=== PATIENT | female | born 1935 | race Caucasian/White ===

== ENCOUNTER 2019-08-22 05:31 | Outpatient (RCR) | payer MEDICARE, OTHER, SELFPAY | END 2019-08-23 00:01 | LOC: ONCMED 05:31 | PROVIDERS: Family Provider Family Medicine; Visit Provider Internal Medicine Hematology & Oncology | DX: D69.6 Thrombocytopenia, unspecified (principal); D64.9 Anemia, unspecified; K92.0 Hematemesis; Z79.52 Long term (current) use of systemic steroids; Z79.899 Other long term (current) drug therapy ==

== ENCOUNTER 2019-09-02 07:57 | Outpatient (RCR) | payer MEDICARE, OTHER, SELFPAY ==
[2019-08-25] MEDS: acetaminophen 325 mg Tablet 650 MG PO ×2 (09:15→12:54)
[2019-08-25 09:39] LABS: Eosinophils % 0.3 %; Hematocrit 23.3 % (37.0-47.0); Hemoglobin 7.4 g/dL (11.5-15.3); Lymphocytes # 1.6 10^3/uL (0.8-4.8); Lymphocytes % 48.4 %; Mean Corpuscular HGB Conc 31.8 g/dL (30.0-36.0); Mean Corpuscular Hemoglobin 32.7 pg (28.0-34.0); Mean Corpuscular Volume 103.1 fL (81-99); Mean Platelet Volume 12.3 fL (7.4-10.4); Monocytes # 0.3 10^3/uL (0.2-0.9); Monocytes % 8.1 %; Neutrophils # 1.4 10^3/uL (1.8-7.7); Neutrophils % 42.9 %; Nucleated Red Blood Cells % 0 %; Red Blood Count 2.26 10^6/uL (4.1-5.3); Red Cell Distribution Width 20.2 % (12.1-15.1); White Blood Count 3.2 10^3/uL (4.0-10.0)
[2019-08-25 09:52] LABS: Platelet Count 13 10^3/cmm (130-400)
[2019-08-25 10:01] LABS: Add RBC Morph No
[2019-08-25 12:20] VITALS: RESP 18
[2019-08-25] MEDS: meperidine 50 mg/mL INJ 25 MG IV (12:20)
[2019-08-25 14:15] VITALS: BP 105/64; PULSE 72; RESP 18; TEMP 36.6; O2SAT 96
[2019-08-25] MEDS: diphenhydrAMINE 25 mg Capsule PO (15:43)
[2019-08-25 15:55] VITALS: BP 104/50; PULSE 73; RESP 18; TEMP 36.8; O2SAT 93
[2019-08-25 16:10] VITALS: BP 113/53; PULSE 81; RESP 18; TEMP 36.8; O2SAT 95
--- NOTE | 2019-08-25 16:26 | PC.NURSE ---
PT GIVEN PLATELET TRANSFUSION THROUGH IV TO LEFT WRIST 22G, FREE FLOW OVER 15MIN, PT ASYMPTOMATIC AND TOLERATED WELL.
[2019-08-26] VITALS (11 sets, daily range): BP systolic 94–156; BP diastolic 59–77; PULSE 65–88; RESP 18–188; TEMP 36.2–36.9; O2SAT 95–99
[2019-08-26 13:39] LABS: Albumin Level 3.8 g/dL (3.5-5.2); Alkaline Phosphatase 151 IU/L (35-105); Anion Gap 18.2 (5-19); Blood Urea Nitrogen 28 mg/dL (8-23); Calcium 9.2 mg/Dl (8.8-10.2); Carbon Dioxide 21 mmol/L (22-29); Chloride 106 mmol/L (98-107); Globulin 2.7 g/dL (1.3-4.6); Glucose 147 mg/dL (74-106); Potassium 4.2 mmol/L (3.5-5.1); Sodium 141 mmol/L (136-145); Total Bilirubin 0.8 mg/dL (0.15-1.2); Total Protein 6.5 g/dL (6.6-8.7)
[2019-08-26 13:40] LABS: Alanine Aminotransferase 21 U/L (0-33); Aspartate Amino Transferase 25 U/L (0-32)
[2019-09-01 12:25] LABS: Hematocrit 31.4 % (37.0-47.0); Lymphocytes # 1.1 10^3/uL (0.8-4.8); Lymphocytes % 53.5 %; Mean Corpuscular HGB Conc 31.8 g/dL (30.0-36.0); Mean Corpuscular Hemoglobin 29.5 pg (28.0-34.0); Mean Corpuscular Volume 92.6 fL (81-99); Mean Platelet Volume 9.7 fL (7.4-10.4); Monocytes # 0.1 10^3/uL (0.2-0.9); Monocytes % 6.9 %; Neutrophils % 38.1 %; Nucleated Red Blood Cells % 0 %; Red Blood Count 3.39 10^6/uL (4.1-5.3); Red Cell Distribution Width 17.6 % (12.1-15.1)
[2019-09-01 12:31] LABS: Neutrophils # 0.8 10^3/uL (1.8-7.7); Platelet Count 7 10^3/cmm (130-400)
[2019-09-02] MEDS: acetaminophen 325 mg Tablet 650 MG PO ×2 (08:12→12:10)
[2019-09-02] MEDS: sodium chloride 0.9% 500 ML 75 ML IV (08:59)
[2019-09-02] MEDS: diphenhydrAMINE 25 mg Capsule PO (12:10)
[2019-09-02 12:17] VITALS: BP 127/70; PULSE 77; RESP 17; TEMP 36.8; O2SAT 98
[2019-09-02 12:27] VITALS: BP 124/67; PULSE 75; RESP 17; TEMP 36.7; O2SAT 97
[2019-09-02 12:30] VITALS: BP 124/67; PULSE 75; RESP 17; TEMP 36.7; O2SAT 97
--- NOTE | 2019-09-05 12:05 | ONC FU_ITS ---
Jayy Roe Patient Note Patient: Azul Mg Unit #: [id number]: [id number] Dictated By: Walt CasasDate of Visit: Sep 01, 2019 Onc MED Follow-Up/Prog Note Chief Complaint: Thrombocytopenia/anemia History of Present Illness: Mrs. Mg is a 84-year-old female who was admitted to hospital in the last week of March 2019 with hematemesis at that time she was diagnosed with gastric ulcer and was started on Dexilant ,, not sure whether EGD was done but had CT scan of abdomen done. As per patient she did not receive any transfusion and no history of blood transfusion in the past but when she was she was prescribed Geritol for anemia. She has history of EGD and colonoscopy done in 2013 in [facility], as per patient was unremarkable and she was told, considering her age she would not require any more follow-up colonoscopy or EGD. Patient also had injection in her right hip for sciatica. Patient has no history of thrombocytopenia except recently on 05/10/2019 her CBC showed white blood count 4.3 hemoglobin 10.6 crit 30.9 platelets [id number], at that time her primary care physician discontinued her losartan considering the cause of thrombocytopenia. Patient denies any gross bleeding but long scratch lester on inner side of arms bilaterally due to scratching and ecchymosis on the left arm, otherwise no melena or hematochezia, no dysuria, no hematuria, no hemoptysis or hematemesis, no nosebleed of them., No jaundice. Patient was admitted hospital on 07/06/2019 with nosebleed and her initial lab shows severe thrombocytopenia she was given platelets transfusion and was started on prednisone 1 mg/kg with that on 07/07/2019 her platelet count gone up to 140,000 hemoglobin 9 hematocrit 27.4 MCV 100.7 white blood count 4.9 and she was discharged home on a tapering dose of prednisone 50 mg by mouth daily for 5 days then 40 mg daily for 5 days and so onAnd once prednisone tapered of her platelet count continued to improve and on 08/02/2019 her platelet count was 137,000 patient was scheduled for bone marrow evaluation on 08/11/2019. Bone marrow aspiration was attempted once, it was a dry tap. But procedure was abandoned as CBC done that day showed platelet count dropped down to 4000 and there was increased risk for hematoma so no further attempts were made to obtain marrow . Patient was given a unit of platelets transfusion and started on prednisone 1 mg/kg and she was monitored per post procedure protocol.Patient came back to clinic on 08/18/2019 and her CBC showed platelet count 15,000 and that time she was given units of platelet transfusion and also discuss about role of Rituxan and hepatitis profile was checked showed no evidence of hepatitis. Patient was started on tapering dose of prednisone. 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 She did experience infusion reaction with tremors, chills, mildly elevated temp. These symptoms were controlled with Solumedrol and Demerol. She recovered well. She is here today for followup. She has no new concerns. She denies any bleeding, fever or chills. She has been staying in the intermediate with her . She states she is eating good and denies any new pain. She denies diarrhea or constipation at this time. she has had no bladder concerns. She denies any shortness of breath or lower extremity edema. Her ECOG is 1. ^ Past Medical History: Benign positional vertigo Hypertension Osteopenia Spinal enethesopathy of lumbar region Past Surgical History: Cataract excision Allergies: Codeine Sulfate, Gabapentin, Pantoprazole Sodium, and Penicillins. Medications: buPROPion HCl ER (SR) 1 (150 mg) Tablet SR 12 HR Oral daily Calcitonin (Frederic) (200 Units/act) Solution Nasal Take as Directed Calcium + D 1 Tablet Oral daily Meclizine HCl 1 Tablet (of 25 mg) Oral daily metFORMIN HCl 1 Tablet (of 500 mg) Oral daily Multivitamin Adults 1 Tablet Oral daily Ondansetron HCl (4 mg) Tablet Oral Take as Directed Pantoprazole Sodium 1 (40 mg) Tablet, enteric coated Oral b.i.d. Family History: Ms. Mg's mother at age 56: breast cancer. Ms. Mg's father at age 77: respiratory failure. Ms. Mg has 1 sister who is alive: ovarian cancer. Social History: Ms. Mg is and she is retired. Ms. Mg has never smoked. She has no history of drinking. Ms. Mg reports the following support systems: lives with spouse, significant other, family, or friends, lives in own house, supportive family/friends willing to assist with needs, and adequate transportation available for expected visits. Her diet consists of regular meals. She indicates her activity level as: light exercise. Review Of Symptoms: Constitutional Denies fevers, chills, night sweats, excessive fatigue or weight loss. Allergic/Immunologic No reactions. Eyes Denies significant visual changes. No diplopia. No amaurosis. ENMT Denies changes in hearing, sore throat, mouth sores, difficulty or changes in swallowing ability, and/or sinus drainage. Hematologic/Lymphatic Denies easy bruising or bleeding. The patient denies any tender or palpable lymph nodes. Breasts Respiratory Denies dyspnea on exertion, chest pain, cough or hemoptysis. Denies orthopnea. Cardiovascular Denies anginal chest pain, palpitations or orthopnea. Gastrointestinal Denies nausea, vomiting, diarrhea, GI bleeding, or constipation. Denies change in bowel habits and/or stool color, no heartburn or early satiety. Genitourinary (F) No hematuria, hesitancy, incontinence, vaginal bleeding, discharge or other problems with urination. Musculoskeletal Denies joint pain, swelling or redness. No decreased range of motion. Integumentary Denies chronic rashes, inflammation, ulcerations or skin changes. Neurologic Denies headache, blurred vision, and no areas of focal weakness or numbness. Normal gait. No sensory problems. Psychiatric Denies insomnia, depression, oh or mood swings. Vital Signs: Performed on Sep 01, 2019 13:37 Height - 61.00 in Weight - 160.0 lbs (LOW) BSA - 1.72 sq.m BMI - 30.23 (HIGH) Temperature - 97.7 F (LOW) Pulse - 82 /min Respiration - 24 /min BP - 189/72 mm(hg) (HIGH) O2 Sat - 94 % (LOW) Pain - 0,2 - Ambulatory/capable of all self-care, unable to perform any work activities. Up and about more than 50% of waking hours. (ECOG) Physical Examination: Constitutional Alert, oriented, no acute distress. Skin pink, warm and dry. Head Normocephalic; atraumatic. Eyes Conjunctivae and sclerae are clear and without icterus. Pupils are reactive and equal. ENMT No oral exudates, ulcers, masses, thrush or mucositis. Oropharynx clear. Tongue normal. Neck Supple without masses or thyromegaly. No jugular venous distension. Hematologic/Lymphatic No petechiae or purpura. No tender or palpable lymph nodes in the cervical or supraclavicular areas. Respiratory Lungs are clear to auscultation without rhonchi or wheezing. Cardiovascular Regular rate and rhythm of heart without murmurs,clicks, gallops or rubs. Abdomen Non-tender, non-distended, no masses or ascites. Good bowel sounds noted in all quads. No guarding or rebound tenderness. No pulsatile masses. Back/Spine Non-tender to palpation. Extremities No visible deformities, no cyanosis, clubbing or edema. Musculoskeletal No tenderness or swelling, normal range of motion without obvious weakness. Integumentary No rashes or lesions. Neurologic No sensory or motor deficits, normal cerebellar function, normal gait. Psychiatric Alert and oriented times three. Coherent speech. Verbalizes understanding of our discussions today. Laboratory:Test performed on Sep 01, 2019 11:55 WBC 2.0 10^9/L RBC 3.39 10^12/L HGB 10.0 g/dL HCT 31.4 % MCV 92.6 fl MCH 29.5 pg MCHC 31.8 g/dL RDW 17.6 % Platelet Count 7 10^9/L MPV 9.7 fL Neutrophils (Gran) 0.8 10^9/L Lymphocytes 1.1 10^9/L Monocytes 0.1 10^9/L Eosinophils 0.0 10^9/L Basophils 0.0 10^9/L Manual Lymphocytes 53.5 % Manual Monocytes 6.9 % Manual Eosinophils 1.0 % Manual Basophils 0.0 % NRBCs 0.0 /100 WBC Test performed on Aug 18, 2019 10:45 Platelet Pheresis, Leukored TRANSFUSED PRODUCT: LEUKRD/PLAT PHERESIS 1ST CONT COUNT: 1 ABO & Rh Type BLD TYPE O POSITIVE BLD TYPE O POSITIVE Hepatitis A Ab, IgM Non- Reactive Hepatitis B Core Ab, Total Non-Reactive Hepatitis B Surf Antigen Non-Reactive Hepatitis B Surface Ab < 3.5 STATUS of IMMUINITY Inconsistent with Immunity 0.0 - 8.5 mIU/mL Consistent with Immunity >8.5 mIU/mL Hepatitis C Ab Non-Reactive Test performed on Aug 18, 2019 07:49 Sodium 143 mmol/L Potassium 4.5 mmol/L Chloride 105 mmol/L CO2 23 mmol/L Anion Gap 19.5 BUN 35 mg/dL Creatinine 1.4 mg/dL Cr Clearance (Est) 35.14 mL/min Glucose 159 mg/dl Protein, Total 7.4 g/dL Albumin 4.6 g/dL Globulin 2.8 gm/dL Bilirubin, Total 0.4 mg/dL ALT (SGPT) 22 U/L AST (SGOT) 18 U/L Alkaline Phosphatase 171 U/L Test performed on Aug 03, 2019 11:40 Packed Red Cells (PRBC) [id number] TRANSFUSED PRODUCT: LEUKOREDUCED RED CELL 1ST CONT COUNT: 2 Type & Screen BLD TYPE O POSITIVE AB SCREEN GEL NEGATIVE BLD TYPE O POSITIVE AB SCREEN GEL NEGATIVE Impression: Progressive Thrombocytopenia, etiology unclear could be multifactorial including underlying ITP, considering her age underlying myelodysplasia cannot be ruled out or medication related, patient is off NINA inhibitor e.g. losartan. Anemia, macrocytic could be nutritional e.g. B12 deficiency or folate deficiency or increased reticulocyte count due to recent hematemesis. Per Dr De La Cruz, this patient is doing well with no evidence of gross bleeding. Follow-up lab shows persistent severe thrombocytopenia despite repeated platelet transfusion and tapering dose of prednisone. Dr De La Cruz recommended weekly Rituxan ???4 while continue taper off prednisone. She will have transfusion services if her platelet count is less than 20,000 then will consider platelet transfusion and for hemoglobin if below 8 g then will consider blood transfusion. Mrs Mg began her first dose of Rituxan on 08/25/2019. She did have transfusion services on the 2nd for a HGB of 7.4. She did have infusion reaction to the Rituxan which resolved with additional premeds and Solumedrol. Plan: 1. 1. Proceed with week 2/4 of planned Rituxan at same dosing. She will actually receive the Rituxan tomorrow as it was not scheduled for today and is too late in the day to start the right toxin especially after she required 6+ hours for infusion last week. She will also have platelets tomorrow. 2. We will add Solu-Medrol to premeds. 3. She will need 1 unit of platelet pheresis YESENIA for platelet count of 7000. Labs from today were reviewed in detail discussed with Mrs. Mg and her sister and a copy was given to her. WBC is 2.0, hemoglobin 10.0, platelets 7000, ANC is 800. 4. She does not need transfusion services for packed red blood cells as her hemoglobin today is 10.0. 5. Neutropenic precautions were discussed as her ANC is 800. 6. We will plan to recheck her labs with CBC CMP and type and ask on Thursday of next week and have her return next for week 3/4 Rituxan. 7. Mrs. Mg was instructed to contact us in interim should questions or problems arise. Signed By: Walt Casas-, [facility] Catherine De La Cruz MD <<Signature on File>>
[2019-09-07 14:47] LABS: Hematocrit 27.2 % (37.0-47.0); Hemoglobin 8.8 g/dL (11.5-15.3); Lymphocytes # 0.6 10^3/uL (0.8-4.8); Mean Corpuscular HGB Conc 32.4 g/dL (30.0-36.0); Mean Corpuscular Hemoglobin 29.2 pg (28.0-34.0); Mean Corpuscular Volume 90.4 fL (81-99); Mean Platelet Volume 12.2 fL (7.4-10.4); Monocytes # 0.2 10^3/uL (0.2-0.9); Monocytes % 8.1 %; Neutrophils # 1.2 10^3/uL (1.8-7.7); Neutrophils % 58.9 %; Nucleated Red Blood Cells % 0 %; Red Blood Count 3.01 10^6/uL (4.1-5.3); Red Cell Distribution Width 17.7 % (12.1-15.1)
[2019-09-07 15:15] LABS: Platelet Count 24 10^3/cmm (130-400); Slide Review Slide Review Perform
[2019-09-07 15:16] LABS: Alanine Aminotransferase 15 U/L (0-33); Albumin Level 3.7 g/dL (3.5-5.2); Alkaline Phosphatase 113 IU/L (35-105); Anion Gap 18.3 (5-19); Aspartate Amino Transferase 16 U/L (0-32); Blood Urea Nitrogen 20 mg/dL (8-23); Carbon Dioxide 22 mmol/L (22-29); Chloride 100 mmol/L (98-107); Globulin 2.9 g/dL (1.3-4.6); Glucose 141 mg/dL (74-106); Potassium 4.3 mmol/L (3.5-5.1); Sodium 136 mmol/L (136-145); Total Bilirubin 0.7 mg/dL (0.15-1.2); Total Protein 6.6 g/dL (6.6-8.7)
== END 2019-09-02 23:59 | disposition home or self-care (01) ==
LOC: ONCMED 07:57
PROVIDERS: Internal Medicine Medical Oncology; Family Provider Family Medicine; PCP Family Medicine; Visit Provider Nurse Practitioner
DX: D69.3 Immune thrombocytopenic purpura (principal); I10 Essential (primary) hypertension; M85.80 Other specified disorders of bone density and structure, unspecified site
CPT/HCPCS: 36430; 80053; 85025; 86850; 86900; 96367; 96375; 96413; 96415; 99214; J1200; J2175; J2405; J2930; J7040; J9312; P9016

== ENCOUNTER 2019-09-07 12:38 | Inpatient (IN) | payer MEDICARE, OTHER, SELFPAY ==
[2019-09-07 12:39] VITALS: BP 127/62; RESP 16; TEMP 38.1; O2SAT 97; BMI 30.4
--- NOTE | 2019-09-07 12:43 | ED_ITS ---
Entered by Lenore Stokes, acting as scribe for HPI - Abdominal Pain General: Chief Complaint: Abdominal Pain Stated Complaint: abdominal pain Time Seen by Provider: 09/07/19 12:42 Source: patient Mode of arrival: EMS Limitations: no limitations History of Present Illness: HPI narrative: 84 yo Female presents to ED with complaint of lower abdominal pain since yesterday. Pt states that EMS gave her a tablet and her stomach feels better. Pt states that she threw up once and it was clear. Pt has had no diarrhea. Pt states that she might need fluids or platelets . MD elicited complaint: abdominal pain Pertinent past history: none Onset (ago): day(s) Pain Consistency: constant Location: RLQ and LLQ Pain scale (0-10): 0 Radiation: none Migration to: no migration Exacerbating factors: nothing Relieving factors: medication Associated Symptoms: Reports nausea and vomiting; Denies chills, diarrhea, dysuria, fever(s), hematuria and syncope Treatments prior to arrival: other Review of Systems General: Reports: other (negative unless marked) Const: Denies: fever, chills, body aches, fatigue, malaise or diaphoresis Eyes: Denies: change in vision or blurry vision ENMT: Denies: throat pain, painful swallowing, hoarseness, ear pain, ear discharge, Change in hearing or nasal discharge Card: Denies: chest pain, palpitations, irregular heart rhythm, syncope, pre- syncope, shortness of breath on exertion or shortness of breath when lying down Resp: Denies: shortness of breath, productive cough, non-productive cough, wheezing, coughing up blood or chest congestion GI: Reports: nausea and vomiting; Denies: diarrhea : Denies: flank pain, painful urination, urinary frequency, urinary urgency, decreased urine ouput, urinary incontinence or blood in urine Musc: Denies: neck pain, back pain, extremity pain, extremity swelling, joint pain, joint swelling, joint warmth or joint stiffness Skin/Breast: Denies: rash, skin tenderness or yellow skin Neuro: Denies: headache, numbness in extremities, weakness in extremities, changes in sensation, lack of coordination, difficulty walking, dizziness, vertigo or confusion Endo: Denies: excessive thirst, tired all the time, cold intolerance, excessive sweating, flushing or hot flashes Emiliano/Lymph: Denies: easy bruising, easy bleeding, petechiae or enlarged lymph nodes All/Imm: Denies: hives, throat swelling, tongue swelling, facial swelling or acute wheezing PFSH ED PFSH: Statuses (acute, chronic, etc) shown below reflect problem list status as previously entered and may not be historically accurate Medical History Epistaxis (Acute) Osteoporosis (Acute) Peptic ulcer disease (Acute) Thrombocytopenia (Acute) UTI (urinary tract infection) (Acute) Surgical History History of cataract surgery (Acute) Social History Smoking and tobacco status: never smoked Physical Exam Const: COMMON NORMALS: no apparent distress, oriented x3, no limitations, healthy appearing and well nourished EXAM LIMITATIONS: no altered mental status GENERAL APPEARANCE: cooperative, well kempt and well developed ORIENTATION/CONSCIOUSNESS: Yes awake HENMT: COMMON NORMALS: normocephalic, head/scalp atraumatic, hearing grossly normal bilaterally, external ears normal, EAC's normal, external nose normal and moist oral mucous membranes HEAD & SCALP: normal to inspection, normocephalic and atraumatic FACE & SINUS: normal facial exam and face symmetric NOSE: external nose normal and nares normal EXTERNAL EAR: Yes external ears normal EXTERNAL AUDITORY CANAL: EAC's normal MOUTH: oral and palatal mucosa normal and tongue normal Eye: COMMON NORMALS: PERRL, EOMs intact bilaterally, conjunctivae normal and no scleral icterus GENERAL EYE: normal appearance of both eyes and normal light reflex CONJUNCTIVA: Yes conjunctivae normal SCLERA: sclerae normal CORNEA: Yes corneas normal PUPIL: Yes PERRL DIRECT OPHTHALMOSCOPY: Yes normal light reflex Neck/C-Spine: COMMON NORMALS: full ROM, no lymphadenopathy, supple, no meningeal signs and no JVD GENERAL: Yes normal visual inspection and Yes trachea midline CERVICAL SPINE: Yes cervical ROM normal Chest: COMMONS NORMALS: inspection of chest normal and palpation of chest normal Resp: COMMON NORMALS: normal respiratory effort, no retractions, no use of accessory muscles and clear to auscultation bilaterally EFFORT & INSPECTION: Yes able to speak in complete sentences AUSCULTATION: clear to auscultation bilaterally Cardio: COMMON NORMALS: no JVD, regular rate, regular rhythm, S1 normal heart sound, S2 normal heart sound, no gallops, no clicks, no murmurs and no rub JUGULAR VENOUS DISTENTION: no JVD RATE: regular rate RHYTHM: regular rhythm HEART SOUNDS: S1 normal and S2 normal GI: COMMON NORMALS: soft to palpation, non-tender, no hepatosplenomegaly and no masses INSPECTION: Yes normal to inspection PALPATION: Yes soft and Yes no hepatosplenomegaly : COMMON NORMALS: Yes no CVA tenderness BLADDER/KIDNEY EXAM: Yes no CVA tenderness Back/Pelvis: COMMON NORMALS: no CVA tenderness, thoracic and lumbar spine normal to inspection, no thoracic nor lumbar tenderness and thoraco-lumbar ROM normal Extremity: COMMON NORMALS: normal to inspection, full ROM, normal capillary refill, no joint enlargement, no clubbing, cyanosis or edema and no calf tenderness Neuro: COMMON NORMALS: oriented x3, CN's II-XII intact bilaterally, moves all extremities, no focal motor deficits and no sensory deficits noted MENINGEAL SIGNS: Yes no meningeal signs Psych: COMMON NORMALS: mental status grossly normal, thought process normal, cooperative, affect normal, speech normal and activity/motor behavior normal APPEARANCE: Yes well kempt SPEECH: Yes normal speech THOUGHT PROCESS: normal thought process Skin: COMMON NORMALS: no rashes or lesions noted, skin turgor normal, no jaundice, no petechiae and no mottling GENERAL SKIN EXAM: no rashes or lesions noted and turgor normal Procedures Intubation Mg Given: 20 Mg Given: 200 Course Vital Signs: Vital signs: Vital Signs Temperature 100.6 F H 09/07/19 12:39 Pulse Rate 79 09/07/19 14:32 Respiratory Rate 16 09/07/19 14:32 Blood Pressure 122/58 09/07/19 14:32 Pulse Oximetry 96 09/07/19 14:32 MDM - Abdominal Pain MDM Narrative: Medical decision making narrative: Patient comes in with lower abdominal pain, fever but no cause can be determined. I have reviewed the case in full with Dr. Saeed and he will come to see the patient. Lab Data: Labs: Lab Results 09/07/19 09/07/19 09/07/19 Range/Units 12:04 12:04 14:42 WBC 2.2 L (4.0-10.0) 10^3/ uL RBC 3.31 L (4.1-5.3) 10^6/u L Hgb 9.7 L (11.5-15.3) g/dL Hct 29.8 L (37.0-47.0) % MCV 90.0 (81-99) fL MCH 29.3 (28.0-34.0) pg MCHC 32.6 (30.0-36.0) g/dL RDW 17.6 H (12.1-15.1) % Plt Count 23 L* (130-400) 10^3/c mm MPV 12.1 H (7.4-10.4) fL Neut % (Auto) 60.9 % Lymph % (Auto) 30.0 % Luce % (Auto) 7.7 % Eos % (Auto) 0.5 % Baso % (Auto) 0.0 % Neut # (Auto) 1.3 L (1.8-7.7) 10^3/u L Lymph # (Auto) 0.7 L (0.8-4.8) 10^3/u L Luce # (Auto) 0.2 (0.2-0.9) 10^3/u L Eos # (Auto) 0.0 (0.0-0.8) 10^3/u L Baso # (Auto) 0.0 (0.0-0.1) 10^3/u L Nucleated RBC % (a uto) 0 % Nucleated RBCs # 0.0 /100WBC Sodium 136 (136-145) mmol/L Potassium 4.2 (3.5-5.1) mmol/L Chloride 98 (98-107) mmol/L Carbon Dioxide 23 (22-29) mmol/L Anion Gap 19.2 H (5-19) BUN 20 (8-23) mg/dL Creatinine 1.6 H (0.5-0.9) mg/dL Glucose 149 H (74-106) mg/dL Lactic Acid (0.5-2.2) mmol/L Calcium 10.5 H (8.8-10.2) mg/Dl Total Bilirubin 0.8 (0.15-1.2) mg/dL AST 17 (0-32) U/L ALT 17 (0-33) U/L Alkaline Phosphata se 127 H (35-105) IU/L Total Protein 7.4 (6.6-8.7) g/dL Albumin 4.1 (3.5-5.2) g/dL Globulin 3.3 (1.3-4.6) g/dL Lipase 24 (13-60) U/L Urine Color Yellow (Yellow) Urine Appearance Clear (CLEAR) Urine pH 9 H (5-7) Ur Specific Gravit y 1.010 (1.005-1.030) Urine Protein Neg (Negative) Urine Glucose (UA) Norm (Normal) Urine Ketones Negative (Negative) Urine Occult Blood Neg (Negative) Urine Nitrate Negative (Negative) Urine Bilirubin Neg (NEGATIVE) Prot Sulfosalicyli c Acd Trace Urine Urobilinogen 1 H (Negative) mg/dL Ur Leukocyte Anastasia ase Negative (Negative) Urine RBC None (0-2) /hpf Urine WBC None (0-5) /hpf Ur Squamous Epith Cells 0-4 H (0-5) Urine Bacteria Trace (NONE) Influenza Type A A g (Negative) POC Influenza B Ag (Negative) 09/07/19 09/07/19 Range/Units 14:42 14:54 WBC (4.0-10.0) 10^3/ uL RBC (4.1-5.3) 10^6/u L Hgb (11.5-15.3) g/dL Hct (37.0-47.0) % MCV (81-99) fL MCH (28.0-34.0) pg MCHC (30.0-36.0) g/dL RDW (12.1-15.1) % Plt Count (130-400) 10^3/c mm MPV (7.4-10.4) fL Neut % (Auto) % Lymph % (Auto) % Luce % (Auto) % Eos % (Auto) % Baso % (Auto) % Neut # (Auto) (1.8-7.7) 10^3/u L Lymph # (Auto) (0.8-4.8) 10^3/u L Luce # (Auto) (0.2-0.9) 10^3/u L Eos # (Auto) (0.0-0.8) 10^3/u L Baso # (Auto) (0.0-0.1) 10^3/u L Nucleated RBC % (a uto) % Nucleated RBCs # /100WBC Sodium (136-145) mmol/L Potassium (3.5-5.1) mmol/L Chloride (98-107) mmol/L Carbon Dioxide (22-29) mmol/L Anion Gap (5-19) BUN (8-23) mg/dL Creatinine (0.5-0.9) mg/dL Glucose (74-106) mg/dL Lactic Acid 2.9 H (0.5-2.2) mmol/L Calcium (8.8-10.2) mg/Dl Total Bilirubin (0.15-1.2) mg/dL AST (0-32) U/L ALT (0-33) U/L Alkaline Phosphata se (35-105) IU/L Total Protein (6.6-8.7) g/dL Albumin (3.5-5.2) g/dL Globulin (1.3-4.6) g/dL Lipase (13-60) U/L Urine Color (Yellow) Urine Appearance (CLEAR) Urine pH (5-7) Ur Specific Gravit y (1.005-1.030) Urine Protein (Negative) Urine Glucose (UA) (Normal) Urine Ketones (Negative) Urine Occult Blood (Negative) Urine Nitrate (Negative) Urine Bilirubin (NEGATIVE) Prot Sulfosalicyli c Acd Urine Urobilinogen (Negative) mg/dL Ur Leukocyte Anastasia ase (Negative) Urine RBC (0-2) /hpf Urine WBC (0-5) /hpf Ur Squamous Epith Cells (0-5) Urine Bacteria (NONE) Influenza Type A A g Negative (Negative) POC Influenza B Ag Negative (Negative) Imaging Data ^: CT Abd/Pel: Radiologist's impression: [address] [address] [address] Scan Report Signed Patient: Azul Mg #: [id number] : 7Acct#:[id number] Age/Sex: 84 / FADM Date: 09/07/19 Loc: ERRoom/Bed: Attending Dr: Ordering Provider/Ordering MD: Jessa Caraballo DO Date of Service: 09/07/19 Procedure(s): CT abdomen pelvis w con* [id number] Accession Number(s): [id number] Report Number: [id number] PROCEDURE INFORMATION: Exam: CT Abdomen And Pelvis With Contrast Exam date and time: 09/07/2019 1:19 PM Age: 84 years old Clinical indication: Abdominal pain; Patient HX: Generalized abdominal pain with nausea/vomiting. Low platelet count. TECHNIQUE: Imaging protocol: Computed tomography of the abdomen and pelvis with intravenous contrast. Total DLP: 943.32 mGy-cm Radiation optimization: All CT scans at this facility use at least one of these dose optimization techniques: automated exposure control; mA and/or kV adjustment per patient size (includes targeted exams where dose is matched to clinical indication); or iterative reconstruction. Contrast material: Visipaque 320; Contrast volume: 95 ml; Contrast route: IV; COMPARISON: CT abdomen pelvis w con* [id number] 04/22/2019 2:30 PM FINDINGS: Lungs: Lingular calcified pulmonary parenchymal granuloma. Liver: Normal. No mass. Gallbladder and bile ducts: Normal. No calcified stones. No ductal dilation. Pancreas: Normal. No ductal dilation. Spleen: A small anterior splenule is present. Adrenals: Normal. No mass. Kidneys and ureters: 2.2 cm LEFT renal cyst. No hydronephrosis or evidence of obstructive uropathy. Stomach and bowel: Sigmoid colonic diverticula are present without evidence of diverticulitis. Appendix: The vermiform appendix is normal. Intraperitoneal space: Unremarkable. No free air. No significant fluid collection. Vasculature: Calcified phleboliths are present in the lower pelvis bilaterally. The iliac arteries show mild bilateral atherosclerotic calcifications without evidence of aneurysm. Lymph nodes: Stable 4.5 mm probable lymph node LEFT posterolateral flank soft tissues. Bladder: The urinary bladder is partially decompressed and somewhat difficult to assess. Reproductive: Unremarkable as visualized. Bones/joints: Mild T12-L1 and L1-2 retrolisthesis with moderate L1-2 spondylosis. Mild L4-5 spondylosis.Moderate abdominal aortic atherosclerotic calcification without aneurysm. Moderate chronic T12 vertebral body compression deformity, stable. Diffuse osteopenia. L5-S1 spondylosis with bilateral neural foraminal stenosis. Bilateral lower lumbar facet primary osteoarthritis. Severe L4-5 spinal stenosis. Soft tissues: A tiny paraumbilical hernia containing only abdominal fat is noted. CT/CT abdomen pelvis w con* [id number] IMPRESSION: 1. Diverticulosis. 2. LEFT renal cyst. 3. No acute abdominal or pelvic abnormality identified. Radiation Dose CTDIVOL = (mGy): DLP = 943.32 (mGy-cm) Dictated By:Zach Hathaway MD Signed By:Zach Hathaway MDSigned Date/Time:09/07/19 1353 DD/ 1352 CXR: Radiologist's impression: [address] [address] XRay Report Signed Patient: Azul Mg #: [id number] : 1935Acct#:[id number] Age/Sex: 84 / FADM Date: 09/07/19 Loc: ERRoom/Bed: Attending Dr: Ordering Provider/Ordering MD: Jessa Caraballo DO Date of Service: 09/07/19 Procedure(s): XR chest 1V portable [id number] Accession Number(s): [id number] Report Number: [id number] PROCEDURE INFORMATION: Exam: XR Chest, 1 View Exam date and time: 09/07/2019 3:00 PM Age: 84 years old Clinical indication: Cough TECHNIQUE: Imaging protocol: XR of the chest Views: Frontal portable upright view of the chest. COMPARISON: No relevant prior studies available. FINDINGS: Lungs: The lungs are clear bilaterally. The pulmonary vasculature is normal. Pleural space: No pleural effusion. No pneumothorax. Heart/Mediastinum: LEFT hilar granulomatous rosa elena calcifications are present. The heart is normal in size and contour. Diaphragm: The RIGHT hemidiaphragm is moderately elevated. Bones/joints: Mild rightward upper lumbar spinal curvature. XR/XR chest 1V portable [id number] IMPRESSION: No acute cardiopulmonary abnormality identified. Dictated By:Zach Hathaway MD Signed By:Zach Hathaway MDSigned Date/Time:09/07/19 160 DD/ 160 Discharge Plan Discharge Patient Disposition: Placed in Observation Clinical Impression: Fever and neutropenia Condition: Stable Prescriptions: No Action Multiple Vitamins Tablet 1 tab PO DAILY RF: 0 metformin 500 mg Tablet 500 mg PO QPM RF: 0 bupropion HCl 150 mg tablet sustained-release 12 hr 150 mg PO DAILY RF: 0 Zofran 4 mg Tablet 4 mg PO Q8H PRN (Reason: Nausea) RF: 0 meclizine 12.5 mg Tablet 12.5 mg PO Q6H PRN (Reason: Nausea) RF: 0 calcitonin (salmon) 200 unit/actuation [place],Non-Aerosol 1 spray INTRANASAL (ALT) DAILY RF: 0 pantoprazole 40 mg tablet,delayed release (DR/EC) 40 mg PO BID RF: 0 Geritol Tonic with Ferrex 18 2.5 mg-50 mg-18 iron/15 mL Liquid See Rx Instructions .ROUTE .COMPLEX RF: 0 Citracal + D3 (calcium phos) 250 mg calcium- 500 unit Tablet,Chewable 1 tab PO DAILY RF: 0 Rituximan 641mg See Rx Instructions .ROUTE .COMPLEX RF: 0 Referrals: Sophia Núñez DO [Primary Care Provider] - Coding Level of Care Code ED [employer]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
--- NOTE | 2019-09-07 12:46 | CTR_ITS ---
PROCEDURE INFORMATION: Exam: CT Abdomen And Pelvis With Contrast Exam date and time: 09/07/2019 1:19 PM Age: 84 years old Clinical indication: Abdominal pain; Patient HX: Generalized abdominal pain with nausea/vomiting. Low platelet count. TECHNIQUE: Imaging protocol: Computed tomography of the abdomen and pelvis with intravenous contrast. Total DLP: 943.32 mGy-cm Radiation optimization: All CT scans at this facility use at least one of these dose optimization techniques: automated exposure control; mA and/or kV adjustment per patient size (includes targeted exams where dose is matched to clinical indication); or iterative reconstruction. Contrast material: Visipaque 320; Contrast volume: 95 ml; Contrast route: IV; COMPARISON: CT abdomen pelvis w con* [id number] 04/22/2019 2:30 PM FINDINGS: Lungs: Lingular calcified pulmonary parenchymal granuloma. Liver: Normal. No mass. Gallbladder and bile ducts: Normal. No calcified stones. No ductal dilation. Pancreas: Normal. No ductal dilation. Spleen: A small anterior splenule is present. Adrenals: Normal. No mass. Kidneys and ureters: 2.2 cm LEFT renal cyst. No hydronephrosis or evidence of obstructive uropathy. Stomach and bowel: Sigmoid colonic diverticula are present without evidence of diverticulitis. Appendix: The vermiform appendix is normal. Intraperitoneal space: Unremarkable. No free air. No significant fluid collection. Vasculature: Calcified phleboliths are present in the lower pelvis bilaterally. The iliac arteries show mild bilateral atherosclerotic calcifications without evidence of aneurysm. Lymph nodes: Stable 4.5 mm probable lymph node LEFT posterolateral flank soft tissues. Bladder: The urinary bladder is partially decompressed and somewhat difficult to assess. Reproductive: Unremarkable as visualized. Bones/joints: Mild T12-L1 and L1-2 retrolisthesis with moderate L1-2 spondylosis. Mild L4-5 spondylosis.Moderate abdominal aortic atherosclerotic calcification without aneurysm. Moderate chronic T12 vertebral body compression deformity, stable. Diffuse osteopenia. L5-S1 spondylosis with bilateral neural foraminal stenosis. Bilateral lower lumbar facet primary osteoarthritis. Severe L4-5 spinal stenosis. Soft tissues: A tiny paraumbilical hernia containing only abdominal fat is noted. CT/CT abdomen pelvis w con* [id number] IMPRESSION: 1. Diverticulosis. 2. LEFT renal cyst. 3. No acute abdominal or pelvic abnormality identified. Radiation Dose CTDIVOL = (mGy): DLP = 943.32 (mGy-cm)
[2019-09-07 13:12] LABS: Alanine Aminotransferase 17 U/L (0-33); Albumin Level 4.1 g/dL (3.5-5.2); Alkaline Phosphatase 127 IU/L (35-105); Anion Gap 19.2 (5-19); Aspartate Amino Transferase 17 U/L (0-32); Blood Urea Nitrogen 20 mg/dL (8-23); Calcium 10.5 mg/Dl (8.8-10.2); Carbon Dioxide 23 mmol/L (22-29); Chloride 98 mmol/L (98-107); Globulin 3.3 g/dL (1.3-4.6); Glucose 149 mg/dL (74-106); Lipase 24 U/L (13-60); Potassium 4.2 mmol/L (3.5-5.1); Sodium 136 mmol/L (136-145); Total Bilirubin 0.8 mg/dL (0.15-1.2); Total Protein 7.4 g/dL (6.6-8.7)
[2019-09-07 13:15] LABS: Eosinophils % 0.5 %; Hematocrit 29.8 % (37.0-47.0); Hemoglobin 9.7 g/dL (11.5-15.3); Lymphocytes # 0.7 10^3/uL (0.8-4.8); Mean Corpuscular HGB Conc 32.6 g/dL (30.0-36.0); Mean Corpuscular Hemoglobin 29.3 pg (28.0-34.0); Mean Platelet Volume 12.1 fL (7.4-10.4); Monocytes # 0.2 10^3/uL (0.2-0.9); Monocytes % 7.7 %; Neutrophils # 1.3 10^3/uL (1.8-7.7); Neutrophils % 60.9 %; Nucleated Red Blood Cells % 0 %; Positive C 1; Red Blood Count 3.31 10^6/uL (4.1-5.3); Red Cell Distribution Width 17.6 % (12.1-15.1); White Blood Count 2.2 10^3/uL (4.0-10.0)
[2019-09-07] MEDS: ondansetron 2 mg/ML SDV 2 mL 4 MG IVP (13:37)
[2019-09-07] MEDS: sodium chloride 0.9% 1,000 ML 100 ML IV (13:38)
--- NOTE | 2019-09-07 13:38 | PC.NURSE ---
PT IN CT AT THIS TIME.
[2019-09-07 13:44] LABS: Platelet Count 23 10^3/cmm (130-400)
[2019-09-07] MEDS: iodixanol 320 mg/mL 100mL Btl IV (13:44)
[2019-09-07 14:32] VITALS: BP 122/58; PULSE 79; RESP 16; O2SAT 96
--- NOTE | 2019-09-07 14:39 | XRR_ITS ---
PROCEDURE INFORMATION: Exam: XR Chest, 1 View Exam date and time: 09/07/2019 3:00 PM Age: 84 years old Clinical indication: Cough TECHNIQUE: Imaging protocol: XR of the chest Views: Frontal portable upright view of the chest. COMPARISON: No relevant prior studies available. FINDINGS: Lungs: The lungs are clear bilaterally. The pulmonary vasculature is normal. Pleural space: No pleural effusion. No pneumothorax. Heart/Mediastinum: LEFT hilar granulomatous rosa elena calcifications are present. The heart is normal in size and contour. Diaphragm: The RIGHT hemidiaphragm is moderately elevated. Bones/joints: Mild rightward upper lumbar spinal curvature. XR/XR chest 1V portable [id number] IMPRESSION: No acute cardiopulmonary abnormality identified.
[2019-09-07 15:17] LABS: Lactic Sepsis W/Reflex 2.9 mmol/L (0.5-2.2)
[2019-09-07 15:20] LABS: Bilirubin Urine Neg (NEGATIVE); Blood Urine Neg (Negative); Glucose Urine UA Norm (Normal); Ketones Urine Negative (Negative); Leukocyte Esterase Urine Negative (Negative); Nitrate Urine Negative (Negative); Protein Urine Neg (Negative); Sulfosalicylic Acid Urine Trace; Urine Appearance Clear (CLEAR); Urine Color Yellow (Yellow); Urobilinogen Urine 1 mg/dL (Negative); pH Urine 9 (5-7)
[2019-09-07 15:21] LABS: Bacteria Urine TRACE; Squamous Epithelial Cell Urine 0-4 (0-5)
[2019-09-07 15:30] LABS: Influenza A by IFA Negative (Negative); Influenza B by IFA Negative (Negative)
[2019-09-07 16:43] LABS: Reflex Lactate Order Y
--- NOTE | 2019-09-07 16:44 | P.HP_ITS ---
Providers/Chief Complaint Primary Care Provider: Sophia Núñez DO Chief Complaint: abdominal pain History of Present Illness Azul Mg is a 84 year old female that presented to the emergency department originally for abdominal pain. She reported that started yesterday. He was rather chronic, associated with nausea and one episode of vomiting. She now feels better after some IV medication given in the emergency department. I believe she is received some Tylenol as well as Zofran. She was also noted to have a temperature of 100.8. The emergency department contacted me for potential admission to the hospital secondary to fever, relative hyponatremia, and that she is on Rituxan for thrombocytopenia. Patient denies any cough or congestion. She denies any diarrhea. She reports 2 weeks ago her daughter had flu symptoms but she took special precautions to try to prevent infection with mask, etc. no blood in her stool or black or tarry stools. Abdominal pain was central. Review of Systems General: Reports: 10 or more systems reviewed and unremarkable except in HPI and below Const: Reports: fatigue; Denies: fever Eyes: Denies: blurry vision ENMT: Denies: throat pain Card: Denies: chest pain Resp: Denies: shortness of breath GI: Reports: abdominal pain, nausea and vomiting; Denies: diarrhea : Denies: difficulty urinating Musc: Denies: extremity pain Skin/Breast: Denies: rash Neuro: Denies: headache Psych: Denies: anxiety Endo: Denies: excessive urination Emiliano/Lymph: Reports: easy bruising All/Imm: Denies: hives Medications/Allergies Home Medications Medication Instructions Recorded Confirmed Last Taken Type [id number] See Rx Instructions .ROUTE .COMPLEX 09/07/19 09/07/19 Unknown History [Geritol Tonic with Ferrex 18] Rituximan 641mg See Rx Instructions .ROUTE .COMPLEX 09/07/19 09/07/19 Unknown History bupropion HCl 150 mg PO DAILY 09/07/19 09/07/19 09/05/19 History calcitonin (salmon) 1 spray INTRANASAL (ALT) DAILY 09/07/19 09/07/19 Unknown History calcium phosphate-vitamin D3 1 tab PO DAILY 09/07/19 09/07/19 Unknown History [Citracal + D3 (calcium phos)] meclizine 12.5 mg PO Q6H PRN 09/07/19 09/07/19 Unknown History metformin 500 mg PO QPM 09/07/19 09/07/19 09/05/19 History multivitamin [Multiple Vitamins] 1 tab PO DAILY 09/07/19 09/07/19 09/05/19 H istory ondansetron HCl [Zofran] 4 mg PO Q8H PRN 09/07/19 09/07/19 Unknown History pantoprazole 40 mg PO BID 09/07/19 09/07/19 09/05/19 History Allergies Allergy/AdvReac Type Severity Reaction Status Date / Time amoxicillin Allergy ADR-Itching Verified 09/07/19 12:51 ibuprofen [From Motrin] Allergy ADR-Agitate Verified 09/07/19 12:51 d Penicillins Allergy ALGY-Rash Verified 09/07/19 12:51 propoxyphene [From Darvon] Allergy ADR-Agitate Verified 09/07/19 12:51 d PFSH Acute PFSH: Statuses (acute, chronic, etc) shown below reflect problem list status as previously entered and may not be historically accurate Medical History (Updated 09/07/19 @ 18:25 by Geoff Saeed MD) Chronic kidney disease, stage II (mild) (Acute) Diverticulosis (Acute) Epistaxis (Acute) Glucose intolerance (Acute) Osteoporosis (Acute) Peptic ulcer disease (Acute) Thrombocytopenia (Acute) UTI (urinary tract infection) (Acute) Surgical History History of cataract surgery (Acute) Family History (Updated 09/07/19 @ 18:30 by Geoff Saeed MD) Mother Cancer Breast cancer Social History (Updated 09/07/19 @ 18:30 by Geoff Saede MD) Smoking and tobacco status: never smoked Alcohol intake: never Substance/Drug Use: never Vitals/I&O/Wt Last Vital Signs Temp 100.6 F H 09/07/19 12:39 Pulse 79 09/07/19 14:32 Resp 16 09/07/19 14:32 BP 122/58 09/07/19 14:32 Pulse Ox 96 09/07/19 14:32 Weight last 48 hrs Weight 73.028 kg Physical Exam Narrative: EXAM NARRATIVE: General exam is no apparent distress HEENT: Pupils equally round. Oropharynx clear. Neck is supple no lymphadenopathy or thyromegaly Cardiovascular regular rate and rhythm without murmur. No S3 or S4 Lungs clear no wheezing or crackles Abdomen is soft with positive bowel sounds. I do not elicit any tenderness currently. No obvious organomegaly. was deferred Extremities show no cyanosis clubbing or edema Skin no rash Neuro no focal deficits Data : 09/07/19 12:04 09/07/19 12:04 Micro: Microbiology 09/07/19 16:12 Blood Culture - Preliminary Blood SPECIMEN COLLECTED 09/07/19 16:15 Blood Culture - Preliminary Blood SPECIMEN COLLECTED Other data: Influenza swab is negative. Chest x-ray per my read demonstrates no infiltrate. A&P Assessment and plan (1) Fever and neutropenia: White blood cell count low. She is on Rituxan. Absolute neutrophil count still 1300 but she is at risk for infection. She will be placed on cefepime. Blood cultures have been drawn. Will monitor for any fever overnight. Repeat laboratory tomorrow and will decide whether she can be discharged on oral antibiotics, or will require another 24 hours of evaluation. 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 Platelets have recently increased. Repeat platelet count tomorrow. Hold Rituxan currently. Status: Acute Code(s): D69.6 - Thrombocytopenia, unspecified (3) Abdominal pain: Improved. With history of fever, abdominal pain it is still possible she could have a viral illness that has triggered her emergency department visit. 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 Fwd Diagnoses Fever and neutropenia D70.9; R50.81 Thrombocytopenia D69.6 Abdominal pain R10.9
[2019-09-07 18:17] VITALS: BP 138/66; PULSE 72; RESP 18; O2SAT 97
[2019-09-07 18:30] VITALS: BP 142/57; PULSE 76; RESP 18; TEMP 36.4; O2SAT 95
[2019-09-07 18:48] VITALS: BP 142/57; RESP 18; TEMP 36.4; O2SAT 95
--- NOTE | 2019-09-07 18:51 | PC.NURSE ---
Pt arrived to unit at 1835 via w/c. Standby assist from w/c to bed. V/S obtained. Pt orientated to room and surroundings. Call light in reach.
[2019-09-07 20:00] VITALS: BP 152/76; PULSE 80; RESP 24; TEMP 36.9; O2SAT 96
[2019-09-07] MEDS: pantoprazole DR 40 mg Tablet PO (20:41)
[2019-09-07] MEDS: sodium chloride 0.9% 1,000 ML 75 ML IV (20:42)
[2019-09-07 20:56] LABS: Lactic Acid level (Lactate) 3.8 mmol/L (0.5-2.2)
[2019-09-08] VITALS (16 sets, daily range): BP systolic 108–153; BP diastolic 60–82; PULSE 67–114; RESP 16–24; TEMP 36.4–38.6; O2SAT 88–99
--- NOTE | 2019-09-08 01:39 | PC.PHAR ---
Renal dosing for Cefepime: decreased frequency from Q8H to Q24H due to CRCL of 20.45
[2019-09-08] MEDS: cefepime 2,000 MG in sodium chloride 0.9% (plus) 50 ML 100 MG IV (02:14)
[2019-09-08] MEDS: acetaminophen 325 mg Tablet 650 MG PO (02:14)
[2019-09-08 04:33] LABS: Blood Urea Nitrogen 19 mg/dL (8-23); Calcium 9.1 mg/Dl (8.8-10.2); Carbon Dioxide 22 mmol/L (22-29); Chloride 102 mmol/L (98-107); Glucose 147 mg/dL (74-106); Sodium 135 mmol/L (136-145)
[2019-09-08 04:37] LABS: Eosinophils % 0.6 %; Hematocrit 23.6 % (37.0-47.0); Hemoglobin 7.7 g/dL (11.5-15.3); Lymphocytes # 0.5 10^3/uL (0.8-4.8); Lymphocytes % 30.5 %; Mean Corpuscular HGB Conc 32.6 g/dL (30.0-36.0); Mean Corpuscular Hemoglobin 29.6 pg (28.0-34.0); Mean Corpuscular Volume 90.8 fL (81-99); Mean Platelet Volume 13.6 fL (7.4-10.4); Monocytes # 0.2 10^3/uL (0.2-0.9); Monocytes % 8.6 %; Neutrophils % 59.2 %; Nucleated Red Blood Cells % 0 %; Red Cell Distribution Width 17.7 % (12.1-15.1); White Blood Count 1.7 10^3/uL (4.0-10.0)
[2019-09-08 06:24] LABS: Platelet Count 12 10^3/cmm (130-400)
[2019-09-08] MEDS: pantoprazole DR 40 mg Tablet PO ×2 (09:28→17:15)
[2019-09-08] MEDS: buPROPion SR (12 HR) 150 mg Tablet PO (09:28)
[2019-09-08] MEDS: sodium chloride 0.9% 1,000 ML 100 ML IV (09:28)
[2019-09-08] MEDS: multivitamin therapeutic Tablet 1 TAB PO (09:28)
[2019-09-08] MEDS: calcitonin nasal 200 unit/spray 3.7 mL Btl 1 SPRAY NASAL (11:21)
[2019-09-08] MEDS: FUROsemide 10 mg/mL SDV 2mL 20 MG IVP (11:21)
--- NOTE | 2019-09-08 12:18 | PC.CHAP ---
Pastoral Care Encounter/Spiritual Assessment Type of Contact [] Declined coremaker bench visit [] Patient/Family/Request visit [] Outpatient visit [] Follow-up visit [] Physician referral [] Code/Alert [] Routine visit [] Staff referral [] Actively dying [x] Patient sleeping [] Family support [] [] Out of room [] Palliative care [] [] Receiving care in room [] Pre-surgical visit [] Trauma [] Long length of stay [] ICU visit [] Other: Relational/Emotional Strength [] Patient feels connected with others/family/visitors/staff [] Distress [] Loneliness/isolation [] Abandonment Spirituality of Patient [] Person of Lorenza [] Attends Latter Day of their Lorenza [] Believes in Prayer [] Reads Bible or Druze materials [] There are Spiritual issues to be addressed 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 Security Analyst Interventions [] Prayer [] Active listening [] Non-anxious presence [] Spiritual/emotional support [] Crisis/trauma care [] Spiritual counseling [] Bereavement support [] Provided bereavement packet [] Provided Bible/devotional materials [] Provided toy/stuffed animal, coloring book to patient or family member [] Completed spiritual assessment [] Provided Communion [] Anointing/[place] [] Salvation [] Other: Impact on Illness or Injury [] Angry [] Fearful [] Anxious [] Often cries [] Exhaustion [] Unable to work [] Unable to attend holiness [] Unable to walk/stand [] Unable to read [] Unable to drive [] Unable to eat/drink [] Unable to sleep [] Unable to be with family [] Other: Summary Time spent with patient
--- NOTE | 2019-09-08 13:52 | P.PN_ITS ---
Subjective Subjective: Interval history: Azul reports she is doing okay. No abdominal pain. No vomiting or diarrhea. Had some fevers through the night. Medications: Reviewed: Yes Vitals/I&O/Wt Last Vital Signs Temp 97.7 F 09/08/19 13:39 Pulse 91 09/08/19 13:24 Resp 22 H 09/08/19 13:39 BP 150/78 09/08/19 13:39 Pulse Ox 96 09/08/19 13:39 09/07/19 09/08/19 09/08/19 22:59 06:59 14:59 Intake Total 1000 / 1000 600 / 600 Balance 1000 / 1000 600 / 600 Weight last 48 hrs Weight 77.156 kg Weight 73.028 kg Physical Exam Narrative: EXAM NARRATIVE: General exam no apparent distress Cardiovascular regular in rhythm without murmur Lungs clear Abdomen is soft with positive bowel sounds. Nontender Extremities no cyanosis clubbing or edema Data Micro: Micro: Microbiology 09/07/19 16:12 Blood Culture - Pr eliminary Blood SPECIMEN [facility] 09/07/19 16:15 Blood Culture - Pr eliminary Blood SPECIMEN [facility] A&P Assessment and plan (1) Fever and neutropenia: White blood cell count has decreased further. ANC still above 500. She was on Rituxan. Absolute neutrophil count still 1000 but she is at risk for infection. Currently on cefepime. Blood cultures have been drawn. 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 Platelets have decreased. Platelet transfusion today as platelets 12,000 and with significant anemia Status: Acute Code(s): D69.6 - Thrombocytopenia, unspecified (3) Abdominal pain: Improved. With history of fever, abdominal pain it is still possible she could have a viral illness that has triggered her emergency department visit. Abdominal pain has resolved Status: Acute Code(s): R10.9 - Unspecified abdominal pain Additional A&P Information Anemia. Hemoglobin 7.7. 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
[2019-09-08] MEDS: LORazepam 2 mg/mL INJ 1 mL 0.25 MG IVP (13:57)
[2019-09-08] MEDS: sodium chloride 0.9% 1,000 ML 75 ML IV (17:16)
[2019-09-08 17:45] LABS: Hemoglobin 9.5 g/dL (11.5-15.3)
--- NOTE | 2019-09-08 17:54 | PC.NURSE ---
Pt noted to be c/o being cold this shift. Heat in room increased and extra blankets added. Pt daughter brought pt an electric blanket. This nurse explained that the blanket is a fire risk and the extra heat is increasing pt temperature. Pt daughter verbalized understand. Upon later rounding pt daughter noted to put electric blanket on pt. Re educated on fire risk and increasing pt temperature.
[2019-09-09] VITALS (7 sets, daily range): BP systolic 117–147; BP diastolic 69–82; PULSE 80–99; RESP 15–24; TEMP 36.6–38.3; O2SAT 92–98
[2019-09-09] MEDS: cefepime 2,000 MG in sodium chloride 0.9% (plus) 50 ML 100 MG IV (01:33)
[2019-09-09] MEDS: acetaminophen 325 mg Tablet 650 MG PO (01:33)
[2019-09-09 06:43] LABS: Eosinophils % 0.5 %; Hematocrit 28.6 % (37.0-47.0); Hemoglobin 9.5 g/dL (11.5-15.3); Lymphocytes # 0.7 10^3/uL (0.8-4.8); Lymphocytes % 33.2 %; Mean Corpuscular HGB Conc 33.2 g/dL (30.0-36.0); Mean Corpuscular Hemoglobin 29.3 pg (28.0-34.0); Mean Corpuscular Volume 88.3 fL (81-99); Monocytes # 0.1 10^3/uL (0.2-0.9); Monocytes % 3.4 %; Neutrophils # 1.3 10^3/uL (1.8-7.7); Neutrophils % 61.4 %; Nucleated Red Blood Cells % 0 %; Platelet Count 63 10^3/cmm (130-400); Red Blood Count 3.24 10^6/uL (4.1-5.3); Red Cell Distribution Width 16.6 % (12.1-15.1); White Blood Count 2.1 10^3/uL (4.0-10.0)
[2019-09-09 06:53] LABS: Alanine Aminotransferase 12 U/L (0-33); Albumin Level 3.5 g/dL (3.5-5.2); Alkaline Phosphatase 90 IU/L (35-105); Anion Gap 17.5 (5-19); Aspartate Amino Transferase 16 U/L (0-32); Blood Urea Nitrogen 18 mg/dL (8-23); Calcium 9.5 mg/Dl (8.8-10.2); Carbon Dioxide 22 mmol/L (22-29); Chloride 103 mmol/L (98-107); Glucose 151 mg/dL (74-106); Potassium 3.5 mmol/L (3.5-5.1); Sodium 139 mmol/L (136-145); Total Bilirubin 0.7 mg/dL (0.15-1.2); Total Protein 6.5 g/dL (6.6-8.7)
[2019-09-09 06:54] LABS: Slide Review Slide Review Perform
[2019-09-09] MEDS: buPROPion SR (12 HR) 150 mg Tablet PO (09:49)
[2019-09-09] MEDS: pantoprazole DR 40 mg Tablet PO ×2 (09:49→17:01)
[2019-09-09] MEDS: multivitamin therapeutic Tablet 1 TAB PO (09:49)
[2019-09-09] MEDS: calcitonin nasal 200 unit/spray 3.7 mL Btl 1 SPRAY NASAL (09:50)
--- NOTE | 2019-09-09 11:53 | PM.PN ---
Subjective Subjective: Interval history: Azul reports she is feeling okay. She got chilled last night. Fever was noted last night. She reports no recurrence of her abdominal pain. No vomiting, nausea or diarrhea. No cough or congestion currently. Medications: Reviewed: Yes Vitals/I&O/Wt Last Vital Signs Temp 98.2 F 09/09/19 08:00 Pulse 80 09/09/19 08:00 Resp 18 09/09/19 08:00 BP 147/82 09/09/19 08:00 Pulse Ox 92 09/09/19 08:00 09/08/19 09/09/19 09/09/19 22:59 06:59 14:59 Intake Total 1030 / 2630 150 / 2780 120 / 120 Balance 1030 / 2630 150 / 2780 120 / 120 Weight last 48 hrs Weight 77.156 kg Weight 73.028 kg Physical Exam Narrative: EXAM NARRATIVE: General exam no apparent distress Cardiovascular regular in rhythm without murmur Lungs clear Abdomen is soft with positive bowel sounds. Nontender Extremities no cyanosis clubbing or edema Data : 09/09/19 06:02 09/09/19 06:02 Micro: Microbiology 09/07/19 16:12 Blood Culture - Preliminary Blood NEGATIVE TO DATE 09/07/19 16:15 Blood Culture - Preliminary Blood NEGATIVE TO DATE A&P Assessment and plan (1) Fever and neutropenia: White blood cell count has increased to 2.1, with an absolute neutrophil count of 1300. She was on Rituxan. Currently on cefepime. Blood cultures negative to date. Continue cefepime at this time. Continue hospitalization until afebrile for 24 hours. 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 Received 1 unit of pheresis platelets yesterday. Platelet count is increased to 63,000. Status: Acute Code(s): D69.6 - Thrombocytopenia, unspecified (3) Abdominal pain: Resolved. With history of fever, abdominal pain it is still possible she could have a viral illness that has triggered her emergency department visit. Status: Acute Code(s): R10.9 - Unspecified abdominal pain Additional A&P Information Anemia. 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
[2019-09-10] VITALS: BP 114/65; PULSE 94; RESP 22; TEMP 39.1; O2SAT 92
[2019-09-10] MEDS: acetaminophen 325 mg Tablet 650 MG PO ×2 (00:23→15:40)
[2019-09-10] MEDS: cefepime 2,000 MG in sodium chloride 0.9% (plus) 50 ML 100 MG IV (02:15)
[2019-09-10 02:45] VITALS: PULSE 69; O2SAT 93
[2019-09-10 06:15] LABS: Eosinophils % 0.4 %; Hematocrit 28.5 % (37.0-47.0); Hemoglobin 9.3 g/dL (11.5-15.3); Lymphocytes # 0.7 10^3/uL (0.8-4.8); Mean Corpuscular HGB Conc 32.6 g/dL (30.0-36.0); Mean Corpuscular Hemoglobin 29.2 pg (28.0-34.0); Mean Corpuscular Volume 89.6 fL (81-99); Mean Platelet Volume 11.1 fL (7.4-10.4); Monocytes # 0.1 10^3/uL (0.2-0.9); Monocytes % 3.1 %; Neutrophils # 1.5 10^3/uL (1.8-7.7); Neutrophils % 66.2 %; Nucleated Red Blood Cells % 0 %; Platelet Count 41 10^3/cmm (130-400); Red Blood Count 3.18 10^6/uL (4.1-5.3); White Blood Count 2.2 10^3/uL (4.0-10.0)
[2019-09-10 06:34] LABS: Anion Gap 15.6 (5-19); Blood Urea Nitrogen 17 mg/dL (8-23); Calcium 9.7 mg/Dl (8.8-10.2); Carbon Dioxide 24 mmol/L (22-29); Chloride 103 mmol/L (98-107); Glucose 139 mg/dL (74-106); Potassium 3.6 mmol/L (3.5-5.1); Sodium 139 mmol/L (136-145)
[2019-09-10 06:55] LABS: Slide Review Slide Review Perform
--- NOTE | 2019-09-10 08:39 | XRR_ITS ---
PROCEDURE INFORMATION: Exam: XR Chest, 1 View Exam date and time: 09/10/2019 8:41 AM Age: 84 years old Clinical indication: Shortness of breath; Additional info: Fever TECHNIQUE: Imaging protocol: XR of the chest Views: 1 view. COMPARISON: CR XR chest 1V portable [id number] 09/07/2019 2:52 PM FINDINGS: Lungs: Unremarkable. No consolidation. Pleural space: Elevation of the right hemidiaphragm No pleural effusion. No pneumothorax. Heart/Mediastinum: Unremarkable. No cardiomegaly. Bones/joints: Unremarkable. XR/XR chest 1V portable [id number] IMPRESSION: No acute findings.
[2019-09-10] MEDS: pantoprazole DR 40 mg Tablet PO ×2 (09:09→17:46)
[2019-09-10] MEDS: multivitamin therapeutic Tablet 1 TAB PO (09:09)
[2019-09-10] MEDS: buPROPion SR (12 HR) 150 mg Tablet PO (09:09)
[2019-09-10] MEDS: calcitonin nasal 200 unit/spray 3.7 mL Btl 1 SPRAY NASAL (09:38)
[2019-09-10] MEDS: vancomycin 1,000 MG in sodium chloride 0.9% 250 ML 250 MG IV (10:29)
--- NOTE | 2019-09-10 11:42 | PM.PN ---
Subjective Subjective: Interval history: Azul reports she is having some chills this morning. Again she denies any abdominal pain, cough or congestion. Medications: Reviewed: Yes Vitals/I&O/Wt Last Vital Signs Temp 102.4 F H 09/10/19 00:00 Pulse 69 09/10/19 02:45 Resp 22 H 09/10/19 00:00 BP 114/65 09/10/19 00:00 Pulse Ox 93 09/10/19 02:45 09/09/19 09/10/19 09/10/19 22:59 06:59 14:59 Intake Total 1100 / 1340 120 / 120 Output Total 0 / 0 Balance 1100 / 1340 120 / 120 Physical Exam Narrative: EXAM NARRATIVE: General exam no apparent distress Cardiovascular regular in rhythm without murmur Lungs clear Abdomen is soft with positive bowel sounds Extremities no cyanosis clubbing or edema Skin no evidence of cellulitis Data : 09/10/19 06:06 09/10/19 06:06 Micro: Microbiology 09/10/19 09:32 Blood Culture - Preliminary Blood SPECIMEN COLLECTED 09/10/19 09:13 Blood Culture - Preliminary Blood SPECIMEN COLLECTED A&P Assessment and plan (1) Fever and neutropenia: ANC 1500. She is continues to run fevers. Will expand antibiotics currently and add vancomycin to cefepime. Redraw blood cultures. Check chest x-ray, urinalysis, urine culture. She has no hardware/port. We will repeat influenza swab. Conceivably, fever could be secondary to her bone marrow issues. I do not believe she has had a formal bone marrow, secondary to concern for bleeding. 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 Will arrange for a peripheral smear as well. Check haptoglobin and LDH. Doubt TTP. No neurologic issues at this time. 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 Received 1 unit of pheresis platelets September 08. Platelet count is stable currently at 41K. Status: Acute Code(s): D69.6 - Thrombocytopenia, unspecified (3) Abdominal pain: Resolved. With history of fever, abdominal pain it is still possible she could have a viral illness that has triggered her emergency department visit. Status: Acute Code(s): R10.9 - Unspecified abdominal pain Additional A&P Information Anemia. Increased appropriately after 1 unit of packed red blood cells chronic kidney disease at least stage II History of diverticulosis History of peptic ulcer disease Glucose intolerance Attestations Medical Necessity Statement*: Needs continued hospitalization secondary to persistent fever. 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
[2019-09-10 12:00] VITALS: BP 110/66; PULSE 90; RESP 18; TEMP 36.9; O2SAT 93
[2019-09-10 13:34] LABS: LAB Peripheral Smear Sent for Review
[2019-09-10 13:39] LABS: Lactate Dehydrogenase 217 U/L (135-214)
[2019-09-10 13:48] LABS: Influenza A by IFA Negative (Negative); Influenza B by IFA Negative (Negative)
[2019-09-10 13:49] LABS: Bilirubin Urine Neg (NEGATIVE); Blood Urine Neg (Negative); Glucose Urine UA Norm (Normal); Ketones Urine Negative (Negative); Leukocyte Esterase Urine Negative (Negative); Nitrate Urine Negative (Negative); Protein Urine Trace (Negative); Specific Gravity, Urine 1.015 (1.005-1.030); Urine Appearance Clear (CLEAR); Urine Color Yellow (Yellow); Urobilinogen Urine Norm (Negative); pH Urine 5 (5-7)
[2019-09-10] MEDS: LORazepam 2 mg/mL INJ 1 mL 0.25 MG IVP (14:35)
--- NOTE | 2019-09-10 14:36 | PC.NURSE ---
anxiety pt given lorazepam for anxiety.
[2019-09-10 14:41] LABS: Mucus Urine TRACE
[2019-09-10 14:42] LABS: Fine Granular Casts Urine 0-4 /lpf; Hyaline Casts Urine 0-4; RBC Urine 0-4 /hpf (0-2)
[2019-09-10 14:43] LABS: Add Urine Culture? No; Bacteria Urine 1+
[2019-09-10 15:38] VITALS: BP 112/54; PULSE 92; RESP 18; TEMP 38.2; O2SAT 93
[2019-09-10 17:49] VITALS: TEMP 37.1
[2019-09-10 20:00] VITALS: BP 109/62; PULSE 94; RESP 18; TEMP 37.1; O2SAT 94
[2019-09-11] VITALS (7 sets, daily range): BP systolic 105–119; BP diastolic 45–73; PULSE 67–113; RESP 16–20; TEMP 37.1–38.6; O2SAT 90–92
[2019-09-11] MEDS: LORazepam 2 mg/mL INJ 1 mL 0.25 MG IVP ×2 (00:46→09:07)
[2019-09-11] MEDS: cefepime 2,000 MG in sodium chloride 0.9% (plus) 50 ML 100 MG IV (02:24)
[2019-09-11] MEDS: multivitamin therapeutic Tablet 1 TAB PO (09:08)
[2019-09-11] MEDS: buPROPion SR (12 HR) 150 mg Tablet PO (09:08)
[2019-09-11] MEDS: pantoprazole DR 40 mg Tablet PO ×2 (09:08→17:30)
[2019-09-11] MEDS: acetaminophen 325 mg Tablet 650 MG PO (09:08)
[2019-09-11] MEDS: calcitonin nasal 200 unit/spray 3.7 mL Btl 1 SPRAY NASAL (09:09)
[2019-09-11] MEDS: vancomycin 1,000 MG in sodium chloride 0.9% 250 ML 250 MG IV (09:11)
--- NOTE | 2019-09-11 10:21 | PC.SOCIAL ---
Pg 2 IMM Explained to pt Pg 2 IMM. Pt verbally understands & signed. Provided a copy to pt & left on pt's bedside table. Signed, dated, & timed, then placed in chart.
[2019-09-11 11:22] LABS: Eosinophils % 0.6 %; Hematocrit 25.9 % (37.0-47.0); Lymphocytes # 0.4 10^3/uL (0.8-4.8); Lymphocytes % 27.3 %; Mean Corpuscular HGB Conc 30.9 g/dL (30.0-36.0); Mean Corpuscular Hemoglobin 29.5 pg (28.0-34.0); Mean Corpuscular Volume 95.6 fL (81-99); Mean Platelet Volume 12.2 fL (7.4-10.4); Monocytes # 0.1 10^3/uL (0.2-0.9); Monocytes % 5.6 %; Neutrophils # 1.1 10^3/uL (1.8-7.7); Neutrophils % 65.3 %; Nucleated Red Blood Cells % 0 %; Red Blood Count 2.71 10^6/uL (4.1-5.3); Red Cell Distribution Width 17.3 % (12.1-15.1); White Blood Count 1.6 10^3/uL (4.0-10.0)
[2019-09-11 12:03] LABS: Slide Review Slide Review Perform
[2019-09-11 12:04] LABS: Platelet Count 23 10^3/cmm (130-400)
--- NOTE | 2019-09-11 15:51 | PM.PN ---
Subjective Subjective: Interval history: Azul reports she is doing okay. Feels better than she did. No chills currently. Medications: Reviewed: Yes Vitals/I&O/Wt Last Vital Signs Temp 98.8 F 09/11/19 15:21 Pulse 75 09/11/19 15:21 Resp 16 09/11/19 15:21 BP 108/45 09/11/19 15:21 Pulse Ox 91 09/11/19 15:21 09/11/19 09/11/19 09/11/19 06:59 14:59 22:59 Intake Total 360 / 1030 480 / 480 Output Total 500 / 600 400 / 400 Balance -140 / 430 80 / 80 Weight last 48 hrs Weight 74.049 kg Physical Exam Narrative: EXAM NARRATIVE: General exam no apparent distress Cardiovascular regular rate and rhythm Lungs clear Abdomen is soft positive bowel sounds Extremities no cyanosis clubbing or edema Data : 09/11/19 10:55 09/10/19 06:06 Micro: Microbiology 09/10/19 09:32 Blood Culture - Preliminary Blood NEGATIVE TO DATE 09/10/19 09:13 Blood Culture - Preliminary Blood NEGATIVE TO DATE 09/10/19 12:38 Urine Culture - Preliminary Urine,Clean Catch A&P Assessment and plan (1) Fever and neutropenia: ANC 1100. Fevers appear improved. Vancomycin was added yesterday. No source for fevers was noted. Cultures remain negative. She has no hardware/port. Conceivably, fever could be secondary to her bone marrow issues, or even Rituxan. I do not believe she has had a formal bone marrow, secondary to concern for bleeding. 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 Will arrange for a peripheral smear as well but this is pending. Haptoglobin and LDH do not indicate any hemolysis, doubt TTP. 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 Repeat laboratory tomorrow. 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 Received 1 unit of pheresis platelets September 08. Platelet count is stable currently at 41K. Status: Acute Code(s): D69.6 - Thrombocytopenia, unspecified (3) Abdominal pain: Resolved. With history of fever, abdominal pain it is still possible she could have a viral illness that has triggered her emergency department visit. She has had no abdominal pain since admission. Status: Acute Code(s): R10.9 - Unspecified abdominal pain Additional A&P Information Anemia. Increased appropriately after 1 unit of packed red blood cells chronic kidney disease at least stage II History of diverticulosis History of peptic ulcer disease Glucose intolerance Attestations Medical Necessity Statement*: Needs continued hospitalization for IV antibiotics secondary to fever and neutropenia. Coding Level of Care Code Acute Director Weights And Measures for [facility] Fwd Diagnoses Fever and neutropenia D70.9; R50.81 Thrombocytopenia D69.6 Abdominal pain R10.9
[2019-09-11] MEDS: sodium chloride 0.9% 1,000 ML 30 ML IV ×2 (16:49→19:37)
[2019-09-12] VITALS (7 sets, daily range): BP systolic 102–122; BP diastolic 46–70; PULSE 60–104; RESP 15–20; TEMP 36.5–38.8; O2SAT 89–94
[2019-09-12] MEDS: cefepime 2,000 MG in sodium chloride 0.9% (plus) 50 ML 100 MG IV (01:37)
[2019-09-12 05:35] LABS: Eosinophils % 0.7 %; Hematocrit 23.8 % (37.0-47.0); Hemoglobin 7.8 g/dL (11.5-15.3); Lymphocytes # 0.5 10^3/uL (0.8-4.8); Lymphocytes % 35.1 %; Mean Corpuscular HGB Conc 32.8 g/dL (30.0-36.0); Mean Corpuscular Volume 88.5 fL (81-99); Mean Platelet Volume 12.2 fL (7.4-10.4); Monocytes # 0.1 10^3/uL (0.2-0.9); Monocytes % 6.6 %; Neutrophils % 56.3 %; Nucleated Red Blood Cells % 0 %; Red Blood Count 2.69 10^6/uL (4.1-5.3); Red Cell Distribution Width 17.2 % (12.1-15.1); White Blood Count 1.5 10^3/uL (4.0-10.0)
[2019-09-12 05:52] LABS: Anion Gap 17.5 (5-19); Blood Urea Nitrogen 18 mg/dL (8-23); Carbon Dioxide 18 mmol/L (22-29); Chloride 102 mmol/L (98-107); Glucose 148 mg/dL (74-106); Potassium 3.5 mmol/L (3.5-5.1); Sodium 134 mmol/L (136-145)
[2019-09-12 06:25] LABS: Platelet Count 13 10^3/cmm (130-400)
[2019-09-12 06:26] LABS: Neutrophils # 0.9 10^3/uL (1.8-7.7); Slide Review Slide Review Perform
[2019-09-12] MEDS: multivitamin therapeutic Tablet 1 TAB PO (08:20)
[2019-09-12] MEDS: buPROPion SR (12 HR) 150 mg Tablet PO (08:20)
[2019-09-12] MEDS: calcitonin nasal 200 unit/spray 3.7 mL Btl 1 SPRAY NASAL (08:20)
[2019-09-12] MEDS: pantoprazole DR 40 mg Tablet PO ×2 (08:20→17:50)
[2019-09-12 09:39] LABS: Vancomycin Trough 10.1 ug/mL (10-15)
[2019-09-12] MEDS: vancomycin 1,000 MG in sodium chloride 0.9% 250 ML 250 MG IV (10:14)
[2019-09-12] MEDS: acetaminophen 325 mg Tablet 650 MG PO (11:37)
[2019-09-12] MEDS: LORazepam 2 mg/mL INJ 1 mL 0.25 MG IVP (12:04)
--- NOTE | 2019-09-12 12:07 | CT_ITS ---
WS: [id number] CT CHEST TECHNIQUE: Noncontrast CT of the chest with coronal and sagittal reformatted images. CLINICAL INFORMATION: cough, febrile neutropenia, r/o pna COMPARISON: None. DLP: 704.[address] scans at [facility] use at least one of these dose optimization techniques: automat ed exposure control; mA and/or kV adjustment per patient size (includes targeted exams where dose is matched to clinical indication); or iterative reconstruction. FINDINGS: Moderate chronic emphysematous changes. Trace pleural fluid. Slight atelectasis in the right greater than left lung base. No focal consolidation. Upper lungs are well aerated. No air bronchograms. No mediastinal or hilar lymphadenopathy. Normal caliber thoracic aorta. Aortic calcification. Coronar y calcification. Noncontrast liver is normal. Small splenule. Adrenal glands are normal. Chronic comp ression of the T12 vertebral body unchanged since . CT/CT chest wo con [id number] IMPRESSION: 1. Moderate chronic emphysematous changes with trace bilateral pleural fluid. 2. Slight atelectasis in the lung bases right greater than left. No focal pneu monia. 3. No mediastinal or hilar lymphadenopathy. 4. Vascular calcification including coronary. 5. Chronic compression of the T12 vertebral body unchanged
[2019-09-12] MEDS: dexamethasone 4 mg Tablet 40 MG PO (14:17)
--- NOTE | 2019-09-12 19:59 | P.PN_ITS ---
Subjective Subjective: Interval history: This morning patient is very teary, as she continues to have fevers, she is worried about her low platelet count, and she is very worried about her at home, has a mild cough, but no other significant complaints, no shortness of breath, has chills, no abdominal pain, no diarrhea, no dysuria, no hematuria, no lightheadedness, no dizziness, no nasal congestion, no sore throat no headache, no headache, no blurry vision Medications: Reviewed: Yes Vitals/I&O/Wt Last Vital Signs Temp 98.6 F 09/12/19 15:44 Pulse 71 09/12/19 15:44 Resp 19 H 09/12/19 15:44 BP 102/50 09/12/19 15:44 Pulse Ox 93 09/12/19 15:44 09/12/19 09/12/19 09/12/19 06:59 14:59 22:59 Intake Total 674.5 / 1990.5 550 / 550 476 / 1026 Output Total 600 / 1000 Balance 74.5 / 990.5 550 / 550 476 / 1026 Weight last 48 hrs Weight 73.709 kg Weight 74.049 kg Physical Exam Const: COMMON NORMALS: no apparent distress and oriented x3 HENMT: COMMON NORMALS: normocephalic HEAD & SCALP: normocephalic Neck/C-Spine: COMMON NORMALS: no JVD Resp: COMMON NORMALS: normal respiratory effort, no retractions, no use of accessory muscles and clear to auscultation bilaterally AUSCULTATION: clear to auscultation bilaterally Cardio: COMMON NORMALS: no JVD, regular rate, regular rhythm, S1 normal heart sound and S2 normal heart sound RATE: regular rate RHYTHM: regular rhythm HEART SOUNDS: S1 normal and S2 normal GI: COMMON NORMALS: normal to inspection, nondistended, normoactive bowel sounds, soft to palpation, non-tender, no hepatosplenomegaly, no masses and no bruits PALPATION: Yes soft and Yes no hepatosplenomegaly Extremity: COMMON NORMALS: normal capillary refill, no clubbing, cyanosis or edema, no calf tenderness and no pedal edema Neuro: COMMON NORMALS: oriented x3 Psych: COMMON NORMALS: mental status grossly normal Data : 09/12/19 05:20 09/12/19 05:20 Micro: Microbiology 09/07/19 16:12 Blood Culture - Final Blood NO GROWTH AFTER 5 DAYS 09/07/19 16:15 Blood Culture - Final Blood NO GROWTH AFTER 5 DAYS 09/10/19 12:38 Urine Culture - Final Urine,Clean Catch A&P Assessment and plan (1) Fever and neutropenia: ANC 900 Fevers unfortunately persist despite being on vancomycin and cefepime. Blood cultures, urine cultures, imaging have all been unremarkable No significant source of infection has been found CT chest was unremarkable this morning Likely patient's fevers, neutropenia, is secondary to Rituximan Plan: -I discussed the risks and benefits of trying steroids, the risks are significant infection, although I think this is unlikely as no significant source has been found, and her imaging has been unremarkable -We will place patient on Decadron Status: Acute Code(s): D70.9 - Neutropenia, unspecified; R50.81 - Fever presenting with conditions classified elsewhere (2) Thrombocytopenia: -Platelet count has dropped to 13,000, no active signs of bleeding -We will transfuse platelet if less than 10,000 -Hopefully Decadron will help -Repeat CBC in the afternoon Status: Acute Code(s): D69.6 - Thrombocytopenia, unspecified (3) Abdominal pain: Resolved. With history of fever, abdominal pain it is still possible she could have a viral illness that has triggered her emergency department visit. She has had no abdominal pain since admission. Status: Acute Code(s): R10.9 - Unspecified abdominal pain Additional A&P Information Anemia. 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
[2019-09-12 20:14] LABS: Hematocrit 26.4 % (37.0-47.0); Hemoglobin 8.4 g/dL (11.5-15.3); Mean Corpuscular HGB Conc 31.8 g/dL (30.0-36.0); Mean Corpuscular Hemoglobin 29.1 pg (28.0-34.0); Mean Corpuscular Volume 91.3 fL (81-99); Red Blood Count 2.89 10^6/uL (4.1-5.3); Red Cell Distribution Width 17.4 % (12.1-15.1); White Blood Count 1.5 10^3/uL (4.0-10.0)
[2019-09-12] MEDS: sodium chloride 0.9% 1,000 ML 30 ML IV (20:29)
[2019-09-12 20:35] LABS: Platelet Count 11 10^3/cmm (130-400)
[2019-09-12 20:38] LABS: Procalcitonin 0.33 ng/mL (0-0.8)
[2019-09-12 20:40] LABS: Anisocytosis 1+; Lymphocytes 29 %; Platelet Estimate Decreased (Normal); Poikilocytosis 1+; Segmented Neutrophils 68 %; Total Cells Counted 100 (0-100)
[2019-09-12 20:49] LABS: Alanine Aminotransferase 18 U/L (0-33); Albumin Level 2.8 g/dL (3.5-5.2); Alkaline Phosphatase 85 IU/L (35-105); Anion Gap 21.8 (5-19); Aspartate Amino Transferase 23 U/L (0-32); Blood Urea Nitrogen 19 mg/dL (8-23); Calcium 9.8 mg/Dl (8.8-10.2); Carbon Dioxide 18 mmol/L (22-29); Chloride 104 mmol/L (98-107); Globulin 3.9 g/dL (1.3-4.6); Glucose 242 mg/dL (74-106); Potassium 3.8 mmol/L (3.5-5.1); Sodium 140 mmol/L (136-145); Total Bilirubin 0.5 mg/dL (0.15-1.2); Total Protein 6.7 g/dL (6.6-8.7)
[2019-09-12 21:43] LABS: Erythrocyte Sedimentation Rate 120 mm/hr (0-15)
[2019-09-13] VITALS (24 sets, daily range): BP systolic 95–179; BP diastolic 61–98; PULSE 66–84; RESP 15–26; TEMP 36.3–37.1; O2SAT 89–95
[2019-09-13 00:45] LABS: C Reactive Protein 346.1 mg/L (0.0-4.9)
[2019-09-13 04:55] LABS: Hematocrit 22.1 % (37.0-47.0); Hemoglobin 7.2 g/dL (11.5-15.3); Mean Corpuscular HGB Conc 32.6 g/dL (30.0-36.0); Mean Corpuscular Volume 92.1 fL (81-99); Mean Platelet Volume 9.5 fL (7.4-10.4); Platelet Count 93 10^3/cmm (130-400); Red Cell Distribution Width 17.3 % (12.1-15.1)
[2019-09-13 05:23] LABS: Procalcitonin 0.25 ng/mL (0-0.8)
[2019-09-13 05:28] LABS: Absolute Segmented Neutrophil 0.5 10/cmm (1.6-7.1); Band Neutrophils Absolute 0.2 10^3/cmm (0.0-1.2); Lymphocytes 22 %; Lymphocytes Absolute 0.2 10^3/cmm (1.2-3.4); Segmented Neutrophils 51 %; Total Cells Counted 100 (0-100)
[2019-09-13 05:29] LABS: Anisocytosis 1+; Platelet Estimate Decreased (Normal); Poikilocytosis Trace
[2019-09-13 05:37] LABS: Alanine Aminotransferase 18 U/L (0-33); Albumin Level 2.9 g/dL (3.5-5.2); Alkaline Phosphatase 92 IU/L (35-105); Anion Gap 16.9 (5-19); Aspartate Amino Transferase 23 U/L (0-32); Blood Urea Nitrogen 18 mg/dL (8-23); Calcium 10.2 mg/Dl (8.8-10.2); Carbon Dioxide 21 mmol/L (22-29); Chloride 107 mmol/L (98-107); Globulin 3.7 g/dL (1.3-4.6); Glucose 245 mg/dL (74-106); Phosphorus 1.9 mg/dL (2.5-4.5); Potassium 3.9 mmol/L (3.5-5.1); Sodium 141 mmol/L (136-145); Total Bilirubin 0.4 mg/dL (0.15-1.2); Total Protein 6.6 g/dL (6.6-8.7)
[2019-09-13 06:01] LABS: C Reactive Protein 295.5 mg/L (0.0-4.9)
[2019-09-13] MEDS: cefepime 2,000 MG in sodium chloride 0.9% (plus) 50 ML 100 MG IV (06:37)
[2019-09-13] MEDS: buPROPion SR (12 HR) 150 mg Tablet PO (08:13)
[2019-09-13] MEDS: multivitamin therapeutic Tablet 1 TAB PO (08:13)
[2019-09-13] MEDS: pantoprazole DR 40 mg Tablet PO ×2 (08:13→18:00)
[2019-09-13] MEDS: dexamethasone 4 mg Tablet 40 MG PO (08:14)
[2019-09-13] MEDS: calcitonin nasal 200 unit/spray 3.7 mL Btl 1 SPRAY NASAL (08:15)
[2019-09-13] MEDS: fluconazole premix 400 MG/200 ML PIGGYBACK 200 MG IV (09:46)
[2019-09-13] MEDS: levofloxacin-dextrose 5 % 750 MG/150 ML PREMIX 150 MG IV (10:34)
--- NOTE | 2019-09-13 10:36 | PC.NURSE ---
Physician in patient room discussing plan of care with patient.
[2019-09-13] MEDS: sodium chloride 0.9% 100 ML (12:54)
[2019-09-13] MEDS: ondansetron 2 mg/ML SDV 2 mL 4 MG IVP ×2 (12:54→20:14)
[2019-09-13] MEDS: acetaminophen 325 mg Tablet 650 MG PO (13:14)
[2019-09-13] MEDS: LORazepam 2 mg/mL INJ 1 mL 0.25 MG IVP ×2 (13:15→20:15)
--- NOTE | 2019-09-13 13:24 | PC.NURSE ---
Pt c/o pain 01/31 R/T headache. PRN tylenol given as well as PRN ativan R/T patient tearful, and appears anxious. Moderate amount of emesis noted prior to start of blood administration. Pt tolerating infusion well thus far. VSS, resp even and unlabored,
--- NOTE | 2019-09-13 14:25 | PC.SOCIAL ---
IMM Updated Page 2 of IMM updated and given to patient. Initialed, dated, and timed and placed back in chart.
--- NOTE | 2019-09-13 14:41 | PC.NURSE ---
Pt resting in bed with eyes closed. 0 s/s of distress noted.
--- NOTE | 2019-09-13 16:06 | PM.PN ---
Subjective Subjective: Interval history: Overnight no events, no chest pain, no shortness of breath, no abdominal pain, no lightheaded, no dizziness, mild cough, no fevers Overnight patient patient had a repeat CBC which showed a platelet count of 11,000, received 2 units of platelets. Patient's response to Decadron was lackluster. But remains afebrile. Platelet count is 93,000. White blood cell count of thousand. Hemoglobin 7.2. Likely secondary to Rituximan. I did speak to Dr. De La Cruz about the case, he advised to discontinue vancomycin and cefepime. Transition to Levaquin and Diflucan for antifungal coverage. Will receive 2 units PRBC. See how patient responds in the next 24 hours, tomorrow we will consider giving her Neupogen. Vitals/I&O/Wt Last Vital Signs Temp 98.8 F 09/13/19 15:34 Pulse 75 09/13/19 15:34 Resp 15 09/13/19 15:34 BP 162/73 09/13/19 15:34 Pulse Ox 91 09/13/19 15:34 09/13/19 09/13/19 09/13/19 06:59 14:59 22:59 Intake Total 1218.5 / 2469.0 360 / 360 Balance 1218.5 / 2469.0 360 / 360 Weight last 48 hrs Weight 72.756 kg Weight 73.709 kg Physical Exam Const: COMMON NORMALS: no apparent distress and oriented x3 HENMT: COMMON NORMALS: normocephalic HEAD & SCALP: normocephalic Neck/C-Spine: COMMON NORMALS: no JVD Resp: COMMON NORMALS: normal respiratory effort, no retractions, no use of accessory muscles and clear to auscultation bilaterally AUSCULTATION: clear to auscultation bilaterally Cardio: COMMON NORMALS: no JVD, regular rate, regular rhythm, S1 normal heart sound and S2 normal heart sound RATE: regular rate RHYTHM: regular rhythm HEART SOUNDS: S1 normal and S2 normal GI: COMMON NORMALS: normal to inspection, nondistended, normoactive bowel sounds, soft to palpation, non-tender, no hepatosplenomegaly, no masses and no bruits PALPATION: Yes soft and Yes no hepatosplenomegaly Extremity: COMMON NORMALS: normal capillary refill, no clubbing, cyanosis or edema, no calf tenderness and no pedal edema Neuro: COMMON NORMALS: oriented x3 Psych: COMMON NORMALS: mental status grossly normal Data : 09/13/19 04:23 09/13/19 04:23 Micro: Microbiology 09/07/19 16:12 Blood Culture - Final Blood NO GROWTH AFTER 5 DAYS 09/07/19 16:15 Blood Culture - Final Blood NO GROWTH AFTER 5 DAYS A&P Assessment and plan (1) Fever and neutropenia: ANC 740 Fevers have resolved, will transition to Levaquin and Diflucan Blood cultures, urine cultures, imaging have all been unremarkable No significant source of infection has been found Likely patient's fevers, neutropenia, is secondary to Rituximan Plan: -Continue Decadron 40 once daily -Continue Levaquin and Diflucan -Transfused 2 units PRBC -Monitor platelet count, absolute neutrophil count, hemoglobin Status: Acute Code(s): D70.9 - Neutropenia, unspecified; R50.81 - Fever presenting with conditions classified elsewhere (2) Thrombocytopenia: -Platelet count has dropped to 13,000, no active signs of bleeding -We will transfuse platelet if less than 10,000 -Hopefully Decadron will help -Repeat CBC in the afternoon Status: Acute Code(s): D69.6 - Thrombocytopenia, unspecified (3) Abdominal pain: Resolved. Status: Acute Code(s): R10.9 - Unspecified abdominal pain Additional A&P Information Anemia. 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
--- NOTE | 2019-09-13 16:43 | PC.NURSE ---
2nd unit of PRBC'S started @ 1640. VSS, resp even and unlabored. Pt tolerated 1st unit w/o any adverse reaction noted
[2019-09-13] MEDS: metoclopramide 5 mg/mL SDV 2 mL IVP (18:00)
--- NOTE | 2019-09-13 18:04 | PC.NURSE ---
Pt with emesis x3. New order received for Reglan 5 mg IVP.
[2019-09-14] VITALS: BP 161/84; PULSE 74; RESP 24; TEMP 36.4; O2SAT 94
[2019-09-14 03:54] VITALS: BP 156/77; PULSE 79; RESP 28; TEMP 36.4; O2SAT 92
[2019-09-14 05:41] LABS: Hematocrit 29.7 % (37.0-47.0); Hemoglobin 10.1 g/dL (11.5-15.3); Mean Corpuscular Hemoglobin 29.3 pg (28.0-34.0); Mean Corpuscular Volume 86.1 fL (81-99); Mean Platelet Volume 9.8 fL (7.4-10.4); Platelet Count 77 10^3/cmm (130-400); Red Blood Count 3.45 10^6/uL (4.1-5.3)
[2019-09-14 05:53] LABS: Alanine Aminotransferase 21 U/L (0-33); Albumin Level 2.8 g/dL (3.5-5.2); Alkaline Phosphatase 81 IU/L (35-105); Anion Gap 19.2 (5-19); Aspartate Amino Transferase 20 U/L (0-32); Blood Urea Nitrogen 26 mg/dL (8-23); Calcium 10.6 mg/Dl (8.8-10.2); Carbon Dioxide 20 mmol/L (22-29); Chloride 108 mmol/L (98-107); Globulin 3.2 g/dL (1.3-4.6); Glucose 218 mg/dL (74-106); Magnesium 2.1 mg/dL (1.7-2.3); Phosphorus 3.6 mg/dL (2.5-4.5); Potassium 4.2 mmol/L (3.5-5.1); Sodium 143 mmol/L (136-145); Total Bilirubin 0.5 mg/dL (0.15-1.2)
[2019-09-14 05:54] LABS: Absolute Segmented Neutrophil 1.2 10/cmm (1.6-7.1); Anisocytosis 1+; Band Neutrophils Absolute 0.3 10^3/cmm (0.0-1.2); Lymphocytes 20 %; Monocytes Absolute 0.1 10^3/cmm (0.1-0.6); Platelet Estimate Decreased (Normal); Segmented Neutrophils 62 %; Total Cells Counted 100 (0-100)
[2019-09-14 06:33] LABS: C Reactive Protein 175.6 mg/L (0.0-4.9)
--- NOTE | 2019-09-14 07:21 | PC.NURSE ---
Pt resting in bed with eyes closed. 0 s/s of distress noted.
[2019-09-14 07:34] VITALS: BP 122/68; PULSE 64; RESP 20; TEMP 36.6; O2SAT 95
[2019-09-14] MEDS: levofloxacin-dextrose 5 % 750 MG/150 ML PREMIX 150 MG IV (09:21)
[2019-09-14] MEDS: multivitamin therapeutic Tablet 1 TAB PO (09:21)
[2019-09-14] MEDS: pantoprazole DR 40 mg Tablet PO (09:21)
[2019-09-14] MEDS: buPROPion SR (12 HR) 150 mg Tablet PO (09:21)
[2019-09-14] MEDS: calcitonin nasal 200 unit/spray 3.7 mL Btl 1 SPRAY NASAL (09:22)
[2019-09-14] MEDS: dexamethasone 4 mg Tablet 40 MG PO (09:23)
[2019-09-14] MEDS: fluconazole premix 400 MG/200 ML PIGGYBACK 200 MG IV (10:09)
[2019-09-14 11:31] VITALS: BP 108/54; PULSE 64; RESP 18; TEMP 36.8; O2SAT 97
--- NOTE | 2019-09-14 13:04 | P.DS_ITS ---
Discharge Providers Date of Admission: 09/08/19 13:55 Date of Discharge: 09/14/19 Attending Provider at Admission: Geoff Saeed MD Attending Provider at Discharge: Jitendra Ambriz MD Primary Care Provider: Sophia Núñez DO Diagnoses at Discharge Discharge Diagnosis (1) Fever and neutropenia: Status: Acute (2) Thrombocytopenia: Status: Acute (3) Abdominal pain: Status: Acute Reason for Visit Reason for Visit: Reason For Visit: abdominal pain Hospital Course Discharge Summary: This is a 84-year-old female with a past medical history of ITP, CKD stage II, peptic ulcer disease who presents to the emergency room due to complaints of abdominal pain. Work-up for patient's abdominal pain relatively came back unremarkable, however she was found to have febrile neutropenia, anemia, thrombocytopenia on admission. Patient was admitted to the general medical floors, placed on neutropenic precautions, placed on broad- spectrum antibiotics, and clinically monitored. Unfortunately patient continued to have persistent fevers despite negative urine cultures, blood cultures, and no infectious source seen on CT of abdomen and CT of the chest. After discussion with hematology oncology, it was thought likely patient's clinical syndrome was secondary to rituximan. Patient did report that initially when she had her first treatment of rituximan, she had a similar reaction fevers. Patients antibiotics were de-escalated, she was given Decadron to help with her thrombocytopenia secondary to ITP, did receive 2 units of platelets, received 2 units of PRBC. Patient clinically did well, she remained afebrile for 48 hours before discharge, remained relatively asymptomatic. On discharge absolute neutrophil count was 1500, Hgb 10.1, platelet count was 77,000. Patient was discharged with 7 more days of Levaquin, 2 more days of Decadron, Protonix, and a close follow-up with hematology oncology on Thursday. Patient will also have repeat blood work on Thursday. Patient was advised that if she were to have recurrent fevers, were to become symptomatic, or if there was a drop in her hemoglobin/neutrophil count/platelet count she should come back to the emergency room. Physical Exam Const: COMMON NORMALS: no apparent distress and oriented x3 HENMT: COMMON NORMALS: normocephalic HEAD & SCALP: normocephalic Neck/C-Spine: COMMON NORMALS: no JVD Resp: COMMON NORMALS: normal respiratory effort, no retractions, no use of accessory muscles and clear to auscultation bilaterally AUSCULTATION: clear to auscultation bilaterally Cardio: COMMON NORMALS: no JVD, regular rate, regular rhythm, S1 normal heart sound and S2 normal heart sound RATE: regular rate RHYTHM: regular rhythm HEART SOUNDS: S1 normal and S2 normal GI: COMMON NORMALS: normal to inspection, nondistended, normoactive bowel sounds, soft to palpation, non-tender, no hepatosplenomegaly, no masses and no bruits PALPATION: Yes soft and Yes no hepatosplenomegaly Extremity: COMMON NORMALS: normal capillary refill, no clubbing, cyanosis or edema, no calf tenderness and no pedal edema Neuro: COMMON NORMALS: oriented x3 Psych: COMMON NORMALS: mental status grossly normal Discharge Data Data Completed and Pending: Completed Studies During Hospitalization Category Date Time Status CT abdomen pelvis w con* [id number] Urge nt Cat Scan 09/07/19 12:[address] chest wo con 7 [id number] Stat Cat Scan 09/12/19 12:07 Completed XR chest 1V brett ble [id number] Routine Exams 09/10/19 08:39 Completed XR chest 1V brett ble [id number] Stat Exams 09/07/19 14:39 Completed Pending at discharge Category Date Time Status Blood Culture Sta t Lab 09/10/19 09:32 Results C Reactive Protei n AM LABS Lab 09/15/19 04:00 Ordered Complete Blood Co unt w/Man Dif AM L ABS Lab 09/15/19 04:00 Ordered Comprehensive Met abolic Panel AM LA BS Lab 09/15/19 04:00 Ordered Magnesium AM LABS Lab 09/15/19 04:00 Ordered Phosphorus AM LAB S Lab 09/15/19 04:00 Ordered Procalcitonin AM LABS Lab 09/15/19 04:00 Ordered Labs from last 24 hours 09/14/19 09/14/19 09/14/19 05:20 05:20 05:20 WBC 2.0 L RBC 3.45 L Hgb 10.1 L Hct 29.7 L MCV 86.1 MCH 29.3 MCHC 34.0 RDW 16.0 H Plt Count 77 L MPV 9.8 Total Counted 100 Segmented Neutroph ils 62 Band Neutrophils 14.0 Lymphocytes (Manua l) 20 Monocytes (Manual) 4.0 Absolute Monocytes 0.1 Platelet Estimate Decreased L Anisocytosis 1+ H Sodium 143 Potassium 4.2 Chloride 108 H Carbon Dioxide 20 L Anion Gap 19.2 H BUN 26 H Creatinine 1.3 H Glucose 218 H Calcium 10.6 H Phosphorus 3.6 Magnesium 2.1 Total Bilirubin 0.5 AST 20 ALT 21 Alkaline Phosphata se 81 C-Reactive Protein 175.6 H Total Protein 6.0 L Albumin 2.8 L Globulin 3.2 Procalcitonin 0.20 Blood Type Antibody Screen Crossmatch 09/12/19 21:05 WBC RBC Hgb Hct MCV MCH MCHC RDW Plt Count MPV Total Counted Segmented Neutroph ils Band Neutrophils Lymphocytes (Manua l) Monocytes (Manual) Absolute Monocytes Platelet Estimate Anisocytosis Sodium Potassium Chloride Carbon Dioxide Anion Gap BUN Creatinine Glucose Calcium Phosphorus Magnesium Total Bilirubin AST ALT Alkaline Phosphata se C-Reactive Protein Total Protein Albumin Globulin Procalcitonin Blood Type O Positive Antibody Screen Negative Crossmatch See Detail Vitals: Last Vital Signs Temp 98.3 F 09/14/19 11:31 Pulse 64 09/14/19 11:31 Resp 18 09/14/19 11:31 BP 108/54 09/14/19 11:31 Pulse Ox 97 09/14/19 11:31 Discharge Plan Discharge Patient Disposition: Home, Self-Care Condition: Stable Prescriptions: New dexamethasone 4 mg Tablet 40 mg PO DAILY 2 Days Qty: 20 RF: 0 Levaquin 750 mg tablet 750 mg PO DAILY 6 Days Qty: 6 RF: 0 Continued Multiple Vitamins Tablet 1 tab PO DAILY RF: 0 metformin 500 mg Tablet 500 mg PO QPM RF: 0 bupropion HCl 150 mg tablet sustained-release 12 hr 150 mg PO DAILY RF: 0 meclizine 12.5 mg Tablet 12.5 mg PO Q6H PRN (Reason: Nausea) RF: 0 calcitonin (salmon) 200 unit/actuation Altair,Non-Aerosol 1 spray INTRANASAL (ALT) DAILY RF: 0 pantoprazole 40 mg tablet,delayed release (DR/EC) 40 mg PO BID RF: 0 Geritol Tonic with Ferrex 18 2.5 mg-50 mg-18 iron/15 mL Liquid See Rx Instructions .ROUTE .COMPLEX RF: 0 Citracal + D3 (calcium phos) 250 mg calcium- 500 unit Tablet,Chewable 1 tab PO DAILY RF: 0 Zofran 4 mg Tablet 4 mg PO Q8H PRN (Reason: Nausea) 15 Days Qty: 30 RF: 0 Discontinued Rituximan 641mg See Rx Instructions .ROUTE .COMPLEX RF: 0 Discharge Orders: Discharge Order (Routine); Ordered 09/14/19 Ordered By: Jitendra Ambriz Other Ambulatory Orders: Complete Blood Count w/Auto (Routine) Timeframe: 2 Days Location: Determined by Patient Ordered By: Jitendra Ambriz Referrals: [facility] [Outside] Sophia Núñez DO [Primary Care Provider] - Catherine De La Cruz MD [Staff Physician] - 4-7 days (Appointment with Dr. De La Cruz on 09/15/19 at 08:00 am. If weather is bad please call to reschedule appointment. 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
[2019-09-14 16:16] VITALS: BP 108/54; PULSE 64; RESP 18; TEMP 36.8; O2SAT 97
== END 2019-09-14 16:17 | disposition home or self-care (01) | DRG 809 ==
LOC: ER 16:41 → MEDSURG 18:03
PROVIDERS: Admitting Provider Internal Medicine; Emergency Provider Emergency Medicine; Family Provider Family Medicine; PCP Family Medicine; Visit Provider Family Medicine
DX: D70.2 Other drug-induced agranulocytosis (principal); E87.1 Hypo-osmolality and hyponatremia; D69.3 Immune thrombocytopenic purpura; T45.1X5A Adverse effect of antineoplastic and immunosuppressive drugs, initial encounter; N18.2 Chronic kidney disease, stage 2 (mild); M81.0 Age-related osteoporosis without current pathological fracture; R50.81 Fever presenting with conditions classified elsewhere; D64.9 Anemia, unspecified
CPT/HCPCS: 12345; 36415; 36430; 71045; 71250; 74177; 80048; 80053; 80202; 81001; 83010; 83605; 83615; 83690; 83735; 84100; 84145; 85007; 85014; 85018; 85025; 85027; 85651; 86140; 86850; 86900; 87040; 87086; 87804; 96374; 96375; 99282; A9270; G0378; J0131; J0692; J0743; J1450; J1940; J1956; J2060; J2405; J2765; J3370; J7030; J7050; J8540; P9016; P9035; Q9967

== ENCOUNTER 2019-09-20 08:21 | Outpatient (RCR) | payer MEDICARE, OTHER, SELFPAY ==
[2019-09-19 15:42] LABS: Basophils % 0.4 %; Eosinophils % 0.7 %; Hematocrit 35.3 % (37.0-47.0); Hemoglobin 11.6 g/dL (11.5-15.3); Lymphocytes # 1.6 10^3/uL (0.8-4.8); Lymphocytes % 57.1 %; Mean Corpuscular HGB Conc 32.9 g/dL (30.0-36.0); Mean Corpuscular Hemoglobin 29.1 pg (28.0-34.0); Mean Corpuscular Volume 88.7 fL (81-99); Monocytes # 0.1 10^3/uL (0.2-0.9); Monocytes % 4.8 %; Neutrophils % 36.6 %; Nucleated Red Blood Cells % 0 %; Red Blood Count 3.98 10^6/uL (4.1-5.3); Red Cell Distribution Width 15.3 % (12.1-15.1); White Blood Count 2.7 10^3/uL (4.0-10.0)
[2019-09-19 15:43] LABS: Alanine Aminotransferase 51 U/L (0-33); Albumin Level 3.3 g/dL (3.5-5.2); Alkaline Phosphatase 123 IU/L (35-105); Aspartate Amino Transferase 45 U/L (0-32); Blood Urea Nitrogen 38 mg/dL (8-23); Calcium 10.1 mg/dL (8.5-10.5); Carbon Dioxide 26 mmol/L (22-29); Chloride 98 mmol/L (98-107); Globulin 2.9 g/dL (1.3-4.6); Glucose 127 mg/dL (74-106); Sodium 138 mmol/L (136-145); Total Bilirubin 0.5 mg/dL (0.15-1.2); Total Protein 6.2 g/dL (6.6-8.7)
[2019-09-19 16:38] LABS: Platelet Count 9 10^3/cmm (130-400); Slide Review Slide Review Perform
== END 2019-09-20 10:00 | disposition home or self-care (01) ==
LOC: ONCMED 08:21
PROVIDERS: Family Medicine; Nurse Practitioner; Family Provider Family Medicine; PCP Family Medicine; Visit Provider Internal Medicine Hematology & Oncology
DX: D69.6 Thrombocytopenia, unspecified (principal); Z92.25 Personal history of immunosuppression therapy; R11.2 Nausea with vomiting, unspecified
CPT/HCPCS: 80053; 85025; 86900; 99214

== ENCOUNTER 2019-09-20 10:17 | Inpatient (IN) | payer MEDICARE, OTHER, SELFPAY ==
[2019-09-20] VITALS (10 sets, daily range): BP systolic 100–149; BP diastolic 60–79; PULSE 75–96; RESP 16–18; TEMP 36.4–37.2; O2SAT 89–98; BMI 30.4
--- NOTE | 2019-09-20 10:34 | XR_ITS ---
WS: [id number] PORTABLE CHEST HISTORY: fever COMPARISON: 09/10/2019 Moderate elevation RIGHT hemidiaphragm is stable. Lungs are clear. Benign granuloma LEFT lower lobe. No pleural effusion or pneumothorax. Cardiac size: Normal. Mediastinum/Aorta: Normal mediastinum. No osseous abnormality seen. XR/XR chest 1V portable [id number] IMPRESSION: Unremarkable portable chest.
--- NOTE | 2019-09-20 10:56 | ED_ITS ---
Entered by Lenore Stokes, acting as scribe for Ana Cristina Hernandez MD Sep 20, 2019 10:17 HPI - Fever General: Chief Complaint: Fever Stated Complaint: Fever/v Time Seen by Provider: 09/20/19 10:55 Source: patient Mode of arrival: wheelchair Limitations: no limitations History of Present Illness: HPI Narrative: 84 yo Female presents to ED with complaint of fever. Pt's family states that the patient is low on platelets. Pt states that she threw up over at the [employer] building. Pt's family states that the patient was given a new treatment and the patient had a allergic reaction to the new treatment. Pt's family states that Dr. De La Cruz sent them here to get a platelet transfusion or to be admitted to get the transfusion. Pt's family said that Dr. De La Cruz isn't sure what is causing the platelet deficiency but he mentioned to a nurse that he thought it was ITP. MD elicited complaint: other (low platelets/vomiting) Onset (ago): day(s) Exacerbating factors: nothing Relieving factors: nothing Associated symptoms: Reports myalgias, vomiting and other (low platelets); Deny abdominal pain, chills, chest pain, diarrhea, dysuria, headache(s) or nausea Treatments prior to arrival fever: none Review of Systems Const: Reports: fever; Denies: chills, body aches or change in appetite Eyes: Denies: blurry vision or eye discomfort ENMT: Denies: throat pain or dental pain Card: Denies: chest pain Resp: Denies: shortness of breath GI: Reports: vomiting; Denies: abdominal pain, nausea or diarrhea : Denies: painful urination Musc: Denies: neck pain or back pain Skin/Breast: Denies: rash Neuro: Denies: headache Psych: Denies: depression Emiliano/Lymph: Denies: easy bruising All/Imm: Denies: hives PFSH ED PFSH: Statuses (acute, chronic, etc) shown below reflect problem list status as previously entered and may not be historically accurate Medical History Chronic kidney disease, stage II (mild) (Acute) Diverticulosis (Acute) Epistaxis (Acute) Glucose intolerance (Acute) Osteoporosis (Acute) Peptic ulcer disease (Acute) Thrombocytopenia (Acute) Surgical History History of cataract surgery (Acute) Family History Mother Cancer Breast cancer Social History Smoking and tobacco status: never smoked Alcohol intake: never Physical Exam Const: COMMON NORMALS: no apparent distress, oriented x3 and healthy appearing HENMT: COMMON NORMALS: normocephalic and head/scalp atraumatic HEAD & SCALP: normocephalic and atraumatic Eye: COMMON NORMALS: PERRL and EOMs intact bilaterally PUPIL: Yes PERRL Neck/C-Spine: COMMON NORMALS: full ROM and supple Chest: COMMONS NORMALS: inspection of chest normal and palpation of chest normal Resp: COMMON NORMALS: normal respiratory effort, no retractions, no use of accessory muscles and clear to auscultation bilaterally AUSCULTATION: clear to auscultation bilaterally Cardio: COMMON NORMALS: regular rate, regular rhythm and no murmurs RATE: regular rate RHYTHM: regular rhythm GI: COMMON NORMALS: normal to inspection, nondistended, normoactive bowel sounds, soft to palpation, non-tender and no masses PALPATION: Yes soft Extremity: COMMON NORMALS: normal to inspection and full ROM Neuro: COMMON NORMALS: oriented x3, moves all extremities and no focal motor deficits Psych: COMMON NORMALS: mental status grossly normal, thought process normal and cooperative THOUGHT PROCESS: normal thought process Skin: COMMON NORMALS: no rashes or lesions noted and no wounds GENERAL SKIN EXAM: no rashes or lesions noted Course Vital Signs: Vital signs: Vital Signs Temperature 98.7 F 09/20/19 13:58 Pulse Rate 79 09/20/19 13:58 Respiratory Rate 16 09/20/19 13:58 Blood Pressure 146/79 09/20/19 13:58 Pulse Oximetry 92 09/20/19 11:56 MDM - Fever MDM Narrative: Medical decision making narrative: Patient presents here with thrombocytopenia. Patient's platelet count here is 4000. I spoke to Dr. De La Cruz who would like her to be admitted and the likely will do a bone marrow biopsy tonight or tomorrow. I spoke to Dr. perdomo who is admitting. Will transfuse platelets. Lab Data: Labs: Lab Results 09/20/19 09/20/19 09/20/19 Range/Units 10:44 10:45 10:54 WBC 2.7 L (4.0-10.0) 10^3/ uL RBC 4.23 (4.1-5.3) 10^6/u L Hgb 12.3 (11.5-15.3) g/dL Hct 37.6 (37.0-47.0) % MCV 88.9 (81-99) fL MCH 29.1 (28.0-34.0) pg MCHC 32.7 (30.0-36.0) g/dL RDW 15.4 H (12.1-15.1) % Plt Count 4 L* (130-400) 10^3/c mm MPV 9.6 (7.4-10.4) fL Neut % (Auto) 57.2 % Lymph % (Auto) 34.4 % [place] % (Auto) 4.4 % Eos % (Auto) 1.1 % Baso % (Auto) 0.0 % Neut # (Auto) 1.6 L (1.8-7.7) 10^3/u L Lymph # (Auto) 0.9 (0.8-4.8) 10^3/u L [place] # (Auto) 0.1 L (0.2-0.9) 10^3/u L Eos # (Auto) 0.0 (0.0-0.8) 10^3/u L Baso # (Auto) 0.0 (0.0-0.1) 10^3/u L Nucleated RBC % (a uto) 0 % Nucleated RBCs # 0.0 /100WBC Sodium (136-145) mmol/L Potassium (3.5-5.1) mmol/L Chloride (98-107) mmol/L Carbon Dioxide (22-29) mmol/L Anion Gap (5-19) BUN (8-23) mg/dL Creatinine (0.5-0.9) mg/dL Glucose (74-106) mg/dL Calcium (8.5-10.5) mg/dL Total Bilirubin (0.15-1.2) mg/dL AST (0-32) U/L ALT (0-33) U/L Alkaline Phosphata se (35-105) IU/L Total Protein (6.6-8.7) g/dL Albumin (3.5-5.2) g/dL Globulin (1.3-4.6) g/dL Urine Color Yellow (Yellow) Urine Appearance Clear (CLEAR) Urine pH 6.0 (5-7) Ur Specific Gravit y 1.010 (1.005-1.030) Urine Protein Neg (Negative) Urine Glucose (UA) Norm (Normal) Urine Ketones Negative (Negative) Urine Occult Blood Neg (Negative) Urine Nitrate Negative (Negative) Urine Bilirubin Neg (NEGATIVE) Urine Urobilinogen 1 H (Negative) mg/dL Ur Leukocyte Anastasia ase Trace H (Negative) Urine RBC None (0-2) /hpf Urine WBC 15-25 H (0-5) /hpf Ur Squamous Epith Cells 5-10 H (0-5) Urine Bacteria Trace (NONE) Influenza Type A A g Negative (Negative) POC Influenza B Ag Negative (Negative) 09/20/19 Range/Units 10:54 WBC (4.0-10.0) 10^3/ uL RBC (4.1-5.3) 10^6/u L Hgb (11.5-15.3) g/dL Hct (37.0-47.0) % MCV (81-99) fL MCH (28.0-34.0) pg MCHC (30.0-36.0) g/dL RDW (12.1-15.1) % Plt Count (130-400) 10^3/c mm MPV (7.4-10.4) fL Neut % (Auto) % Lymph % (Auto) % [place] % (Auto) % Eos % (Auto) % Baso % (Auto) % Neut # (Auto) (1.8-7.7) 10^3/u L Lymph # (Auto) (0.8-4.8) 10^3/u L [place] # (Auto) (0.2-0.9) 10^3/u L Eos # (Auto) (0.0-0.8) 10^3/u L Baso # (Auto) (0.0-0.1) 10^3/u L Nucleated RBC % (a uto) % Nucleated RBCs # /100WBC Sodium 139 (136-145) mmol/L Potassium 4.8 (3.5-5.1) mmol/L Chloride 98 (98-107) mmol/L Carbon Dioxide 27 (22-29) mmol/L Anion Gap 18.8 (5-19) BUN 43 H (8-23) mg/dL Creatinine 1.7 H (0.5-0.9) mg/dL Glucose 185 H (74-106) mg/dL Calcium 10.6 H (8.5-10.5) mg/dL Total Bilirubin 0.6 (0.15-1.2) mg/dL AST 31 (0-32) U/L ALT 44 H (0-33) U/L Alkaline Phosphata se 132 H (35-105) IU/L Total Protein 6.7 (6.6-8.7) g/dL Albumin 3.4 L (3.5-5.2) g/dL Globulin 3.3 (1.3-4.6) g/dL Urine Color (Yellow) Urine Appearance (CLEAR) Urine pH (5-7) Ur Specific Gravit y (1.005-1.030) Urine Protein (Negative) Urine Glucose (UA) (Normal) Urine Ketones (Negative) Urine Occult Blood (Negative) Urine Nitrate (Negative) Urine Bilirubin (NEGATIVE) Urine Urobilinogen (Negative) mg/dL Ur Leukocyte Anastasia ase (Negative) Urine RBC (0-2) /hpf Urine WBC (0-5) /hpf Ur Squamous Epith Cells (0-5) Urine Bacteria (NONE) Influenza Type A A g (Negative) POC Influenza B Ag (Negative) Imaging Data^: CXR: Radiologist's impression: [address] [address] XRay Report Signed Patient: Azul Mg #: [id number] : 1935cct#:[id number] Age/Sex: 84 / FADM Date: 09/20/19 Loc: ERRoom/Bed: Attending Dr: Ordering Provider/Ordering MD: Nghia Paulson DO Date of Service: 09/20/19 Procedure(s): XR chest 1V portable [id number] Accession Number(s): [id number] Report Number: [id number] WS: [id number] PORTABLE CHEST HISTORY: fever COMPARISON: 09/10/2019 Moderate elevation RIGHT hemidiaphragm is stable. Lungs are clear. Benign granuloma LEFT lower lobe. No pleural effusion or pneumothorax. Cardiac size: Normal. Mediastinum/Aorta: Normal mediastinum. No osseous abnormality seen. XR/XR chest 1V portable [id number] IMPRESSION: Unremarkable portable chest. Dictated By:Sharona Ng DO Signed By:Sharona Ng DOSigned Date/Time:09/20/19 1040 DD/ 1040 Discharge Plan Discharge Patient Disposition: Admitted As Inpatient Clinical Impression: Thrombocytopenia Condition: Stable Referrals: Sophia Núñez DO [Primary Care Provider] - Coding Level of Care Code ED Transcripter for Chg Fwd Exam Problem Focused The documentation recorded by the Divya leyva Carmen, accurately reflects the service I personally performed and the decisions made by Mary rodriguez Korby, MD Sep 20, 2019 10:17
[2019-09-20 11:04] LABS: Eosinophils % 1.1 %; Hematocrit 37.6 % (37.0-47.0); Hemoglobin 12.3 g/dL (11.5-15.3); Lymphocytes # 0.9 10^3/uL (0.8-4.8); Lymphocytes % 34.4 %; Mean Corpuscular HGB Conc 32.7 g/dL (30.0-36.0); Mean Corpuscular Hemoglobin 29.1 pg (28.0-34.0); Mean Corpuscular Volume 88.9 fL (81-99); Mean Platelet Volume 9.6 fL (7.4-10.4); Monocytes # 0.1 10^3/uL (0.2-0.9); Monocytes % 4.4 %; Neutrophils # 1.6 10^3/uL (1.8-7.7); Neutrophils % 57.2 %; Nucleated Red Blood Cells % 0 %; Red Blood Count 4.23 10^6/uL (4.1-5.3); Red Cell Distribution Width 15.4 % (12.1-15.1); White Blood Count 2.7 10^3/uL (4.0-10.0)
[2019-09-20 11:08] LABS: Platelet Count 4 10^3/cmm (130-400)
[2019-09-20 11:11] LABS: Add Urine Microscopic? YES; Bilirubin Urine Neg (NEGATIVE); Blood Urine Neg (Negative); Glucose Urine UA Norm (Normal); Ketones Urine Negative (Negative); Leukocyte Esterase Urine Trace (Negative); Nitrate Urine Negative (Negative); Protein Urine Neg (Negative); Urine Appearance Clear (CLEAR); Urine Color Yellow (Yellow); Urobilinogen Urine 1 mg/dL (Negative)
[2019-09-20 11:18] LABS: Influenza A by IFA Negative (Negative); Influenza B by IFA Negative (Negative)
[2019-09-20 11:19] LABS: Add Urine Culture? No; Bacteria Urine TRACE; WBC Urine 15-25 /hpf (0-5)
[2019-09-20 11:23] LABS: Alanine Aminotransferase 44 U/L (0-33); Albumin Level 3.4 g/dL (3.5-5.2); Alkaline Phosphatase 132 IU/L (35-105); Anion Gap 18.8 (5-19); Aspartate Amino Transferase 31 U/L (0-32); Blood Urea Nitrogen 43 mg/dL (8-23); Calcium 10.6 mg/dL (8.5-10.5); Carbon Dioxide 27 mmol/L (22-29); Chloride 98 mmol/L (98-107); Globulin 3.3 g/dL (1.3-4.6); Glucose 185 mg/dL (74-106); Potassium 4.8 mmol/L (3.5-5.1); Sodium 139 mmol/L (136-145); Total Bilirubin 0.6 mg/dL (0.15-1.2); Total Protein 6.7 g/dL (6.6-8.7)
--- NOTE | 2019-09-20 11:56 | CT_ITS ---
WS: [id number] CT CHEST, ABDOMEN AND PELVIS WITHOUT CONTRAST. HISTORY: cp TECHNIQUE: Contiguous 5 mm axial imaging performed through the chest, abdomen and pelvis without IV c ontrast, oral contrast has not been provided. Coronal and sagittal reformats chest. Coronal and sagit josemanuel reformats through the abdomen and pelvis. All CT scans at [facility] use at least one of these dose optimization techniques: automated exposure control; mA and/or kV adjustment per patie nt size (includes targeted exams where dose is matched to clinical indication); or iterative reconstr uction. CONTRAST: None DLP: 1205.54 mGy.cm COMPARISON: 09/12/[address]: Interstitial thickening throughout the RIGHT lung has slightly improved since the prior alvarado dy. Benign granuloma in the central RIGHT lung. 3 mm nodule in the RIGHT middle lobe. Small pleural e ffusion on the RIGHT has resolved. Heart is moderately enlarged. No pericardial effusion. No adenopat hy. Mild atherosclerosis aorta. Abdomen CT: Liver is normal. Unremarkable gallbladder. Mild fatty replacement of the pancreas. Normal -appearing spleen and adrenal glands. Low-attenuation mass in the central LEFT kidney measures 1.6 cm and probably a cyst. No renal obstruction. Calcification throughout the aorta. Fat-containing umbili leesa hernia. Pelvic CT: No GI tract obstruction. No free air. Numerous diverticula in the sigmoid with no acute di verticulitis. Normal appendix. Known chronic compression fracture of T12 with slight retropulsion. Bones are diffusely osteopenic. CT/CT chest abd pel wo con IMPRESSION: 1. Mild interstitial thickening throughout the RIGHT lung. May be related to p neumonitis or asymmetric interstitial fibrosis. 2. Resolved small RIGHT pleural effusion. 3. Diverticulosis without acute diverticulitis. 4. No renal obstruction. 5. Stable T12 compression fracture.
--- NOTE | 2019-09-20 11:59 | P.HP_ITS ---
Providers/Chief Complaint Admitting Physician: Edna Sparrow DO Primary Care Provider: Sophia Núñez DO Chief Complaint: Fever/v History of Present Illness Azul Mg is a 84 year old female that presented to the emergency department today after being called by her oncology/hematology office due to concern for decreased platelets. 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 Patient has been on a steroid taper which she has now completed this course and also been on Rituxan infusions. She stated that she was recently admitted and discharged on 09/08/2019 due to concern for neutropenic fever. She was discharged on Levaquin, had to stop taking this medication due to swelling of the tongue and face. She stated that she has not had any further fever since she was discharged. She denies any recent antibiotic exposure or coverage. Patient denies any fevers or chills. States generalized fatigue. Denies any weight loss since her previous admission. Patient denies any night sweats. She denies any epistaxis, denies any hematuria, denies any easy bruising or bleeding that she is aware of. Patient was seen and evaluated in the emergency department and Dr. De La Cruz was consulted due to her thrombocytopenia, recommended to have plateletpheresis and schedule for bone marrow biopsy tomorrow. Review of Systems Const: Denies: fever or chills Eyes: Denies: change in vision ENMT: Denies: nasal congestion Card: Denies: chest pain, palpitations or edema Resp: Denies: shortness of breath, productive cough or coughing up blood GI: Denies: abdominal pain, nausea, vomiting, diarrhea, constipation, blood in stool or black tarry stool : Denies: painful urination or blood in urine Musc: Denies: extremity pain or muscle cramps Skin/Breast: Denies: rash or new lesion Neuro: Denies: headache or dizziness Psych: Denies: anxiety or depression Endo: Denies: excessive urination or hot flashes Emiliano/Lymph: Denies: easy bruising or easy bleeding Medications/Allergies Allergies Allergy/AdvReac Type Severity Reaction Status Date / Time amoxicillin Allergy ADR-Itching Verified 09/07/19 12:51 fluticasone [From Flonase] Allergy ALGY-Hives Verified 09/20/19 10:32 ibuprofen [From Motrin] Allergy ADR-Agitate Verified 09/07/19 12:51 d levofloxacin [From Levaquin] Allergy ALGY-Anaphy Verified 09/20/19 10:30 laxis Penicillins Allergy ALGY-Rash Verified 09/07/19 12:51 propoxyphene [From Darvon] Allergy ADR-Agitate Verified 09/07/19 12:51 d PFSH Acute PFSH: Statuses (acute, chronic, etc) shown below reflect problem list status as previously entered and may not be historically accurate Medical History Chronic kidney disease, stage II (mild) (Acute) Diverticulosis (Acute) Epistaxis (Acute) Glucose intolerance (Acute) Osteoporosis (Acute) Peptic ulcer disease (Acute) Thrombocytopenia (Acute) Surgical History History of cataract surgery (Acute) Family History (Updated 09/20/19 @ 16:38 by Edna Sparrow DO) Mother Cancer Breast cancer Father Lung disease Social History (Updated 09/20/19 @ 16:38 by Edna Sparrow DO) Smoking and tobacco status: never smoked Alcohol intake: never Substance/Drug Use: never Vitals/I&O/Wt Last Vital Signs Temp 97.6 F 09/20/19 10:22 Pulse 78 09/20/19 11:56 Resp 16 09/20/19 11:56 BP 134/67 09/20/19 11:56 Pulse Ox 92 09/20/19 11:56 Weight last 48 hrs Weight 73.028 kg Physical Exam Const: COMMON NORMALS: oriented x3 and alert GENERAL APPEARANCE: cooperative ORIENTATION/CONSCIOUSNESS: Yes awake, Yes oriented to person, Yes oriented to place and Yes oriented to time HENMT: COMMON NORMALS: normocephalic and head/scalp atraumatic HEAD & SCALP: normocephalic and atraumatic Eye: COMMON NORMALS: PERRL PUPIL: Yes PERRL Neck/C-Spine: COMMON NORMALS: supple GENERAL: Yes normal visual inspection Resp: COMMON NORMALS: normal respiratory effort and clear to auscultation bilaterally EFFORT & INSPECTION: Yes able to speak in complete sentences AUSCULTATION: clear to auscultation bilaterally, no rhonchi and no wheezes Cardio: COMMON NORMALS: regular rate, regular rhythm and no murmurs RATE: regular rate RHYTHM: regular rhythm GI: COMMON NORMALS: soft to palpation and non-tender INSPECTION: No abdominal distension AUSCULTATION: Yes normoactive bowel sounds PALPATION: Yes soft Extremity: COMMON NORMALS: no clubbing, cyanosis or edema and no calf tenderness Neuro: COMMON NORMALS: oriented x3, CN's II-XII intact bilaterally, moves all extremities and no focal motor deficits SENSORIUM/ORIENTATION: Yes alert, Yes oriented to person, Yes oriented to place and Yes oriented to time SPEECH: speech normal Psych: COMMON NORMALS: mental status grossly normal and cooperative Skin: COMMON NORMALS: no rashes or lesions noted GENERAL SKIN EXAM: no rashes or lesions noted Data : 09/20/19 10:54 09/20/19 10:54 CXR: I personally reviewed and interpreted this imaging study as follows: My impression: No acute cardiopulmonary process Radiologist's impression: Moderate elevation RIGHT hemidiaphragm is stable. Lungs are clear. Benign granuloma LEFT lower lobe. No pleural effusion or pneumothorax. Cardiac size: Normal. Mediastinum/Aorta: Normal mediastinum. No osseous abnormality seen. 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 De La Cruz is following patient in the outpatient setting, discussed with him for consultation and plan for bone marrow biopsy tomorrow. Appreciate recommendations and assistance in patient's care. CT scan ordered of the abdomen and pelvis Status: Acute Code(s): D69.6 - Thrombocytopenia, unspecified Additional A&P Information Neutropenia with recent Rituxan infusion 2 weeks ago Chronic kidney disease: Creatinine appears to be slightly above baseline, will give very gentle IV fluids, normal saline at 50 mL/h Diverticulosis without diverticulitis Osteoporosis Peptic ulcer disease: Continue on PPI Chronic back pain with stable T12 compression fracture DVT prophylaxis: SCDs, no pharmacologic prophylaxis due to severe thrombocytopenia Diet: Carbohydrate consistent CODE STATUS: Full code, patient reported that she would only want one episode of resuscitation and then would not want anything further. 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
--- NOTE | 2019-09-20 14:28 | PC.NURSE ---
Vitals upon completion of platelet infusion.
[2019-09-20] MEDS: sodium chloride 0.9% 1,000 ML 50 ML IV (17:24)
[2019-09-20 18:22] LABS: Hemoglobin 11.3 g/dL (11.5-15.3); Mean Corpuscular HGB Conc 32.3 g/dL (30.0-36.0); Mean Corpuscular Hemoglobin 29.9 pg (28.0-34.0); Mean Corpuscular Volume 92.6 fL (81-99); Mean Platelet Volume 10.6 fL (7.4-10.4); Platelet Count 83 10^3/cmm (130-400); Red Blood Count 3.78 10^6/uL (4.1-5.3); Red Cell Distribution Width 15.5 % (12.1-15.1); White Blood Count 2.2 10^3/uL (4.0-10.0)
[2019-09-20] MEDS: trazodone 50 mg Tablet 25 MG PO (21:53)
[2019-09-20 22:33] LABS: Absolute Segmented Neutrophil 1.1 10/cmm (1.6-7.1); Anisocytosis 1+; Lymphocytes 43 %; Monocytes Absolute 0.1 10^3/cmm (0.1-0.6); Platelet Estimate Decreased (Normal); Segmented Neutrophils 54 %; Total Cells Counted 100 (0-100)
[2019-09-21] VITALS (11 sets, daily range): BP systolic 107–152; BP diastolic 62–77; PULSE 75–86; RESP 17–18; TEMP 36.5–37.1; O2SAT 91–95
[2019-09-21 05:33] LABS: Eosinophils % 1.4 %; Hematocrit 32.5 % (37.0-47.0); Hemoglobin 10.3 g/dL (11.5-15.3); Lymphocytes # 0.8 10^3/uL (0.8-4.8); Lymphocytes % 38.5 %; Mean Corpuscular HGB Conc 31.7 g/dL (30.0-36.0); Mean Corpuscular Hemoglobin 29.9 pg (28.0-34.0); Mean Corpuscular Volume 94.2 fL (81-99); Mean Platelet Volume 10.8 fL (7.4-10.4); Monocytes # 0.1 10^3/uL (0.2-0.9); Monocytes % 3.8 %; Neutrophils # 1.1 10^3/uL (1.8-7.7); Neutrophils % 53.5 %; Nucleated Red Blood Cells % 0 %; Platelet Count 67 10^3/cmm (130-400); Red Blood Count 3.45 10^6/uL (4.1-5.3); Red Cell Distribution Width 15.5 % (12.1-15.1); White Blood Count 2.1 10^3/uL (4.0-10.0)
[2019-09-21 05:40] LABS: Anion Gap 15.6 (5-19); Blood Urea Nitrogen 33 mg/dL (8-23); Calcium 9.3 mg/dL (8.5-10.5); Carbon Dioxide 27 mmol/L (22-29); Chloride 101 mmol/L (98-107); Glucose 151 mg/dL (74-106); Osmolality Calculated 288 mOsm/kg (285-295); Potassium 4.6 mmol/L (3.5-5.1); Sodium 139 mmol/L (136-145)
[2019-09-21] MEDS: buPROPion SR (12 HR) 150 mg Tablet PO (09:50)
[2019-09-21] MEDS: calcitonin nasal 200 unit/spray 3.7 mL Btl 1 SPRAY NASAL (09:54)
--- NOTE | 2019-09-21 09:59 | P.PN_ITS ---
Subjective Subjective: Interval history: Patient resting in bed at time of exam this morning. She denied any chest pain or shortness of breath. Discussed with patient plan for bone marrow aspiration and possible biopsy tomorrow morning. She verbalizes understanding and agrees with plan. Discussed with her current platelet count and need for recheck this evening. Vitals/I&O/Wt Last Vital Signs Temp 98.6 F 09/21/19 07:07 Pulse 76 09/21/19 07:07 Resp 18 09/21/19 07:07 BP 119/73 09/21/19 07:07 Pulse Ox 94 09/21/19 07:07 09/20/19 09/21/19 09/21/19 22:59 06:59 14:59 Output Total 550 / 550 300 / 850 Balance -550 / -313 -300 / -613 Weight last 48 hrs Weight 72.802 kg Weight 73.028 kg Physical Exam Const: COMMON NORMALS: oriented x3 and alert GENERAL APPEARANCE: cooperative ORIENTATION/CONSCIOUSNESS: Yes awake, Yes oriented to person, Yes oriented to place and Yes oriented to time HENMT: COMMON NORMALS: normocephalic and head/scalp atraumatic HEAD & SCALP: normocephalic and atraumatic Eye: COMMON NORMALS: PERRL PUPIL: Yes PERRL Neck/C-Spine: COMMON NORMALS: supple GENERAL: Yes normal visual inspection Resp: COMMON NORMALS: normal respiratory effort and clear to auscultation bilaterally EFFORT & INSPECTION: Yes able to speak in complete sentences AUSCULTATION: clear to auscultation bilaterally, no rhonchi and no wheezes Cardio: COMMON NORMALS: regular rate, regular rhythm and no murmurs RATE: regular rate RHYTHM: regular rhythm GI: COMMON NORMALS: soft to palpation and non-tender INSPECTION: No abdominal distension AUSCULTATION: Yes normoactive bowel sounds PALPATION: Yes soft Extremity: COMMON NORMALS: no clubbing, cyanosis or edema and no calf tende rness Neuro: COMMON NORMALS: oriented x3, CN's II-XII intact bilaterally, moves all extremities and no focal motor deficits SENSORIUM/ORIENTATION: Yes alert, Yes oriented to person, Yes oriented to place and Yes oriented to time SPEECH: speech normal Psych: COMMON NORMALS: mental status grossly normal and cooperative Skin: COMMON NORMALS: no rashes or lesions noted GENERAL SKIN EXAM: no rashes or lesions noted Data : 09/21/19 04:30 09/21/19 04:30 A&P Assessment and plan (1) Thrombocytopenia: Platelet count improved from 4000-67,[address] De La Cruz this morning. Plan for bone marrow aspiration and possible biopsy on 09/22/2019 at 0730 Previously received treatment for ITP, completed steroid taper and Rituxan infusions, last infusion 2 weeks ago Recheck patient's platelet count this evening and continue with platelet pheresis if indicated in preparation for bone marrow aspiration and possible biopsy in the morning Status: Acute Code(s): D69.6 - Thrombocytopenia, unspecified Additional A&P Information Neutropenia with recent Rituxan infusion 2 weeks ago Chronic kidney disease: BUN and creatinine slightly improved today, continue with very gentle IV fluids Diverticulosis without diverticulitis Osteoporosis Peptic ulcer disease: Protonix Chronic back pain with stable T12 compression fracture DVT prophylaxis: SCDs, no pharmacologic prophylaxis due to severe thrombocytopenia Diet: Carbohydrate consistent, n.p.o. after midnight CODE STATUS: Full code, patient reported that she would only want one episode of resuscitation and then would not want anything further. Recheck platelets this evening and plan for bone marrow aspiration with possible bone marrow biopsy on 09/22/2019 at 0730 Attestations Medical Necessity Statement*: Patient requires further hospitalization due to severe thrombocytopenia with the need for bone marrow aspiration possible bone marrow biopsy. 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
[2019-09-21] MEDS: sodium chloride 0.9% 1,000 ML 50 ML IV (12:45)
[2019-09-21 19:11] LABS: Eosinophils % 1.1 %; Hematocrit 31.8 % (37.0-47.0); Hemoglobin 10.1 g/dL (11.5-15.3); Lymphocytes # 0.6 10^3/uL (0.8-4.8); Lymphocytes % 31.1 %; Mean Corpuscular HGB Conc 31.8 g/dL (30.0-36.0); Mean Corpuscular Hemoglobin 29.1 pg (28.0-34.0); Mean Corpuscular Volume 91.6 fL (81-99); Mean Platelet Volume 11.3 fL (7.4-10.4); Monocytes # 0.1 10^3/uL (0.2-0.9); Monocytes % 3.2 %; Neutrophils # 1.2 10^3/uL (1.8-7.7); Nucleated Red Blood Cells % 0 %; Platelet Count 60 10^3/cmm (130-400); Red Blood Count 3.47 10^6/uL (4.1-5.3); Red Cell Distribution Width 15.5 % (12.1-15.1); White Blood Count 1.9 10^3/uL (4.0-10.0)
[2019-09-22] VITALS (9 sets, daily range): BP systolic 122–160; BP diastolic 67–83; PULSE 64–88; RESP 17–23; TEMP 36.1–36.9; O2SAT 90–98
[2019-09-22 05:55] LABS: Eosinophils % 0.5 %; Hematocrit 32.3 % (37.0-47.0); Hemoglobin 10.2 g/dL (11.5-15.3); Lymphocytes # 0.7 10^3/uL (0.8-4.8); Lymphocytes % 38.7 %; Mean Corpuscular HGB Conc 31.6 g/dL (30.0-36.0); Mean Corpuscular Hemoglobin 30.2 pg (28.0-34.0); Mean Corpuscular Volume 95.6 fL (81-99); Mean Platelet Volume 11.5 fL (7.4-10.4); Monocytes # 0.1 10^3/uL (0.2-0.9); Monocytes % 4.3 %; Neutrophils % 54.9 %; Nucleated Red Blood Cells % 0 %; Platelet Count 49 10^3/cmm (130-400); Red Blood Count 3.38 10^6/uL (4.1-5.3); Red Cell Distribution Width 15.5 % (12.1-15.1); White Blood Count 1.9 10^3/uL (4.0-10.0)
--- NOTE | 2019-09-22 07:00 | ANES.PREANES ---
Pre-Anesthetic Assessment Pre-Anesthetic Assessment: Height/Weight: Height 1.55 m Weight 71.35 kg Temp Pulse Resp BP Pulse Ox 97.9 F 88 20 H 146/83 93 09/22/19 06:47 09/22/19 06:47 09/22/19 06:47 09/22/19 06:47 09/22/19 06:47 Proposed Procedure: Operation Date: 09/22/19 07:30 Proposed Procedures p Bone Marrow Biospy With Aspiration(Not Applicable) - Catherine De La Cruz MD Familial anesthetic complications: no Was Beta Breanna taken within 24 hours: N/A Last intake: Intake Last Liquid Date 09/21/19 Last Liquid Time 23:30 Last Solid Date 09/21/19 Last Solid Time 23:30 Social: Social History: No tobacco Exam: Pre-Anes Outpt Exam: alert, oriented x 3 and clear to auscultation bilaterally Airway: Submandibular: WNL Cervical ROM: WNL MP: 2 Dentition: Other (top denture out) Pulmonary: Pulmonary: None reported CV/HEM: CV/HEM: None reported : : None reported Hepatic: Hepatic: None reported GI: GI: GERD (controlled with meds) Metabolic: Metabolic: DM Musc/skel: Musc/skel: Lower Back Pain Neuropsych: Neuropsych: Anxiety Anesthetic Plan: ASA status: III Anesthesia: Anesthesia Evaluation and MAC Risk of > 500 ml blood loss (7ml/kg in children): No Meds/Allergies Current Medications: Current Medications Generic Name Dose Route Start Last Admin Trade Name Freq PRN Reason Stop Dose Admin Bupropion HCl 150 mg 09/21/19 09:00 09/21/19 09:50 Wellbutrin Sr (1 2 Hr) PO 150 mg DAILY KEVEN Administration Calcitonin [place] 1 spray 09/21/19 09:00 09/21/19 09:54 Miacalcin NASAL 1 puff DAILY KEVEN Administration Sodium Chloride 1,000 mls @ 30 ml s/hr 09/20/19 16:45 09/21/19 16:21 Sodium Chloride 0.9% IV 30 mls/hr .Q24H KEVEN Infusion Non-Formulary Medi cation 1 tab 09/21/19 09:00 09/21/19 10:06 Calcium Phosphat e-Vitamin D3 [Citr acal + D3 (Calcium Phos)] PO Not Given DAILY KEVEN PFSH Anesthesia PFSH: Medical History Chronic kidney disease, stage II (mild) (Acute) Diverticulosis (Acute) Epistaxis (Acute) Glucose intolerance (Acute) Osteoporosis (Acute) Peptic ulcer disease (Acute) Thrombocytopenia (Acute) Surgical History History of cataract surgery (Acute) Family History (Updated 09/20/19 @ 16:38 by Edna Sparrow DO) Mother Cancer Breast cancer Father Lung disease Social History (Updated 09/20/19 @ 16:38 by Edna Sparrow DO) Smoking and tobacco status: never smoked Alcohol intake: never Data Anesthesia CBC & Chem 7: 09/22/19 04:35 09/21/19 04:30 Other Labs: Laboratory Results - last 48 hr 09/20/19 09/20/19 09/20/19 10:44 10:45 10:54 WBC 2.7 L RBC 4.23 Hgb 12.3 Hct 37.6 MCV 88.9 MCH 29.1 MCHC 32.7 RDW 15.4 H Plt Count 4 L* MPV 9.6 Neut % (Auto) 57.2 Lymph % (Auto) 34.4 Pershing % (Auto) 4.4 Eos % (Auto) 1.1 Baso % (Auto) 0.0 Neut # (Auto) 1.6 L Lymph # (Auto) 0.9 Pershing # (Auto) 0.1 L Eos # (Auto) 0.0 Baso # (Auto) 0.0 Nucleated RBC % (auto) 0 Total Counted Segmented Neutrophils Lymphocytes (Manual) Monocytes (Manual) Absolute Monocytes Nucleated RBCs # 0.0 Platelet Estimate Anisocytosis Sodium Potassium Chloride Carbon Dioxide Anion Gap BUN Creatinine Glucose Calculated Osmolality Calcium Total Bilirubin AST ALT Alkaline Phosphatase Total Protein Albumin Globulin Urine Color Yellow Urine Appearance Clear Urine pH 6.0 Ur Specific [place] 1.010 Urine Protein Neg Urine Glucose (UA) Norm Urine Ketones Negative Urine Occult Blood Neg Urine Nitrate Negative Urine Bilirubin Neg Urine Urobilinogen 1 H Ur Leukocyte Esterase Trace H Urine RBC None Urine WBC 15-25 H Ur Squamous Epith Cells 5-10 H Urine Bacteria Trace Influenza Type A Ag Negative POC Influenza B Ag Negative 09/20/19 09/20/19 09/21/19 10:54 18:16 04:30 WBC 2.2 L 2.1 L RBC 3.78 L 3.45 L Hgb 11.3 L 10.3 L Hct 35.0 L 32.5 L MCV 92.6 94.2 MCH 29.9 29.9 MCHC 32.3 31.7 RDW 15.5 H 15.5 H Plt Count 83 L 67 L MPV 10.6 H 10.8 H Neut % (Auto) 53.5 Lymph % (Auto) 38.5 Pershing % (Auto) 3.8 Eos % (Auto) 1.4 Baso % (Auto) 0.0 Neut # (Auto) 1.1 L Lymph # (Auto) 0.8 Pershing # (Auto) 0.1 L Eos # (Auto) 0.0 Baso # (Auto) 0.0 Nucleated RBC % (auto) 0 Total Counted 100 Segmented Neutrophils 54 Lymphocytes (Manual) 43 Monocytes (Manual) 3.0 Absolute Monocytes 0.1 Nucleated RBCs # 0.0 Platelet Estimate Decreased L Anisocytosis 1+ H Sodium 139 Potassium 4.8 Chloride 98 Carbon Dioxide 27 Anion Gap 18.8 BUN 43 H Creatinine 1.7 H Glucose 185 H Calculated Osmolality Calcium 10.6 H Total Bilirubin 0.6 AST 31 ALT 44 H Alkaline Phosphatase 132 H Total Protein 6.7 Albumin 3.4 L Globulin 3.3 Urine Color Urine Appearance Urine pH Ur Specific [place] Urine Protein Urine Glucose (UA) Urine Ketones Urine Occult Blood Urine Nitrate Urine Bilirubin Urine Urobilinogen Ur Leukocyte Esterase Urine RBC Urine WBC Ur Squamous Epith Cells Urine Bacteria Influenza Type A Ag POC Influenza B Ag 09/21/19 09/21/19 09/22/19 04:30 18:34 04:35 WBC 1.9 L 1.9 L RBC 3.47 L 3.38 L Hgb 10.1 L 10.2 L Hct 31.8 L 32.3 L MCV 91.6 95.6 MCH 29.1 30.2 MCHC 31.8 31.6 RDW 15.5 H 15.5 H Plt Count 60 L 49 L MPV 11.3 H 11.5 H Neut % (Auto) 63.0 54.9 Lymph % (Auto) 31.1 38.7 [place] % (Auto) 3.2 4.3 Eos % (Auto) 1.1 0.5 Baso % (Auto) 0.0 0.0 Neut # (Auto) 1.2 L 1.0 L Lymph # (Auto) 0.6 L 0.7 L [place] # (Auto) 0.1 L 0.1 L Eos # (Auto) 0.0 0.0 Baso # (Auto) 0.0 0.0 Nucleated RBC % (auto) 0 0 Total Counted Segmented Neutrophils Lymphocytes (Manual) Monocytes (Manual) Absolute Monocytes Nucleated RBCs # 0.0 0.0 Platelet Estimate Anisocytosis Sodium 139 Potassium 4.6 Chloride 101 Carbon Dioxide 27 Anion Gap 15.6 BUN 33 H Creatinine 1.6 H Glucose 151 H Calculated Osmolality 288 Calcium 9.3 Total Bilirubin AST ALT Alkaline Phosphatase Total Protein Albumin Globulin Urine Color Urine Appearance Urine pH Ur Specific [place] Urine Protein Urine Glucose (UA) Urine Ketones Urine Occult Blood Urine Nitrate Urine Bilirubin Urine Urobilinogen Ur Leukocyte Esterase Urine RBC Urine WBC Ur Squamous Epith Cells Urine Bacteria Influenza Type A Ag POC Influenza B Ag Cardiac Studies: No Data to Display
[2019-09-22 07:15] LABS: Platelet Count 67 10^3/cmm (130-400)
[2019-09-22] MEDS: sodium chloride 0.9% 1,000 ML 30 ML IV (07:21)
--- NOTE | 2019-09-22 09:13 | PC.NURSE ---
Pt back to floor from GI lab after bone marrow biopsy. Aspiration site bandage observed to be C/D/I. Pt instructed to lie flat in bed.
[2019-09-22] MEDS: multivitamin therapeutic Tablet 1 TAB PO (09:44)
--- NOTE | 2019-09-22 11:28 | PM.PN ---
Subjective Subjective: Interval history: Patient awake in bed at time of exam this morning. She denies any chest pain or shortness of breath. Discussed with patient following her bone marrow biopsy today we will continue close monitoring and recheck platelet count in the morning. Vitals/I&O/Wt Last Vital Signs Temp 97.8 F 09/22/19 11:17 Pulse 66 09/22/19 11:17 Resp 18 09/22/19 11:17 BP 130/68 09/22/19 11:17 Pulse Ox 97 09/22/19 11:17 09/21/19 09/22/19 09/22/19 22:59 06:59 14:59 Intake Total 420 / 1987.5 120 / 2107.5 300 / 300 Output Total 300 / 300 300 / 600 350 / 350 Balance 120 / 1687.5 -180 / 1507.5 -50 / -50 Weight last 48 hrs Weight 71.35 kg Weight 72.802 kg Physical Exam Const: COMMON NORMALS: oriented x3 and alert GENERAL APPEARANCE: cooperative ORIENTATION/CONSCIOUSNESS: Yes awake, Yes oriented to person, Yes oriented to place and Yes oriented to time HENMT: COMMON NORMALS: normocephalic and head/scalp atraumatic HEAD & SCALP: normocephalic and atraumatic Eye: COMMON NORMALS: PERRL PUPIL: Yes PERRL Neck/C-Spine: COMMON NORMALS: supple GENERAL: Yes normal visual inspection Resp: COMMON NORMALS: normal respiratory effort and clear to auscultation bilaterally EFFORT & INSPECTION: Yes able to speak in complete sentences AUSCULTATION: clear to auscultation bilaterally, no rhonchi and no wheezes Cardio: COMMON NORMALS: regular rate, regular rhythm and no murmurs RATE: regular rate RHYTHM: regular rhythm GI: COMMON NORMALS: soft to palpation and non-tender INSPECTION: No abdominal distension AUSCULTATION: Yes normoactive bowel sounds PALPATION: Yes soft Extremity: COMMON NORMALS: no clubbing, cyanosis or edema and no calf tenderness Neuro: COMMON NORMALS: oriented x3, CN's II-XII intact bilaterally, moves all extremities and no focal motor deficits SENSORIUM/ORIENTATION: Yes alert, Yes oriented to person, Yes oriented to place and Yes oriented to time SPEECH: speech normal Psych: COMMON NORMALS: mental status grossly normal and cooperative Skin: COMMON NORMALS: no rashes or lesions noted GENERAL SKIN EXAM: no rashes or lesions noted Data : 09/22/19 07:09 09/21/19 04:30 A&P Assessment and plan (1) Thrombocytopenia: Platelet count remains stable at this time Discussed with Dr. De La Cruz this morning. Patient status post bone marrow aspiration and bone marrow biopsy today. Sample sent for pathology. Recommendation was to monitor patient overnight and recheck platelets in the morning, if platelets remain greater than 50,000 plan for discharge tomorrow with close outpatient hematology follow-up on Thursday or Thursday of next week with Dr. De La Cruz Previously received treatment for ITP, completed steroid taper and Rituxan infusions, last infusion 2 weeks ago Status: Acute Code(s): D69.6 - Thrombocytopenia, unspecified Additional A&P Information Neutropenia with recent Rituxan infusion 2 weeks ago Chronic kidney disease: BUN and creatinine slightly improved today, continue with very gentle IV fluids Diverticulosis without diverticulitis Osteoporosis Peptic ulcer disease: Protonix Chronic back pain with stable T12 compression fracture DVT prophylaxis: SCDs, no pharmacologic prophylaxis due to severe thrombocytopenia Diet: Carbohydrate consistent CODE STATUS: Full code, patient reported that she would only want one episode of resuscitation and then would not want anything further. 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
--- NOTE | 2019-09-22 17:03 | PM.BMB ---
Bone Marrow Biopsy Bone Marrow Biopsy: I was consulted by [] office regarding bone marrow biopsy on [Mrs. Azul devlin]. Briefly, the patient is a 84 year old [Female] with [Pancytopenia]. In the Outpatient Services Department, with nursing staff and laboratory technologists in attendance, the procedure was discussed with the patient. Appropriate consent form had been signed. Appropriate alternatives, benefits and risks of procedure were discussed with the patient and she was pre-operatively assessed with a history and physical by myself and cleared for the biopsy procedure. The patient did request IV sedation and that was provided by the Anesthesia Department. And under aseptic condition right posterior iliac area was cleaned and prepared, local anesthesia was given and about 15 mL of bone marrow aspirate and core biopsy was obtained, patient tolerated procedure well, specimen was sent for routine histopathology, flow cytometry and cytogenetics and FISH for MDS Thank you for allowing me to participate in this patient's care and diagnosis. 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
[2019-09-23] VITALS (7 sets, daily range): BP systolic 107–129; BP diastolic 65–74; PULSE 72–83; RESP 16–20; TEMP 36.7–36.8; O2SAT 92–96
[2019-09-23 06:17] LABS: Hematocrit 30.4 % (37.0-47.0); Lymphocytes # 0.8 10^3/uL (0.8-4.8); Lymphocytes % 41.8 %; Mean Corpuscular HGB Conc 32.9 g/dL (30.0-36.0); Mean Corpuscular Hemoglobin 29.4 pg (28.0-34.0); Mean Corpuscular Volume 89.4 fL (81-99); Monocytes # 0.1 10^3/uL (0.2-0.9); Monocytes % 3.8 %; Neutrophils % 52.8 %; Nucleated Red Blood Cells % 0 %; Platelet Count 37 10^3/cmm (130-400); Red Cell Distribution Width 15.3 % (12.1-15.1); White Blood Count 1.8 10^3/uL (4.0-10.0)
[2019-09-23] MEDS: multivitamin therapeutic Tablet 1 TAB PO (10:10)
--- NOTE | 2019-09-23 10:45 | PM.DCS ---
Discharge Providers Date of Admission: 09/20/19 11:57 Date of Discharge: 09/23/19 Attending Provider at Admission: Edna Sparrow MD Attending Provider at Discharge: Edna Sparrow MD Primary Care Provider: Sophia Núñez DO Diagnoses at Discharge Discharge Diagnosis (1) Thrombocytopenia: Status: Acute Problem details: With a prior diagnosis of ITP, 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 Followed closely by Dr. De La Cruz. Patient had bone marrow aspiration and biopsy performed on 09/22/2019. Had plateletpheresis performed during admission and prior to discharge. Follow-up with Dr. De La Cruz recommended on Thursday or Thursday of next week Reason for Visit Reason for Visit: Reason For Visit: Fever/v Hospital Course Hospital Course: Patient was seen and evaluated in the emergency department and admitted for further evaluation due to critical thrombocytopenia with a platelet count of 4000. She received platelet pheresis and admitted for further monitoring. Patient's platelet count improved and oncology/hematology was consulted. Recommendation was to plan for bone marrow aspiration and biopsy. Patient had bone marrow aspiration and biopsy on 09/22/2019. This was performed by Dr. De La Cruz. She did have drop in platelets to 37,000, due to her continuing to drop the recommendation was to plan for platelet pheresis and discharge to home following this with close follow-up with oncology/hematology on Thursday of next week. On date of discharge patient denied any concerns, no chest pain or shortness of breath, no abdominal pain or nausea. She verbalized understanding and agreed with plan Discharge Summary: Discharge to home Follow-up with Dr. De La Cruz on Thursday or Thursday of next week to follow-up with bone marrow biopsy results Continue with isolation precautions due to concern for leukopenia Physical Exam Const: COMMON NORMALS: oriented x3 and alert GENERAL APPEARANCE: cooperative ORIENTATION/CONSCIOUSNESS: Yes awake, Yes oriented to person, Yes oriented to place and Yes oriented to time HENMT: COMMON NORMALS: normocephalic and head/scalp atraumatic HEAD & SCALP: normocephalic and atraumatic Eye: COMMON NORMALS: PERRL PUPIL: Yes PERRL Neck/C-Spine: COMMON NORMALS: supple GENERAL: Yes normal visual inspection Resp: COMMON NORMALS: normal respiratory effort and clear to auscultation bilaterally EFFORT & INSPECTION: Yes able to speak in complete sentences AUSCULTATION: clear to auscultation bilaterally, no rhonchi and no wheezes Cardio: COMMON NORMALS: regular rate, regular rhythm and no murmurs RATE: regular rate RHYTHM: regular rhythm GI: COMMON NORMALS: soft to palpation and non-tender INSPECTION: No abdominal distension AUSCULTATION: Yes normoactive bowel sounds PALPATION: Yes soft Extremity: COMMON NORMALS: no clubbing, cyanosis or edema and no calf tenderness Neuro: COMMON NORMALS: oriented x3, CN's II-XII intact bilaterally, moves all extremities and no focal motor deficits SENSORIUM/ORIENTATION: Yes alert, Yes oriented to person, Yes oriented to place and Yes oriented to time SPEECH: speech normal Psych: COMMON NORMALS: mental status grossly normal and cooperative Discharge Data Data Completed and Pending: Completed Studies During Hospitalization Category Date Time Status CT chest abd pel wo con Urgent Cat Scan 09/20/19 11:56 Completed XR chest 1V brett ble [id number] Stat Exams 09/20/19 10:34 Completed Pending at discharge Category Date Time Status ABO Type Routine Lab 09/19/19 07:55 Results ABO/Rh Type Routi ne Lab 09/23/19 08:23 Results Complete Crossmat ch Routine Lab 09/23/19 08:23 Results Irrad Leukoreduce d PLT Pher Routine Lab 09/19/19 07:55 Results Platelets Leukore duced Irradia Rout ine Lab 09/19/19 07:55 Results Platelets Leukore duced Irradia Rout ine Lab 09/23/19 07:48 Ordered Bone Marrow [PTH] Routine Pth 09/20/19 17:12 Received Labs from last 24 hours 09/23/19 09/23/19 08:23 05:57 WBC 1.8 L RBC 3.40 L Hgb 10.0 L Hct 30.4 L MCV 89.4 MCH 29.4 MCHC 32.9 RDW 15.3 H Plt Count 37 L MPV 11.0 H Neut % (Auto) 52.8 Lymph % (Auto) 41.8 Angelina % (Auto) 3.8 Eos % (Auto) 0.0 Baso % (Auto) 0.0 Neut # (Auto) 1.0 L Lymph # (Auto) 0.8 Angelina # (Auto) 0.1 L Eos # (Auto) 0.0 Baso # (Auto) 0.0 Nucleated RBC % (a uto) 0 Nucleated RBCs # 0.0 Blood Type O Positive Vitals: Last Vital Signs Temp 98.2 F 09/23/19 07:09 Pulse 72 09/23/19 07:09 Resp 20 H 09/23/19 07:09 BP 116/65 09/23/19 07:09 Pulse Ox 96 09/23/19 07:09 Discharge Plan Discharge Patient Disposition: Home, Self-Care Condition: Stable Prescriptions: Continued multivitamin [Multiple Vitamins] Tablet 1 tab PO DAILY RF: 0 metformin 500 mg Tablet 500 mg PO QPM RF: 0 bupropion HCl 150 mg tablet sustained-release 12 hr 150 mg PO DAILY RF: 0 meclizine 12.5 mg Tablet 12.5 mg PO Q6H PRN (Reason: Nausea) RF: 0 calcitonin (salmon) 200 unit/actuation [place],Non-Aerosol 1 spray INTRANASAL (ALT) DAILY RF: 0 pantoprazole 40 mg tablet,delayed release (DR/EC) 40 mg PO BID RF: 0 Geritol Tonic with Ferrex 18 2.5 mg-50 mg-18 iron/15 mL Liquid See Rx Instructions .ROUTE .COMPLEX RF: 0 calcium phosphate-vitamin D3 [Citracal + D3 (calcium phos)] 250 mg calcium- 500 unit Tablet,Chewable 1 tab PO DAILY RF: 0 ondansetron HCl [Zofran] 4 mg Tablet 4 mg PO Q8H PRN (Reason: Nausea) 15 Days Qty: 30 RF: 0 Discharge Orders: Discharge Order (Routine); Ordered 09/23/19 Ordered By: Edna Sparrow Referrals: [facility] [Outside] Sophia Núñez DO [Primary Care Provider] - 4-7 days Catherine De La Cruz MD [Staff Physician] - 1-3 days (Set up appointment prior to discharge, must follow up with Dr. De La Cruz on Thursday or Thursday) Discharge Diet: Advance as tolerated Discharge Activity: Increase activity as tolerated Activity Restrictions/Additional Instructions: Follow-up with primary care provider in 5 to 7 days Follow-up with Dr. 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
--- NOTE | 2019-09-23 12:05 | PC.SOCIAL ---
Pg 2 of IMM Pg 2 of IMM was explained to and signed by the patient, copy was provided, and form placed in chart. She verbalized understanding and had no questions.
--- NOTE | 2019-09-23 14:53 | ANE.PACU ---
 Inpatient post-anesthesia follow up: Airway intact: Yes Vital signs: Temperature 98.1 F Pulse Rate [Right Radial] 78 Pulse Rate 82 Respiratory Rate 16 Blood Pressure [Ri ght Arm] 134/67 Blood Pressure 107/69 Pulse Oximetry 92 Oxygen Delivery Me thod [Rate & Nasal Cannula Delivery Changed T o] Oxygen Delivery Me thod [ Room Air Current Rate & Del marjorie] Oxygen Delivery Me thod Room Air Oxygen Flow Rate [ Rate & 1 Delivery Changed T o] Oxygen Flow Rate 1 Fraction of Inspir ed Oxygen Hydration adequate: Yes Nausea and vomiting: No Pain level: 1 Mental status: Baseline
[2019-10-03 10:36] LABS: Miscellaneous Test See Scanned Lab Rpt
[2019-10-03 10:37] LABS: Miscellaneous Test See Scanned Lab Rpt
== END 2019-09-23 14:45 | disposition home or self-care (01) | DRG 813 ==
LOC: ER 12:15 → MEDSURG 16:25
PROVIDERS: Family Medicine; Internal Medicine Hematology & Oncology; Admitting Provider Family Medicine; Emergency Provider Emergency Medicine; Family Provider Family Medicine; PCP Family Medicine; Visit Provider Family Medicine
PROC: 07DT3ZX Extraction of Bone Marrow, Percutaneous Approach, Diagnostic (ICD-10-PCS; CPT 38222; principal; 2019-09-22 07:30)
DX: D69.6 Thrombocytopenia, unspecified (principal); N18.2 Chronic kidney disease, stage 2 (mild); M81.0 Age-related osteoporosis without current pathological fracture; K57.90 Diverticulosis of intestine, part unspecified, without perforation or abscess without bleeding; K27.9 Peptic ulcer, site unspecified, unspecified as acute or chronic, without hemorrhage or perforation
CPT/HCPCS: 12345; 36415; 36430; 38221; 71045; 71250; 74176; 80048; 80053; 81001; 85007; 85025; 85027; 85049; 85097; 86900; 87804; 88185; 88305; 88311; 88313; 88367; 88374; 96360; 96361; 99214; 99283; A9270; J2001; J7030; P9037

== ENCOUNTER 2019-10-18 05:34 | Outpatient (RCR) | payer MEDICARE, OTHER, SELFPAY ==
[2019-09-28 14:06] LABS: Eosinophils % 1.7 %; Hematocrit 25.7 % (37.0-47.0); Hemoglobin 8.4 g/dL (11.5-15.3); Lymphocytes # 0.7 10^3/uL (0.8-4.8); Lymphocytes % 60.5 %; Mean Corpuscular HGB Conc 32.7 g/dL (30.0-36.0); Mean Corpuscular Hemoglobin 29.2 pg (28.0-34.0); Mean Corpuscular Volume 89.2 fL (81-99); Mean Platelet Volume 10.3 fL (7.4-10.4); Monocytes # 0.1 10^3/uL (0.2-0.9); Monocytes % 4.2 %; Neutrophils % 33.6 %; Nucleated Red Blood Cells % 0 %; Red Blood Count 2.88 10^6/uL (4.1-5.3); Red Cell Distribution Width 14.6 % (12.1-15.1); White Blood Count 1.2 10^3/uL (4.0-10.0)
[2019-09-28 14:17] LABS: Neutrophils # 0.4 10^3/uL (1.8-7.7); Platelet Count 17 10^3/cmm (130-400)
[2019-09-28 15:17] LABS: Alanine Aminotransferase 13 U/L (0-33); Albumin Level 2.8 g/dL (3.5-5.2); Alkaline Phosphatase 98 IU/L (35-105); Anion Gap 18.8 (5-19); Aspartate Amino Transferase 15 U/L (0-32); Blood Urea Nitrogen 17 mg/dL (8-23); Calcium 9.8 mg/dL (8.5-10.5); Carbon Dioxide 24 mmol/L (22-29); Chloride 100 mmol/L (98-107); Globulin 3.2 g/dL (1.3-4.6); Glucose 146 mg/dL (65-115); Potassium 4.8 mmol/L (3.5-5.1); Sodium 138 mmol/L (136-145); Total Bilirubin 0.8 mg/dL (0.15-1.2)
[2019-09-29] VITALS (7 sets, daily range): BP systolic 111–126; BP diastolic 64–75; PULSE 71–74; RESP 18; TEMP 36.7–37.2; O2SAT 92–96
[2019-09-29] MEDS: sodium chloride 0.9% 250 ML 999 ML IV (09:00)
[2019-09-29 09:32] LABS: Eosinophils % 1.7 %; Hematocrit 26.9 % (37.0-47.0); Hemoglobin 8.6 g/dL (11.5-15.3); Lymphocytes # 0.6 10^3/uL (0.8-4.8); Lymphocytes % 52.1 %; Mean Corpuscular Hemoglobin 28.9 pg (28.0-34.0); Mean Corpuscular Volume 90.3 fL (81-99); Monocytes % 2.6 %; Neutrophils % 42.7 %; Nucleated Red Blood Cells % 0 %; Red Blood Count 2.98 10^6/uL (4.1-5.3); Red Cell Distribution Width 14.4 % (12.1-15.1); White Blood Count 1.2 10^3/uL (4.0-10.0)
--- NOTE | 2019-09-29 09:56 | ONC FU_ITS ---
Dr. De La Cruz follow up note Patient: Azul Mg Unit #: [id number]: [id number] Dicatated By: Catherine De La Cruz M.D.Date of Visit:Sep 29, 2019 Onc Med Follow-up/Prog Note History of Present Illness: Mrs. Mg is a 84-year-old female who was admitted to hospital in the last week of March 2019 with hematemesis at that time she was diagnosed with gastric ulcer and was started on Dexilant ,, not sure whether EGD was done but had CT scan of abdomen done. As per patient she did not receive any transfusion and no history of blood transfusion in the past but when she was she was prescribed Geritol for anemia. She has history of EGD and colonoscopy done in 2013 in [facility], as per patient was unremarkable and she was told, considering her age she would not require any more follow-up colonoscopy or EGD. Patient also had injection in her right hip for sciatica. Patient has no history of thrombocytopenia except recently on 05/10/2019 her CBC showed white blood count 4.3 hemoglobin 10.6 crit 30.9 platelets [id number], at that time her primary care physician discontinued her losartan considering the cause of thrombocytopenia. Patient denies any gross bleeding but long scratch lester on inner side of arms bilaterally due to scratching and ecchymosis on the left arm, otherwise no melena or hematochezia, no dysuria, no hematuria, no hemoptysis or hematemesis, no nosebleed of them., No jaundice. Patient was admitted hospital on 07/06/2019 with nosebleed and her initial lab shows severe thrombocytopenia she was given platelets transfusion and was started on prednisone 1 mg/kg with that on 07/07/2019 her platelet count gone up to 140,000 hemoglobin 9 hematocrit 27.4 MCV 100.7 white blood count 4.9 and she was discharged home on a tapering dose of prednisone 50 mg by mouth daily for 5 days then 40 mg daily for 5 days and so onAnd once prednisone tapered of her platelet count continued to improve and on 08/02/2019 her platelet count was 137,000 patient was scheduled for bone marrow evaluation on 08/11/2019. Bone marrow aspiration was attempted once, it was a dry tap. But procedure was abandoned as CBC done that day showed platelet count dropped down to 4000 and there was increased risk for hematoma so no further attempts were made to obtain marrow . Patient was given a unit of platelets transfusion and started on prednisone 1 mg/kg and she was monitored per post procedure protocol.Patient came back to clinic on 08/18/2019 and her CBC showed platelet count 15,000 and that time she was given units of platelet transfusion and also discuss about role of Rituxan and hepatitis profile was checked showed no evidence of hepatitis. Patient was started on tapering dose of prednisone. 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 She did experience infusion reaction with tremors, chills, mildly elevated temp. These symptoms were controlled with Solumedrol and Demerol. She recovered well.Patient received second dose of Rituxan on 09/02/2019 subsequently developed severe leukopenia and thrombocytopenia and was admitted to hospital and treated with platelet transfusion and steroids, Rituxan was discontinued permanently Bone marrow done on 09/22/2019 showed extremely rare erythroid and myeloid precursors are identified and core biopsy shows features of subcortical sampling, extremely hypocellular bone marrow space with reactive lymphocytes and histiocytes present.FISH and MDS panel pending. Came for follow-up, denies any specific complaints but anxiety as her is not doing well. No evidence of gross bleeding or petechiae or ecchymosis, no melena or hematochezia, no nosebleed. No fever or chills, patient is not on steroids. Medications: buPROPion HCl ER (SR) 1 (150 mg) Tablet SR 12 HR Oral daily, Calcitonin ([place]) (200 Units/act) Solution Nasal Take as Directed, Calcium + D 1 Tablet Oral daily, Dexamethasone 4 Tablet (of 10 Tablet) Oral daily, Geritol Tonic 1 tablespoonful(s) Liquid Oral daily, Meclizine HCl 0.5 Tablet (of 25 mg) Oral q 6 hours PRN, metFORMIN HCl 1 Tablet (of 500 mg) Oral daily, Multivitamin Adults 1 Tablet Oral daily, Ondansetron HCl (4 mg) Tablet Oral Take as Directed Allergies: Codeine Sulfate, Gabapentin, levoFLOXacin, Pantoprazole Sodium, and Penicillins. Review of Systems: Constitutional - Appetite is good and weight is stable. No fever, chills, hot flashes, or night sweats. Energy level is poor, ENMT - No sinus congestion/drainage. No mouth sores. No sore throat or difficulty swallowing, Hematologic/Lymphatic - Positive for easy bruising, Respiratory - No shortness of breath. No cough. No pleuritic pain or hemoptysis, Cardiovascular - No angina pain. No palpitations, Gastrointestinal - No nausea or vomiting. No heartburn or acid reflux. No diarrhea or constipation. Positive for blood in the stool, Genitourinary (F) - No dysuria or hematuria. No urinary frequency. No urgency or incontinence, Musculoskeletal - No joint or bone pain, Neurologic - Positive for occasional headache, no dizziness. No numbness/paresthesias or other focal neurologic symptoms, Psychiatric - Poitive for anxiety, depression and insomnia. Vital Signs: Performed on Sep 29, 2019 08:11 Height - 61.00 in Weight - 152.8 lbs (HIGH) BSA - 1.68 sq.m BMI - 28.87 Temperature - 98.6 F Pulse - 82 /min Respiration - 26 /min BP - 138/67 mm(hg) O2 Sat - 97 % Pain - 7 Performance Status: 2 - Ambulatory/capable of all self-care, unable to perform any work activities. Up and about more than 50% of waking hours. (ECOG) Physical Examination: ENMT - No oral exudates, ulcers, masses, thrush or mucositis. Oropharynx clear. Tongue normal, Respiratory - Lungs are clear to auscultation, Cardiovascular - Regular rate and rhythm of heart, Abdomen - Non-tender, non-distended, Good bowel sounds. No guarding or rebound tenderness. No pulsatile masses, Extremities - old healing ecchymosis, no new petechiae. Lab/Imaging: Test performed on Sep 19, 2019 14:42 WBC 2.7 10^9/L RBC 3.98 10^12/L HGB 11.6 g/dL HCT 35.3 % MCV 88.7 fl MCH 29.1 pg MCHC 32.9 g/dL RDW 15.3 % Platelet Count 9 10^9/L MPV 10.0 fL Neutrophils (Gran) 1.0 10^9/L Lymphocytes 1.6 10^9/L Monocytes 0.1 10^9/L Eosinophils 0.0 10^9/L Basophils 0.0 10^9/L Manual Lymphocytes 57.1 % Manual Monocytes 4.8 % Manual Eosinophils 0.7 % Manual Basophils 0.4 % NRBCs 0.0 /100 WBC Test performed on Aug 22, 2019 13:33 Calcium 10.2 mg/dL Neutrophil % 34.9 % Monocyte % 3.7 % Eosinophil % 0.3 % Basophils % 0.0 % Test performed on Aug 18, 2019 10:45 Platelet Pheresis, Leukored TRANSFUSED PRODUCT: LEUKRD/PLAT PHERESIS 1ST CONT COUNT: 1 ABO & Rh Type BLD TYPE O POSITIVE BLD TYPE O POSITIVE Hepatitis A Ab, IgM Non- Reactive Hepatitis B Core Ab, Total Non-Reactive Hepatitis B Surf Antigen Non-Reactive Hepatitis B Surface Ab < 3.5 STATUS of IMMUINITY Inconsistent with Immunity 0.0 - 8.5 mIU/mL Consistent with Immunity >8.5 mIU/mL Hepatitis C Ab Non-Reactive Test performed on Aug 18, 2019 07:49 Sodium 143 mmol/L Potassium 4.5 mmol/L Chloride 105 mmol/L CO2 23 mmol/L Anion Gap 19.5 BUN 35 mg/dL Creatinine 1.4 mg/dL Cr Clearance (Est) 35.14 mL/min Glucose 159 mg/dl Protein, Total 7.4 g/dL Albumin 4.6 g/dL Globulin 2.8 gm/dL Bilirubin, Total 0.4 mg/dL ALT (SGPT) 22 U/L AST (SGOT) 18 U/L Alkaline Phosphatase 171 U/L Test performed on Aug 11, 2019 10:47 Glucose (POC) 143 mg/dL Test performed on Aug 11, 2019 10:40 Manual Neutrophils Abs 1.3 10 3/cmm Manual Lymphocytes Abs 0.9 10 3/cmm Manual Monocytes Abs 0.1 10 3/cmm Manual Segs % 37 % Manual Bands % 19.0 % Platelet Estimate DECREASED Test performed on Aug 03, 2019 11:40 Packed Red Cells (PRBC) [id number] TRANSFUSED PRODUCT: LEUKOREDUCED RED CELL 1ST CONT COUNT: 2 Type & Screen BLD TYPE O POSITIVE AB SCREEN GEL NEGATIVE BLD TYPE O POSITIVE AB SCREEN GEL NEGATIVE Test performed on Jul 20, 2019 10:12 Manual Eosinophils Abs 0.0 10 3/cmm Anisocytosis 1+ Test performed on Jul 12, 2019 12:15 CBC Slide Review SLIDE REVIEW PERFORM Test performed on Jun 07, 2019 11:37 Ferritin 603.0 ng/ml Folate, Serum > 20.0 ng/mL Iron 172 ug/dL Vitamin B12 616 pg/mL % Iron Saturation 62.0 % Retic Count % 2.6 % Impression: Progressive Thrombocytopenia, etiology unclear could be multifactorial including underlying ITP, considering her age underlying myelodysplasia cannot be ruled out or medication related, patient is off NINA inhibitor e.g. losartan. Anemia, macrocytic could be nutritional e.g. B12 deficiency or folate deficiency or increased reticulocyte count due to recent hematemesis. Follow-up lab shows persistent severe thrombocytopenia despite repeated platelet transfusion and tapering dose of prednisone. recommended weekly Rituxan ???4 while continue taper off prednisone. She will have transfusion services if her platelet count is less than 20,000 then will consider platelet transfusion and for hemoglobin if below 8 g then will consider blood transfusion. Mrs Mg began her first dose of Rituxan on 08/25/2019. She did have transfusion services on the 2nd for a HGB of 7.4. She did have infusion reaction to the Rituxan which resolved with additional premeds and Solumedrol.Rituxan was discontinued after second dose given on 09/02/2019 as patient was admitted to hospital with progressive leukopenia/neutropenia and, thrombocytopenia. Was given platelet transfusion and start on dexamethasone, but while on steroids,, her platelet count continued to go downand patient was recently admitted to hospital with severe thrombocytopenia and was given platelet transfusion and eventually underwent bone marrow evaluation on 09/22/2019 which showed , and core biopsy,extremely hypocellular marrow space with a day of lymphocytes and histiocytes and and also noted is extremely to erythroid and myeloid precursors on the role preparation slides.?Aplastic anemia or Rituxan toxicity. Plan: discussed with patient and her son about her labs done on 09/28/2019 showedwhite blood count 1.2 hemoglobin 8.4 hematocrit 25.7 platelets 17,000 and bone marrow findings, which showed hypocellular bone marrow, findings suggestive of aplastic anemia. Clinically, patient is doing reasonably well with no evidence of gross bleeding and well compensated anemia. 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 And recently done bone marrow showed dry tap and extremely hypocellular bone marrow space with a day lymphocytes and histiocytes , findings suggestive of aplastic anemia, autoimmune related or age related versus Rituxan toxicity as Rituxan induced neutropenia used last 42 days and sometime beyond. Last dose of Rituxan was given on 09/02/2019, hopefully, if it is due to Rituxan, we may expect recovery of white blood cell/neutrophils. As far as severe thrombocytopenia is concern, treatment options including if confirmed aplastic anemia with Atgam/cyclosporine/Promacta but we don't have blood bank locally so patient may be due to better at tertiary care center but family is reluctant at this point but may consider in future as her case was discussed with her son Ricardo and granddaughter Rin. At this point we will consider trial of thrombopoietic agent,Promacta 50 mg by mouth daily for 2 weeks, hopefully her count may recover. and if tolerated, Then adjust dose to maximum 75 mg by mouth daily.in the meantime monitor her CBC and LFTs. All the side effect possible benefits associated with Promacta were discussed. We'll repeat her CBC today and if there is a drop in her platelet count may consider transfusion of platelets. As her CBC reveals neutrophil count 400 and patient's is in [place] [facility], patient has high risk for infection so we'll consider prophylactic Levaquin 500 mg by mouth daily. Also give her prescription for Ativan 0.5 mg by mouth 4-6 hour as needed for anxiety Patient return to clinic in 1 week with CBC CMP. Patient was advised in case there is evidence of gross bleeding then she need to go to hospital immediately. And she was also advised to avoid aspirin or NSAIDs or any trauma. Signed By: Catherine De La Cruz M.D. <<Signature on File>>
[2019-09-29 10:02] LABS: Neutrophils # 0.5 10^3/uL (1.8-7.7); Platelet Count 9 10^3/cmm (130-400)
[2019-09-29] MEDS: acetaminophen 325 mg Tablet 650 MG PO (10:07)
[2019-09-29] MEDS: diphenhydrAMINE 25 mg Capsule PO (10:08)
--- NOTE | 2019-10-03 09:02 | ONC FU_ITS ---
[facility] Patient Note Patient: Azul Mg Unit #: [id number]: [id number] Dictated By: Wai Vail M.D.Date of Visit: Oct 03, 2019 Onc MED Note Mrs. Mg is under our care for anemia, thrombocytopenia and persistent neutropenia (pancytopenia). She is currently being treated with supportive care as we are attempting to get Promacta for her. She requires frequent transfusion services with blood and platelets. She is also neutropenic chronically and is on Levaquin prophylactically. She has difficulty meeting her ADLs due to generalized weakness because of the anemia. She is in need of a light weight wheelchair. She has had several near falls with attempting to use amatory assistance with a walker or cane. She does have mobility related activities of daily living that are not being met such as being able to get to the kitchen without significant assistance or toileting. She also has difficulty dressing as it is difficult for her to get from room to room without significant assistance. Again she has had several near falls. She has high risk for bleeding if she does have falling due to her low platelet count. She does have sufficient access between rooms and maneuvering space and surfaces for use of a manual wheelchair according to her family's report. The use of a light weight wheelchair would significantly improve her ability to participate in her mobility related activities of daily living. She does have upper body strength to maneuver the light weight wheelchair as needed and also has a mental capacity to safely maneuver and self propel a light weight wheelchair as maneuvering a standard wheelchair has proved to be difficult for her in the office.. She has a caregiver who is available and willing to provide assistance with a wheelchair as far as transporting it to assist in obtaining her transfusion services. She verbalizes that she is willing to use the light weight wheelchair. She can self propel in a light weight wheelchair as evident in the office. It is expected that she will spend more than 2 hours a day in this wheelchair. Mrs. Mg also has a history of osteopenia and spinal enthesopathy of the lumbar region and benign positional vertigo. She would highly benefit from the use of a light weight wheelchair and meeting her mobility related activities of daily living. Signed By: KAYDEN Lora, CATY <<Signature on File>>
[2019-10-03 14:50] LABS: Eosinophils % 2.8 %; Hematocrit 24.3 % (37.0-47.0); Hemoglobin 7.8 g/dL (11.5-15.3); Lymphocytes # 0.7 10^3/uL (0.8-4.8); Lymphocytes % 66.7 %; Mean Corpuscular HGB Conc 32.1 g/dL (30.0-36.0); Mean Corpuscular Hemoglobin 29.2 pg (28.0-34.0); Mean Platelet Volume 10.9 fL (7.4-10.4); Monocytes # 0.1 10^3/uL (0.2-0.9); Monocytes % 5.6 %; Nucleated Red Blood Cells % 0 %; Red Blood Count 2.67 10^6/uL (4.1-5.3); Red Cell Distribution Width 14.5 % (12.1-15.1); White Blood Count 1.1 10^3/uL (4.0-10.0)
[2019-10-03 15:09] LABS: Neutrophils # 0.3 10^3/uL (1.8-7.7); Platelet Count 11 10^3/cmm (130-400)
[2019-10-03 15:19] LABS: Alanine Aminotransferase 11 U/L (0-33); Albumin Level 2.7 g/dL (3.5-5.2); Alkaline Phosphatase 117 IU/L (35-105); Anion Gap 14.5 (5-19); Aspartate Amino Transferase 14 U/L (0-32); Blood Urea Nitrogen 23 mg/dL (8-23); Calcium 9.5 mg/dL (8.5-10.5); Carbon Dioxide 24 mmol/L (22-29); Chloride 107 mmol/L (98-107); Glucose 101 mg/dL (65-115); Potassium 4.5 mmol/L (3.5-5.1); Sodium 141 mmol/L (136-145); Total Bilirubin 0.4 mg/dL (0.15-1.2); Total Protein 5.7 g/dL (6.6-8.7)
[2019-10-05] VITALS (10 sets, daily range): BP systolic 116–144; BP diastolic 70–88; PULSE 64–78; RESP 17–18; TEMP 36.4–37.2; O2SAT 86–92
[2019-10-05 08:50] LABS: Eosinophils # 0.1 10^3/uL (0.0-0.8); Eosinophils % 5.4 %; Hematocrit 26.1 % (37.0-47.0); Hemoglobin 8.4 g/dL (11.5-15.3); Lymphocytes # 0.5 10^3/uL (0.8-4.8); Lymphocytes % 43.8 %; Mean Corpuscular HGB Conc 32.2 g/dL (30.0-36.0); Mean Corpuscular Hemoglobin 29.2 pg (28.0-34.0); Mean Corpuscular Volume 90.6 fL (81-99); Mean Platelet Volume 13.4 fL (7.4-10.4); Monocytes # 0.1 10^3/uL (0.2-0.9); Monocytes % 7.1 %; Neutrophils % 37.4 %; Nucleated Red Blood Cells % 0 %; Red Blood Count 2.88 10^6/uL (4.1-5.3); Red Cell Distribution Width 14.3 % (12.1-15.1); White Blood Count 1.1 10^3/uL (4.0-10.0)
[2019-10-05 08:54] LABS: Neutrophils # 0.4 10^3/uL (1.8-7.7); Platelet Count 3 10^3/cmm (130-400)
[2019-10-05] MEDS: acetaminophen 325 mg Tablet 650 MG PO ×2 (16:32→17:48)
[2019-10-05] MEDS: FUROsemide 10 mg/mL SDV 2mL 20 MG IV (16:33)
[2019-10-05] MEDS: diphenhydrAMINE 25 mg Capsule PO ×2 (16:33→17:48)
[2019-10-05] MEDS: sodium chloride 0.9% 250 ML 999 ML IV (16:34)
[2019-10-07 11:27] LABS: Eosinophils % 2.2 %; Hematocrit 31.7 % (37.0-47.0); Hemoglobin 10.3 g/dL (11.5-15.3); Lymphocytes # 0.8 10^3/uL (0.8-4.8); Mean Corpuscular HGB Conc 32.5 g/dL (30.0-36.0); Mean Corpuscular Hemoglobin 29.3 pg (28.0-34.0); Mean Corpuscular Volume 90.1 fL (81-99); Mean Platelet Volume 11.2 fL (7.4-10.4); Monocytes # 0.1 10^3/uL (0.2-0.9); Monocytes % 5.9 %; Neutrophils % 33.4 %; Nucleated Red Blood Cells % 0 %; Platelet Count 35 10^3/cmm (130-400); Red Blood Count 3.52 10^6/uL (4.1-5.3); Red Cell Distribution Width 14.4 % (12.1-15.1); White Blood Count 1.4 10^3/uL (4.0-10.0)
[2019-10-07 11:28] LABS: Alanine Aminotransferase 12 U/L (0-33); Albumin Level 3.1 g/dL (3.5-5.2); Alkaline Phosphatase 99 IU/L (35-105); Anion Gap 17.6 (5-19); Aspartate Amino Transferase 13 U/L (0-32); Blood Urea Nitrogen 23 mg/dL (8-23); Calcium 9.6 mg/dL (8.5-10.5); Carbon Dioxide 24 mmol/L (22-29); Chloride 100 mmol/L (98-107); Globulin 3.2 g/dL (1.3-4.6); Glucose 98 mg/dL (65-115); Neutrophils # 0.5 10^3/uL (1.8-7.7); Potassium 4.6 mmol/L (3.5-5.1); Sodium 137 mmol/L (136-145); Total Bilirubin 0.4 mg/dL (0.15-1.2); Total Protein 6.3 g/dL (6.6-8.7)
[2019-10-12 10:03] LABS: Eosinophils % 1.1 %; Hematocrit 32.1 % (37.0-47.0); Hemoglobin 10.7 g/dL (11.5-15.3); Lymphocytes # 0.4 10^3/uL (0.8-4.8); Lymphocytes % 41.3 %; Mean Corpuscular HGB Conc 33.3 g/dL (30.0-36.0); Mean Corpuscular Hemoglobin 29.2 pg (28.0-34.0); Mean Corpuscular Volume 87.7 fL (81-99); Monocytes % 4.3 %; Neutrophils % 52.2 %; Nucleated Red Blood Cells % 0 %; Red Blood Count 3.66 10^6/uL (4.1-5.3); Red Cell Distribution Width 13.4 % (12.1-15.1)
[2019-10-12 10:19] LABS: Alanine Aminotransferase 13 U/L (0-33); Albumin Level 3.2 g/dL (3.5-5.2); Alkaline Phosphatase 106 IU/L (35-105); Anion Gap 15.5 (5-19); Aspartate Amino Transferase 20 U/L (0-32); Blood Urea Nitrogen 23 mg/dL (8-23); Calcium 9.8 mg/dL (8.5-10.5); Carbon Dioxide 23 mmol/L (22-29); Chloride 99 mmol/L (98-107); Globulin 3.3 g/dL (1.3-4.6); Glucose 130 mg/dL (65-115); Potassium 4.5 mmol/L (3.5-5.1); Sodium 133 mmol/L (136-145); Total Bilirubin 0.3 mg/dL (0.15-1.2); Total Protein 6.5 g/dL (6.6-8.7)
[2019-10-12 10:22] LABS: White Blood Count 0.9 10^3/uL (4.0-10.0)
[2019-10-12 10:23] LABS: Neutrophils # 0.5 10^3/uL (1.8-7.7); Platelet Count 3 10^3/cmm (130-400)
[2019-10-12] MEDS: acetaminophen 325 mg Tablet 650 MG PO (14:05)
[2019-10-12 14:07] VITALS: BP 122/74; PULSE 74; RESP 18; TEMP 36.9
[2019-10-12] MEDS: diphenhydrAMINE 25 mg Capsule PO (14:38)
[2019-10-12 16:03] VITALS: BP 126/78; PULSE 72; RESP 18; TEMP 36.9; O2SAT 96
[2019-10-17 08:45] LABS: Eosinophils % 2.3 %; Hematocrit 25.5 % (37.0-47.0); Hemoglobin 8.3 g/dL (11.5-15.3); Lymphocytes # 0.7 10^3/uL (0.8-4.8); Lymphocytes % 83.7 %; Mean Corpuscular HGB Conc 32.5 g/dL (30.0-36.0); Mean Corpuscular Hemoglobin 28.9 pg (28.0-34.0); Mean Corpuscular Volume 88.9 fL (81-99); Mean Platelet Volume 11.1 fL (7.4-10.4); Monocytes % 4.7 %; Nucleated Red Blood Cells % 0 %; Red Blood Count 2.87 10^6/uL (4.1-5.3)
[2019-10-17 09:40] LABS: Neutrophils # 0.1 10^3/uL (1.8-7.7); Platelet Count 5 10^3/cmm (130-400); White Blood Count 0.9 10^3/uL (4.0-10.0)
[2019-10-17] MEDS: acetaminophen 325 mg Tablet 650 MG PO (14:40)
[2019-10-17 14:55] VITALS: BP 127/72; PULSE 61; RESP 18; TEMP 36.6; O2SAT 96
[2019-10-17 15:10] VITALS: BP 112/56; PULSE 64; RESP 18; TEMP 36.9; O2SAT 96
[2019-10-17 15:46] VITALS: BP 127/68; PULSE 66; RESP 18; TEMP 36.9; O2SAT 96
[2019-10-17] MEDS: diphenhydrAMINE 25 mg Capsule PO (16:04)
--- NOTE | 2019-10-18 17:09 | ONC FU_ITS ---
Dr. De La Cruz follow up note Patient: Azul Mg Unit #: [id number]: [id number] Dicatated By: Catherine De La Cruz M.D.Date of Visit:Oct 18, 2019 Onc Med Follow-up/Prog Note History of Present Illness: Mrs. Mg is a 84-year-old female who was admitted to hospital in the last week of March 2019 with hematemesis at that time she was diagnosed with gastric ulcer and was started on Dexilant ,, not sure whether EGD was done but had CT scan of abdomen done. As per patient she did not receive any transfusion and no history of blood transfusion in the past but when she was she was prescribed Geritol for anemia. She has history of EGD and colonoscopy done in 2013 in [facility], as per patient was unremarkable and she was told, considering her age she would not require any more follow-up colonoscopy or EGD. Patient also had injection in her right hip for sciatica. Patient has no history of thrombocytopenia except recently on 05/10/2019 her CBC showed white blood count 4.3 hemoglobin 10.6 crit 30.9 platelets [id number], at that time her primary care physician discontinued her losartan considering the cause of thrombocytopenia. Patient denies any gross bleeding but long scratch lester on inner side of arms bilaterally due to scratching and ecchymosis on the left arm, otherwise no melena or hematochezia, no dysuria, no hematuria, no hemoptysis or hematemesis, no nosebleed of them., No jaundice. Patient was admitted hospital on 07/06/2019 with nosebleed and her initial lab shows severe thrombocytopenia she was given platelets transfusion and was started on prednisone 1 mg/kg with that on 07/07/2019 her platelet count gone up to 140,000 hemoglobin 9 hematocrit 27.4 MCV 100.7 white blood count 4.9 and she was discharged home on a tapering dose of prednisone 50 mg by mouth daily for 5 days then 40 mg daily for 5 days and so onAnd once prednisone tapered of her platelet count continued to improve and on 08/02/2019 her platelet count was 137,000 patient was scheduled for bone marrow evaluation on 08/11/2019. Bone marrow aspiration was attempted once, it was a dry tap. But procedure was abandoned as CBC done that day showed platelet count dropped down to 4000 and there was increased risk for hematoma so no further attempts were made to obtain marrow . Patient was given a unit of platelets transfusion and started on prednisone 1 mg/kg and she was monitored per post procedure protocol.Patient came back to clinic on 08/18/2019 and her CBC showed platelet count 15,000 and that time she was given units of platelet transfusion and also discuss about role of Rituxan and hepatitis profile was checked showed no evidence of hepatitis. Patient was started on tapering dose of prednisone. 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 She did experience infusion reaction with tremors, chills, mildly elevated temp. These symptoms were controlled with Solumedrol and Demerol. She recovered well.Patient received second dose of Rituxan on 09/02/2019 subsequently developed severe leukopenia and thrombocytopenia and was admitted to hospital and treated with platelet transfusion and steroids, Rituxan was discontinued permanently Bone marrow done on 09/22/2019 showed extremely rare erythroid and myeloid precursors are identified and core biopsy shows features of subcortical sampling, extremely hypocellular bone marrow space with reactive lymphocytes and histiocytes present.FISH and MDS panel pending., Now being treated with Promacta. Patient was also started on Bactrim DS as prophylactic for neutropenia as patient was reported allergic to Levaquin in the past Patient recently developed skin rash involving face and upper chest so Bactrim was discontinued with that and Benadryl, rash resolved. Her follow-up lab check done 10/17/2019 shows white blood count 900 hemoglobin 8.3 hematocrit 25.5 platelets 5000, patient was given a unit of platelets on 10/18/2019 and patient is also somewhat noncompliant with Promacta. X Came for follow-up, denies any specific complaints no evidence of gross bleeding no nosebleed or gum bleed. No nausea or vomiting. Skin rash involving face and upper chest has resolved since Bactrim has been discontinued. Tolerating Promacta reasonably well but compliant is a issue. Medications: buPROPion HCl ER (SR) 1 (150 mg) Tablet SR 12 HR Oral daily, Calcitonin ([place]) (200 Units/act) Solution Nasal Take as Directed, Calcium + D 1 Tablet Oral daily, Dexamethasone 4 Tablet (of 10 Tablet) Oral daily, Geritol Tonic 1 tsp Liquid Oral daily, Meclizine HCl 0.5 Tablet (of 25 mg) Oral q 6 hours PRN, Multivitamin Adults 1 Tablet Oral daily, Ondansetron HCl (4 mg) Tablet Oral Take as Directed, Pantoprazole Sodium 1 (40 mg) Tablet, enteric coated Oral b.i.d., Sulfamethoxazole-Trimethoprim 1 Tablet (of 800-160 mg) Oral b.i.d. Allergies: Codeine Sulfate, Gabapentin, levoFLOXacin, Pantoprazole Sodium, Penicillins, and Sulfa Drugs. Review of Systems: Constitutional - Appetite is fair and weight is stable. No fever, chills, hot flashes, or night sweats. Energy level is poor, ENMT - No sinus congestion/drainage. No mouth sores. No sore throat or difficulty swallowing, Hematologic/Lymphatic - Positive for easy bruising, Respiratory - No shortness of breath. No cough. No pleuritic pain or hemoptysis, Cardiovascular - No angina pain. No palpitations, Gastrointestinal - No nausea or vomiting. No heartburn or acid reflux. No diarrhea or constipation, Genitourinary (F) - No dysuria or hematuria. No urinary frequency. No urgency or incontinence, Musculoskeletal - No joint or bone pain, Neurologic - Positive for occasional headache, no dizziness. No numbness/paresthesias or other focal neurologic symptoms, Psychiatric - Poitive for anxiety, depression and insomnia. Vital Signs: Performed on Oct 18, 2019 16:05 Height - 61.00 in Weight - 151.0 lbs (LOW) BSA - 1.68 sq.m BMI - 28.53 Temperature - 98.2 F (LOW) Pulse - 77 /min Respiration - 18 /min BP - 114/74 mm(hg) O2 Sat - 96 % Pain - 0 Performance Status: 1 - No physically strenuous activity, but ambulatory and able to carry out light or sedentary work (e.g. office work, light house work). (ECOG) Physical Examination: ENMT - No oral exudates, ulcers, masses, thrush or mucositis. Oropharynx clear. Tongue normal, Neck - Supple without masses or thyromegaly. No jugular venous distension, Respiratory - Lungs are clear to auscultation, Cardiovascular - Regular rate and rhythm of heart, Extremities - old healing ecchymosis. Lab/Imaging: Test performed on Oct 05, 2019 08:35 WBC 1.1 10 3/uL RBC 2.88 10 6/uL HGB 8.4 g/dL HCT 26.1 % MCV 90.6 fL MCH 29.2 pg MCHC 32.2 g/dL RDW 14.3 % Platelet Count 3 10 3/cmm MPV 13.4 fL Neutrophils 0.4 10 3/uL Lymphocytes 0.5 10 3/uL Monocytes 0.1 10 3/uL Eosinophils 0.1 10 3/uL Basophils 0.0 10 3/uL Neutrophil % 37.4 % Lymphocyte % 43.8 % Monocyte % 7.1 % Eosinophil % 5.4 % Basophils % 0.0 % Test performed on Oct 03, 2019 07:00 Sodium 141 mmol/L Potassium 4.5 mmol/L Chloride 107 mmol/L CO2 24 mmol/L Anion Gap 14.5 BUN 23 mg/dL Creatinine 1.4 mg/dL Cr Clearance (Est) 35.1400 mL/min Glucose 101 mg/dL Calcium 9.5 mg/dL Protein, Total 5.7 g/dL Albumin 2.7 g/dL Globulin 3.0 g/dL Bilirubin, Total 0.4 mg/dL ALT (SGPT) 11 U/L AST (SGOT) 14 U/L Alkaline Phosphatase 117 IU/L Test performed on Sep 19, 2019 14:42 Manual Lymphocytes 57.1 % Manual Monocytes 4.8 % Manual Eosinophils 0.7 % Manual Basophils 0.4 % NRBCs 0.0 /100 WBC Test performed on Aug 18, 2019 10:45 Platelet Pheresis, Leukored TRANSFUSED PRODUCT: LEUKRD/PLAT PHERESIS 1ST CONT COUNT: 1 ABO & Rh Type BLD TYPE O POSITIVE BLD TYPE O POSITIVE Hepatitis A Ab, IgM Non- Reactive Hepatitis B Core Ab, Total Non-Reactive Hepatitis B Surf Antigen Non-Reactive Hepatitis B Surface Ab < 3.5 STATUS of IMMUINITY Inconsistent with Immunity 0.0 - 8.5 mIU/mL Consistent with Immunity >8.5 mIU/mL Hepatitis C Ab Non-Reactive Test performed on Aug 11, 2019 10:47 Glucose (POC) 143 mg/dL Test performed on Aug 11, 2019 10:40 Manual Neutrophils Abs 1.3 10 3/cmm Manual Lymphocytes Abs 0.9 10 3/cmm Manual Monocytes Abs 0.1 10 3/cmm Manual Segs % 37 % Manual Bands % 19.0 % Platelet Estimate DECREASED Test performed on Aug 03, 2019 11:40 Packed Red Cells (PRBC) [id number] TRANSFUSED PRODUCT: LEUKOREDUCED RED CELL 1ST CONT COUNT: 2 Type & Screen BLD TYPE O POSITIVE AB SCREEN GEL NEGATIVE BLD TYPE O POSITIVE AB SCREEN GEL NEGATIVE Test performed on Jul 20, 2019 10:12 Manual Eosinophils Abs 0.0 10 3/cmm Anisocytosis 1+ Test performed on Jul 12, 2019 12:15 CBC Slide Review SLIDE REVIEW PERFORM Test performed on Jun 07, 2019 11:37 Ferritin 603.0 ng/ml Folate, Serum > 20.0 ng/mL Iron 172 ug/dL Vitamin B12 616 pg/mL % Iron Saturation 62.0 % Retic Count % 2.6 % Impression: Progressive Thrombocytopenia, etiology unclear could be multifactorial including underlying ITP, considering her age underlying myelodysplasia cannot be ruled out or medication related, patient is off NINA inhibitor e.g. losartan. Anemia, macrocytic could be nutritional e.g. B12 deficiency or folate deficiency or increased reticulocyte count due to recent hematemesis. Follow-up lab shows persistent severe thrombocytopenia despite repeated platelet transfusion and tapering dose of prednisone. recommended weekly Rituxan ???4 while continue taper off prednisone. She will have transfusion services if her platelet count is less than 20,000 then will consider platelet transfusion and for hemoglobin if below 8 g then will consider blood transfusion. Mrs Mg began her first dose of Rituxan on 08/25/2019. She did have transfusion services on the 2nd for a HGB of 7.4. She did have infusion reaction to the Rituxan which resolved with additional premeds and Solumedrol.Rituxan was discontinued after second dose given on 09/02/2019 as patient was admitted to hospital with progressive leukopenia/neutropenia and, thrombocytopenia. Was given platelet transfusion and start on dexamethasone, but while on steroids,, her platelet count continued to go downand patient was recently admitted to hospital with severe thrombocytopenia and was given platelet transfusion and eventually underwent bone marrow evaluation on 09/22/2019 which showed , and core biopsy,extremely hypocellular marrow space with a day of lymphocytes and histiocytes and and also noted is extremely to erythroid and myeloid precursors on the role preparation slides.?Aplastic anemia or Rituxan toxicity. 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 Now on Promacta without significant improvement in her platelet counts and patient is requiring platelet transfusion, patient is somewhat noncompliant at this point we will consider switching her to Nplate which is given subcutaneously on weekly basis. And we will give her 60 ???g subcutaneous every week while monitoring her platelets count. All the side effect possible benefits associated with Nplate were discussed, patient expressed understanding further teaching done by chemotherapy nurse Referrel to tertiary care center was also discussed but family and patient declined, knowing the benefits. Skin rash involving face and upper chest probably due to Bactrim, now improved since Bactrim has been discontinued, will continue to monitor. Patient return to clinic 1 week after Nplate injection. With CBC Signed By: Catherine De La Cruz M.D. <<Signature on File>>
== END 2019-10-22 23:59 | disposition home or self-care (01) ==
LOC: ONCMED 05:34
PROVIDERS: Nurse Practitioner; Family Provider Family Medicine; PCP Family Medicine; Visit Provider Internal Medicine Hematology & Oncology
DX: D69.3 Immune thrombocytopenic purpura (principal); D70.9 Neutropenia, unspecified; R53.1 Weakness; T50.996A Underdosing of other drugs, medicaments and biological substances, initial encounter; Z91.128 Patient's intentional underdosing of medication regimen for other reason; Z79.899 Other long term (current) drug therapy; Z79.52 Long term (current) use of systemic steroids; Z92.25 Personal history of immunosuppression therapy
CPT/HCPCS: 36415; 36430; 80053; 85025; 86850; 86900; 99214; G0463; J1940; J7050; P9037; P9040

== ENCOUNTER 2019-11-22 08:22 | Outpatient (RCR) | payer MEDICARE, OTHER, SELFPAY ==
[2019-10-24 09:44] LABS: Eosinophils % 0.9 %; Hematocrit 22.4 % (37.0-47.0); Hemoglobin 7.2 g/dL (11.5-15.3); Lymphocytes # 0.8 10^3/uL (0.8-4.8); Lymphocytes % 73.2 %; Mean Corpuscular HGB Conc 32.1 g/dL (30.0-36.0); Mean Corpuscular Hemoglobin 28.8 pg (28.0-34.0); Mean Corpuscular Volume 89.6 fL (81-99); Mean Platelet Volume 11.4 fL (7.4-10.4); Monocytes % 2.7 %; Neutrophils % 23.2 %; Nucleated Red Blood Cells % 0 %; Red Cell Distribution Width 12.7 % (12.1-15.1); White Blood Count 1.1 10^3/uL (4.0-10.0)
[2019-10-24 09:55] LABS: Alanine Aminotransferase 16 U/L (0-33); Albumin Level 3.1 g/dL (3.5-5.2); Alkaline Phosphatase 123 IU/L (35-105); Anion Gap 15.3 (5-19); Aspartate Amino Transferase 14 U/L (0-32); Blood Urea Nitrogen 13 mg/dL (8-23); Calcium 9.6 mg/dL (8.5-10.5); Carbon Dioxide 25 mmol/L (22-29); Chloride 105 mmol/L (98-107); Globulin 3.1 g/dL (1.3-4.6); Glucose 133 mg/dL (65-115); Potassium 4.3 mmol/L (3.5-5.1); Sodium 141 mmol/L (136-145); Total Bilirubin 0.4 mg/dL (0.15-1.2); Total Protein 6.2 g/dL (6.6-8.7)
[2019-10-24 10:16] LABS: Neutrophils # 0.3 10^3/uL (1.8-7.7); Platelet Count 3 10^3/cmm (130-400)
[2019-10-24 10:17] LABS: Slide Review Slide Review Perform
[2019-10-24 16:56] LABS: Eosinophils % 0.9 %; Hematocrit 22.1 % (37.0-47.0); Hemoglobin 7.1 g/dL (11.5-15.3); Lymphocytes # 0.8 10^3/uL (0.8-4.8); Lymphocytes % 73.7 %; Mean Corpuscular HGB Conc 32.1 g/dL (30.0-36.0); Mean Corpuscular Hemoglobin 30.2 pg (28.0-34.0); Monocytes % 3.5 %; Neutrophils % 21.9 %; Nucleated Red Blood Cells % 0 %; Red Blood Count 2.35 10^6/uL (4.1-5.3); Red Cell Distribution Width 12.9 % (12.1-15.1); White Blood Count 1.1 10^3/uL (4.0-10.0)
[2019-10-24 17:54] LABS: Neutrophils # 0.3 10^3/uL (1.8-7.7); Platelet Count 2 10^3/cmm (130-400)
[2019-10-24 17:55] LABS: Slide Review Slide Review Perform
[2019-10-25 09:00] VITALS: BP 122/75; PULSE 78; RESP 17; TEMP 36.3; O2SAT 94
[2019-10-25] MEDS: acetaminophen 325 mg Tablet 650 MG PO (09:16)
[2019-10-25] MEDS: sodium chloride 0.9% 250 ML 999 ML IV (09:17)
[2019-10-25] MEDS: diphenhydrAMINE 25 mg Capsule PO (09:17)
[2019-10-25 13:35] VITALS: BP 126/81; PULSE 76; RESP 18; TEMP 36.6; O2SAT 94
[2019-10-25] MEDS: FUROsemide 10 mg/mL SDV 2mL 20 MG IV (16:28)
[2019-10-26 14:47] LABS: Eosinophils % 0.9 %; Hematocrit 32.3 % (37.0-47.0); Hemoglobin 10.8 g/dL (11.5-15.3); Lymphocytes # 0.9 10^3/uL (0.8-4.8); Lymphocytes % 76.1 %; Mean Corpuscular HGB Conc 33.4 g/dL (30.0-36.0); Mean Corpuscular Hemoglobin 29.2 pg (28.0-34.0); Mean Corpuscular Volume 87.3 fL (81-99); Monocytes % 2.7 %; Neutrophils % 20.3 %; Nucleated Red Blood Cells % 0 %; Platelet Count 50 10^3/cmm (130-400); Red Cell Distribution Width 14.5 % (12.1-15.1); White Blood Count 1.1 10^3/uL (4.0-10.0)
[2019-10-26 15:03] LABS: Neutrophils # 0.2 10^3/uL (1.8-7.7)
[2019-11-02 17:08] LABS: Eosinophils % 2.5 %; Hematocrit 25.1 % (37.0-47.0); Hemoglobin 8.4 g/dL (11.5-15.3); Lymphocytes # 0.5 10^3/uL (0.8-4.8); Mean Corpuscular HGB Conc 33.5 g/dL (30.0-36.0); Mean Corpuscular Hemoglobin 30.2 pg (28.0-34.0); Mean Corpuscular Volume 90.3 fL (81-99); Monocytes % 2.5 %; Neutrophils % 28.7 %; Nucleated Red Blood Cells % 0 %; Red Blood Count 2.78 10^6/uL (4.1-5.3); Red Cell Distribution Width 13.2 % (12.1-15.1)
[2019-11-02 17:20] LABS: Alanine Aminotransferase 7 U/L (0-33); Albumin Level 2.6 g/dL (3.5-5.2); Alkaline Phosphatase 90 IU/L (35-105); Anion Gap 16.5 (5-19); Aspartate Amino Transferase 8 U/L (0-32); Blood Urea Nitrogen 15 mg/dL (8-23); Calcium 9.5 mg/dL (8.5-10.5); Carbon Dioxide 26 mmol/L (22-29); Chloride 101 mmol/L (98-107); Globulin 3.6 g/dL (1.3-4.6); Glucose 169 mg/dL (65-115); Osmolality Calculated 288 mOsm/kg (285-295); Potassium 4.5 mmol/L (3.5-5.1); Sodium 139 mmol/L (136-145); Total Bilirubin 0.7 mg/dL (0.15-1.2); Total Protein 6.2 g/dL (6.6-8.7)
[2019-11-02 17:54] LABS: Neutrophils # 0.2 10^3/uL (1.8-7.7); Platelet Count 2 10^3/cmm (130-400); Slide Review Slide Review Perform; White Blood Count 0.8 10^3/uL (4.0-10.0)
[2019-11-03] MEDS: acetaminophen 325 mg Tablet 650 MG PO (14:10)
[2019-11-03] MEDS: diphenhydrAMINE 25 mg Capsule PO (14:10)
[2019-11-03 14:13] VITALS: BP 115/53; PULSE 81; RESP 18; TEMP 36.6; O2SAT 99
[2019-11-03 14:23] VITALS: BP 115/60; PULSE 80; RESP 17; TEMP 36.7; O2SAT 98
[2019-11-03 14:25] VITALS: BP 115/60; PULSE 80; RESP 17; TEMP 36.7; O2SAT 98
--- NOTE | 2019-11-03 16:01 | PC.NURSE ---
1425 IV site discontinued, pressure dressing of gauze/ coban wrap applied. Patient tolerated well. - Michael Patton
--- NOTE | 2019-11-03 16:20 | ONC FU_ITS ---
Dr. De La Cruz follow up note Patient: Azul Mg Unit #: [id number]: [id number] Dicatated By: Catherine De La Cruz M.D.Date of Visit:Nov 03, 2019 Onc Med Follow-up/Prog Note History of Present Illness: Mrs. Mg is a 84-year-old female who was admitted to hospital in the last week of March 2019 with hematemesis at that time she was diagnosed with gastric ulcer and was started on Dexilant ,, not sure whether EGD was done but had CT scan of abdomen done. As per patient she did not receive any transfusion and no history of blood transfusion in the past but when she was she was prescribed Geritol for anemia. She has history of EGD and colonoscopy done in 2013 in [facility], as per patient was unremarkable and she was told, considering her age she would not require any more follow-up colonoscopy or EGD. Patient also had injection in her right hip for sciatica. Patient has no history of thrombocytopenia except recently on 05/10/2019 her CBC showed white blood count 4.3 hemoglobin 10.6 crit 30.9 platelets [id number], at that time her primary care physician discontinued her losartan considering the cause of thrombocytopenia. Patient denies any gross bleeding but long scratch lester on inner side of arms bilaterally due to scratching and ecchymosis on the left arm, otherwise no melena or hematochezia, no dysuria, no hematuria, no hemoptysis or hematemesis, no nosebleed of them., No jaundice. Patient was admitted hospital on 07/06/2019 with nosebleed and her initial lab shows severe thrombocytopenia she was given platelets transfusion and was started on prednisone 1 mg/kg with that on 07/07/2019 her platelet count gone up to 140,000 hemoglobin 9 hematocrit 27.4 MCV 100.7 white blood count 4.9 and she was discharged home on a tapering dose of prednisone 50 mg by mouth daily for 5 days then 40 mg daily for 5 days and so onAnd once prednisone tapered of her platelet count continued to improve and on 08/02/2019 her platelet count was 137,000 patient was scheduled for bone marrow evaluation on 08/11/2019. Bone marrow aspiration was attempted once, it was a dry tap. But procedure was abandoned as CBC done that day showed platelet count dropped down to 4000 and there was increased risk for hematoma so no further attempts were made to obtain marrow . Patient was given a unit of platelets transfusion and started on prednisone 1 mg/kg and she was monitored per post procedure protocol.Patient came back to clinic on 08/18/2019 and her CBC showed platelet count 15,000 and that time she was given units of platelet transfusion and also discuss about role of Rituxan and hepatitis profile was checked showed no evidence of hepatitis. Patient was started on tapering dose of prednisone. 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 She did experience infusion reaction with tremors, chills, mildly elevated temp. These symptoms were controlled with Solumedrol and Demerol. She recovered well.Patient received second dose of Rituxan on 09/02/2019 subsequently developed severe leukopenia and thrombocytopenia and was admitted to hospital and treated with platelet transfusion and steroids, Rituxan was discontinued permanently Bone marrow done on 09/22/2019 showed extremely rare erythroid and myeloid precursors are identified and core biopsy shows features of subcortical sampling, extremely hypocellular bone marrow space with reactive lymphocytes and histiocytes present.FISH and MDS panel pending., Now being treated with Promacta. Patient was also started on Bactrim DS as prophylactic for neutropenia as patient was reported allergic to Levaquin in the past Patient recently developed skin rash involving face and upper chest so Bactrim was discontinued with that and Benadryl, rash resolved. Her follow-up lab check done 10/17/2019 shows white blood count 900 hemoglobin 8.3 hematocrit 25.5 platelets 5000, patient was given a unit of platelets on 10/18/2019 and patient is also somewhat noncompliant with Promacta. X Came for follow-up, complaining of cough and sore throat, now being treated with Zithromax by PMD patient denies any hemoptysis hematemesis but saw some blood in her sputum one time. No fever or chills, no melena or hematochezia, no jaundice, no petechia but old healing ecchymosis. Patient is off steroids Medications: buPROPion HCl ER (SR) 1 (150 mg) Tablet SR 12 HR Oral daily, Calcitonin ([place]) (200 Units/act) Solution Nasal Take as Directed, Calcium + D 1 Tablet Oral daily, Dexamethasone 4 Tablet (of 10 Tablet) Oral daily, Geritol Tonic 1 tsp Liquid Oral daily, Meclizine HCl 0.5 Tablet (of 25 mg) Oral q 6 hours PRN, Multivitamin Adults 1 Tablet Oral daily, Ondansetron HCl (4 mg) Tablet Oral Take as Directed, Pantoprazole Sodium 1 (40 mg) Tablet, enteric coated Oral b.i.d., Sulfamethoxazole-Trimethoprim 1 Tablet (of 800-160 mg) Oral b.i.d. Allergies: Codeine Sulfate, Gabapentin, levoFLOXacin, Pantoprazole Sodium, Penicillins, and Sulfa Drugs. Review of Systems: Review of Systems is not available for this patient. Vital Signs: Performed on Nov 03, 2019 13:43 Height - 61.00 in BSA - 0.00 sq.m BMI - 0.00 Temperature - 98.9 F (HIGH) Pulse - 85 /min Respiration - 24 /min BP - 106/58 mm(hg) O2 Sat - 97 % Pain - 0 Performance Status: 2 - Ambulatory/capable of all self-care, unable to perform any work activities. Up and about more than 50% of waking hours. (ECOG) Physical Examination: ENMT - . No oral exudates, ulcers, masses, thrush or mucositis. Oropharynx mild erythema. Tongue normal, Respiratory - Lungs are clear to auscultation without rhonchi or wheezing, Cardiovascular - Regular rate and rhythm of heart, Abdomen - Non-tender, non-distended, Good bowel sounds. No guarding or rebound tenderness. No pulsatile masses, Extremities - no edema , old healing ecchymosis involving lower extremity. Lab/Imaging: Test performed on Oct 26, 2019 06:55 WBC 1.1 10 3/uL RBC 3.70 10 6/uL HGB 10.8 g/dL HCT 32.3 % MCV 87.3 fL MCH 29.2 pg MCHC 33.4 g/dL RDW 14.5 % Platelet Count 50 10 3/cmm MPV 11.0 fL Neutrophils 0.2 10 3/uL Lymphocytes 0.9 10 3/uL Monocytes 0.0 10 3/uL Eosinophils 0.0 10 3/uL Basophils 0.0 10 3/uL Neutrophil % 20.3 % Lymphocyte % 76.1 % Monocyte % 2.7 % Eosinophil % 0.9 % Basophils % 0.0 % Test performed on Oct 24, 2019 15:30 CBC Slide Review Slide Review Perform Test performed on Oct 24, 2019 06:15 Sodium 141 mmol/L Potassium 4.3 mmol/L Chloride 105 mmol/L CO2 25 mmol/L Anion Gap 15.3 BUN 13 mg/dL Creatinine 1.1 mg/dL Cr Clearance (Est) 44.7200 mL/min Glucose 133 mg/dL Calcium 9.6 mg/dL Protein, Total 6.2 g/dL Albumin 3.1 g/dL Globulin 3.1 g/dL Bilirubin, Total 0.4 mg/dL ALT (SGPT) 16 U/L AST (SGOT) 14 U/L Alkaline Phosphatase 123 IU/L Test performed on Sep 19, 2019 14:42 Manual Lymphocytes 57.1 % Manual Monocytes 4.8 % Manual Eosinophils 0.7 % Manual Basophils 0.4 % NRBCs 0.0 /100 WBC Test performed on Aug 18, 2019 10:45 Platelet Pheresis, Leukored TRANSFUSED PRODUCT: LEUKRD/PLAT PHERESIS 1ST CONT COUNT: 1 ABO & Rh Type BLD TYPE O POSITIVE BLD TYPE O POSITIVE Hepatitis A Ab, IgM Non- Reactive Hepatitis B Core Ab, Total Non-Reactive Hepatitis B Surf Antigen Non-Reactive Hepatitis B Surface Ab < 3.5 STATUS of IMMUINITY Inconsistent with Immunity 0.0 - 8.5 mIU/mL Consistent with Immunity >8.5 mIU/mL Hepatitis C Ab Non-Reactive Test performed on Aug 11, 2019 10:47 Glucose (POC) 143 mg/dL Test performed on Aug 11, 2019 10:40 Manual Neutrophils Abs 1.3 10 3/cmm Manual Lymphocytes Abs 0.9 10 3/cmm Manual Monocytes Abs 0.1 10 3/cmm Manual Segs % 37 % Manual Bands % 19.0 % Platelet Estimate DECREASED Test performed on Aug 03, 2019 11:40 Packed Red Cells (PRBC) [id number] TRANSFUSED PRODUCT: LEUKOREDUCED RED CELL 1ST CONT COUNT: 2 Type & Screen BLD TYPE O POSITIVE AB SCREEN GEL NEGATIVE BLD TYPE O POSITIVE AB SCREEN GEL NEGATIVE Test performed on Jul 20, 2019 10:12 Manual Eosinophils Abs 0.0 10 3/cmm Anisocytosis 1+ Test performed on Jun 07, 2019 11:37 Ferritin 603.0 ng/ml Folate, Serum > 20.0 ng/mL Iron 172 ug/dL Vitamin B12 616 pg/mL % Iron Saturation 62.0 % Retic Count % 2.6 % Impression: Progressive Thrombocytopenia, etiology unclear could be multifactorial including underlying ITP, considering her age underlying myelodysplasia cannot be ruled out or medication related, patient is off NINA inhibitor e.g. losartan. Anemia, macrocytic could be nutritional e.g. B12 deficiency or folate deficiency or increased reticulocyte count due to recent hematemesis. Follow-up lab shows persistent severe thrombocytopenia despite repeated platelet transfusion and tapering dose of prednisone. recommended weekly Rituxan ???4 while continue taper off prednisone. She will have transfusion services if her platelet count is less than 20,000 then will consider platelet transfusion and for hemoglobin if below 8 g then will consider blood transfusion. Mrs Mg began her first dose of Rituxan on 08/25/2019. She did have transfusion services on the 2nd for a HGB of 7.4. She did have infusion reaction to the Rituxan which resolved with additional premeds and Solumedrol.Rituxan was discontinued after second dose given on 09/02/2019 as patient was admitted to hospital with progressive leukopenia/neutropenia and, thrombocytopenia. Was given platelet transfusion and start on dexamethasone, but while on steroids,, her platelet count continued to go downand patient was recently admitted to hospital with severe thrombocytopenia and was given platelet transfusion and eventually underwent bone marrow evaluation on 09/22/2019 which showed , and core biopsy,extremely hypocellular marrow space with a day of lymphocytes and histiocytes and and also noted is extremely to erythroid and myeloid precursors on the role preparation slides.?Aplastic anemia or Rituxan toxicity. Plan: Discussed with patient regarding her labs white blood count 0.8 hemoglobin 8.4, platelets 2000 neutrophil count 200 Clinically, patient is in mild distress due to cough and sore throat and now being treated with Zithromax. Denies any fever chills at this point because of persistent severe neutropenia and patient has risk of worsening of infection due to comorbid condition and her advance age, we will consider Neupogen 480 ???g subcutaneous daily for 3 days then repeat CBC on Thursday. We will also give her unit of platelets transfusion and also start her on Nplate , as patient was noncompliant with Promacta Return to clinic in 1 week with CBC and for Nplate She was advised in case she has worsening of symptoms she needed to go to hospital immediately Signed By: Catherine De La Cruz M.D. <<Signature on File>>
[2019-11-07] VITALS (10 sets, daily range): BP systolic 106–161; BP diastolic 63–81; PULSE 69–92; RESP 16; TEMP 36.2–36.8; O2SAT 93–98
[2019-11-07 10:18] LABS: Eosinophils % 1.7 %; Hematocrit 23.5 % (37.0-47.0); Hemoglobin 7.4 g/dL (11.5-15.3); Lymphocytes # 0.8 10^3/uL (0.8-4.8); Mean Corpuscular HGB Conc 31.5 g/dL (30.0-36.0); Mean Corpuscular Hemoglobin 28.6 pg (28.0-34.0); Mean Corpuscular Volume 90.7 fL (81-99); Mean Platelet Volume 9.6 fL (7.4-10.4); Monocytes # 0.1 10^3/uL (0.2-0.9); Nucleated Red Blood Cells % 0 %; Red Blood Count 2.59 10^6/uL (4.1-5.3); White Blood Count 1.2 10^3/uL (4.0-10.0)
[2019-11-07 10:57] LABS: Platelet Count 27 10^3/cmm (130-400)
[2019-11-07 10:58] LABS: Neutrophils # 0.3 10^3/uL (1.8-7.7); Slide Review Slide Review Perform
[2019-11-07] MEDS: acetaminophen 325 mg Tablet 650 MG PO (11:52)
[2019-11-07] MEDS: diphenhydrAMINE 25 mg Capsule PO (11:52)
[2019-11-07] MEDS: sodium chloride 0.9% 250 ML 999 ML IV (12:30)
[2019-11-07] MEDS: FUROsemide 10 mg/mL SDV 2mL 20 MG IV (14:12)
[2019-11-10 09:03] LABS: Basophils % 0.5 %; Hematocrit 32.1 % (37.0-47.0); Hemoglobin 10.7 g/dL (11.5-15.3); Lymphocytes # 1.1 10^3/uL (0.8-4.8); Mean Corpuscular HGB Conc 33.3 g/dL (30.0-36.0); Mean Corpuscular Hemoglobin 28.8 pg (28.0-34.0); Mean Corpuscular Volume 86.5 fL (81-99); Mean Platelet Volume 11.3 fL (7.4-10.4); Monocytes # 0.1 10^3/uL (0.2-0.9); Nucleated Red Blood Cells % 0 %; Red Blood Count 3.71 10^6/uL (4.1-5.3); Red Cell Distribution Width 13.5 % (12.1-15.1)
[2019-11-10 09:27] LABS: Neutrophils # 0.8 10^3/uL (1.8-7.7); Platelet Count 6 10^3/cmm (130-400)
[2019-11-10 09:28] LABS: Slide Review Slide Review Perform
[2019-11-10] MEDS: acetaminophen 325 mg Tablet 650 MG PO (10:20)
[2019-11-10] MEDS: diphenhydrAMINE 25 mg Capsule PO (10:20)
[2019-11-10 12:50] VITALS: BP 130/44; PULSE 71; RESP 18; TEMP 36.8; O2SAT 93
[2019-11-10 13:00] VITALS: BP 136/68; PULSE 71; RESP 18; TEMP 36.8; O2SAT 94
--- NOTE | 2019-11-10 14:22 | ONC FU_ITS ---
Dr. De La Cruz follow up note Patient: Azul Mg Unit #: [id number]: 1935 Dicatated By: Catherine De La Cruz M.D.Date of Visit:Nov 10, 2019 Onc Med Follow-up/Prog Note History of Present Illness: Mrs. Mg is a 84-year-old female who was admitted to hospital in the last week of March 2019 with hematemesis at that time she was diagnosed with gastric ulcer and was started on Dexilant ,, not sure whether EGD was done but had CT scan of abdomen done. As per patient she did not receive any transfusion and no history of blood transfusion in the past but when she was she was prescribed Geritol for anemia. She has history of EGD and colonoscopy done in 2013 in [facility], as per patient was unremarkable and she was told, considering her age she would not require any more follow-up colonoscopy or EGD. Patient also had injection in her right hip for sciatica. Patient has no history of thrombocytopenia except recently on 05/10/2019 her CBC showed white blood count 4.3 hemoglobin 10.6 crit 30.9 platelets [id number], at that time her primary care physician discontinued her losartan considering the cause of thrombocytopenia. Patient denies any gross bleeding but long scratch lester on inner side of arms bilaterally due to scratching and ecchymosis on the left arm, otherwise no melena or hematochezia, no dysuria, no hematuria, no hemoptysis or hematemesis, no nosebleed of them., No jaundice. Patient was admitted hospital on 07/06/2019 with nosebleed and her initial lab shows severe thrombocytopenia she was given platelets transfusion and was started on prednisone 1 mg/kg with that on 07/07/2019 her platelet count gone up to 140,000 hemoglobin 9 hematocrit 27.4 MCV 100.7 white blood count 4.9 and she was discharged home on a tapering dose of prednisone 50 mg by mouth daily for 5 days then 40 mg daily for 5 days and so onAnd once prednisone tapered of her platelet count continued to improve and on 08/02/2019 her platelet count was 137,000 patient was scheduled for bone marrow evaluation on 08/11/2019. Bone marrow aspiration was attempted once, it was a dry tap. But procedure was abandoned as CBC done that day showed platelet count dropped down to 4000 and there was increased risk for hematoma so no further attempts were made to obtain marrow . Patient was given a unit of platelets transfusion and started on prednisone 1 mg/kg and she was monitored per post procedure protocol.Patient came back to clinic on 08/18/2019 and her CBC showed platelet count 15,000 and that time she was given units of platelet transfusion and also discuss about role of Rituxan and hepatitis profile was checked showed no evidence of hepatitis. Patient was started on tapering dose of prednisone. 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 She did experience infusion reaction with tremors, chills, mildly elevated temp. These symptoms were controlled with Solumedrol and Demerol. She recovered well.Patient received second dose of Rituxan on 09/02/2019 subsequently developed severe leukopenia and thrombocytopenia and was admitted to hospital and treated with platelet transfusion and steroids, Rituxan was discontinued permanently Bone marrow done on 09/22/2019 showed extremely rare erythroid and myeloid precursors are identified and core biopsy shows features of subcortical sampling, extremely hypocellular bone marrow space with reactive lymphocytes and histiocytes present.FISH and MDS panel pending., Now being treated with Promacta. Patient was also started on Bactrim DS as prophylactic for neutropenia as patient was reported allergic to Levaquin in the past Patient recently developed skin rash involving face and upper chest so Bactrim was discontinued with that and Benadryl, rash resolved. Her follow-up lab check done 10/17/2019 shows white blood count 900 hemoglobin 8.3 hematocrit 25.5 platelets 5000, patient was given a unit of platelets on 10/18/2019 and patient is also somewhat noncompliant with Promacta. X Came for follow-up, denies any specific complaint except sore throat and postnasal drainage. But no fever or chills, no nausea or vomiting, no melena or hematochezia, no nosebleed or gum bleed, no hematuria. But old healing ecchymosis involving lower extremities. Medications: buPROPion HCl ER (SR) 1 (150 mg) Tablet SR 12 HR Oral daily, Calcitonin ([place]) (200 Units/act) Solution Nasal Take as Directed, Calcium + D 1 Tablet Oral daily, Dexamethasone 4 Tablet (of 10 Tablet) Oral daily, Geritol Tonic 1 tsp Liquid Oral daily, Meclizine HCl 0.5 Tablet (of 25 mg) Oral q 6 hours PRN, Multivitamin Adults 1 Tablet Oral daily, Ondansetron HCl (4 mg) Tablet Oral Take as Directed, Pantoprazole Sodium 1 (40 mg) Tablet, enteric coated Oral b.i.d., Sulfamethoxazole-Trimethoprim 1 Tablet (of 800-160 mg) Oral b.i.d. Allergies: Codeine Sulfate, Gabapentin, levoFLOXacin, Pantoprazole Sodium, Penicillins, and Sulfa Drugs. Review of Systems: Constitutional - Appetite is fair and weight is stable. No fever, chills, hot flashes, or night sweats. Energy level is poor, ENMT - No sinus congestion/drainage. No mouth sores. No sore throat or difficulty swallowing, Hematologic/Lymphatic - Positive for easy bruising, Respiratory - No shortness of breath. No cough. No pleuritic pain or hemoptysis, Cardiovascular - No angina pain. No palpitations, Gastrointestinal - No nausea or vomiting. No heartburn or acid reflux. No diarrhea or constipation, Genitourinary (F) - No dysuria or hematuria. No urinary frequency. No urgency or incontinence, Musculoskeletal - No joint or bone pain, Neurologic - Positive for occasional headache, no dizziness. No numbness/paresthesias or other focal neurologic symptoms, Psychiatric - Poitive for anxiety, depression and insomnia. Vital Signs: Performed on Nov 10, 2019 08:35 Height - 61.00 in Temperature - 98.2 F (LOW) Pulse - 77 /min Respiration - 24 /min BP - 124/60 mm(hg) O2 Sat - 97 % Pain - 0 Performance Status: 1 - No physically strenuous activity, but ambulatory and able to carry out light or sedentary work (e.g. office work, light house work). (ECOG) Physical Examination: ENMT - No oral exudates, ulcers, masses, thrush or mucositis. Oropharynx clear. Tongue normal, Respiratory - Lungs are clear to auscultation without rhonchi or wheezing, Cardiovascular - Regular rate and rhythm of heart, Abdomen - Non-tender, non-distended, Good bowel sounds. No guarding or rebound tenderness. No pulsatile masses, Extremities - old healing ecchymosis, no petechiae or edema. Lab/Imaging: Test performed on Nov 02, 2019 06:55 Sodium 139 mmol/L Potassium 4.5 mmol/L Chloride 101 mmol/L CO2 26 mmol/L Anion Gap 16.5 BUN 15 mg/dL Creatinine 1.2 mg/dL Cr Clearance (Est) 41.0000 mL/min Glucose 169 mg/dL Calcium 9.5 mg/dL Protein, Total 6.2 g/dL Albumin 2.6 g/dL Globulin 3.6 g/dL Bilirubin, Total 0.7 mg/dL ALT (SGPT) 7 U/L AST (SGOT) 8 U/L Alkaline Phosphatase 90 IU/L WBC 0.8 10 3/uL RBC 2.78 10 6/uL HGB 8.4 g/dL HCT 25.1 % MCV 90.3 fL MCH 30.2 pg MCHC 33.5 g/dL RDW 13.2 % Platelet Count 2 10 3/cmm Neutrophils 0.2 10 3/uL Lymphocytes 0.5 10 3/uL Monocytes 0.0 10 3/uL Eosinophils 0.0 10 3/uL Basophils 0.0 10 3/uL Neutrophil % 28.7 % Lymphocyte % 65.0 % Monocyte % 2.5 % Eosinophil % 2.5 % Basophils % 0.0 % CBC Slide Review Slide Review Perform Test performed on Sep 19, 2019 14:42 Manual Lymphocytes 57.1 % Manual Monocytes 4.8 % Manual Eosinophils 0.7 % Manual Basophils 0.4 % NRBCs 0.0 /100 WBC Test performed on Aug 18, 2019 10:45 Platelet Pheresis, Leukored TRANSFUSED PRODUCT: LEUKRD/PLAT PHERESIS 1ST CONT COUNT: 1 ABO & Rh Type BLD TYPE O POSITIVE BLD TYPE O POSITIVE Hepatitis A Ab, IgM Non- Reactive Hepatitis B Core Ab, Total Non-Reactive Hepatitis B Surf Antigen Non-Reactive Hepatitis B Surface Ab < 3.5 STATUS of IMMUINITY Inconsistent with Immunity 0.0 - 8.5 mIU/mL Consistent with Immunity >8.5 mIU/mL Hepatitis C Ab Non-Reactive Test performed on Aug 11, 2019 10:47 Glucose (POC) 143 mg/dL Test performed on Aug 11, 2019 10:40 Manual Neutrophils Abs 1.3 10 3/cmm Manual Lymphocytes Abs 0.9 10 3/cmm Manual Monocytes Abs 0.1 10 3/cmm Manual Segs % 37 % Manual Bands % 19.0 % Platelet Estimate DECREASED Test performed on Aug 03, 2019 11:40 Packed Red Cells (PRBC) [id number] TRANSFUSED PRODUCT: LEUKOREDUCED RED CELL 1ST CONT COUNT: 2 Type & Screen BLD TYPE O POSITIVE AB SCREEN GEL NEGATIVE BLD TYPE O POSITIVE AB SCREEN GEL NEGATIVE Test performed on Jul 20, 2019 10:12 Manual Eosinophils Abs 0.0 10 3/cmm Anisocytosis 1+ Test performed on Jun 07, 2019 11:37 Ferritin 603.0 ng/ml Folate, Serum > 20.0 ng/mL Iron 172 ug/dL Vitamin B12 616 pg/mL % Iron Saturation 62.0 % Retic Count % 2.6 % Impression: Progressive Thrombocytopenia, etiology unclear could be multifactorial including underlying ITP, considering her age underlying myelodysplasia cannot be ruled out or medication related, patient is off NINA inhibitor e.g. losartan. Anemia, macrocytic could be nutritional e.g. B12 deficiency or folate deficiency or increased reticulocyte count due to recent hematemesis. Follow-up lab shows persistent severe thrombocytopenia despite repeated platelet transfusion and tapering dose of prednisone. recommended weekly Rituxan ???4 while continue taper off prednisone. She will have transfusion services if her platelet count is less than 20,000 then will consider platelet transfusion and for hemoglobin if below 8 g then will consider blood transfusion. Mrs Mg began her first dose of Rituxan on 08/25/2019. She did have transfusion services on the 2nd for a HGB of 7.4. She did have infusion reaction to the Rituxan which resolved with additional premeds and Solumedrol.Rituxan was discontinued after second dose given on 09/02/2019 as patient was admitted to hospital with progressive leukopenia/neutropenia and, thrombocytopenia. Was given platelet transfusion and start on dexamethasone, but while on steroids,, her platelet count continued to go downand patient was recently admitted to hospital with severe thrombocytopenia and was given platelet transfusion and eventually underwent bone marrow evaluation on 09/22/2019 which showed , and core biopsy,extremely hypocellular marrow space with a day of lymphocytes and histiocytes and and also noted is extremely to erythroid and myeloid precursors on the role preparation slides.?Aplastic anemia or Rituxan toxicity. Plan: Discussed with patient regarding her labs white blood count 2000 hemoglobin 10.7 hematocrit 32.1 platelets 6000 ANC 800 on Neupogen Clinically, patient doing better now, no evidence of gross bleeding but follow-up lab shows severe thrombocytopenia, patient is on weekly Nplate, tolerating well. We'll continue with next dose of Nplate today along with Neupogen 480 ???g subcutaneous and then change Neupogen to every other day and also consider platelets transfusion and goal is to keep her platelet count more than 20,000 while being treated with Nplate. As far as sore throat is concern, could be due to postnasal drip patient was advised to take [id number] Claritin and also continue with Zithromax 1 tablet daily and she will return to clinic in 1 week with CBC and we'll check her CBC day before her return to clinic on he was advised in case she has any fever or any evidence of gross bleeding she needed to go to hospital otherwise return to clinic in 1 week with CBC Signed By: Catherine De La Cruz M.D. <<Signature on File>>
[2019-11-15] MEDS: diphenhydrAMINE 25 mg Capsule PO (11:52)
[2019-11-15] MEDS: acetaminophen 325 mg Tablet 650 MG PO (11:52)
[2019-11-15 11:56] LABS: Hematocrit 29.9 % (37.0-47.0); Hemoglobin 9.8 g/dL (11.5-15.3); Lymphocytes # 0.8 10^3/uL (0.8-4.8); Lymphocytes % 59.3 %; Mean Corpuscular HGB Conc 32.8 g/dL (30.0-36.0); Mean Corpuscular Volume 88.5 fL (81-99); Mean Platelet Volume 12.9 fL (7.4-10.4); Monocytes # 0.1 10^3/uL (0.2-0.9); Monocytes % 7.9 %; Neutrophils % 31.4 %; Nucleated Red Blood Cells % 0 %; Red Blood Count 3.38 10^6/uL (4.1-5.3); Red Cell Distribution Width 13.1 % (12.1-15.1); White Blood Count 1.4 10^3/uL (4.0-10.0)
[2019-11-15 12:53] LABS: Slide Review Slide Review Perform
[2019-11-15 12:56] LABS: Platelet Count 6 10^3/cmm (130-400)
[2019-11-15 12:57] LABS: Neutrophils # 0.4 10^3/uL (1.8-7.7)
[2019-11-15 15:34] VITALS: BP 120/56; PULSE 86; RESP 16; TEMP 36.5; O2SAT 95
[2019-11-15 16:13] VITALS: BP 108/46; PULSE 89; RESP 16; TEMP 36.6; O2SAT 93
[2019-11-17 09:07] LABS: Basophils % 0.8 %; Eosinophils % 0.4 %; Hematocrit 29.1 % (37.0-47.0); Hemoglobin 9.1 g/dL (11.5-15.3); Lymphocytes # 0.8 10^3/uL (0.8-4.8); Lymphocytes % 32.3 %; Mean Corpuscular HGB Conc 31.3 g/dL (30.0-36.0); Mean Corpuscular Hemoglobin 28.6 pg (28.0-34.0); Mean Corpuscular Volume 91.5 fL (81-99); Mean Platelet Volume 10.3 fL (7.4-10.4); Monocytes # 0.1 10^3/uL (0.2-0.9); Monocytes % 5.1 %; Neutrophils # 1.3 10^3/uL (1.8-7.7); Neutrophils % 51.2 %; Nucleated Red Blood Cells % 0 %; Platelet Count 59 10^3/cmm (130-400); Red Blood Count 3.18 10^6/uL (4.1-5.3); Red Cell Distribution Width 13.2 % (12.1-15.1); White Blood Count 2.5 10^3/uL (4.0-10.0)
[2019-11-17 09:40] LABS: Slide Review Slide Review Perform
--- NOTE | 2019-11-17 11:00 | ONC FU_ITS ---
Dr. De La Cruz follow up note Patient: Azul Mg Unit #: [id number]: 1935 Dicatated By: Catherine De La Cruz M.D.Date of Visit:Nov 17, 2019 Onc Med Follow-up/Prog Note History of Present Illness: Mrs. Mg is a 84-year-old female who was admitted to hospital in the last week of March 2019 with hematemesis at that time she was diagnosed with gastric ulcer and was started on Dexilant ,, not sure whether EGD was done but had CT scan of abdomen done. As per patient she did not receive any transfusion and no history of blood transfusion in the past but when she was she was prescribed Geritol for anemia. She has history of EGD and colonoscopy done in 2013 in [facility], as per patient was unremarkable and she was told, considering her age she would not require any more follow-up colonoscopy or EGD. Patient also had injection in her right hip for sciatica. Patient has no history of thrombocytopenia except recently on 05/10/2019 her CBC showed white blood count 4.3 hemoglobin 10.6 crit 30.9 platelets [id number], at that time her primary care physician discontinued her losartan considering the cause of thrombocytopenia. Patient denies any gross bleeding but long scratch lester on inner side of arms bilaterally due to scratching and ecchymosis on the left arm, otherwise no melena or hematochezia, no dysuria, no hematuria, no hemoptysis or hematemesis, no nosebleed of them., No jaundice. Patient was admitted hospital on 07/06/2019 with nosebleed and her initial lab shows severe thrombocytopenia she was given platelets transfusion and was started on prednisone 1 mg/kg with that on 07/07/2019 her platelet count gone up to 140,000 hemoglobin 9 hematocrit 27.4 MCV 100.7 white blood count 4.9 and she was discharged home on a tapering dose of prednisone 50 mg by mouth daily for 5 days then 40 mg daily for 5 days and so onAnd once prednisone tapered of her platelet count continued to improve and on 08/02/2019 her platelet count was 137,000 patient was scheduled for bone marrow evaluation on 08/11/2019. Bone marrow aspiration was attempted once, it was a dry tap. But procedure was abandoned as CBC done that day showed platelet count dropped down to 4000 and there was increased risk for hematoma so no further attempts were made to obtain marrow . Patient was given a unit of platelets transfusion and started on prednisone 1 mg/kg and she was monitored per post procedure protocol.Patient came back to clinic on 08/18/2019 and her CBC showed platelet count 15,000 and that time she was given units of platelet transfusion and also discuss about role of Rituxan and hepatitis profile was checked showed no evidence of hepatitis. Patient was started on tapering dose of prednisone. 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 She did experience infusion reaction with tremors, chills, mildly elevated temp. These symptoms were controlled with Solumedrol and Demerol. She recovered well.Patient received second dose of Rituxan on 09/02/2019 subsequently developed severe leukopenia and thrombocytopenia and was admitted to hospital and treated with platelet transfusion and steroids, Rituxan was discontinued permanently Bone marrow done on 09/22/2019 showed extremely rare erythroid and myeloid precursors are identified and core biopsy shows features of subcortical sampling, extremely hypocellular bone marrow space with reactive lymphocytes and histiocytes present.FISH and MDS panel pending., Now being treated with Promacta. Patient was also started on Bactrim DS as prophylactic for neutropenia as patient was reported allergic to Levaquin in the past Patient recently developed skin rash involving face and upper chest so Bactrim was discontinued with that and Benadryl, rash resolved. Her follow-up lab check done 10/17/2019 shows white blood count 900 hemoglobin 8.3 hematocrit 25.5 platelets 5000, patient was given a unit of platelets on 10/18/2019 and patient is also somewhat noncompliant with Promacta. X Came for follow-up, denies any specific complaints, no fever or chills, no nausea or vomiting, no melena or hematochezia, no petechiae or ecchymosis. Tolerating Nplate and Neupogen well and also on Z-Sadiq.last time she received platelets transfusion was on 11/15/2019 when her platelet count was 6000 Medications: buPROPion HCl ER (SR) 1 (150 mg) Tablet SR 12 HR Oral daily, Calcitonin ([place]) (200 Units/act) Solution Nasal Take as Directed, Calcium + D 1 Tablet Oral daily, Dexamethasone 4 Tablet (of 10 Tablet) Oral daily, Geritol Tonic 1 tsp Liquid Oral daily, Meclizine HCl 0.5 Tablet (of 25 mg) Oral q 6 hours PRN, Multivitamin Adults 1 Tablet Oral daily, Ondansetron HCl (4 mg) Tablet Oral Take as Directed, Pantoprazole Sodium 1 (40 mg) Tablet, enteric coated Oral b.i.d., Sulfamethoxazole-Trimethoprim 1 Tablet (of 800-160 mg) Oral b.i.d. Allergies: Codeine Sulfate, Gabapentin, levoFLOXacin, Pantoprazole Sodium, Penicillins, and Sulfa Drugs. Review of Systems: Constitutional - Appetite is fair and weight is stable. No fever, chills, hot flashes, or night sweats. Energy level remains poor, ENMT - No sinus congestion/drainage. No mouth sores. No sore throat or difficulty swallowing, Hematologic/Lymphatic - Positive for easy bruising, Respiratory - No shortness of breath. No cough. No pleuritic pain or hemoptysis, Cardiovascular - No angina pain. No palpitations, Gastrointestinal - No nausea or vomiting. No heartburn or acid reflux. No diarrhea or constipation, Genitourinary (F) - No dysuria or hematuria. No urinary frequency. No urgency or incontinence, Musculoskeletal - No joint or bone pain, Neurologic - Positive for occasional headache, no dizziness. No numbness/paresthesias or other focal neurologic symptoms, Psychiatric - Poitive for anxiety, depression and insomnia. Vital Signs: Vitals are not available for this patient. Performance Status: 1 - No physically strenuous activity, but ambulatory and able to carry out light or sedentary work (e.g. office work, light house work). (ECOG) Physical Examination: ENMT - No oral exudates, ulcers, masses, thrush or mucositis. Oropharynx clear. Tongue normal, Respiratory - Lungs are clear to auscultation without rhonchi or wheezing, Cardiovascular - Regular rate and rhythm of heart, Extremities - 1+ edema bilaterally. Lab/Imaging: Test performed on Nov 15, 2019 11:10 WBC 1.4 10 3/uL RBC 3.38 10 6/uL HGB 9.8 g/dL HCT 29.9 % MCV 88.5 fL MCH 29.0 pg MCHC 32.8 g/dL RDW 13.1 % Platelet Count 6 10 3/cmm MPV 12.9 fL Neutrophils 0.4 10 3/uL Lymphocytes 0.8 10 3/uL Monocytes 0.1 10 3/uL Eosinophils 0.0 10 3/uL Basophils 0.0 10 3/uL Neutrophil % 31.4 % Lymphocyte % 59.3 % Monocyte % 7.9 % Eosinophil % 0.0 % Basophils % 0.0 % CBC Slide Review Slide Review Perform SLIDE REVIEW AGREES WITH AUTOMATED RESULTS ST Test performed on Nov 02, 2019 06:55 Sodium 139 mmol/L Potassium 4.5 mmol/L Chloride 101 mmol/L CO2 26 mmol/L Anion Gap 16.5 BUN 15 mg/dL Creatinine 1.2 mg/dL Cr Clearance (Est) 41.0000 mL/min Glucose 169 mg/dL Calcium 9.5 mg/dL Protein, Total 6.2 g/dL Albumin 2.6 g/dL Globulin 3.6 g/dL Bilirubin, Total 0.7 mg/dL ALT (SGPT) 7 U/L AST (SGOT) 8 U/L Alkaline Phosphatase 90 IU/L Test performed on Sep 19, 2019 14:42 Manual Lymphocytes 57.1 % Manual Monocytes 4.8 % Manual Eosinophils 0.7 % Manual Basophils 0.4 % NRBCs 0.0 /100 WBC Test performed on Aug 18, 2019 10:45 Platelet Pheresis, Leukored TRANSFUSED PRODUCT: LEUKRD/PLAT PHERESIS 1ST CONT COUNT: 1 ABO & Rh Type BLD TYPE O POSITIVE BLD TYPE O POSITIVE Hepatitis A Ab, IgM Non- Reactive Hepatitis B Core Ab, Total Non-Reactive Hepatitis B Surf Antigen Non-Reactive Hepatitis B Surface Ab < 3.5 STATUS of IMMUINITY Inconsistent with Immunity 0.0 - 8.5 mIU/mL Consistent with Immunity >8.5 mIU/mL Hepatitis C Ab Non-Reactive Test performed on Aug 11, 2019 10:47 Glucose (POC) 143 mg/dL Test performed on Aug 11, 2019 10:40 Manual Neutrophils Abs 1.3 10 3/cmm Manual Lymphocytes Abs 0.9 10 3/cmm Manual Monocytes Abs 0.1 10 3/cmm Manual Segs % 37 % Manual Bands % 19.0 % Platelet Estimate DECREASED Test performed on Aug 03, 2019 11:40 Packed Red Cells (PRBC) [id number] TRANSFUSED PRODUCT: LEUKOREDUCED RED CELL 1ST CONT COUNT: 2 Type & Screen BLD TYPE O POSITIVE AB SCREEN GEL NEGATIVE BLD TYPE O POSITIVE AB SCREEN GEL NEGATIVE Test performed on Jul 20, 2019 10:12 Manual Eosinophils Abs 0.0 10 3/cmm Anisocytosis 1+ Test performed on Jun 07, 2019 11:37 Ferritin 603.0 ng/ml Folate, Serum > 20.0 ng/mL Iron 172 ug/dL Vitamin B12 616 pg/mL % Iron Saturation 62.0 % Retic Count % 2.6 % Impression: Progressive Thrombocytopenia, etiology unclear could be multifactorial including underlying ITP, considering her age underlying myelodysplasia cannot be ruled out or medication related, patient is off NINA inhibitor e.g. losartan. Anemia, macrocytic could be nutritional e.g. B12 deficiency or folate deficiency or increased reticulocyte count due to recent hematemesis. Follow-up lab shows persistent severe thrombocytopenia despite repeated platelet transfusion and tapering dose of prednisone. recommended weekly Rituxan ???4 while continue taper off prednisone. She will have transfusion services if her platelet count is less than 20,000 then will consider platelet transfusion and for hemoglobin if below 8 g then will consider blood transfusion. Mrs Mg began her first dose of Rituxan on 08/25/2019. She did have transfusion services on the 2nd for a HGB of 7.4. She did have infusion reaction to the Rituxan which resolved with additional premeds and Solumedrol.Rituxan was discontinued after second dose given on 09/02/2019 as patient was admitted to hospital with progressive leukopenia/neutropenia and, thrombocytopenia. Was given platelet transfusion and start on dexamethasone, but while on steroids,, her platelet count continued to go downand patient was recently admitted to hospital with severe thrombocytopenia and was given platelet transfusion and eventually underwent bone marrow evaluation on 09/22/2019 which showed , and core biopsy,extremely hypocellular marrow space with a day of lymphocytes and histiocytes and and also noted is extremely to erythroid and myeloid precursors on the role preparation slides.?Aplastic anemia or Rituxan toxicity. Plan: Discussed with patient regarding her labs her blood count 2.5 hemoglobin 9.1 crit 29.1 platelets 59,000 ANC 1300 Clinically, patient doing reasonably well, her follow-up lab shows white blood count/neutrophils continued to improve with daily Neupogen. Patient has no fever or chills while on Z-Sadiq as prophylactic. We will change her Neupogen to every other day after tomorrow's dose while continue weekly Nplate . Patient will receive her next dose of Nplate and Neupogen today and continue with Z-Sadiq the next week if white blood count stay up then will discontinue antibiotics. And we will repeat her CBC on Thursday. Patient return to clinic in 1 week with CBC Signed By: Catherine De La Cruz M.D. <<Signature on File>>
[2019-11-21 11:57] LABS: Basophils % 0.4 %; Eosinophils % 0.8 %; Hemoglobin 7.8 g/dL (11.5-15.3); Lymphocytes # 1.3 10^3/uL (0.8-4.8); Lymphocytes % 53.2 %; Mean Corpuscular HGB Conc 31.2 g/dL (30.0-36.0); Mean Corpuscular Hemoglobin 28.2 pg (28.0-34.0); Mean Corpuscular Volume 90.3 fL (81-99); Mean Platelet Volume 11.7 fL (7.4-10.4); Monocytes # 0.2 10^3/uL (0.2-0.9); Monocytes % 9.3 %; Neutrophils # 0.9 10^3/uL (1.8-7.7); Neutrophils % 34.7 %; Nucleated Red Blood Cells % 0 %; Red Blood Count 2.77 10^6/uL (4.1-5.3); Red Cell Distribution Width 12.8 % (12.1-15.1); White Blood Count 2.5 10^3/uL (4.0-10.0)
[2019-11-21 13:01] LABS: Platelet Count 15 10^3/cmm (130-400)
[2019-11-21 13:03] LABS: Slide Review Slide Review Perform
[2019-11-22] VITALS (12 sets, daily range): BP systolic 107–166; BP diastolic 60–82; PULSE 71–79; RESP 16–20; TEMP 36.1–36.8; O2SAT 94–98
[2019-11-22] MEDS: acetaminophen 325 mg Tablet 650 MG PO (09:25)
[2019-11-22] MEDS: diphenhydrAMINE 25 mg Capsule PO (09:25)
[2019-11-22] MEDS: sodium chloride 0.9% 250 ML 999 ML IV (09:25)
[2019-11-22] MEDS: FUROsemide 10 mg/mL SDV 2mL 20 MG IV (11:10)
== END 2019-11-22 23:59 | disposition home or self-care (01) ==
LOC: ONCMED 08:22
PROVIDERS: Internal Medicine Hematology & Oncology; Family Provider Family Medicine; PCP Family Medicine; Visit Provider Internal Medicine Medical Oncology
DX: D70.9 Neutropenia, unspecified (principal); D69.6 Thrombocytopenia, unspecified; T50.996A Underdosing of other drugs, medicaments and biological substances, initial encounter; R05 Cough; J02.9 Acute pharyngitis, unspecified; Z91.128 Patient's intentional underdosing of medication regimen for other reason; Z79.899 Other long term (current) drug therapy
CPT/HCPCS: 36415; 36430; 80053; 85025; 86850; 86900; 86920; 96372; 99214; J1442; J1940; J2796; J7050; P9037; P9040; P9053

== ENCOUNTER 2019-12-12 06:20 | Outpatient (RCR) | payer MEDICARE, OTHER, SELFPAY ==
[2019-11-24 13:20] LABS: Basophils % 0.4 %; Eosinophils % 1.3 %; Hematocrit 32.7 % (37.0-47.0); Hemoglobin 10.7 g/dL (11.5-15.3); Lymphocytes # 0.9 10^3/uL (0.8-4.8); Lymphocytes % 40.4 %; Mean Corpuscular HGB Conc 32.7 g/dL (30.0-36.0); Mean Corpuscular Hemoglobin 28.5 pg (28.0-34.0); Mean Corpuscular Volume 87.2 fL (81-99); Mean Platelet Volume 11.1 fL (7.4-10.4); Monocytes # 0.2 10^3/uL (0.2-0.9); Neutrophils # 1.2 10^3/uL (1.8-7.7); Neutrophils % 50.5 %; Nucleated Red Blood Cells % 0 %; Platelet Count 50 10^3/cmm (130-400); Red Blood Count 3.75 10^6/uL (4.1-5.3); Red Cell Distribution Width 13.6 % (12.1-15.1); White Blood Count 2.3 10^3/uL (4.0-10.0)
[2019-11-24 13:42] LABS: Slide Review Slide Review Perform
--- NOTE | 2019-11-24 15:12 | ONC FU_ITS ---
Dr. De La Cruz follow up note Patient: Azul Mg Unit #: [id number]: 1935 Dicatated By: Catherine De La Cruz M.D.Date of Visit:Nov 24, 2019 Onc Med Follow-up/Prog Note History of Present Illness: Mrs. Mg is a 84-year-old female who was admitted to hospital in the last week of March 2019 with hematemesis at that time she was diagnosed with gastric ulcer and was started on Dexilant ,, not sure whether EGD was done but had CT scan of abdomen done. As per patient she did not receive any transfusion and no history of blood transfusion in the past but when she was she was prescribed Geritol for anemia. She has history of EGD and colonoscopy done in 2013 in [facility], as per patient was unremarkable and she was told, considering her age she would not require any more follow-up colonoscopy or EGD. Patient also had injection in her right hip for sciatica. Patient has no history of thrombocytopenia except recently on 05/10/2019 her CBC showed white blood count 4.3 hemoglobin 10.6 crit 30.9 platelets [id number], at that time her primary care physician discontinued her losartan considering the cause of thrombocytopenia. Patient denies any gross bleeding but long scratch lester on inner side of arms bilaterally due to scratching and ecchymosis on the left arm, otherwise no melena or hematochezia, no dysuria, no hematuria, no hemoptysis or hematemesis, no nosebleed of them., No jaundice. Patient was admitted hospital on 07/06/2019 with nosebleed and her initial lab shows severe thrombocytopenia she was given platelets transfusion and was started on prednisone 1 mg/kg with that on 07/07/2019 her platelet count gone up to 140,000 hemoglobin 9 hematocrit 27.4 MCV 100.7 white blood count 4.9 and she was discharged home on a tapering dose of prednisone 50 mg by mouth daily for 5 days then 40 mg daily for 5 days and so onAnd once prednisone tapered of her platelet count continued to improve and on 08/02/2019 her platelet count was 137,000 patient was scheduled for bone marrow evaluation on 08/11/2019. Bone marrow aspiration was attempted once, it was a dry tap. But procedure was abandoned as CBC done that day showed platelet count dropped down to 4000 and there was increased risk for hematoma so no further attempts were made to obtain marrow . Patient was given a unit of platelets transfusion and started on prednisone 1 mg/kg and she was monitored per post procedure protocol.Patient came back to clinic on 08/18/2019 and her CBC showed platelet count 15,000 and that time she was given units of platelet transfusion and also discuss about role of Rituxan and hepatitis profile was checked showed no evidence of hepatitis. Patient was started on tapering dose of prednisone. 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 She did experience infusion reaction with tremors, chills, mildly elevated temp. These symptoms were controlled with Solumedrol and Demerol. She recovered well.Patient received second dose of Rituxan on 09/02/2019 subsequently developed severe leukopenia and thrombocytopenia and was admitted to hospital and treated with platelet transfusion and steroids, Rituxan was discontinued permanently Bone marrow done on 09/22/2019 showed extremely rare erythroid and myeloid precursors are identified and core biopsy shows features of subcortical sampling, extremely hypocellular bone marrow space with reactive lymphocytes and histiocytes present.FISH and MDS panel pending., Now being treated with Promacta. Patient was also started on Bactrim DS as prophylactic for neutropenia as patient was reported allergic to Levaquin in the past Patient recently developed skin rash involving face and upper chest so Bactrim was discontinued with that and Benadryl, rash resolved. Her follow-up lab check done 10/17/2019 shows white blood count 900 hemoglobin 8.3 hematocrit 25.5 platelets 5000, patient was given a unit of platelets on 10/18/2019 and patient is also somewhat noncompliant with Promacta. so Switched to weekly Nplate and also Neupogen was added for persistent neutropenia. And she is allergic to penicillin and Levaquin so Z-Sadiq was also added as a prophylactic. Also requiring frequent platelet transfusion for persistent severe thrombocytopenia and blood transfusion for progressive anemia. Came for follow-up, complaining of right hand swelling as per patient she woke up yesterday and noted swelling on the dorsum of right hand denies any trauma, denies any history of gout, denies any fever chills, denies any insect/bug bite. Has been using hot and cold pad with some improvement. No melena or hematochezia, no nausea or vomiting, no fever or chills, no diarrhea constipation, no nosebleed or gum bleed, no jaundice. No dysuria. Medications: buPROPion HCl ER (SR) 1 (150 mg) Tablet SR 12 HR Oral daily, Calcitonin ([place]) (200 Units/act) Solution Nasal Take as Directed, Calcium + D 1 Tablet Oral daily, Dexamethasone 4 Tablet (of 10 Tablet) Oral daily, Geritol Tonic 1 tsp Liquid Oral daily, Meclizine HCl 0.5 Tablet (of 25 mg) Oral q 6 hours PRN, Multivitamin Adults 1 Tablet Oral daily, Ondansetron HCl (4 mg) Tablet Oral Take as Directed, Pantoprazole Sodium 1 (40 mg) Tablet, enteric coated Oral b.i.d., Sulfamethoxazole-Trimethoprim 1 Tablet (of 800-160 mg) Oral b.i.d. Allergies: Codeine Sulfate, Gabapentin, levoFLOXacin, Pantoprazole Sodium, Penicillins, and Sulfa Drugs. Review of Systems: Constitutional - Appetite is fair and weight is stable. No fever, chills, hot flashes, or night sweats. Energy level remains poor, ENMT - No sinus congestion/drainage. No mouth sores. No sore throat or difficulty swallowing, Hematologic/Lymphatic - Positive for easy bruising, Respiratory - No shortness of breath. No cough. No pleuritic pain or hemoptysis, Cardiovascular - No angina pain. No palpitations, Gastrointestinal - No nausea or vomiting. No heartburn or acid reflux. No diarrhea or constipation, Genitourinary (F) - No dysuria or hematuria. No urinary frequency. No urgency or incontinence, Musculoskeletal - No joint or bone pain, Integumentary - Pt has localized edema in right hand, Neurologic - Positive for occasional headache, no dizziness. No numbness/paresthesias or other focal neurologic symptoms, Psychiatric - Poitive for anxiety, depression and insomnia. Vital Signs: Performed on Nov 24, 2019 13:58 Height - 61.00 in Weight - 152.2 lbs (HIGH) BSA - 1.68 sq.m BMI - 28.76 Temperature - 97.7 F (LOW) Pulse - 83 /min Respiration - 24 /min BP - 116/67 mm(hg) O2 Sat - 97 % Pain - 8 Performance Status: 2 - Ambulatory/capable of all self-care, unable to perform any work activities. Up and about more than 50% of waking hours. (ECOG) Physical Examination: ENMT - No oral exudates, ulcers, masses, thrush or mucositis. Oropharynx clear. Tongue normal, Respiratory - Lungs are clear to auscultation, Cardiovascular - Regular rate and rhythm of heart, Abdomen - Non-tender, non-distended, . Good bowel sounds. No guarding or rebound tenderness. No pulsatile masses, Extremities - dorsum of right hand shows puffiness, tender no discharge with limited range of middle finger. Lab/Imaging: Test performed on Nov 21, 2019 06:10 WBC 2.5 10 3/uL RBC 2.77 10 6/uL HGB 7.8 g/dL HCT 25.0 % MCV 90.3 fL MCH 28.2 pg MCHC 31.2 g/dL RDW 12.8 % Platelet Count 15 10 3/cmm MPV 11.7 fL Neutrophils 0.9 10 3/uL Lymphocytes 1.3 10 3/uL Monocytes 0.2 10 3/uL Eosinophils 0.0 10 3/uL Basophils 0.0 10 3/uL Neutrophil % 34.7 % Lymphocyte % 53.2 % Monocyte % 9.3 % Eosinophil % 0.8 % Basophils % 0.4 % CBC Slide Review Slide Review Perform SLIDE REVIEW AGREES WITH AUTO DIFF Test performed on Nov 02, 2019 06:55 Sodium 139 mmol/L Potassium 4.5 mmol/L Chloride 101 mmol/L CO2 26 mmol/L Anion Gap 16.5 BUN 15 mg/dL Creatinine 1.2 mg/dL Cr Clearance (Est) 41.0000 mL/min Glucose 169 mg/dL Calcium 9.5 mg/dL Protein, Total 6.2 g/dL Albumin 2.6 g/dL Globulin 3.6 g/dL Bilirubin, Total 0.7 mg/dL ALT (SGPT) 7 U/L AST (SGOT) 8 U/L Alkaline Phosphatase 90 IU/L Test performed on Sep 19, 2019 14:42 Manual Lymphocytes 57.1 % Manual Monocytes 4.8 % Manual Eosinophils 0.7 % Manual Basophils 0.4 % NRBCs 0.0 /100 WBC Test performed on Aug 18, 2019 10:45 Platelet Pheresis, Leukored TRANSFUSED PRODUCT: LEUKRD/PLAT PHERESIS 1ST CONT COUNT: 1 ABO & Rh Type BLD TYPE O POSITIVE BLD TYPE O POSITIVE Hepatitis A Ab, IgM Non- Reactive Hepatitis B Core Ab, Total Non-Reactive Hepatitis B Surf Antigen Non-Reactive Hepatitis B Surface Ab < 3.5 STATUS of IMMUINITY Inconsistent with Immunity 0.0 - 8.5 mIU/mL Consistent with Immunity >8.5 mIU/mL Hepatitis C Ab Non-Reactive Test performed on Aug 11, 2019 10:47 Glucose (POC) 143 mg/dL Test performed on Aug 11, 2019 10:40 Manual Neutrophils Abs 1.3 10 3/cmm Manual Lymphocytes Abs 0.9 10 3/cmm Manual Monocytes Abs 0.1 10 3/cmm Manual Segs % 37 % Manual Bands % 19.0 % Platelet Estimate DECREASED Test performed on Aug 03, 2019 11:40 Packed Red Cells (PRBC) [id number] TRANSFUSED PRODUCT: LEUKOREDUCED RED CELL 1ST CONT COUNT: 2 Type & Screen BLD TYPE O POSITIVE AB SCREEN GEL NEGATIVE BLD TYPE O POSITIVE AB SCREEN GEL NEGATIVE Test performed on Jul 20, 2019 10:12 Manual Eosinophils Abs 0.0 10 3/cmm Anisocytosis 1+ Test performed on Jun 07, 2019 11:37 Ferritin 603.0 ng/ml Folate, Serum > 20.0 ng/mL Iron 172 ug/dL Vitamin B12 616 pg/mL % Iron Saturation 62.0 % Retic Count % 2.6 % Impression: Progressive Thrombocytopenia, etiology unclear could be multifactorial including underlying ITP, considering her age underlying myelodysplasia cannot be ruled out or medication related, patient is off NINA inhibitor e.g. losartan. Anemia, macrocytic could be nutritional e.g. B12 deficiency or folate deficiency or increased reticulocyte count due to recent hematemesis. Follow-up lab shows persistent severe thrombocytopenia despite repeated platelet transfusion and tapering dose of prednisone. recommended weekly Rituxan ???4 while continue taper off prednisone. She will have transfusion services if her platelet count is less than 20,000 then will consider platelet transfusion and for hemoglobin if below 8 g then will consider blood transfusion. Mrs Mg began her first dose of Rituxan on 08/25/2019. She did have transfusion services on the 2nd for a HGB of 7.4. She did have infusion reaction to the Rituxan which resolved with additional premeds and Solumedrol.Rituxan was discontinued after second dose given on 09/02/2019 as patient was admitted to hospital with progressive leukopenia/neutropenia and, thrombocytopenia. Was given platelet transfusion and start on dexamethasone, but while on steroids,, her platelet count continued to go downand patient was recently admitted to hospital with severe thrombocytopenia and was given platelet transfusion and eventually underwent bone marrow evaluation on 09/22/2019 which showed , and core biopsy,extremely hypocellular marrow space with a day of lymphocytes and histiocytes and and also noted is extremely to erythroid and myeloid precursors on the role preparation slides.?Aplastic anemia or Rituxan toxicity. Plan: Discussed with patient regarding her labs white blood count 2.3 hemoglobin 10.7 crit 32.7 platelets 50,000 ANC 1200 Clinically, patient is doing reasonably well, on Z-Sadiq prophylaxis per neutropenia, which is improving with Neupogen. Her hemoglobin is stable around 10 g and platelets now 50,000. We'll proceed with next weekly dose of Nplate and dose of Neupogen 480 ???g subcutaneous and then she will return to clinic in 1 week but we will repeat her CBC on Thursday and plan accordingly. As far as right hand dorsum swelling is concern, could be due to insect/bug bite. Patient is on Z-Sadiq and she is allergic to penicillins and Levaquin. She was advised to try local anti-inflammatory like Aspercreme to her right hand. If there is no improvement or worsening she was advised to go to emergency room for evaluation. Signed By: Catherine De La Cruz M.D. <<Signature on File>>
[2019-11-28 07:45] LABS: Basophils % 0.4 %; Eosinophils % 1.7 %; Hematocrit 28.2 % (37.0-47.0); Hemoglobin 9.1 g/dL (11.5-15.3); Lymphocytes # 1.2 10^3/uL (0.8-4.8); Lymphocytes % 53.7 %; Mean Corpuscular HGB Conc 32.3 g/dL (30.0-36.0); Mean Corpuscular Hemoglobin 28.8 pg (28.0-34.0); Mean Corpuscular Volume 89.2 fL (81-99); Mean Platelet Volume 11.4 fL (7.4-10.4); Monocytes # 0.1 10^3/uL (0.2-0.9); Monocytes % 6.1 %; Neutrophils # 0.9 10^3/uL (1.8-7.7); Neutrophils % 37.2 %; Nucleated Red Blood Cells % 0 %; Red Blood Count 3.16 10^6/uL (4.1-5.3); Red Cell Distribution Width 12.9 % (12.1-15.1); White Blood Count 2.3 10^3/uL (4.0-10.0)
[2019-11-28 08:22] LABS: Platelet Count 9 10^3/cmm (130-400)
[2019-11-28 08:23] LABS: Slide Review Slide Review Perform
[2019-11-28] MEDS: acetaminophen 325 mg Tablet 650 MG PO (14:25)
[2019-11-28] MEDS: diphenhydrAMINE 25 mg Capsule PO (14:25)
[2019-11-28 14:31] VITALS: BP 121/62; PULSE 76; RESP 16; TEMP 36.7; O2SAT 96
[2019-11-28 14:50] VITALS: BP 119/67; PULSE 78; RESP 16; TEMP 36.6; O2SAT 96
[2019-12-06] VITALS (10 sets, daily range): BP systolic 121–149; BP diastolic 49–81; PULSE 56–141; RESP 17–18; TEMP 36.1–36.6; O2SAT 93–100
[2019-12-06 09:39] LABS: Eosinophils % 2.7 %; Hemoglobin 7.3 g/dL (11.5-15.3); Lymphocytes # 1.1 10^3/uL (0.8-4.8); Lymphocytes % 70.7 %; Mean Corpuscular HGB Conc 31.7 g/dL (30.0-36.0); Mean Corpuscular Hemoglobin 28.4 pg (28.0-34.0); Mean Corpuscular Volume 89.5 fL (81-99); Mean Platelet Volume 10.8 fL (7.4-10.4); Monocytes # 0.1 10^3/uL (0.2-0.9); Monocytes % 4.7 %; Neutrophils % 21.2 %; Nucleated Red Blood Cells % 0 %; Red Blood Count 2.57 10^6/uL (4.1-5.3); Red Cell Distribution Width 12.6 % (12.1-15.1); White Blood Count 1.5 10^3/uL (4.0-10.0)
[2019-12-06 10:19] LABS: Neutrophils # 0.3 10^3/uL (1.8-7.7); Platelet Count 2 10^3/cmm (130-400); Slide Review Slide Review Perform
[2019-12-06] MEDS: sodium chloride 0.9% 250 ML 999 ML IV (12:40)
[2019-12-06] MEDS: diphenhydrAMINE 25 mg Capsule PO (17:59)
[2019-12-06] MEDS: acetaminophen 325 mg Tablet 650 MG PO (18:00)
[2019-12-06] MEDS: FUROsemide 10 mg/mL SDV 2mL 20 MG IV (18:00)
--- NOTE | 2019-12-07 11:18 | ONC FU_ITS ---
Dr. De La Cruz follow up note Patient: Azul Mg Unit #: [id number]: 1935 Dicatated By: Catherine De La Cruz M.D.Date of Visit:Dec 07, 2019 Onc Med Follow-up/Prog Note History of Present Illness: Mrs. Mg is a 84-year-old female who was admitted to hospital in the last week of March 2019 with hematemesis at that time she was diagnosed with gastric ulcer and was started on Dexilant ,, not sure whether EGD was done but had CT scan of abdomen done. As per patient she did not receive any transfusion and no history of blood transfusion in the past but when she was she was prescribed Geritol for anemia. She has history of EGD and colonoscopy done in 2013 in [facility], as per patient was unremarkable and she was told, considering her age she would not require any more follow-up colonoscopy or EGD. Patient also had injection in her right hip for sciatica. Patient has no history of thrombocytopenia except recently on 05/10/2019 her CBC showed white blood count 4.3 hemoglobin 10.6 crit 30.9 platelets [id number], at that time her primary care physician discontinued her losartan considering the cause of thrombocytopenia. Patient denies any gross bleeding but long scratch lester on inner side of arms bilaterally due to scratching and ecchymosis on the left arm, otherwise no melena or hematochezia, no dysuria, no hematuria, no hemoptysis or hematemesis, no nosebleed of them., No jaundice. Patient was admitted hospital on 07/06/2019 with nosebleed and her initial lab shows severe thrombocytopenia she was given platelets transfusion and was started on prednisone 1 mg/kg with that on 07/07/2019 her platelet count gone up to 140,000 hemoglobin 9 hematocrit 27.4 MCV 100.7 white blood count 4.9 and she was discharged home on a tapering dose of prednisone 50 mg by mouth daily for 5 days then 40 mg daily for 5 days and so onAnd once prednisone tapered of her platelet count continued to improve and on 08/02/2019 her platelet count was 137,000 patient was scheduled for bone marrow evaluation on 08/11/2019. Bone marrow aspiration was attempted once, it was a dry tap. But procedure was abandoned as CBC done that day showed platelet count dropped down to 4000 and there was increased risk for hematoma so no further attempts were made to obtain marrow . Patient was given a unit of platelets transfusion and started on prednisone 1 mg/kg and she was monitored per post procedure protocol.Patient came back to clinic on 08/18/2019 and her CBC showed platelet count 15,000 and that time she was given units of platelet transfusion and also discuss about role of Rituxan and hepatitis profile was checked showed no evidence of hepatitis. Patient was started on tapering dose of prednisone. 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 She did experience infusion reaction with tremors, chills, mildly elevated temp. These symptoms were controlled with Solumedrol and Demerol. She recovered well.Patient received second dose of Rituxan on 09/02/2019 subsequently developed severe leukopenia and thrombocytopenia and was admitted to hospital and treated with platelet transfusion and steroids, Rituxan was discontinued permanently Bone marrow done on 09/22/2019 showed extremely rare erythroid and myeloid precursors are identified and core biopsy shows features of subcortical sampling, extremely hypocellular bone marrow space with reactive lymphocytes and histiocytes present.FISH and MDS panel pending., Now being treated with Promacta. Patient was also started on Bactrim DS as prophylactic for neutropenia as patient was reported allergic to Levaquin in the past Patient recently developed skin rash involving face and upper chest so Bactrim was discontinued with that and Benadryl, rash resolved. Her follow-up lab check done 10/17/2019 shows white blood count 900 hemoglobin 8.3 hematocrit 25.5 platelets 5000, patient was given a unit of platelets on 10/18/2019 and patient is also somewhat noncompliant with Promacta. so Switched to weekly Nplate and also Neupogen was added for persistent neutropenia. And she is allergic to penicillin and Levaquin so Z-Sadiq was also added as a prophylactic. Also requiring frequent platelet transfusion for persistent severe thrombocytopenia and blood transfusion for progressive anemia. Came for follow-up, denies any specific complaints, no melena or hematochezia, no nausea or vomiting, no fever or chills, no diarrhea constipation, right dorsum of hand swelling is improving with Aspercreme.also complaining of hypersensitivity in the skin over right posterior chest wall. Patient said she has history of shingles and in the past Dr. Haddad give her shot to fix it. And now Preparation H helped her hypersensitive skin. Patient received platelet transfusion and platelet transfusion yesterday for platelet count 2000 and hemoglobin 7.3. She is on weekly Nplate and Neupogen. And on prophylactic Z-Sadiq. Medications: buPROPion HCl ER (SR) 1 (150 mg) Tablet SR 12 HR Oral daily, Calcitonin ([place]) (200 Units/act) Solution Nasal Take as Directed, Calcium + D 1 Tablet Oral daily, Eye Drops Solution Ophthalmic, Geritol Tonic 1 tsp Liquid Oral daily, Meclizine HCl 0.5 Tablet (of 25 mg) Oral q 6 hours PRN, Multivitamin Adults 1 Tablet Oral daily, Ondansetron HCl (4 mg) Tablet Oral Take as Directed Allergies: Codeine Sulfate, Gabapentin, levoFLOXacin, Pantoprazole Sodium, Penicillins, and Sulfa Drugs. Review of Systems: Constitutional - Appetite is fair and weight is stable. No fever, chills, hot flashes, or night sweats. Energy level remains poor, ENMT - No sinus congestion/drainage. No mouth sores. No sore throat or difficulty swallowing, Hematologic/Lymphatic - Positive for easy bruising, Respiratory - No shortness of breath. No cough. No pleuritic pain or hemoptysis, Cardiovascular - No angina pain. No palpitations, Gastrointestinal - No nausea or vomiting. No heartburn or acid reflux. No diarrhea or constipation, Genitourinary (F) - No dysuria or hematuria. No urinary frequency. No urgency or incontinence, Musculoskeletal - No joint or bone pain, Neurologic - Positive for occasional headache, no dizziness. No numbness/paresthesias or other focal neurologic symptoms, Psychiatric - Poitive for anxiety, depression and insomnia. Vital Signs: Performed on Dec 07, 2019 09:06 Height - 61.00 in Weight - 160.4 lbs (HIGH) BSA - 1.72 sq.m BMI - 30.31 (HIGH) Temperature - 97.3 F (LOW) Pulse - 70 /min Respiration - 18 /min BP - 148/69 mm(hg) (HIGH) O2 Sat - 98 % Pain - 0 Performance Status: 1 - No physically strenuous activity, but ambulatory and able to carry out light or sedentary work (e.g. office work, light house work). (ECOG) Physical Examination: Neck - no mouth sores, Respiratory - Lungs are clear, Cardiovascular - Regular rate and rhythm, Abdomen - Non-tender, Extremities - trace edema. Lab/Imaging: Test performed on Nov 28, 2019 06:00 WBC 2.3 10 3/uL RBC 3.16 10 6/uL HGB 9.1 g/dL HCT 28.2 % MCV 89.2 fL MCH 28.8 pg MCHC 32.3 g/dL RDW 12.9 % Platelet Count 9 10 3/cmm MPV 11.4 fL Neutrophils 0.9 10 3/uL Lymphocytes 1.2 10 3/uL Monocytes 0.1 10 3/uL Eosinophils 0.0 10 3/uL Basophils 0.0 10 3/uL Neutrophil % 37.2 % Lymphocyte % 53.7 % Monocyte % 6.1 % Eosinophil % 1.7 % Basophils % 0.4 % CBC Slide Review Slide Review Perform SLIDE REVIEW AGREES WITH AUTOMATED RESULTS ST Test performed on Nov 02, 2019 06:55 Sodium 139 mmol/L Potassium 4.5 mmol/L Chloride 101 mmol/L CO2 26 mmol/L Anion Gap 16.5 BUN 15 mg/dL Creatinine 1.2 mg/dL Cr Clearance (Est) 41.0000 mL/min Glucose 169 mg/dL Calcium 9.5 mg/dL Protein, Total 6.2 g/dL Albumin 2.6 g/dL Globulin 3.6 g/dL Bilirubin, Total 0.7 mg/dL ALT (SGPT) 7 U/L AST (SGOT) 8 U/L Alkaline Phosphatase 90 IU/L Test performed on Sep 19, 2019 14:42 Manual Lymphocytes 57.1 % Manual Monocytes 4.8 % Manual Eosinophils 0.7 % Manual Basophils 0.4 % NRBCs 0.0 /100 WBC Test performed on Aug 18, 2019 10:45 Platelet Pheresis, Leukored TRANSFUSED PRODUCT: LEUKRD/PLAT PHERESIS 1ST CONT COUNT: 1 ABO & Rh Type BLD TYPE O POSITIVE BLD TYPE O POSITIVE Hepatitis A Ab, IgM Non- Reactive Hepatitis B Core Ab, Total Non-Reactive Hepatitis B Surf Antigen Non-Reactive Hepatitis B Surface Ab < 3.5 STATUS of IMMUINITY Inconsistent with Immunity 0.0 - 8.5 mIU/mL Consistent with Immunity >8.5 mIU/mL Hepatitis C Ab Non-Reactive Test performed on Aug 11, 2019 10:47 Glucose (POC) 143 mg/dL Test performed on Aug 11, 2019 10:40 Manual Neutrophils Abs 1.3 10 3/cmm Manual Lymphocytes Abs 0.9 10 3/cmm Manual Monocytes Abs 0.1 10 3/cmm Manual Segs % 37 % Manual Bands % 19.0 % Platelet Estimate DECREASED Test performed on Aug 03, 2019 11:40 Packed Red Cells (PRBC) [id number] TRANSFUSED PRODUCT: LEUKOREDUCED RED CELL 1ST CONT COUNT: 2 Type & Screen BLD TYPE O POSITIVE AB SCREEN GEL NEGATIVE BLD TYPE O POSITIVE AB SCREEN GEL NEGATIVE Test performed on Jul 20, 2019 10:12 Manual Eosinophils Abs 0.0 10 3/cmm Anisocytosis 1+ Impression: Progressive Thrombocytopenia, etiology unclear could be multifactorial including underlying ITP, considering her age underlying myelodysplasia cannot be ruled out or medication related, patient is off NINA inhibitor e.g. losartan. Anemia, macrocytic could be nutritional e.g. B12 deficiency or folate deficiency or increased reticulocyte count due to recent hematemesis. Follow-up lab shows persistent severe thrombocytopenia despite repeated platelet transfusion and tapering dose of prednisone. recommended weekly Rituxan ???4 while continue taper off prednisone. She will have transfusion services if her platelet count is less than 20,000 then will consider platelet transfusion and for hemoglobin if below 8 g then will consider blood transfusion. Mrs Mg began her first dose of Rituxan on 08/25/2019. She did have transfusion services on the 2nd for a HGB of 7.4. She did have infusion reaction to the Rituxan which resolved with additional premeds and Solumedrol.Rituxan was discontinued after second dose given on 09/02/2019 as patient was admitted to hospital with progressive leukopenia/neutropenia and, thrombocytopenia. Was given platelet transfusion and start on dexamethasone, but while on steroids,, her platelet count continued to go downand patient was recently admitted to hospital with severe thrombocytopenia and was given platelet transfusion and eventually underwent bone marrow evaluation on 09/22/2019 which showed , and core biopsy,extremely hypocellular marrow space with a day of lymphocytes and histiocytes and and also noted is extremely to erythroid and myeloid precursors on the role preparation slides.?Aplastic anemia or Rituxan toxicity. Plan: .Discussed with patient regarding her labs from yesterday showed white blood count 1.5 hemoglobin 7.3 hematocrit 23 platelets 1999, she was given platelet transfusion as well as packed RBCs. Clinically, patient denies any evidence of gross bleeding overall feeling much better with blood transfusion. It appears she is not responding well to Nplate as expected but with some improvement in time between platelet transfusion. 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 All the side effect and possible benefits associated with IVIG including fluid overload, allergic reaction, risk of infections were discussed further teaching will be done by chemotherapy nurse. We'll obtain approval from her insurance and then give her trial of IVIG along with her current management. We'll repeat her CBC on Thursday. Signed By: Catherine De La Cruz M.D. <<Signature on File>>
--- NOTE | 2019-12-07 11:21 | ONC FU_ITS ---
Dr. De La Cruz follow up note Patient: Azul Mg Unit #: [id number]: [id number] Dicatated By: Catherine De La Cruz M.D.Date of Visit:Dec 07, 2019 Onc Med Follow-up/Prog Note History of Present Illness: Mrs. Mg is a 84-year-old female who was admitted to hospital in the last week of March 2019 with hematemesis at that time she was diagnosed with gastric ulcer and was started on Dexilant ,, not sure whether EGD was done but had CT scan of abdomen done. As per patient she did not receive any transfusion and no history of blood transfusion in the past but when she was she was prescribed Geritol for anemia. She has history of EGD and colonoscopy done in 2013 in [facility], as per patient was unremarkable and she was told, considering her age she would not require any more follow-up colonoscopy or EGD. Patient also had injection in her right hip for sciatica. Patient has no history of thrombocytopenia except recently on 05/10/2019 her CBC showed white blood count 4.3 hemoglobin 10.6 crit 30.9 platelets [id number], at that time her primary care physician discontinued her losartan considering the cause of thrombocytopenia. Patient denies any gross bleeding but long scratch lester on inner side of arms bilaterally due to scratching and ecchymosis on the left arm, otherwise no melena or hematochezia, no dysuria, no hematuria, no hemoptysis or hematemesis, no nosebleed of them., No jaundice. Patient was admitted hospital on 07/06/2019 with nosebleed and her initial lab shows severe thrombocytopenia she was given platelets transfusion and was started on prednisone 1 mg/kg with that on 07/07/2019 her platelet count gone up to 140,000 hemoglobin 9 hematocrit 27.4 MCV 100.7 white blood count 4.9 and she was discharged home on a tapering dose of prednisone 50 mg by mouth daily for 5 days then 40 mg daily for 5 days and so onAnd once prednisone tapered of her platelet count continued to improve and on 08/02/2019 her platelet count was 137,000 patient was scheduled for bone marrow evaluation on 08/11/2019. Bone marrow aspiration was attempted once, it was a dry tap. But procedure was abandoned as CBC done that day showed platelet count dropped down to 4000 and there was increased risk for hematoma so no further attempts were made to obtain marrow . Patient was given a unit of platelets transfusion and started on prednisone 1 mg/kg and she was monitored per post procedure protocol.Patient came back to clinic on 08/18/2019 and her CBC showed platelet count 15,000 and that time she was given units of platelet transfusion and also discuss about role of Rituxan and hepatitis profile was checked showed no evidence of hepatitis. Patient was started on tapering dose of prednisone. 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 She did experience infusion reaction with tremors, chills, mildly elevated temp. These symptoms were controlled with Solumedrol and Demerol. She recovered well.Patient received second dose of Rituxan on 09/02/2019 subsequently developed severe leukopenia and thrombocytopenia and was admitted to hospital and treated with platelet transfusion and steroids, Rituxan was discontinued permanently Bone marrow done on 09/22/2019 showed extremely rare erythroid and myeloid precursors are identified and core biopsy shows features of subcortical sampling, extremely hypocellular bone marrow space with reactive lymphocytes and histiocytes present.FISH and MDS panel pending., Now being treated with Promacta. Patient was also started on Bactrim DS as prophylactic for neutropenia as patient was reported allergic to Levaquin in the past Patient recently developed skin rash involving face and upper chest so Bactrim was discontinued with that and Benadryl, rash resolved. Her follow-up lab check done 10/17/2019 shows white blood count 900 hemoglobin 8.3 hematocrit 25.5 platelets 5000, patient was given a unit of platelets on 10/18/2019 and patient is also somewhat noncompliant with Promacta. so Switched to weekly Nplate and also Neupogen was added for persistent neutropenia. And she is allergic to penicillin and Levaquin so Z-Sadiq was also added as a prophylactic. Also requiring frequent platelet transfusion for persistent severe thrombocytopenia and blood transfusion for progressive anemia. Came for follow-up, denies any specific complaints, no melena or hematochezia, no nausea or vomiting, no fever or chills, no diarrhea constipation, right dorsum of hand swelling is improving with Aspercreme. Patient received platelet transfusion and platelet transfusion yesterday for platelet count 2000 and hemoglobin 7.3. She is on weekly Nplate and Neupogen. And on prophylactic Z-Sadiq. Medications: buPROPion HCl ER (SR) 1 (150 mg) Tablet SR 12 HR Oral daily, Calcitonin ([place]) (200 Units/act) Solution Nasal Take as Directed, Calcium + D 1 Tablet Oral daily, Eye Drops Solution Ophthalmic, Geritol Tonic 1 tsp Liquid Oral daily, Meclizine HCl 0.5 Tablet (of 25 mg) Oral q 6 hours PRN, Multivitamin Adults 1 Tablet Oral daily, Ondansetron HCl (4 mg) Tablet Oral Take as Directed Allergies: Codeine Sulfate, Gabapentin, levoFLOXacin, Pantoprazole Sodium, Penicillins, and Sulfa Drugs. Review of Systems: Constitutional - Appetite is fair and weight is stable. No fever, chills, hot flashes, or night sweats. Energy level remains poor, ENMT - No sinus congestion/drainage. No mouth sores. No sore throat or difficulty swallowing, Hematologic/Lymphatic - Positive for easy bruising, Respiratory - No shortness of breath. No cough. No pleuritic pain or hemoptysis, Cardiovascular - No angina pain. No palpitations, Gastrointestinal - No nausea or vomiting. No heartburn or acid reflux. No diarrhea or constipation, Genitourinary (F) - No dysuria or hematuria. No urinary frequency. No urgency or incontinence, Musculoskeletal - No joint or bone pain, Neurologic - Positive for occasional headache, no dizziness. No numbness/paresthesias or other focal neurologic symptoms, Psychiatric - Poitive for anxiety, depression and insomnia. Vital Signs: Performed on Dec 07, 2019 09:06 Height - 61.00 in Weight - 160.4 lbs (HIGH) BSA - 1.72 sq.m BMI - 30.31 (HIGH) Temperature - 97.3 F (LOW) Pulse - 70 /min Respiration - 18 /min BP - 148/69 mm(hg) (HIGH) O2 Sat - 98 % Pain - 0 Performance Status: 1 - No physically strenuous activity, but ambulatory and able to carry out light or sedentary work (e.g. office work, light house work). (ECOG) Physical Examination: Neck - no mouth sores, Respiratory - Lungs are clear, Cardiovascular - Regular rate and rhythm, Abdomen - Non-tender, Extremities - trace edemamild to moderate tenderness.involving dorsum of right hand no skin changes, rash, or blister seen over right posterior chest wall Lab/Imaging: Test performed on Nov 28, 2019 06:00 WBC 2.3 10 3/uL RBC 3.16 10 6/uL HGB 9.1 g/dL HCT 28.2 % MCV 89.2 fL MCH 28.8 pg MCHC 32.3 g/dL RDW 12.9 % Platelet Count 9 10 3/cmm MPV 11.4 fL Neutrophils 0.9 10 3/uL Lymphocytes 1.2 10 3/uL Monocytes 0.1 10 3/uL Eosinophils 0.0 10 3/uL Basophils 0.0 10 3/uL Neutrophil % 37.2 % Lymphocyte % 53.7 % Monocyte % 6.1 % Eosinophil % 1.7 % Basophils % 0.4 % CBC Slide Review Slide Review Perform SLIDE REVIEW AGREES WITH AUTOMATED RESULTS ST Test performed on Nov 02, 2019 06:55 Sodium 139 mmol/L Potassium 4.5 mmol/L Chloride 101 mmol/L CO2 26 mmol/L Anion Gap 16.5 BUN 15 mg/dL Creatinine 1.2 mg/dL Cr Clearance (Est) 41.0000 mL/min Glucose 169 mg/dL Calcium 9.5 mg/dL Protein, Total 6.2 g/dL Albumin 2.6 g/dL Globulin 3.6 g/dL Bilirubin, Total 0.7 mg/dL ALT (SGPT) 7 U/L AST (SGOT) 8 U/L Alkaline Phosphatase 90 IU/L Test performed on Sep 19, 2019 14:42 Manual Lymphocytes 57.1 % Manual Monocytes 4.8 % Manual Eosinophils 0.7 % Manual Basophils 0.4 % NRBCs 0.0 /100 WBC Test performed on Aug 18, 2019 10:45 Platelet Pheresis, Leukored TRANSFUSED PRODUCT: LEUKRD/PLAT PHERESIS 1ST CONT COUNT: 1 ABO & Rh Type BLD TYPE O POSITIVE BLD TYPE O POSITIVE Hepatitis A Ab, IgM Non- Reactive Hepatitis B Core Ab, Total Non-Reactive Hepatitis B Surf Antigen Non-Reactive Hepatitis B Surface Ab < 3.5 STATUS of IMMUINITY Inconsistent with Immunity 0.0 - 8.5 mIU/mL Consistent with Immunity >8.5 mIU/mL Hepatitis C Ab Non-Reactive Test performed on Aug 11, 2019 10:47 Glucose (POC) 143 mg/dL Test performed on Aug 11, 2019 10:40 Manual Neutrophils Abs 1.3 10 3/cmm Manual Lymphocytes Abs 0.9 10 3/cmm Manual Monocytes Abs 0.1 10 3/cmm Manual Segs % 37 % Manual Bands % 19.0 % Platelet Estimate DECREASED Test performed on Aug 03, 2019 11:40 Packed Red Cells (PRBC) [id number] TRANSFUSED PRODUCT: LEUKOREDUCED RED CELL 1ST CONT COUNT: 2 Type & Screen BLD TYPE O POSITIVE AB SCREEN GEL NEGATIVE BLD TYPE O POSITIVE AB SCREEN GEL NEGATIVE Test performed on Jul 20, 2019 10:12 Manual Eosinophils Abs 0.0 10 3/cmm Anisocytosis 1+ Impression: Progressive Thrombocytopenia, etiology unclear could be multifactorial including underlying ITP, considering her age underlying myelodysplasia cannot be ruled out or medication related, patient is off NINA inhibitor e.g. losartan. Anemia, macrocytic could be nutritional e.g. B12 deficiency or folate deficiency or increased reticulocyte count due to recent hematemesis. Follow-up lab shows persistent severe thrombocytopenia despite repeated platelet transfusion and tapering dose of prednisone. recommended weekly Rituxan ???4 while continue taper off prednisone. She will have transfusion services if her platelet count is less than 20,000 then will consider platelet transfusion and for hemoglobin if below 8 g then will consider blood transfusion. Mrs Mg began her first dose of Rituxan on 08/25/2019. She did have transfusion services on the 2nd for a HGB of 7.4. She did have infusion reaction to the Rituxan which resolved with additional premeds and Solumedrol.Rituxan was discontinued after second dose given on 09/02/2019 as patient was admitted to hospital with progressive leukopenia/neutropenia and, thrombocytopenia. Was given platelet transfusion and start on dexamethasone, but while on steroids,, her platelet count continued to go downand patient was recently admitted to hospital with severe thrombocytopenia and was given platelet transfusion and eventually underwent bone marrow evaluation on 09/22/2019 which showed , and core biopsy,extremely hypocellular marrow space with a day of lymphocytes and histiocytes and and also noted is extremely to erythroid and myeloid precursors on the role preparation slides.?Aplastic anemia or Rituxan toxicity. Plan: .Discussed with patient regarding her labs from yesterday showed white blood count 1.5 hemoglobin 7.3 hematocrit 23 platelets 1999, she was given platelet transfusion as well as packed RBCs. Clinically, patient denies any evidence of gross bleeding overall feeling much better with blood transfusion. It appears she is not responding well to Nplate as expected but with some improvement in time between platelet transfusion. 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 All the side effect and possible benefits associated with IVIG including fluid overload, allergic reaction, risk of infections were discussed further teaching will be done by chemotherapy nurse. We'll obtain approval from her insurance and then give her trial of IVIG along with her current management.as far as hypersensitive skin involving the right posterior upper chest wall is concern, on exam there was no skin lesion or rash. Patient was advised to use [id number] lidocaine patch or ointment, and was also advised to call us in case any evidence of skin changes. Right dorsal hand swelling, could be due to gout, is improving, we'll trytrial of prednisone 20 mg by mouth daily for 2 days. We'll repeat her CBC on Thursday. Signed By: Catherine De La Cruz M.D. <<Signature on File>>
[2019-12-12 08:45] LABS: Eosinophils % 2.3 %; Hematocrit 30.7 % (37.0-47.0); Hemoglobin 10.1 g/dL (11.5-15.3); Lymphocytes # 1.4 10^3/uL (0.8-4.8); Lymphocytes % 82.8 %; Mean Corpuscular HGB Conc 32.9 g/dL (30.0-36.0); Mean Corpuscular Hemoglobin 28.7 pg (28.0-34.0); Mean Corpuscular Volume 87.2 fL (81-99); Monocytes # 0.1 10^3/uL (0.2-0.9); Neutrophils % 10.9 %; Nucleated Red Blood Cells % 0 %; Red Blood Count 3.52 10^6/uL (4.1-5.3); Red Cell Distribution Width 13.1 % (12.1-15.1); White Blood Count 1.7 10^3/uL (4.0-10.0)
[2019-12-12 09:26] LABS: Neutrophils # 0.2 10^3/uL (1.8-7.7); Platelet Count 6 10^3/cmm (130-400)
[2019-12-12 09:27] LABS: Slide Review Slide Review Perform
[2019-12-12] MEDS: acetaminophen 325 mg Tablet 650 MG PO (14:27)
[2019-12-12 17:45] VITALS: BP 141/61; PULSE 75; RESP 16; TEMP 36.5; O2SAT 96
[2019-12-12 17:55] VITALS: BP 149/69; PULSE 79; RESP 16; TEMP 36.5; O2SAT 97
== END 2019-12-12 23:59 | disposition home or self-care (01) ==
LOC: ONCMED 06:20
PROVIDERS: Internal Medicine Medical Oncology; Family Provider Family Medicine; PCP Family Medicine; Visit Provider Internal Medicine Hematology & Oncology
DX: D69.3 Immune thrombocytopenic purpura (principal); D70.9 Neutropenia, unspecified; M79.89 Other specified soft tissue disorders; Z79.899 Other long term (current) drug therapy
CPT/HCPCS: 36415; 36430; 85025; 86850; 86900; 86920; 96365; 96366; 96372; 99214; J1200; J1442; J1568; J1940; J2796; J7050; P9037; P9040

== ENCOUNTER 2019-12-13 13:34 | Outpatient (CLI) | payer MEDICARE, OTHER, SELFPAY ==
[2019-12-13] MEDS: acetaminophen 325 mg Tablet 650 MG PO (12:50)
[2019-12-13] MEDS: sodium chloride 0.9% 250 ML 999 ML IV (12:52)
== END 2019-12-13 13:35 | disposition home or self-care (01) ==
LOC: ONCMED 13:37
PROVIDERS: Family Provider Family Medicine; PCP Family Medicine; Visit Provider Internal Medicine Hematology & Oncology
DX: D69.3 Immune thrombocytopenic purpura (principal); D64.9 Anemia, unspecified
CPT/HCPCS: 96365; 96366; 96367; J1200; J1568; J7050

== ENCOUNTER 2019-12-19 13:19 | Outpatient (CLI) | payer MEDICARE, OTHER, SELFPAY ==
[2019-12-19] VITALS (11 sets, daily range): BP systolic 122–156; BP diastolic 55–78; PULSE 73–79; RESP 17–18; TEMP 36.1–37; O2SAT 95–100
[2019-12-19 10:30] LABS: Eosinophils % 1.8 %; Hematocrit 23.3 % (37.0-47.0); Hemoglobin 7.6 g/dL (11.5-15.3); Lymphocytes # 0.9 10^3/uL (0.8-4.8); Lymphocytes % 77.7 %; Mean Corpuscular HGB Conc 32.6 g/dL (30.0-36.0); Monocytes # 0.1 10^3/uL (0.2-0.9); Monocytes % 4.5 %; Nucleated Red Blood Cells % 0 %; Red Blood Count 2.71 10^6/uL (4.1-5.3); Red Cell Distribution Width 12.7 % (12.1-15.1); White Blood Count 1.1 10^3/uL (4.0-10.0)
[2019-12-19 11:00] LABS: Platelet Count 1 10^3/cmm (130-400)
[2019-12-19 11:01] LABS: Neutrophils # 0.2 10^3/uL (1.8-7.7); Slide Review Slide Review Perform
[2019-12-19] MEDS: acetaminophen 325 mg Tablet 650 MG PO (13:20)
[2019-12-19] MEDS: sodium chloride 0.9% 250 ML 999 ML IV (13:20)
[2019-12-19] MEDS: diphenhydrAMINE 25 mg Capsule PO (14:40)
== END 2019-12-19 13:20 | disposition home or self-care (01) ==
PROVIDERS: Family Provider Family Medicine; PCP Family Medicine; Visit Provider Internal Medicine Hematology & Oncology
DX: D69.3 Immune thrombocytopenic purpura (principal); D64.9 Anemia, unspecified
CPT/HCPCS: 36415; 36430; 85025; 86850; 86900; 86920; J7050; P9037; P9040

== ENCOUNTER 2019-12-27 10:41 | Observation (INO) | payer MEDICARE, OTHER, SELFPAY ==
[2019-12-27] VITALS (12 sets, daily range): BP systolic 124–150; BP diastolic 56–79; PULSE 74–94; RESP 14–20; TEMP 36.4–37.2; O2SAT 93–99; BMI 29.8
[2019-12-27 11:26] LABS: Eosinophils % 1.2 %; Hematocrit 26.3 % (37.0-47.0); Hemoglobin 8.8 g/dL (11.5-15.3); Lymphocytes # 0.7 10^3/uL (0.8-4.8); Lymphocytes % 77.6 %; Mean Corpuscular HGB Conc 33.5 g/dL (30.0-36.0); Mean Corpuscular Volume 86.8 fL (81-99); Mean Platelet Volume 10.7 fL (7.4-10.4); Monocytes % 4.7 %; Neutrophils % 16.5 %; Nucleated Red Blood Cells % 0 %; Red Blood Count 3.03 10^6/uL (4.1-5.3); Red Cell Distribution Width 12.1 % (12.1-15.1)
[2019-12-27 11:34] LABS: INR 1.09 (0.8-1.2)
[2019-12-27 11:42] LABS: Alanine Aminotransferase 14 U/L (0-33); Albumin Level 3.6 g/dL (3.5-5.2); Alkaline Phosphatase 132 IU/L (35-105); Anion Gap 16.1 (5-19); Aspartate Amino Transferase 17 U/L (0-32); Blood Urea Nitrogen 22 mg/dL (8-23); Calcium 9.6 mg/dL (8.5-10.5); Carbon Dioxide 25 mmol/L (22-29); Chloride 102 mmol/L (98-107); Globulin 3.5 g/dL (1.3-4.6); Glucose 154 mg/dL (65-115); Osmolality Calculated 288 mOsm/kg (285-295); Potassium 4.1 mmol/L (3.5-5.1); Sodium 139 mmol/L (136-145); Total Bilirubin 0.7 mg/dL (0.15-1.2); Total Protein 7.1 g/dL (6.6-8.7)
--- NOTE | 2019-12-27 11:43 | W.ED.RECABL ---
HPI - Recheck/Abnormal Lab/Rx General: Chief Complaint: Recheck/Abnormal Lab/Rx Stated Complaint: SENT OVER BY BROOKS Time Seen by Provider: 12/27/19 11:10 History of Present Illness: HPI narrative: Patient has a long history of thrombocytopenia. 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 Patient was sent to the emergency room for further evaluation and transfusion of platelets. Description of abnormal result: thrombocytopenia Review of Systems General: Reports: 10 or more systems reviewed and unremarkable except in HPI and below Skin/Breast: Reports: changes in skin color (petichiae) [facility] PFSH: Medical History Chronic kidney disease, stage II (mild) Diverticulosis Epistaxis Glucose intolerance Osteoporosis Peptic ulcer disease Thrombocytopenia With a prior diagnosis of ITP, 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 Followed closely by Dr. De La Cruz. Patient had bone marrow aspiration and biopsy performed on 09/22/2019. Had plateletpheresis performed during admission and prior to discharge. Follow-up with Dr. De La Cruz recommended on Thursday or Thursday of next week Surgical History History of cataract surgery Family History Mother Cancer Breast cancer Father Lung disease Social History Smoking and tobacco status: never smoked Alcohol intake: never Physical Exam HENMT: COMMON NORMALS: normocephalic HEAD & SCALP: normocephalic Resp: COMMON NORMALS: normal respiratory effort Cardio: COMMON NORMALS: regular rate RATE: regular rate Skin: GENERAL SKIN EXAM: petechiae and purpura Course Vital Signs: Vital signs: Vital Signs Temperature 98.9 F 12/27/19 10:52 Pulse Rate 77 12/27/19 10:52 Respiratory Rate 20 H 12/27/19 10:52 Blood Pressure 135/67 12/27/19 10:52 Pulse Oximetry 99 12/27/19 10:52 MDM - Recheck/Abnormal Lab/Rx Lab Data: Labs: Lab Results 12/27/19 12/27/19 12/27/19 Range/Units 11:16 11:16 11:16 WBC 0.9 L* (4.0-10.0) 10^3/ uL RBC 3.03 L (4.1-5.3) 10^6/u L Hgb 8.8 L (11.5-15.3) g/dL Hct 26.3 L (37.0-47.0) % MCV 86.8 (81-99) fL MCH 29.0 (28.0-34.0) pg MCHC 33.5 (30.0-36.0) g/dL RDW 12.1 (12.1-15.1) % Plt Count 0 L* (130-400) 10^3/c mm MPV 10.7 H (7.4-10.4) fL Neut % (Auto) 16.5 % Lymph % (Auto) 77.6 % [place] % (Auto) 4.7 % Eos % (Auto) 1.2 % Baso % (Auto) 0.0 % Neut # (Auto) 0.1 L* (1.8-7.7) 10^3/u L Lymph # (Auto) 0.7 L (0.8-4.8) 10^3/u L [place] # (Auto) 0.0 L (0.2-0.9) 10^3/u L Eos # (Auto) 0.0 (0.0-0.8) 10^3/u L Baso # (Auto) 0.0 (0.0-0.1) 10^3/u L Nucleated RBC % (a uto) 0 % Nucleated RBCs # 0.0 /100WBC PT 14.50 H (10.5-13.3) SECO NDS INR 1.09 (0.8-1.2) Sodium 139 (136-145) mmol/L Potassium 4.1 (3.5-5.1) mmol/L Chloride 102 (98-107) mmol/L Carbon Dioxide 25 (22-29) mmol/L Anion Gap 16.1 (5-19) BUN 22 (8-23) mg/dL Creatinine 1.2 H (0.5-0.9) mg/dL Glucose 154 H (65-115) mg/dL Calculated Osmolal ity 288 (285-295) mOsm/k g Calcium 9.6 (8.5-10.5) mg/dL Total Bilirubin 0.7 (0.15-1.2) mg/dL AST 17 (0-32) U/L ALT 14 (0-33) U/L Alkaline Phosphata se 132 H (35-105) IU/L Total Protein 7.1 (6.6-8.7) g/dL Albumin 3.6 (3.5-5.2) g/dL Globulin 3.5 (1.3-4.6) g/dL Discharge Plan Discharge Patient Disposition: Admitted As Inpatient Clinical Impression: Thrombocytopenia Condition: Fair Referrals: Sophia Núñez DO [Primary Care Provider] - Coding Level of Care Code ED Physical Laboratory Assistant for Chg Fwd Exam Expanded Problem Focused
[2019-12-27 11:54] LABS: Platelet Count 0 10^3/cmm (130-400); White Blood Count 0.9 10^3/uL (4.0-10.0)
[2019-12-27 11:55] LABS: Neutrophils # 0.1 10^3/uL (1.8-7.7); Slide Review Slide Review Perform
--- NOTE | 2019-12-27 14:21 | PM.HP ---
Providers/Chief Complaint Admitting Physician: Derek Luna Primary Care Provider: Sophia Núñez DO Chief Complaint: SENT OVER BY TODD History of Present Illness Azul Mg is a very pleasant 84 year lady with pancytopenia, recurrent severe thrombocytopenia, following with hematology, so far had not responded to steroids, IVIG, Rituxan, without suggestion of etiology on prior bone marrow evaluation, recently dependent on platelet transfusions to maintain platelet level, this morning noted having chills, bruising, petechia on several areas of her body. She reports the chills is an associated finding for her when she develops a thrombocytopenic crisis, and on consultation with hematology clinic came in for evaluation to the emergency department. There she is noted to have 0 platelets, as well as neutral pi?a with ANC 100, and anemia, hemoglobin 8.8. She received a dose of Solu-Medrol, 2 units of platelets were ordered for her, and observation was requested in the hospital. She is having some chills, but denies any fever, and recently denies other symptoms of infection. Has been having some tenderness and swelling in the third MCP joint, although denies any trauma there. There is no erythema or warmth. No bruising. She otherwise denies any changes in her medications recently. She takes pantoprazole for GERD on which she has been for several months. She has been staying mostly in isolation, living home alone, although her sister does live next door, and stays with her at night. She denies any sick contacts, any travel. Has had no fever, headache. Has had chills, but this is a usual finding with her thrombocytopenic crises. Review of Systems Const: Reports: chills; Denies: fever, body aches or malaise Eyes: Denies: change in vision or eye redness ENMT: Denies: throat pain, oral sores/lesions or ear pain Card: Denies: chest pain, edema, pre-syncope or shortness of breath on exertion Resp: Denies: shortness of breath, productive cough, change in phlegm color or coughing up blood GI: Denies: abdominal pain, nausea, vomiting, diarrhea, constipation, blood in stool or black tarry stool : Denies: flank pain, urinary frequency or blood in urine Musc: Reports: joint swelling (R 3rd MCP); Denies: back pain or redness Skin/Breast: Denies: rash, sores or new lesion Neuro: Denies: headache, numbness in extremities, weakness in extremities, dizziness, confusion or seizure-like activity Endo: Denies: excessive urination or excessive thirst Emiliano/Lymph: Reports: easy bruising All/Imm: Denies: hives, throat swelling or tongue swelling Medications/Allergies Home Medications Medication Instructions Recorded Confirmed Last Taken Type calcitonin (salmon) 1 spray INTRANASAL (ALT) DAILY 09/07/19 12/27/19 12/26/19 History calcium phosphate-vitamin D3 1 tab PO DAILY 09/07/19 12/27/19 12/27/19 History [Citracal-D3 Gummies] meclizine 12.5 mg PO Q6H PRN 09/07/19 12/27/19 Unknown History metformin 500 mg PO QPM 09/07/19 12/27/19 12/26/19 History multivitamin [Multiple Vitamins] 1 tab PO DAILY 09/07/19 12/27/19 12/27/19 History ondansetron HCl 4 mg tablet 4 mg PO Q8H PRN 15 Days #30 tab 11/21/19 12/27/19 Unknown Rx pantoprazole 40 mg tablet,delayed 40 mg PO BID #180 tab 12/16/19 12/27/19 12/27/19 Rx release Steroids See Rx Instructions .ROUTE .COMPLEX 12/27/19 12/27/19 Unknown History acetaminophen [Tylenol] 162.5 mg PO PRN 12/27/19 12/27/19 Unknown History lorazepam 0.5 mg PO Q4H PRN 12/27/19 12/27/19 12/27/19 History Allergies Allergy/AdvReac Type Severity Reaction Status Date / Time amoxicillin Allergy ADR-Itching Verified 12/27/19 10:58 fluticasone [From Flonase] Allergy ALGY-Hives Verified 12/27/19 10:58 ibuprofen [From Motrin] Allergy ADR-Agitate Verified 12/27/19 10:58 d levofloxacin [From Levaquin] Allergy ALGY-Anaphy Verified 12/27/19 10:58 laxis Penicillins Allergy ALGY-Rash Verified 12/27/19 10:58 propoxyphene [From Darvon] Allergy ADR-Agitate Verified 12/27/19 10:58 d PFSH Acute PFSH: Medical History (Updated 12/27/19 @ 14:42 by Derek Luna MD) Chronic kidney disease, stage II (mild) Diverticulosis Epistaxis Glucose intolerance Osteoporosis Peptic ulcer disease Thrombocytopenia With a prior diagnosis of ITP, 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 Followed closely by Dr. De La Cruz. Patient had bone marrow aspiration and biopsy performed on 09/22/2019. Surgical History History of bone marrow biopsy History of cataract surgery History of esophagogastroduodenoscopy (EGD) Hx of colonoscopy Family History Mother Cancer Breast cancer Father Lung disease Social History Smoking and tobacco status: never smoked Alcohol intake: never Substance/Drug Use: never Household members: other Details: Sister lives next door and stays with her overnight. Housing: Apartment Marital status: / Current occupational status: retired Vitals/I&O/Wt Last Vital Signs Temp 98.9 F 12/27/19 13:06 Pulse 78 12/27/19 13:31 Resp 15 12/27/19 13:31 BP 144/72 12/27/19 13:31 Pulse Ox 97 12/27/19 13:31 Weight last 48 hrs Weight 71.668 kg Physical Exam Const: COMMON NORMALS: no apparent distress and oriented x3 GENERAL APPEARANCE: frail appearing NUTRITIONAL APPEARANCE: overweight HENMT: COMMON NORMALS: oropharynx normal Neck/C-Spine: COMMON NORMALS: no JVD Resp: COMMON NORMALS: normal respiratory effort and clear to auscultation bilaterally AUSCULTATION: clear to auscultation bilaterally Cardio: COMMON NORMALS: no JVD, regular rhythm, S1 normal heart sound, S2 normal heart sound and no murmurs RHYTHM: regular rhythm HEART SOUNDS: S1 normal and S2 normal GI: COMMON NORMALS: normal to inspection, nondistended, normoactive bowel sounds, soft to palpation and non-tender PALPATION: Yes soft Extremity: COMMON NORMALS: no joint enlargement and no pedal edema Neuro: COMMON NORMALS: oriented x3 and moves all extremities Skin: GENERAL SKIN EXAM: ecchymosis (Left hand, left forearm) and petechiae (Chest, legs. None in the mouth.) Data : 12/27/19 11:16 12/27/19 11:16 A&P Assessment and plan (1) Thrombocytopenia: Experienced chills similar to her usual episodes of of thrombocytopenia, and noticed bruising, petechia this morning. Platelet level is 0. Recurrent thrombocytopenia, also with neutropenia, currently pancytopenia, with ANC 100, hemoglobin 8.8. No headache, no oral petechia. In ER received Solu-Medrol, and 2 units platelets were ordered. Place in observation, will reassess platelet level in the morning. 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 Her dairy truck driver is considering possible repeat bone marrow biopsy, and will discuss this during the next clinic visit. Status: Acute (2) Metacarpophalangeal joint pain of right hand: Tender, swollen right third MCP. No redness, no warmth. Initially ordered x-ray. Appreciate orthopedic consultation. Will order MR right hand as discussed. Check uric acid level. Status: Acute Attestations Medical Necessity Statement*: Place in observation. Coding Level of Care Code Acute Production Supervisor Off Shift for Chalo Merritt Exam Comprehensive Diagnoses Thrombocytopenia D69.6 Metacarpophalangeal joint pain of right hand M25.541
--- NOTE | 2019-12-27 14:25 | XR_ITS ---
WS: [id number] XR hand RT min 3V* [id number] REASON FOR EXAM: swelling, pain 3rd MCP joint FINDINGS: Some soft tissue swelling is noted along the head of the third metacarpal. There is spurrin g in this area. The distal interphalangeal joints show mild degenerate changes and the first metacarp al carpal articulation show degenerate changes. There was no displacement or fractures seen. 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
[2019-12-27] MEDS: sulfamethoxazole-trimeth DS 160-800 mg Tablet 1 TAB PO (14:47)
[2019-12-27] MEDS: pantoprazole 40 mg SDV IVP (14:47)
--- NOTE | 2019-12-27 16:51 | PC.NURSE ---
PLATELETS PATIENT RECEIVED 2 UNITS OF PLATELETS. THE FIRST UNIT WAS GIVEN WITHOUT ISSUE. THE SECOND ISSUE WOULD NOT ACCEPT THE PRODUCT SCAN. THIS NURSE TOOK THE PLATELETS BACK TO LAB BEFORE THE 20 MINUTE EUSEBIO. LAB CONTACTED THEIR AUTO BODY BUILDER APPRENTICE WHOM CONTACTED IT. I WAS THEN INSTRUCTED BY ELADIO IN LAB TO TAKE PRODUCT BACK WITH ME TO THE FLOOR AND WAIT FOR A CALL FROM IT. IT CONTACTED ME AND WITH MUCH DIFFICULTY IT WAS RESOLVED THAT I WOULD HAVE TO OVERRIDE THE SCAN UNTIL THE ISSUE COULD BE RESOLVED IN [facility]. I THEN PERCEIVED TO OVERRIDE THE SCAN WITH SECOND NURSE VERIFICATION FROM MILADIS RN. PRODUCT ADMINISTERED. PATIENT RESPONDING WELL.
[2019-12-27] MEDS: metformin 500 mg Tablet PO (17:09)
[2019-12-27] MEDS: LORazepam 0.5 mg Tablet PO ×2 (18:07→22:17)
[2019-12-27] MEDS: acetaminophen 325 mg Tablet 650 MG PO (21:17)
[2019-12-28] VITALS (9 sets, daily range): BP systolic 106–161; BP diastolic 63–84; PULSE 68–104; RESP 17–20; TEMP 36.3–37.3; O2SAT 91–98
[2019-12-28] MEDS: pantoprazole 40 mg SDV IVP ×2 (02:53→14:58)
[2019-12-28 04:02] LABS: Hematocrit 23.8 % (37.0-47.0); Hemoglobin 8.1 g/dL (11.5-15.3); Lymphocytes # 0.2 10^3/uL (0.8-4.8); Mean Corpuscular Hemoglobin 29.5 pg (28.0-34.0); Mean Corpuscular Volume 86.5 fL (81-99); Mean Platelet Volume 10.3 fL (7.4-10.4); Monocytes % 3.8 %; Neutrophils % 62.2 %; Nucleated Red Blood Cells % 0 %; Platelet Count 93 10^3/cmm (130-400); Red Blood Count 2.75 10^6/uL (4.1-5.3); Red Cell Distribution Width 12.2 % (12.1-15.1)
[2019-12-28 04:14] LABS: Anion Gap 16.3 (5-19); Blood Urea Nitrogen 26 mg/dL (8-23); Calcium 10.3 mg/dL (8.5-10.5); Carbon Dioxide 23 mmol/L (22-29); Chloride 104 mmol/L (98-107); Glucose 267 mg/dL (65-115); Osmolality Calculated 294 mOsm/kg (285-295); Potassium 4.3 mmol/L (3.5-5.1); Sodium 139 mmol/L (136-145)
[2019-12-28 05:29] LABS: Neutrophils # 0.3 10^3/uL (1.8-7.7); White Blood Count 0.5 10^3/uL (4.0-10.0)
[2019-12-28] MEDS: LORazepam 2 mg/mL INJ 1 mL 0.5 MG IVP (08:04)
--- NOTE | 2019-12-28 08:05 | PC.NURSE ---
ATIVAN 0.5MG OF ATIVAN GIVEN BY JUVENCIO ARCHER, WASTED WITH LYRIC ARCHER.
--- NOTE | 2019-12-28 10:20 | PC.CHAP ---
Pastoral Care Encounter/Spiritual Assessment Type of Contact [] Declined machine trimmer visit [] Patient/Family/Request visit [] Outpatient visit [] Follow-up visit [] Physician referral [] Code/Alert [x] Routine visit [] Staff referral [] Actively dying [] Patient sleeping [] Family support [] [] Out of room [] Palliative care [] [] Receiving care in room [] Pre-surgical visit [] Trauma [] Long length of stay [] ICU visit [] Other: Relational/Emotional Strength [] Patient feels connected with others/family/visitors/staff [] Distress [] Loneliness/isolation [] Abandonment Spirituality of Patient [] Person of Lorenza [] Attends Scientologist of their Lorenza [x] Believes in Prayer [] Reads Bible or Uatsdin materials [] There are Spiritual issues to be addressed Scale Balancer Interventions [x] Prayer [] Active listening [] Non-anxious presence [] Spiritual/emotional support [] Crisis/trauma care [] Spiritual counseling [] Bereavement support [] Provided bereavement packet [] Provided Bible/devotional materials [] Provided toy/stuffed animal, coloring book to patient or family member [] Provided Communion [] Anointing/[place] [] Salvation [x] Completed spiritual assessment [] Other: Impact on Illness or Injury [] Angry [] Fearful [] Anxious [] Often cries [] Exhaustion [] Unable to work [] Unable to attend restorationism [] Unable to walk/stand [] Unable to read [] Unable to drive [] Unable to eat/drink [] Unable to sleep [] Unable to be with family [] Patient intubated [] Other: Summary Patient unable to complete MRI test. Patient is claustrophobic, and was very afraid. Orrum assured Patient that test would take little time. Close eyes and think of something very very special. Patient has given and an MRI is less pain and less time. Patient agreed, and will try again. Time spent with patient 15min
--- NOTE | 2019-12-28 14:41 | P.CONIM_ITS ---
Providers/Reason For Consult Consulting Physican/Specialty*: Dr. Claudette Shea/Orthopedics Reason for Consult*: Right long finger MCP joint swelling with pain Requesting Physcian: Dr. Ashlyn Luna Attending Physician: Derek Luna Primary Care Provider: Sophia Núñez DO History of Present Illness History of Present Illness Azul Mg is a 84 year old female who presented through the emergency department with complaints of chills, bruising, and petechia over several areas of her body on December 26. The patient has known pancytopenia with recurrent severe thrombocytopenia. She has been followed by hematology, but she has not responded to steroids or other treatments. She had a bone marrow biopsy which did not yield an etiology for her problems. She does note that the chills she is experiencing are often an associated finding with thrombocytopenic crisis and therefore, she came to the emergency department. Upon admission, she had 0 platelets as well as neutropenia and anemia. She was placed on observation in a bed. Upon admission, she also noted that she has bruising on her left hand which is secondary to an issue with her dog, however, she also has had about 3 months of pain in the long finger on the right hand. Recently, she has been living under isolation secondary to COVID-19. Review of Systems General: Reports: 10 or more systems reviewed and unremarkable except in HPI and below Const: Reports: chills; Denies: fever, body aches or malaise Eyes: Denies: change in vision or eye redness ENMT: Denies: throat pain, oral sores/lesions or ear pain Card: Denies: chest pain, edema, pre-syncope or shortness of breath on exertion Resp: Denies: shortness of breath, productive cough, change in phlegm color or coughing up blood GI: Denies: abdominal pain, nausea, vomiting, diarrhea, constipation, blood in stool or black tarry stool : Denies: flank pain, urinary frequency or blood in urine Musc: Reports: joint swelling (R 3rd MCP); Denies: back pain, redness or joint warmth Skin/Breast: Reports: changes in skin color (petichiae); Denies: rash, sores or new lesion Neuro: Denies: headache, numbness in extremities, weakness in extremities, dizziness, confusion or seizure-like activity Endo: Denies: excessive urination or excessive thirst Emiliano/Lymph: Reports: easy bruising All/Imm: Denies: hives, throat swelling, tongue swelling or acute wheezing Meds/Allergies Home Medications and Allergies Home Medications Medication Instructions Recorded Confirmed Last Taken Type calcitonin (salmon) 1 spray INTRANASAL (ALT) DAILY 09/07/19 12/27/19 12/26/19 History calcium phosphate-vitamin D3 1 tab PO DAILY 09/07/19 12/27/19 12/27/19 History [Citracal-D3 Gummies] meclizine 12.5 mg PO Q6H PRN 09/07/19 12/27/19 Unknown History metformin 500 mg PO QPM 09/07/19 12/27/19 12/26/19 History multivitamin [Multiple Vitamins] 1 tab PO DAILY 09/07/19 12/27/19 12/27/19 History ondansetron HCl 4 mg tablet 4 mg PO Q8H PRN 15 Days #30 tab 11/21/19 12/27/19 Unknown Rx pantoprazole 40 mg tablet,delayed 40 mg PO BID #180 tab 12/16/19 12/27/19 12/27/19 Rx release Steroids See Rx Instructions .ROUTE .COMPLEX 12/27/19 12/27/19 Unknown History acetaminophen [Tylenol] 162.5 mg PO PRN 12/27/19 12/27/19 Unknown History lorazepam 0.5 mg PO Q4H PRN 12/27/19 12/27/19 12/27/19 History Allergies Allergy/AdvReac Type Severity Reaction Status Date / Time amoxicillin Allergy ADR-Itching Verified 12/27/19 10:58 fluticasone [From Flonase] Allergy ALGY-Hives Verified 12/27/19 10:58 ibuprofen [From Motrin] Allergy ADR-Agitate Verified 12/27/19 10:58 d levofloxacin [From Levaquin] Allergy ALGY-Anaphy Verified 12/27/19 10:58 laxis Penicillins Allergy ALGY-Rash Verified 12/27/19 10:58 propoxyphene [From Darvon] Allergy ADR-Agitate Verified 12/27/19 10:58 d Current Medications Current Medications Generic Name Dose Route Start Last Admin Trade Name Freq PRN Reason Stop Dose Admin Acetaminophen 650 mg 12/27/19 15:02 12/27/19 21:17 Tylenol PO 650 mg Q6H PRN Administration Mild/Mod Pain Or Temp >/= 101 Lorazepam 0.5 mg 12/27/19 14:42 12/27/19 22:17 Ativan PO 0.5 mg Q4H PRN Administration Anxiety Metformin HCl 500 mg 12/27/19 18:00 12/27/19 17:09 Glucophage PO 500 mg QPM KEVEN Administration Pantoprazole Sodium 40 mg 12/27/19 14:00 12/28/19 02:53 Protonix IVP 40 mg Q12H KEVEN Administration PFSH Acute PFSH: Medical History Chronic kidney disease, stage II (mild) Diverticulosis Epistaxis Glucose intolerance Osteoporosis Peptic ulcer disease Thrombocytopenia With a prior diagnosis of ITP, 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 Followed closely by Dr. De La Cruz. Patient had bone marrow aspiration and biopsy performed on 09/22/2019. Surgical History History of bone marrow biopsy History of cataract surgery History of esophagogastroduodenoscopy (EGD) Hx of colonoscopy Family History Mother Cancer Breast cancer Father Lung disease Social History Smoking and tobacco status: never smoked Alcohol intake: never Substance/Drug Use: never Household members: other Details: Sister lives next door and stays with her overnight. Housing: Apartment Marital status: / Current occupational status: retired Vitals/I&O/Wt Last Vital Signs Temp 97.9 F 12/28/19 12:00 Pulse 89 12/28/19 12:00 Resp 20 H 12/28/19 12:00 BP 143/63 12/28/19 12:00 Pulse Ox 91 12/28/19 12:00 12/27/19 12/28/19 12/28/19 22:59 06:59 14:59 Intake Total 1060 / 1060 720 / 720 Output Total 900 / 900 300 / 1200 Balance 160 / 160 -300 / -140 720 / 720 Weight last 48 hrs Weight 158 lb Physical Exam Const: COMMON NORMALS: no apparent distress, average body habitus, oriented x3 and alert GENERAL APPEARANCE: cooperative and comfortable ORIENTATION/CONSCIOUSNESS: Yes awake HENMT: COMMON NORMALS: normocephalic and head/scalp atraumatic HEAD & SCALP: normocephalic and atraumatic Eye: GENERAL EYE: normal appearance of both eyes Chest: COMMONS NORMALS: inspection of chest normal Resp: COMMON NORMALS: normal respiratory effort EFFORT & INSPECTION: Yes able to speak in complete sentences and Yes symmetric chest movement Extremity: RIGHT UPPER EXTREMITY: Yes hand & digits (The right MCP joint feels swollen within the joint. There is no significant erythema. There is a boggy feeling to the joint. The patient has pain with range of motion.) Right hand and digits: Yes inspection (There is swelling in the area of the MCP joint as well.), Yes palpation (Tenderness over the MCP joint.) and Yes ROM exam (Diminished and painful in the MCP joint and also the PIP joint. The DIP joint is somewhat painful as well.) LEFT UPPER EXTREMITY: Yes hand & digits (Bruising in the area of the metacarpal phalangeal joints over the long and ring fingers. Patient notes this is secondary to her dog. 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 There is increased arthritis in the long finger metacarpophalangeal joint with some bony destruction. A&P Assessment and plan (1) Metacarpophalangeal joint pain of right hand: The patient has significant swelling in the right metacarpal phalangeal joint of the long finger. She notes that this is been present for approximately 3 months. She has pain with range of motion. There is no significant erythema. There is no evidence of infection or radiating tendinitis of the arm or even out into the finger. X-rays demonstrate degenerative joint changes without evidence of fracture or subluxation. An MRI was ordered but the patient was not able to complete this secondary to pain. At this point, given her multiple hematologic issues, aspiration is not felt to be warranted. We could reevaluate once her hematology values have somewhat normalized. At this point, there is no evidence of acute finding to warrant a potentially risky intervention. Status: Acute Consult Attestations Medical Necessity Statement: Per hospitalist service Coding Level of Care Code Acute Tool Drawing Checker for Linda Fwd Exam Detailed Diagnoses Metacarpophalangeal joint pain of right hand M25.541
[2019-12-28] MEDS: cefdinir 300 MG CAPSULE PO (14:58)
[2019-12-28] MEDS: LORazepam 0.5 mg Tablet PO (17:49)
[2019-12-28] MEDS: metformin 500 mg Tablet PO (17:49)
--- NOTE | 2019-12-28 19:54 | PM.PN ---
Subjective Subjective: Interval history: Today developed some sort of facial flushing/redness and warmth due to unclear reason. During the day was keeping a warm soaked rag over the face due to the discomfort. Received Bactrim yesterday, as well as platelets. Says she has never had such a reaction before. No change in third MCP on the right hand. Says this has been going on for about 3 months. Vitals/I&O/Wt Last Vital Signs Temp 98.6 F 12/28/19 15:59 Pulse 73 12/28/19 15:59 Resp 17 12/28/19 15:59 BP 106/71 12/28/19 15:59 Pulse Ox 95 12/28/19 15:59 12/28/19 12/28/19 12/28/19 06:59 14:59 22:59 Intake Total 720 / 720 240 / 960 Output Total 300 / 1200 Balance -300 / -140 720 / 720 240 / 960 Weight last 48 hrs Weight 71.668 kg Physical Exam Const: COMMON NORMALS: no apparent distress and oriented x3 GENERAL APPEARANCE: frail appearing NUTRITIONAL APPEARANCE: overweight HENMT: COMMON NORMALS: oropharynx normal Neck/C-Spine: COMMON NORMALS: no JVD Resp: COMMON NORMALS: normal respiratory effort and clear to auscultation bilaterally AUSCULTATION: clear to auscultation bilaterally Cardio: COMMON NORMALS: no JVD, regular rhythm, S1 normal heart sound, S2 normal heart sound and no murmurs RHYTHM: regular rhythm HEART SOUNDS: S1 normal and S2 normal GI: COMMON NORMALS: normal to inspection, nondistended, normoactive bowel sounds, soft to palpation and non-tender PALPATION: Yes soft Extremity: COMMON NORMALS: no joint enlargement and no pedal edema Neuro: COMMON NORMALS: oriented x3 and moves all extremities Skin: GENERAL SKIN EXAM: ecchymosis (Left hand, left forearm) and petechiae (Chest, legs. None in the mouth.) Data : 12/28/19 03:25 12/28/19 03:25 A&P Assessment and plan (1) Medication reaction: Facial flushing, warmth today. She states never had a reaction like this before. Received Bactrim yesterday, as well as platelet transfusion. Not clear exactly what the reaction was from. She was also keeping a soaked rag over her face, although this was after the symptoms had initially started with warmth on her face. Detergent reaction may be suspected, however, less likely given the timing. Bactrim was discontinued. Antibiotics switched over to Omnicef. For now is not getting more platelets. Did show some slight improvement by the evening, however, at that point no longer had a ride available. Will monitor overnight, and if doing well may discharge to outpatient follow-up. Status: Acute (2) Thrombocytopenia: Responded well to transfusion. Experienced chills similar to her usual episodes of of thrombocytopenia, and noticed bruising, petechia this morning. Platelet level is 0. Recurrent thrombocytopenia, also with neutropenia, currently pancytopenia, with ANC 100, hemoglobin 8.8. No headache, no oral petechia. In ER received Solu-Medrol, and 2 units platelets were ordered. Place in observation, will reassess platelet level in the morning. Discussed with her health director, for now empirically also started on Bactrim DS 1 tablet daily, due to allergy to number of other antibiotics. Her health director is considering possible repeat bone marrow biopsy, and will discuss this during the next clinic visit. Status: Acute (3) Metacarpophalangeal joint pain of right hand: Appreciate orthopedics assessment. Unfortunately could not tolerate MRI, and the study was not interpretable. X-ray with severe degenerative changes. She feels that the change with tenderness and swelling at the third MCP joint has been there for about 3 months. Still bothersome. Appearance of her hands suggests possible underlying rheumatoid arthritis, although she does not have diagnosed history. Wonder if this may in fact also be contributing to her thrombocytopenia, and she would need additional investigation for this. Discussed with her to have this closer evaluated with her primary care provider. She verbalized understanding. Uric acid level is only minimally high at 6. I am not sure that this is gout as this would be unusual location, and otherwise she does not have warmth, redness. She would benefit from rheumatology follow-up after discharge. Status: Acute Attestations Medical Necessity Statement*: Maintain observation due to possible medication or platelet transfusion reaction. Coding Level of Care Code Acute Home Health Nurse for chris Fwd Exam Comprehensive Diagnoses Medication reaction T50.905A Thrombocytopenia D69.6 Metacarpophalangeal joint pain of right hand M25.541
[2019-12-28] MEDS: acetaminophen 325 mg Tablet 650 MG PO (20:20)
[2019-12-29] MEDS: cefdinir 300 MG CAPSULE PO ×2 (02:31→13:44)
[2019-12-29] MEDS: pantoprazole 40 mg SDV IVP (02:32)
[2019-12-29 04:00] VITALS: BP 112/68; PULSE 61; RESP 15; TEMP 36.4; O2SAT 96
[2019-12-29 06:05] LABS: Hematocrit 23.1 % (37.0-47.0); Hemoglobin 7.6 g/dL (11.5-15.3); Lymphocytes % 70.8 %; Mean Corpuscular HGB Conc 32.9 g/dL (30.0-36.0); Mean Corpuscular Hemoglobin 28.9 pg (28.0-34.0); Mean Corpuscular Volume 87.8 fL (81-99); Monocytes # 0.1 10^3/uL (0.2-0.9); Monocytes % 3.6 %; Neutrophils % 22.7 %; Nucleated Red Blood Cells % 0 %; Platelet Count 71 10^3/cmm (130-400); Red Blood Count 2.63 10^6/uL (4.1-5.3); Red Cell Distribution Width 12.2 % (12.1-15.1); White Blood Count 1.4 10^3/uL (4.0-10.0)
[2019-12-29 06:37] LABS: Neutrophils # 0.3 10^3/uL (1.8-7.7); Slide Review Slide Review Perform
[2019-12-29 07:11] VITALS: BP 135/75; PULSE 69; RESP 16; TEMP 36.4; O2SAT 96
[2019-12-29 07:56] VITALS: PULSE 72; O2SAT 98
[2019-12-29] MEDS: acetaminophen 325 mg Tablet 162.5 MG PO (08:36)
--- NOTE | 2019-12-29 10:35 | PM.DCS ---
Discharge Providers Date of Admission: 12/27/19 12:21 Date of Discharge: December 29, 2019 Attending Provider at Admission: Derek Luna Attending Provider at Discharge: Derek Luna Primary Care Provider: Sophia Núñez DO Diagnoses at Discharge Discharge Diagnosis (1) Metacarpophalangeal joint pain of right hand: Status: Acute Problem details: Swelling and tenderness of third right MCP joint. This appears has been going on for about 3 months. Prominent osteoarthritic changes of head of third metacarpal. MRI was attempted, however, she could not tolerate the study, and it was not interpretable afterward. Was seen by orthopedics, will refer for reassessment in clinic, and to follow-up with rheumatology as well, as concern is for possible undiagnosed rheumatoid arthritis. Possibly even Felty syndrome? With her chronic thrombocytopenia, neutropenia. 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 Followed closely by Dr. De La Cruz. Patient had bone marrow aspiration and biopsy performed on 09/22/2019. (3) Medication reaction: Status: Acute Problem details: Resolved. Facial redness, sensation warmth, unclear cause. Possibly after receiving Bactrim, or perhaps due to platelet infusion. Did keep a soaked rag over her face, although this appears perhaps after starting of symptoms, but cannot exclude also some contact reaction. (4) Arthritis: Status: Acute Problem details: Hands with significant mcp swelling, wind-swept. Concern is for possible undiagnosed rheumatoid arthritis although severe osteoarthritis possible. Possibly even Felty syndrome? with her chronic thrombocytopenia, neutropenia. Follow up with rheumatology recommended. Reason for Visit Reason for Visit: Reason For Visit: SENT OVER BY BROOKS/3rd finger swelling Hospital Course Hospital Course: Very pleasant 84-year-old lady with history of persistent/recurrent thrombocytopenia, following with hematology, previously not responding to multiple treatment modalities, also with associated neutropenia, anemia, previously had also undergone evaluation by bone marrow biopsy. She noted petechia, bruising, and episode of chills at home as she frequently does with her thrombocytopenic crises, and on presentation in emergency department was noted to have platelet level of 0. She was kept for observation, with platelet transfusion. On presentation received a dose of Solu-Medrol. Maintained on neutropenic precautions due to chronic neutropenia. Per discussion with her quartz miner blasting, initially empirically started on Bactrim. Was given 2 units of platelets transfusion, with platelets rising to 90,000. She also was complaining of persistent swelling, tenderness of the third MCP joint, without erythema or warmth. States that this is been going on for close to 3 months. She does have significant arthritic changes in both hands, possibly even rheumatoid arthritis judging by appearance. She denies having been formally diagnosed. X-ray of the right hand was obtained, with finding of prominent osteoarthritic changes of the head of third metacarpal. Uric acid was 6. With her neutropenia, severe thrombocytopenia, MRI was attempted, however, she could not tolerate the study well, and due to significant motion artifact study had to be abandoned. She was assessed by orthopedics. Given her multiple complications she was not at this time deemed safe candidate for additional more invasive evaluation. Infection was considered, but felt to be less likely. She is also remained afebrile. There is no redness or warmth over the affected joint. Please follow-up on the clinical condition. Her fingers were nahid taped, and she was instructed on hand exercises, with recommended follow-up with orthopedics and rheumatology. She will need additional assessment for possibility of rheumatoid arthritis, and possibly even Felty syndrome? with associated thrombocytopenia and neutropenia. Facial redness, sensation warmth developed on 12/27, of unclear cause. Possibly after receiving Bactrim, or perhaps due to platelet infusion. Did keep a soaked rag over her face, although this appears perhaps after starting of symptoms, but cannot exclude also some contact reaction due to detergent. Discussed with her. Bactrim was discontinued, switched over to Omnicef on which she will continue for now until can be reevaluated by hematology/or resolution of neutropenia. Physical Exam Const: COMMON NORMALS: no apparent distress and oriented x3 GENERAL APPEARANCE: frail appearing NUTRITIONAL APPEARANCE: overweight HENMT: COMMON NORMALS: oropharynx normal Neck/C-Spine: COMMON NORMALS: no JVD Resp: COMMON NORMALS: normal respiratory effort and clear to auscultation bilaterally AUSCULTATION: clear to auscultation bilaterally Cardio: COMMON NORMALS: no JVD, regular rhythm, S1 normal heart sound, S2 normal heart sound and no murmurs RHYTHM: regular rhythm HEART SOUNDS: S1 normal and S2 normal GI: COMMON NORMALS: normal to inspection, nondistended, normoactive bowel sounds, soft to palpation and non-tender PALPATION: Yes soft Extremity: COMMON NORMALS: no pedal edema GENERAL: Yes deformity (R 3rd MCP joint persistently swollen, tender. No redness or warmth. No brui) Neuro: COMMON NORMALS: oriented x3 and moves all extremities Skin: GENERAL SKIN EXAM: ecchymosis (Left hand, left forearm) Discharge Data Data Completed and Pending: Completed Studies During Hospitalization Category Date Time Status XR hand RT min 3V * [id number] Routine Exams 12/27/19 14:25 Completed Pending at discharge Category Date Time Status Complete Blood Co unt w/Auto AM LABS Lab 12/30/19 04:00 Ordered Labs from last 24 hours 12/29/19 05:30 WBC 1.4 L RBC 2.63 L Hgb 7.6 L Hct 23.1 L MCV 87.8 MCH 28.9 MCHC 32.9 RDW 12.2 Plt Count 71 L MPV 10.0 Neut % (Auto) 22.7 Lymph % (Auto) 70.8 [place] % (Auto) 3.6 Eos % (Auto) 0.0 Baso % (Auto) 0.0 Neut # (Auto) 0.3 L* Lymph # (Auto) 1.0 [place] # (Auto) 0.1 L Eos # (Auto) 0.0 Baso # (Auto) 0.0 Nucleated RBC % (a uto) 0 Nucleated RBCs # 0.0 Vitals: Last Vital Signs Temp 97.6 F 12/29/19 07:11 Pulse 72 12/29/19 07:56 Resp 16 12/29/19 07:11 BP 135/75 12/29/19 07:11 Pulse Ox 98 12/29/19 07:56 Discharge Plan Discharge Patient Disposition: Home, Self-Care Condition: Fair Prescriptions: New cefdinir 300 mg Capsule 300 mg PO Q12H Qty: 28 RF: 0 Continued ondansetron HCl [Zofran] 4 mg tablet 4 mg PO Q8H PRN (Reason: Nausea) 15 Days Qty: 30 RF: 0 pantoprazole 40 mg tablet,delayed release (DR/EC) 40 mg PO BID Qty: 180 RF: 0 multivitamin [Multiple Vitamins] Tablet 1 tab PO DAILY RF: 0 metformin 500 mg Tablet 500 mg PO QPM RF: 0 meclizine 12.5 mg Tablet 12.5 mg PO Q6H PRN (Reason: Nausea) RF: 0 calcitonin (salmon) 200 unit/actuation [place],Non-Aerosol 1 spray INTRANASAL (ALT) DAILY RF: 0 calcium phosphate-vitamin D3 [Citracal-D3 Gummies] 250 mg calcium- 500 unit Tablet,Chewable 1 tab PO DAILY RF: 0 Tylenol 325 mg Tablet 162.5 mg PO PRN RF: 0 lorazepam 0.5 mg tablet 0.5 mg PO Q4H PRN (Reason: Anxiety) RF: 0 Steroids See Rx Instructions .ROUTE .COMPLEX RF: 0 Discharge Orders: Discharge Order (Routine); Ordered 12/29/19 Ordered By: Derek Luna Referrals: Rheumatology [Provider Group] - 1 week (right third metacarpal swelling, pain, neutropenia, also suspected RA, , Felty syndrome?) Claudette Shea MD [Physician] - 1 week Sophia Núñez DO [Primary Care Provider] - 4-7 days Catherine De La Cruz MD [Staff Physician] - 1 week (Thrombocytopenia, Felty syndrome?) Discharge Diet: Diabetic Discharge Activity: Increase activity as tolerated and Limit activity as instructed Activity Restrictions/Additional Instructions: Please maintain neutropenic diet. Please maintain strict fall precautions. Avoid any injury as her platelets may be low at any time. Please discuss with your primary care doctor regarding testing for rheumatoid arthritis, and please see rheumatology. Continue hand exercises as recommended by orthopedics. Discharge Attestations Time Spent in Discharge Care*: greater than 30 min Quality Metrics Clinical Quality Measures During this hospital stay, did patient experience: None Coding Level of Care Code Acute Hotel Services Sales Representative for Chalo Merritt Diagnoses Metacarpophalangeal joint pain of right hand M25.541 Thrombocytopenia D69.6 Medication reaction T50.905A Arthritis M19.90
[2019-12-29 11:46] VITALS: BP 114/60; PULSE 71; RESP 16; TEMP 36.8; O2SAT 94
[2019-12-29 13:03] VITALS: BP 114/60; PULSE 71; RESP 16; TEMP 36.8; O2SAT 94
== END 2019-12-29 13:45 | disposition home or self-care (01) ==
LOC: ER 12:22 → MEDSURG 15:33
PROVIDERS: Admitting Provider Internal Medicine; Emergency Provider Family Medicine; Family Provider Family Medicine; PCP Family Medicine; Visit Provider Internal Medicine
DX: D69.6 Thrombocytopenia, unspecified (principal); M25.541 Pain in joints of right hand; T50.905A Adverse effect of unspecified drugs, medicaments and biological substances, initial encounter; M19.90 Unspecified osteoarthritis, unspecified site; N18.2 Chronic kidney disease, stage 2 (mild); M81.0 Age-related osteoporosis without current pathological fracture; T36.8X5A Adverse effect of other systemic antibiotics, initial encounter; Z87.11 Personal history of peptic ulcer disease
CPT/HCPCS: 12345; 36415; 36430; 73130; 80048; 80053; 84550; 85025; 85610; 86900; 96365; 96375; 97110; 97165; 99282; 99285; C9113; G0378; J2060; J2930; J7050; P9037

== ENCOUNTER 2020-01-03 08:05 | Outpatient (CLI) | payer MEDICARE, OTHER, SELFPAY ==
[2020-01-03] VITALS (7 sets, daily range): BP systolic 117–147; BP diastolic 60–83; PULSE 67–75; RESP 17–18; TEMP 35.9–36.8; O2SAT 93–97
[2020-01-03 08:41] LABS: Hematocrit 24.3 % (37.0-47.0); Hemoglobin 8.2 g/dL (11.5-15.3); Lymphocytes # 1.1 10^3/uL (0.8-4.8); Lymphocytes % 81.4 %; Mean Corpuscular HGB Conc 33.7 g/dL (30.0-36.0); Mean Corpuscular Hemoglobin 29.4 pg (28.0-34.0); Mean Corpuscular Volume 87.1 fL (81-99); Mean Platelet Volume 11.4 fL (7.4-10.4); Monocytes % 2.3 %; Neutrophils % 16.3 %; Nucleated Red Blood Cells % 0 %; Red Blood Count 2.79 10^6/uL (4.1-5.3); Red Cell Distribution Width 11.7 % (12.1-15.1); White Blood Count 1.3 10^3/uL (4.0-10.0)
[2020-01-03 09:06] LABS: Platelet Count 9 10^3/cmm (130-400)
[2020-01-03 09:07] LABS: Neutrophils # 0.2 10^3/uL (1.8-7.7)
[2020-01-03] MEDS: acetaminophen 325 mg Tablet 650 MG PO (10:30)
[2020-01-03] MEDS: sodium chloride 0.9% 250 ML 999 ML IV (10:30)
[2020-01-03] MEDS: diphenhydrAMINE 25 mg Capsule PO (10:32)
[2020-01-03] MEDS: FUROsemide 10 mg/mL SDV 2mL 20 MG IV (17:16)
== END 2020-01-03 08:06 | disposition home or self-care (01) ==
LOC: ONCMED 08:06
PROVIDERS: PCP Family Medicine; Visit Provider Internal Medicine Hematology & Oncology
DX: D69.3 Immune thrombocytopenic purpura (principal); D64.9 Anemia, unspecified
CPT/HCPCS: 36415; 36430; 85025; 86850; 86900; 86920; J1940; J7050; P9040

== ENCOUNTER → 2020-01-04 15:35 | Outpatient (BNVA) | payer MEDICARE, OTHER, SELFPAY | PROVIDERS: PCP Family Medicine; Visit Provider Family Medicine | DX: M25.541 Pain in joints of right hand (principal); M19.90 Unspecified osteoarthritis, unspecified site | CPT/HCPCS: 85025; 85651; 86038; 86140; 86431 ==

== ENCOUNTER 2020-01-05 08:39 | Outpatient (CLI) | payer MEDICARE, OTHER, SELFPAY ==
--- NOTE | 2020-01-05 17:49 | ONC FU_ITS ---
Dr. De La Cruz follow up note Patient: Azul Mg Unit #: [id number]: [id number] Dicatated By: Catherine De La Cruz M.D.Date of Visit:January 05, 2020 Onc Med Follow-up/Prog Note History of Present Illness: Mrs. Mg is a 84-year-old female who was admitted to hospital in the last week of March 2019 with hematemesis at that time she was diagnosed with gastric ulcer and was started on Dexilant ,, not sure whether EGD was done but had CT scan of abdomen done. As per patient she did not receive any transfusion and no history of blood transfusion in the past but when she was she was prescribed Geritol for anemia. She has history of EGD and colonoscopy done in 2013 in [facility], as per patient was unremarkable and she was told, considering her age she would not require any more follow-up colonoscopy or EGD. Patient also had injection in her right hip for sciatica. Patient has no history of thrombocytopenia except recently on 05/10/2019 her CBC showed white blood count 4.3 hemoglobin 10.6 crit 30.9 platelets 80232, at that time her primary care physician discontinued her losartan considering the cause of thrombocytopenia. Patient denies any gross bleeding but long scratch lester on inner side of arms bilaterally due to scratching and ecchymosis on the left arm, otherwise no melena or hematochezia, no dysuria, no hematuria, no hemoptysis or hematemesis, no nosebleed of them., No jaundice. Patient was admitted hospital on 07/06/2019 with nosebleed and her initial lab shows severe thrombocytopenia she was given platelets transfusion and was started on prednisone 1 mg/kg with that on 07/07/2019 her platelet count gone up to 140,000 hemoglobin 9 hematocrit 27.4 MCV 100.7 white blood count 4.9 and she was discharged home on a tapering dose of prednisone 50 mg by mouth daily for 5 days then 40 mg daily for 5 days and so onAnd once prednisone tapered of her platelet count continued to improve and on 08/02/2019 her platelet count was 137,000 patient was scheduled for bone marrow evaluation on 08/11/2019. Bone marrow aspiration was attempted once, it was a dry tap. But procedure was abandoned as CBC done that day showed platelet count dropped down to 4000 and there was increased risk for hematoma so no further attempts were made to obtain marrow . Patient was given a unit of platelets transfusion and started on prednisone 1 mg/kg and she was monitored per post procedure protocol.Patient came back to clinic on 08/18/2019 and her CBC showed platelet count 15,000 and that time she was given units of platelet transfusion and also discuss about role of Rituxan and hepatitis profile was checked showed no evidence of hepatitis. Patient was started on tapering dose of prednisone. 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 She did experience infusion reaction with tremors, chills, mildly elevated temp. These symptoms were controlled with Solumedrol and Demerol. She recovered well.Patient received second dose of Rituxan on 09/02/2019 subsequently developed severe leukopenia and thrombocytopenia and was admitted to hospital and treated with platelet transfusion and steroids, Rituxan was discontinued permanently Bone marrow done on 09/22/2019 showed extremely rare erythroid and myeloid precursors are identified and core biopsy shows features of subcortical sampling, extremely hypocellular bone marrow space with reactive lymphocytes and histiocytes present.FISH and MDS panel pending., Now being treated with Promacta. Patient was also started on Bactrim DS as prophylactic for neutropenia as patient was reported allergic to Levaquin in the past Patient recently developed skin rash involving face and upper chest so Bactrim was discontinued with that and Benadryl, rash resolved. Her follow-up lab check done 10/17/2019 shows white blood count 900 hemoglobin 8.3 hematocrit 25.5 platelets 5000, patient was given a unit of platelets on 10/18/2019 and patient is also somewhat noncompliant with Promacta. so Switched to weekly Nplate and also Neupogen was added for persistent neutropenia. And she is allergic to penicillin and Levaquin so Z-Sadiq was also added as a prophylactic, which was later on switched to cephalosporins, by PMD.. Also requiring frequent platelet transfusion for persistent severe thrombocytopenia and blood transfusion for progressive anemia. Came for follow-up, denies any specific complaint except generalized weakness and fatigue, no nausea or vomiting, no fever or chills, no diarrhea constipation, no melena or hematochezia, no nosebleed or gum bleed, no petechiae but old healing ecchymosis. Patient said her primary care physician has recently started on prophylactic oral antibiotic twice a day but did develop vomiting ???1 so stopped taking it Medications: buPROPion HCl ER (SR) 1 (150 mg) Tablet SR 12 HR Oral daily, Calcitonin (Harvest) (200 Units/act) Solution Nasal Take as Directed, Calcium + D 1 Tablet Oral daily, Eye Drops Solution Ophthalmic, Meclizine HCl 0.5 Tablet (of 25 mg) Oral q 6 hours PRN, Multivitamin Adults 1 Tablet Oral daily, Ondansetron HCl (4 mg) Tablet Oral Take as Directed Allergies: Amoxicillin, Codeine Sulfate, Gabapentin, levoFLOXacin, Pantoprazole Sodium, Penicillins, and Sulfa Drugs. Review of Systems: Constitutional - Appetite is fair and weight is stable. No fever, chills, hot flashes, or night sweats. Energy level remains poor, ENMT - No sinus congestion/drainage. No mouth sores. No sore throat or difficulty swallowing, Hematologic/Lymphatic - Positive for easy bruising, Respiratory - No shortness of breath. No cough. No pleuritic pain or hemoptysis, Cardiovascular - No angina pain. No palpitations, Gastrointestinal - No nausea or vomiting. No heartburn or acid reflux. No diarrhea or constipation, Genitourinary (F) - No dysuria or hematuria. No urinary frequency. No urgency or incontinence, Musculoskeletal - No joint or bone pain, Neurologic - Positive for occasional headache, no dizziness. No numbness/paresthesias or other focal neurologic symptoms, Psychiatric - Poitive for anxiety, depression and insomnia. Vital Signs: Performed on January 05, 2020 08:47 Height - 61.00 in Weight - 153.8 lbs (LOW) BSA - 1.69 sq.m BMI - 29.06 Temperature - 98.0 F (LOW) Pulse - 74 /min Respiration - 18 /min BP - 131/68 mm(hg) O2 Sat - 96 % Pain - 0 Performance Status: 2 - Ambulatory/capable of all self-care, unable to perform any work activities. Up and about more than 50% of waking hours. (ECOG) Physical Examination: ENMT - no mouth sores, no thrush, Respiratory - Lungs are clear, Cardiovascular - Regular rate and rhythm of heart, Abdomen - soft bowel sounds present, Extremities - 1+ edema, with old healing ecchymosis. Lab/Imaging: Test performed on January 03, 2020 08:25 WBC 1.3 10 3/uL RBC 2.79 10 6/uL HGB 8.2 g/dL HCT 24.3 % MCV 87.1 fL MCH 29.4 pg MCHC 33.7 g/dL RDW 11.7 % Platelet Count 9 10 3/cmm MPV 11.4 fL Neutrophils 0.2 10 3/uL Lymphocytes 1.1 10 3/uL Monocytes 0.0 10 3/uL Eosinophils 0.0 10 3/uL Basophils 0.0 10 3/uL Neutrophil % 16.3 % Lymphocyte % 81.4 % Monocyte % 2.3 % Eosinophil % 0.0 % Basophils % 0.0 % Test performed on Dec 19, 2019 06:45 CBC Slide Review Slide Review Perform SLIDE REVIEW AGREES WITH AUTOMATED RESULTS ST Test performed on Nov 02, 2019 06:55 Sodium 139 mmol/L Potassium 4.5 mmol/L Chloride 101 mmol/L CO2 26 mmol/L Anion Gap 16.5 BUN 15 mg/dL Creatinine 1.2 mg/dL Cr Clearance (Est) 41.0000 mL/min Glucose 169 mg/dL Calcium 9.5 mg/dL Protein, Total 6.2 g/dL Albumin 2.6 g/dL Globulin 3.6 g/dL Bilirubin, Total 0.7 mg/dL ALT (SGPT) 7 U/L AST (SGOT) 8 U/L Alkaline Phosphatase 90 IU/L Test performed on Sep 19, 2019 14:42 Manual Lymphocytes 57.1 % Manual Monocytes 4.8 % Manual Eosinophils 0.7 % Manual Basophils 0.4 % NRBCs 0.0 /100 WBC Test performed on Aug 18, 2019 10:45 Platelet Pheresis, Leukored TRANSFUSED PRODUCT: LEUKRD/PLAT PHERESIS 1ST CONT COUNT: 1 ABO & Rh Type BLD TYPE O POSITIVE BLD TYPE O POSITIVE Hepatitis A Ab, IgM Non- Reactive Hepatitis B Core Ab, Total Non-Reactive Hepatitis B Surf Antigen Non-Reactive Hepatitis B Surface Ab < 3.5 STATUS of IMMUINITY Inconsistent with Immunity 0.0 - 8.5 mIU/mL Consistent with Immunity >8.5 mIU/mL Hepatitis C Ab Non-Reactive Test performed on Aug 11, 2019 10:47 Glucose (POC) 143 mg/dL Test performed on Aug 11, 2019 10:40 Manual Neutrophils Abs 1.3 10 3/cmm Manual Lymphocytes Abs 0.9 10 3/cmm Manual Monocytes Abs 0.1 10 3/cmm Manual Segs % 37 % Manual Bands % 19.0 % Platelet Estimate DECREASED Test performed on Aug 03, 2019 11:40 Packed Red Cells (PRBC) [id number] TRANSFUSED PRODUCT: LEUKOREDUCED RED CELL 1ST CONT COUNT: 2 Type & Screen BLD TYPE O POSITIVE AB SCREEN GEL NEGATIVE BLD TYPE O POSITIVE AB SCREEN GEL NEGATIVE Test performed on Jul 20, 2019 10:12 Manual Eosinophils Abs 0.0 10 3/cmm Anisocytosis 1+ Impression: Progressive Thrombocytopenia, etiology unclear could be multifactorial including underlying ITP, considering her age underlying myelodysplasia cannot be ruled out or medication related, patient is off NINA inhibitor e.g. losartan. Anemia, macrocytic could be nutritional e.g. B12 deficiency or folate deficiency or increased reticulocyte count due to recent hematemesis. Follow-up lab shows persistent severe thrombocytopenia despite repeated platelet transfusion and tapering dose of prednisone. recommended weekly Rituxan ???4 while continue taper off prednisone. She will have transfusion services if her platelet count is less than 20,000 then will consider platelet transfusion and for hemoglobin if below 8 g then will consider blood transfusion. Mrs Mg began her first dose of Rituxan on 08/25/2019. She did have transfusion services on the 2nd for a HGB of 7.4. She did have infusion reaction to the Rituxan which resolved with additional premeds and Solumedrol.Rituxan was discontinued after second dose given on 09/02/2019 as patient was admitted to hospital with progressive leukopenia/neutropenia and, thrombocytopenia. Was given platelet transfusion and start on dexamethasone, but while on steroids,, her platelet count continued to go downand patient was recently admitted to hospital with severe thrombocytopenia and was given platelet transfusion and eventually underwent bone marrow evaluation on 09/22/2019 which showed , and core biopsy,extremely hypocellular marrow space with a day of lymphocytes and histiocytes and and also noted is extremely to erythroid and myeloid precursors on the role preparation slides.?Aplastic anemia or Rituxan toxicity. Plan: Discussed with patient regarding her labs checked on 01/03/2020, white blood count 1.3 hemoglobin 8.2 hematocrit 24.3 platelets 9000 ANC 200 Clinically, patient is doing well, with no signs symptom suggestive of gross bleeding. But has persistent pancytopenia, requiring frequent blood transfusion and platelet transfusion while on Nplate , last dose was given on 12/07/2019 and last dose of Neupogen was given on 12/12/2019. And recently underwent 2 units of blood transfusion. Discussed with patient and her son regarding treatment options as she has not responded to steroids, IVIG, or Rituxan or now Nplate. And it was recommended to proceed with bone marrow evaluation to rule out other pathology including aplastic anemia or acute leukemia. And if bone marrow shows an appropriate response to pancytopenia then we may consider splenectomy. Patient wants to think about bone marrow procedure and her son is thinking about the second opinion. in the meantime, we'll proceed with platelet transfusion. Patient was advised to avoid any kind of trauma and need to go to hospital in case she has any evidence of bleeding. Patient return to clinic in 1 week with CBC CMP. Patient was advised to continue with oral cephalosporins, prescribed by primary care physician, as prophylactic. Signed By: Catherine De La Cruz M.D. <<Signature on File>>
== END 2020-01-05 08:40 | disposition home or self-care (01) ==
LOC: ONCMED 08:42
PROVIDERS: PCP Family Medicine; Visit Provider Internal Medicine Hematology & Oncology
DX: D69.6 Thrombocytopenia, unspecified (principal); D64.9 Anemia, unspecified; Z92.22 Personal history of monoclonal drug therapy; Z79.2 Long term (current) use of antibiotics
CPT/HCPCS: 99214

== ENCOUNTER 2020-01-24 11:39 | Outpatient (CLI) | payer MEDICARE, OTHER, SELFPAY ==
[2020-01-24 12:07] LABS: Hemoglobin 6.7 g/dL (11.5-15.3); Lymphocytes # 0.6 10^3/uL (0.8-4.8); Lymphocytes % 84.5 %; Mean Corpuscular HGB Conc 33.2 g/dL (30.0-36.0); Mean Corpuscular Hemoglobin 30.2 pg (28.0-34.0); Monocytes % 1.4 %; Neutrophils % 14.1 %; Nucleated Red Blood Cells % 0 %; Red Blood Count 2.22 10^6/uL (4.1-5.3); Red Cell Distribution Width 12.7 % (12.1-15.1)
[2020-01-24 12:42] LABS: Hematocrit 20.2 % (37.0-47.0); Neutrophils # 0.1 10^3/uL (1.8-7.7); Platelet Count 1 10^3/cmm (130-400); Slide Review Slide Review Perform; White Blood Count 0.7 10^3/uL (4.0-10.0)
[2020-01-24 16:00] VITALS: BP 153/67; PULSE 85; RESP 18; TEMP 38.1; O2SAT 91
[2020-01-24 16:30] VITALS: BP 154/68; PULSE 86; RESP 18; TEMP 37.7; O2SAT 91
[2020-01-25] VITALS (10 sets, daily range): BP systolic 117–131; BP diastolic 61–74; PULSE 67–73; RESP 18; TEMP 36.1–37.4; O2SAT 93–98
== END 2020-01-24 11:40 | disposition home or self-care (01) ==
LOC: LAB 11:41 → ONCMED 15:02
PROVIDERS: PCP Family Medicine; Visit Provider Internal Medicine Hematology & Oncology
DX: D69.3 Immune thrombocytopenic purpura (principal); D64.9 Anemia, unspecified
CPT/HCPCS: 36430; 85025; 86850; 86900; 86920; P9037

== ENCOUNTER 2020-01-25 09:42 | Outpatient (CLI) | payer MEDICARE, OTHER, SELFPAY ==
[2020-01-25] MEDS: acetaminophen 325 mg Tablet 650 MG PO (12:29)
[2020-01-25] MEDS: diphenhydrAMINE 25 mg Capsule PO (16:29)
[2020-01-25] MEDS: sodium chloride 0.9% 250 ML 999 ML IV (16:30)
[2020-01-25] MEDS: FUROsemide 10 mg/mL SDV 2mL 20 MG IV (16:30)
--- NOTE | 2020-01-25 16:49 | ONC FU_ITS ---
Dr. De La Cruz follow up note Patient: Azul Mg Unit #: [id number]: [id number] Dicatated By: Catherine De La Cruz M.D.Date of Visit:Jan 25, 2020 Onc Med Follow-up/Prog Note History of Present Illness: Mrs. Mg is a 84-year-old female who was admitted to hospital in the last week of March 2019 with hematemesis at that time she was diagnosed with gastric ulcer and was started on Dexilant ,, not sure whether EGD was done but had CT scan of abdomen done. As per patient she did not receive any transfusion and no history of blood transfusion in the past but when she was she was prescribed Geritol for anemia. She has history of EGD and colonoscopy done in 2013 in [facility], as per patient was unremarkable and she was told, considering her age she would not require any more follow-up colonoscopy or EGD. Patient also had injection in her right hip for sciatica. Patient has no history of thrombocytopenia except recently on 05/10/2019 her CBC showed white blood count 4.3 hemoglobin 10.6 crit 30.9 platelets [id number], at that time her primary care physician discontinued her losartan considering the cause of thrombocytopenia. Patient denies any gross bleeding but long scratch lester on inner side of arms bilaterally due to scratching and ecchymosis on the left arm, otherwise no melena or hematochezia, no dysuria, no hematuria, no hemoptysis or hematemesis, no nosebleed of them., No jaundice. Patient was admitted hospital on 07/06/2019 with nosebleed and her initial lab shows severe thrombocytopenia she was given platelets transfusion and was started on prednisone 1 mg/kg with that on 07/07/2019 her platelet count gone up to 140,000 hemoglobin 9 hematocrit 27.4 MCV 100.7 white blood count 4.9 and she was discharged home on a tapering dose of prednisone 50 mg by mouth daily for 5 days then 40 mg daily for 5 days and so onAnd once prednisone tapered of her platelet count continued to improve and on 08/02/2019 her platelet count was 137,000 patient was scheduled for bone marrow evaluation on 08/11/2019. Bone marrow aspiration was attempted once, it was a dry tap. But procedure was abandoned as CBC done that day showed platelet count dropped down to 4000 and there was increased risk for hematoma so no further attempts were made to obtain marrow . Patient was given a unit of platelets transfusion and started on prednisone 1 mg/kg and she was monitored per post procedure protocol.Patient came back to clinic on 08/18/2019 and her CBC showed platelet count 15,000 and that time she was given units of platelet transfusion and also discuss about role of Rituxan and hepatitis profile was checked showed no evidence of hepatitis. Patient was started on tapering dose of prednisone. 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 She did experience infusion reaction with tremors, chills, mildly elevated temp. These symptoms were controlled with Solumedrol and Demerol. She recovered well.Patient received second dose of Rituxan on 09/02/2019 subsequently developed severe leukopenia and thrombocytopenia and was admitted to hospital and treated with platelet transfusion and steroids, Rituxan was discontinued permanently Bone marrow done on 09/22/2019 showed extremely rare erythroid and myeloid precursors are identified and core biopsy shows features of subcortical sampling, extremely hypocellular bone marrow space with reactive lymphocytes and histiocytes present.FISH and MDS panel pending., Now being treated with Promacta. Patient was also started on Bactrim DS as prophylactic for neutropenia as patient was reported allergic to Levaquin in the past Patient recently developed skin rash involving face and upper chest so Bactrim was discontinued with that and Benadryl, rash resolved. Her follow-up lab check done 10/17/2019 shows white blood count 900 hemoglobin 8.3 hematocrit 25.5 platelets 5000, patient was given a unit of platelets on 10/18/2019 and patient is also somewhat noncompliant with Promacta. so Switched to weekly Nplate and also Neupogen was added for persistent neutropenia. And she is allergic to penicillin and Levaquin so Z-Sadiq was also added as a prophylactic. Also requiring frequent platelet transfusion for persistent severe thrombocytopenia and blood transfusion for progressive anemia. Patient went to [facility] in [place] in the mid december 2019 for second opinion, where she was admitted and underwent extensive workup including bone marrow evaluation. And additional testing including parvovirus as it showed positive for parvovirus IgG, negative for parvovirus IgM, zinc was 0.51, copper was 1.28, HIV status was negative PNH pending, bone marrow aspiration and biopsy was done on 01/10/2020, results is pending. Patient was started on Promacta 150 mg by mouth daily, which she took it for 3 days without any problem and now ran out of prescription. Also start on acyclovir cefdinir , and Diflucan. And patient has return appointment at hematology/ BMT clinic at [facility] on 02/13/2020. Came for follow-up, denies any specific complaint except generalized weakness and fatigue, patient tolerated 2 units of packed RBCs given today, patient was given platelet transfusion yesterday as her CBC shows white blood count 0.7 hemoglobin 6.7 hematocrit 20.1 platelets 1000. Patient denies any fever or chills, denies any nausea or vomiting, denies any headaches or blurred vision or double vision, denies any melena or hematochezia. Denies any hemoptysis or hematemesis or hematuria denies any nosebleed or gum bleed. With some fresh and old healing ecchymosis involving upper extremities. Medications: buPROPion HCl ER (SR) 1 (150 mg) Tablet SR 12 HR Oral daily, Calcitonin ([place]) (200 Units/act) Solution Nasal Take as Directed, Calcium + D 1 Tablet Oral daily, Eye Drops Solution Ophthalmic, Meclizine HCl 0.5 Tablet (of 25 mg) Oral q 6 hours PRN, Multivitamin Adults 1 Tablet Oral daily, Ondansetron HCl (4 mg) Tablet Oral Take as Directed Allergies: Amoxicillin, Codeine Sulfate, Gabapentin, levoFLOXacin, Pantoprazole Sodium, Penicillins, and Sulfa Drugs. Review of Systems: Constitutional - Appetite is fair and weight is stable. No fever, chills, hot flashes, or night sweats. Energy level remains poor, ENMT - No sinus congestion/drainage. No mouth sores. No sore throat or difficulty swallowing, Hematologic/Lymphatic - Positive for easy bruising, Respiratory - No shortness of breath. No cough. No pleuritic pain or hemoptysis, Cardiovascular - No angina pain. No palpitations, Gastrointestinal - No nausea or vomiting. No heartburn or acid reflux. No diarrhea or constipation, Genitourinary (F) - No dysuria or hematuria. No urinary frequency. No urgency or incontinence, Musculoskeletal - No joint or bone pain, Integumentary - Pt continues to have localized edema in right hand, Neurologic - Positive for occasional headache, no dizziness. No numbness/paresthesias or other focal neurologic symptoms, Psychiatric - Poitive for anxiety, depression and insomnia. Vital Signs: Performed on Jan 25, 2020 16:05 Height - 61.00 in Weight - 152.2 lbs (LOW) BSA - 1.68 sq.m BMI - 28.76 Temperature - 97.5 F (LOW) Pulse - 75 /min Respiration - 24 /min BP - 125/69 mm(hg) O2 Sat - 95 % (LOW) Pain - 0 Performance Status: 2 - Ambulatory/capable of all self-care, unable to perform any work activities. Up and about more than 50% of waking hours. (ECOG) Physical Examination: ENMT - no mouth sores, no thrush, no jaundice, Respiratory - Lungs are clear, Cardiovascular - Regular rate and rhythm of heart, Abdomen - soft, nontender, bowel sounds present, Extremities - oral feeding ecchymosis and some new ones involving extremities. No rash. Lab/Imaging: Test performed on January 03, 2020 08:25 WBC 1.3 10 3/uL RBC 2.79 10 6/uL HGB 8.2 g/dL HCT 24.3 % MCV 87.1 fL MCH 29.4 pg MCHC 33.7 g/dL RDW 11.7 % Platelet Count 9 10 3/cmm MPV 11.4 fL Neutrophils 0.2 10 3/uL Lymphocytes 1.1 10 3/uL Monocytes 0.0 10 3/uL Eosinophils 0.0 10 3/uL Basophils 0.0 10 3/uL Neutrophil % 16.3 % Lymphocyte % 81.4 % Monocyte % 2.3 % Eosinophil % 0.0 % Basophils % 0.0 % Test performed on Dec 19, 2019 06:45 CBC Slide Review Slide Review Perform SLIDE REVIEW AGREES WITH AUTOMATED RESULTS ST Test performed on Nov 02, 2019 06:55 Sodium 139 mmol/L Potassium 4.5 mmol/L Chloride 101 mmol/L CO2 26 mmol/L Anion Gap 16.5 BUN 15 mg/dL Creatinine 1.2 mg/dL Cr Clearance (Est) 41.0000 mL/min Glucose 169 mg/dL Calcium 9.5 mg/dL Protein, Total 6.2 g/dL Albumin 2.6 g/dL Globulin 3.6 g/dL Bilirubin, Total 0.7 mg/dL ALT (SGPT) 7 U/L AST (SGOT) 8 U/L Alkaline Phosphatase 90 IU/L Test performed on Sep 19, 2019 14:42 Manual Lymphocytes 57.1 % Manual Monocytes 4.8 % Manual Eosinophils 0.7 % Manual Basophils 0.4 % NRBCs 0.0 /100 WBC Test performed on Aug 18, 2019 10:45 Platelet Pheresis, Leukored TRANSFUSED PRODUCT: LEUKRD/PLAT PHERESIS 1ST CONT COUNT: 1 ABO & Rh Type BLD TYPE O POSITIVE BLD TYPE O POSITIVE Hepatitis A Ab, IgM Non- Reactive Hepatitis B Core Ab, Total Non-Reactive Hepatitis B Surf Antigen Non-Reactive Hepatitis B Surface Ab < 3.5 STATUS of IMMUINITY Inconsistent with Immunity 0.0 - 8.5 mIU/mL Consistent with Immunity >8.5 mIU/mL Hepatitis C Ab Non-Reactive Test performed on Aug 11, 2019 10:47 Glucose (POC) 143 mg/dL Test performed on Aug 11, 2019 10:40 Manual Neutrophils Abs 1.3 10 3/cmm Manual Lymphocytes Abs 0.9 10 3/cmm Manual Monocytes Abs 0.1 10 3/cmm Manual Segs % 37 % Manual Bands % 19.0 % Platelet Estimate DECREASED Test performed on Aug 03, 2019 11:40 Packed Red Cells (PRBC) [id number] TRANSFUSED PRODUCT: LEUKOREDUCED RED CELL 1ST CONT COUNT: 2 Type & Screen BLD TYPE O POSITIVE AB SCREEN GEL NEGATIVE BLD TYPE O POSITIVE AB SCREEN GEL NEGATIVE Impression: Progressive Thrombocytopenia, etiology unclear could be multifactorial including underlying ITP, considering her age underlying myelodysplasia cannot be ruled out or medication related, patient is off NINA inhibitor e.g. losartan. Anemia, macrocytic could be nutritional e.g. B12 deficiency or folate deficiency or increased reticulocyte count due to recent hematemesis. Follow-up lab shows persistent severe thrombocytopenia despite repeated platelet transfusion and tapering dose of prednisone. recommended weekly Rituxan ???4 while continue taper off prednisone. She will have transfusion services if her platelet count is less than 20,000 then will consider platelet transfusion and for hemoglobin if below 8 g then will consider blood transfusion. Mrs Mg began her first dose of Rituxan on 08/25/2019. She did have transfusion services on the 2nd for a HGB of 7.4. She did have infusion reaction to the Rituxan which resolved with additional premeds and Solumedrol.Rituxan was discontinued after second dose given on 09/02/2019 as patient was admitted to hospital with progressive leukopenia/neutropenia and, thrombocytopenia. Was given platelet transfusion and start on dexamethasone, but while on steroids,, her platelet count continued to go downand patient was recently admitted to hospital with severe thrombocytopenia and was given platelet transfusion and eventually underwent bone marrow evaluation on 09/22/2019 which showed , and core biopsy,extremely hypocellular marrow space with a day of lymphocytes and histiocytes and and also noted is extremely to erythroid and myeloid precursors on the role preparation slides.?Aplastic anemia or Rituxan toxicity. Plan: Discussed with patient regarding her labs from yesterday, showed white blood count 0.7 hemoglobin 6.7 hematocrit 20.2 platelets 1000 Clinically, patient doing reasonably well, tolerated platelet transfusion yesterday and today she was given 2 units of packed RBC and tolerated well. We will also start her on Promacta 150 mg by mouth daily as recommended by hematology clinic at [facility] in the meantime she will continue prophylactic acyclovir, Diflucan and crfdinir . We will obtain bone marrow reports , as well as other workup done, from [place] and will follow their guidelines and transfuse packed RBCs and platelets on as-needed basis. Patient will return to clinic in 1 week with CBC and CMP. Signed By: Catherine De La Cruz M.D. <<Signature on File>>
== END 2020-01-25 09:43 | disposition home or self-care (01) ==
LOC: ONCMED 09:48
PROVIDERS: PCP Family Medicine; Visit Provider Internal Medicine Hematology & Oncology
DX: D69.3 Immune thrombocytopenic purpura (principal); D64.9 Anemia, unspecified; I10 Essential (primary) hypertension; H81.13 Benign paroxysmal vertigo, bilateral; E53.8 Deficiency of other specified B group vitamins
CPT/HCPCS: 99214; J1940; J7050; P9040

== ENCOUNTER 2020-01-30 07:46 | Outpatient (CLI) | payer MEDICARE, OTHER, SELFPAY ==
[2020-01-30 08:53] LABS: Lymphocytes # 0.7 10^3/uL (0.8-4.8); Lymphocytes % 94.4 %; Mean Corpuscular HGB Conc 32.4 g/dL (30.0-36.0); Mean Corpuscular Hemoglobin 29.2 pg (28.0-34.0); Mean Corpuscular Volume 90.2 fL (81-99); Mean Platelet Volume 9.1 fL (7.4-10.4); Neutrophils % 5.6 %; Nucleated Red Blood Cells % 0 %; Red Blood Count 3.77 10^6/uL (4.1-5.3); Red Cell Distribution Width 12.8 % (12.1-15.1)
[2020-01-30 09:12] LABS: Alanine Aminotransferase 10 U/L (0-33); Albumin Level 3.4 g/dL (3.5-5.2); Alkaline Phosphatase 154 IU/L (35-105); Anion Gap 19.5 (5-19); Aspartate Amino Transferase 9 U/L (0-32); Blood Urea Nitrogen 18 mg/dL (8-23); Calcium 9.6 mg/dL (8.5-10.5); Carbon Dioxide 21 mmol/L (22-29); Chloride 103 mmol/L (98-107); Globulin 3.1 g/dL (1.3-4.6); Glucose 196 mg/dL (65-115); Osmolality Calculated 290 mOsm/kg (285-295); Potassium 4.5 mmol/L (3.5-5.1); Sodium 139 mmol/L (136-145); Total Bilirubin 0.6 mg/dL (0.15-1.2); Total Protein 6.5 g/dL (6.6-8.7)
[2020-01-30 09:17] LABS: Platelet Count 6 10^3/cmm (130-400); White Blood Count 0.7 10^3/uL (4.0-10.0)
[2020-01-30] MEDS: acetaminophen 325 mg Tablet 650 MG PO (13:00)
[2020-01-30 13:20] VITALS: BP 140/56; PULSE 78; RESP 18; TEMP 36.1; O2SAT 93
[2020-01-30 13:40] VITALS: BP 133/59; PULSE 76; RESP 18; TEMP 35.8; O2SAT 94
--- NOTE | 2020-01-30 15:11 | ONC FU_ITS ---
Dr. De La Cruz follow up note Patient: Azul Mg Unit #: [id number]: [id number] Dicatated By: Catherine De La Cruz M.D.Date of Visit:Jan 30, 2020 Onc Med Follow-up/Prog Note History of Present Illness: Mrs. Mg is a 84-year-old female who was admitted to hospital in the last week of March 2019 with hematemesis at that time she was diagnosed with gastric ulcer and was started on Dexilant ,, not sure whether EGD was done but had CT scan of abdomen done. As per patient she did not receive any transfusion and no history of blood transfusion in the past but when she was she was prescribed Geritol for anemia. She has history of EGD and colonoscopy done in 2013 in [facility], as per patient was unremarkable and she was told, considering her age she would not require any more follow-up colonoscopy or EGD. Patient also had injection in her right hip for sciatica. Patient has no history of thrombocytopenia except recently on 05/10/2019 her CBC showed white blood count 4.3 hemoglobin 10.6 crit 30.9 platelets [id number], at that time her primary care physician discontinued her losartan considering the cause of thrombocytopenia. Patient denies any gross bleeding but long scratch lester on inner side of arms bilaterally due to scratching and ecchymosis on the left arm, otherwise no melena or hematochezia, no dysuria, no hematuria, no hemoptysis or hematemesis, no nosebleed of them., No jaundice. Patient was admitted hospital on 07/06/2019 with nosebleed and her initial lab shows severe thrombocytopenia she was given platelets transfusion and was started on prednisone 1 mg/kg with that on 07/07/2019 her platelet count gone up to 140,000 hemoglobin 9 hematocrit 27.4 MCV 100.7 white blood count 4.9 and she was discharged home on a tapering dose of prednisone 50 mg by mouth daily for 5 days then 40 mg daily for 5 days and so onAnd once prednisone tapered of her platelet count continued to improve and on 08/02/2019 her platelet count was 137,000 patient was scheduled for bone marrow evaluation on 08/11/2019. Bone marrow aspiration was attempted once, it was a dry tap. But procedure was abandoned as CBC done that day showed platelet count dropped down to 4000 and there was increased risk for hematoma so no further attempts were made to obtain marrow . Patient was given a unit of platelets transfusion and started on prednisone 1 mg/kg and she was monitored per post procedure protocol.Patient came back to clinic on 08/18/2019 and her CBC showed platelet count 15,000 and that time she was given units of platelet transfusion and also discuss about role of Rituxan and hepatitis profile was checked showed no evidence of hepatitis. Patient was started on tapering dose of prednisone. 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 She did experience infusion reaction with tremors, chills, mildly elevated temp. These symptoms were controlled with Solumedrol and Demerol. She recovered well.Patient received second dose of Rituxan on 09/02/2019 subsequently developed severe leukopenia and thrombocytopenia and was admitted to hospital and treated with platelet transfusion and steroids, Rituxan was discontinued permanently Bone marrow done on 09/22/2019 showed extremely rare erythroid and myeloid precursors are identified and core biopsy shows features of subcortical sampling, extremely hypocellular bone marrow space with reactive lymphocytes and histiocytes present.FISH and MDS panel pending., Now being treated with Promacta. Patient was also started on Bactrim DS as prophylactic for neutropenia as patient was reported allergic to Levaquin in the past Patient recently developed skin rash involving face and upper chest so Bactrim was discontinued with that and Benadryl, rash resolved. Her follow-up lab check done 10/17/2019 shows white blood count 900 hemoglobin 8.3 hematocrit 25.5 platelets 5000, patient was given a unit of platelets on 10/18/2019 and patient is also somewhat noncompliant with Promacta. so Switched to weekly Nplate and also Neupogen was added for persistent neutropenia. And she is allergic to penicillin and Levaquin so Z-Sadiq was also added as a prophylactic. Also requiring frequent platelet transfusion for persistent severe thrombocytopenia and blood transfusion for progressive anemia. Patient went to [facility] in [place] in the mid december 2019 for second opinion, where she was admitted and underwent extensive workup including bone marrow evaluation. And additional testing including parvovirus as it showed positive for parvovirus IgG, negative for parvovirus IgM, zinc was 0.51, copper was 1.28, HIV status was negative PNH pending, bone marrow aspiration and biopsy was done on 01/10/2020, results is pending. Patient was started on Promacta 150 mg by mouth daily, which she took it for 3 days without any problem and now ran out of prescription. Also start on acyclovir cefdinir , and Diflucan. And patient has return appointment at hematology/ BMT clinic at [facility] on 02/13/2020. Came for follow-up, denies any specific complaints, no fever or chills, no nausea or vomiting, no diarrhea or constipation, no melena or hematochezia, no nosebleed or gum bleed but old healing ecchymosis. Medications: buPROPion HCl ER (SR) 1 (150 mg) Tablet SR 12 HR Oral daily, Calcitonin ([place]) (200 Units/act) Solution Nasal Take as Directed, Calcium + D 1 Tablet Oral daily, Eye Drops Solution Ophthalmic, Meclizine HCl 0.5 Tablet (of 25 mg) Oral q 6 hours PRN, Multivitamin Adults 1 Tablet Oral daily, Ondansetron HCl (4 mg) Tablet Oral Take as Directed Allergies: Amoxicillin, Codeine Sulfate, Gabapentin, levoFLOXacin, Pantoprazole Sodium, Penicillins, PROLIA, and Sulfa Drugs. Review of Systems: Constitutional - Appetite is fair and weight is stable. No fever, chills, hot flashes, or night sweats. Energy level remains poor, ENMT - No sinus congestion/drainage. No mouth sores. No sore throat or difficulty swallowing, Hematologic/Lymphatic - Positive for easy bruising, Respiratory - No shortness of breath. No cough. No pleuritic pain or hemoptysis, Cardiovascular - No angina pain. No palpitations, Gastrointestinal - No nausea or vomiting. No heartburn or acid reflux. No diarrhea or constipation, Genitourinary (F) - No dysuria or hematuria. No urinary frequency. No urgency or incontinence, Musculoskeletal - No joint or bone pain, Neurologic - Positive for occasional headache, no dizziness. No numbness/paresthesias or other focal neurologic symptoms, Psychiatric - Poitive for anxiety, depression and insomnia. Vital Signs: Performed on Jan 30, 2020 08:41 Height - 61.00 in Weight - 150.8 lbs (LOW) BSA - 1.68 sq.m BMI - 28.49 Temperature - 98.2 F (LOW) Pulse - 92 /min Respiration - 24 /min BP - 126/77 mm(hg) O2 Sat - 95 % (LOW) Pain - 0 Performance Status: 2 - Ambulatory/capable of all self-care, unable to perform any work activities. Up and about more than 50% of waking hours. (ECOG) Physical Examination: ENMT - No thrush, no mouth sores, no jaundice, Respiratory - Lungs are clear, Cardiovascular - Regular rate and rhythm of heart, Abdomen - Soft, bowel sounds present, Extremities - Trace edema lower extremity with old healing ecchymosis involving upper extremities as well as lower extremities. Lab/Imaging: Test performed on Jan 30, 2020 08:00 Sodium 139 mmol/L Potassium 4.5 mmol/L Chloride 103 mmol/L CO2 21 mmol/L Anion Gap 19.5 BUN 18 mg/dL Creatinine 1.2 mg/dL Cr Clearance (Est) 41.0000 mL/min Glucose 196 mg/dL Calcium 9.6 mg/dL Protein, Total 6.5 g/dL Albumin 3.4 g/dL Globulin 3.1 g/dL Bilirubin, Total 0.6 mg/dL ALT (SGPT) 10 U/L AST (SGOT) 9 U/L Alkaline Phosphatase 154 IU/L WBC 0.7 10 3/uL RBC 3.77 10 6/uL HGB 11.0 g/dL HCT 34.0 % MCV 90.2 fL MCH 29.2 pg MCHC 32.4 g/dL RDW 12.8 % Platelet Count 6 10 3/cmm MPV 9.1 fL Neutrophils 0.0 10 3/uL Lymphocytes 0.7 10 3/uL Monocytes 0.0 10 3/uL Eosinophils 0.0 10 3/uL Basophils 0.0 10 3/uL Neutrophil % 5.6 % Lymphocyte % 94.4 % Monocyte % 0.0 % Eosinophil % 0.0 % Basophils % 0.0 % Test performed on Dec 19, 2019 06:45 CBC Slide Review Slide Review Perform SLIDE REVIEW AGREES WITH AUTOMATED RESULTS ST Test performed on Sep 19, 2019 14:42 Manual Lymphocytes 57.1 % Manual Monocytes 4.8 % Manual Eosinophils 0.7 % Manual Basophils 0.4 % NRBCs 0.0 /100 WBC Test performed on Aug 18, 2019 10:45 Platelet Pheresis, Leukored TRANSFUSED PRODUCT: LEUKRD/PLAT PHERESIS 1ST CONT COUNT: 1 ABO & Rh Type BLD TYPE O POSITIVE BLD TYPE O POSITIVE Hepatitis A Ab, IgM Non- Reactive Hepatitis B Core Ab, Total Non-Reactive Hepatitis B Surf Antigen Non-Reactive Hepatitis B Surface Ab < 3.5 STATUS of IMMUINITY Inconsistent with Immunity 0.0 - 8.5 mIU/mL Consistent with Immunity >8.5 mIU/mL Hepatitis C Ab Non-Reactive Test performed on Aug 11, 2019 10:47 Glucose (POC) 143 mg/dL Test performed on Aug 11, 2019 10:40 Manual Neutrophils Abs 1.3 10 3/cmm Manual Lymphocytes Abs 0.9 10 3/cmm Manual Monocytes Abs 0.1 10 3/cmm Manual Segs % 37 % Manual Bands % 19.0 % Platelet Estimate DECREASED Test performed on Aug 03, 2019 11:40 Packed Red Cells (PRBC) [id number] TRANSFUSED PRODUCT: LEUKOREDUCED RED CELL 1ST CONT COUNT: 2 Type & Screen BLD TYPE O POSITIVE AB SCREEN GEL NEGATIVE BLD TYPE O POSITIVE AB SCREEN GEL NEGATIVE Impression: Progressive Thrombocytopenia, etiology unclear could be multifactorial including underlying ITP, considering her age underlying myelodysplasia cannot be ruled out or medication related, patient is off NINA inhibitor e.g. losartan. Anemia, macrocytic could be nutritional e.g. B12 deficiency or folate deficiency or increased reticulocyte count due to recent hematemesis. Follow-up lab shows persistent severe thrombocytopenia despite repeated platelet transfusion and tapering dose of prednisone. recommended weekly Rituxan ???4 while continue taper off prednisone. She will have transfusion services if her platelet count is less than 20,000 then will consider platelet transfusion and for hemoglobin if below 8 g then will consider blood transfusion. Mrs Mg began her first dose of Rituxan on 08/25/2019. She did have transfusion services on the 2nd for a HGB of 7.4. She did have infusion reaction to the Rituxan which resolved with additional premeds and Solumedrol.Rituxan was discontinued after second dose given on 09/02/2019 as patient was admitted to hospital with progressive leukopenia/neutropenia and, thrombocytopenia. Was given platelet transfusion and start on dexamethasone, but while on steroids,, her platelet count continued to go downand patient was recently admitted to hospital with severe thrombocytopenia and was given platelet transfusion and eventually underwent bone marrow evaluation on 09/22/2019 which showed , and core biopsy,extremely hypocellular marrow space with a day of lymphocytes and histiocytes and and also noted is extremely to erythroid and myeloid precursors on the role preparation slides.?Aplastic anemia or Rituxan toxicity. Plan: Discussed with patient regarding her labs white blood count 700 hemoglobin 11.0, hematocrit 36 platelets 6000 Clinically, patient is doing reasonably well, now being treated with supportive care, with packed RBCs and platelet transfusion on as-needed basis which she is requiring quite often, patient still waiting for approval for Promacta 150 mg p.o. daily as recommended by hematology at [facility]. Today's labs shows persistent leukopenia as well as severe thrombocytopenia, will proceed with platelet transfusion in the meantime continue supportive care and she will return to clinic in 1 week with CBC CMP.^Patient was also advised to avoid any kind of trauma, in case there ia any acute bleeding, she will need to go to the hospital immediately] Signed By: Catherine De La Cruz M.D. <<Signature on File>>
[2020-01-30] MEDS: diphenhydrAMINE 25 mg Capsule PO (15:14)
[2020-01-30 15:15] VITALS: BP 133/59; PULSE 76; RESP 18; TEMP 35.8; O2SAT 94
== END 2020-01-30 07:47 | disposition home or self-care (01) ==
LOC: ONCMED 07:49
PROVIDERS: PCP Family Medicine; Visit Provider Internal Medicine Hematology & Oncology
DX: D69.3 Immune thrombocytopenic purpura (principal); D64.9 Anemia, unspecified
CPT/HCPCS: 36415; 36430; 80053; 85025; 86900; 99214; P9037

== ENCOUNTER 2020-02-06 08:02 | Outpatient (CLI) | payer MEDICARE, OTHER, SELFPAY ==
[2020-02-06 08:31] LABS: Eosinophils % 1.3 %; Hematocrit 28.2 % (37.0-47.0); Hemoglobin 9.1 g/dL (11.5-15.3); Lymphocytes # 0.7 10^3/uL (0.8-4.8); Lymphocytes % 90.7 %; Mean Corpuscular HGB Conc 32.3 g/dL (30.0-36.0); Mean Corpuscular Hemoglobin 28.6 pg (28.0-34.0); Mean Corpuscular Volume 88.7 fL (81-99); Monocytes % 1.3 %; Neutrophils % 6.7 %; Nucleated Red Blood Cells % 0 %; Red Blood Count 3.18 10^6/uL (4.1-5.3)
[2020-02-06 08:51] LABS: Alanine Aminotransferase 10 U/L (0-33); Albumin Level 3.6 g/dL (3.5-5.2); Alkaline Phosphatase 157 IU/L (35-105); Anion Gap 19.2 (5-19); Aspartate Amino Transferase 12 U/L (0-32); Blood Urea Nitrogen 17 mg/dL (8-23); Calcium 10.2 mg/dL (8.5-10.5); Carbon Dioxide 22 mmol/L (22-29); Chloride 103 mmol/L (98-107); Globulin 2.8 g/dL (1.3-4.6); Glucose 169 mg/dL (65-115); Osmolality Calculated 290 mOsm/kg (285-295); Potassium 4.2 mmol/L (3.5-5.1); Sodium 140 mmol/L (136-145); Total Bilirubin 0.4 mg/dL (0.15-1.2); Total Protein 6.4 g/dL (6.6-8.7)
[2020-02-06 08:56] LABS: Neutrophils # 0.1 10^3/uL (1.8-7.7); Platelet Count 1 10^3/cmm (130-400); Slide Review Slide Review Perform; White Blood Count 0.8 10^3/uL (4.0-10.0)
--- NOTE | 2020-02-06 11:44 | XR_ITS ---
WS: [id number] XR lumbar spine 2-3V* [id number] REASON FOR EXAM: BONE PAIN/BACK PAIN FINDINGS: Scoliotic curve convex to the right. Severe compression fracture of the T12 vertebra. Posterior listhesis L4 tube on L3. Loss of the disc spaces L4-5, L5-S1. The L3 vertebra shows a minimal compression deformity also. XR/XR lumbar spine 2-3V* [id number] IMPRESSION: Compression fracture severe T12 Retrolisthesis L2 on 3 Degenerated disc changes L4-5, L5-S1 L3 minimal compression deformity
--- NOTE | 2020-02-06 11:44 | XR_ITS ---
WS: [id number] XR thoracic spine 3V* [id number] REASON FOR EXAM: BONE PAIN/BACK PAIN FINDINGS: A compression deformity is seen at the T12 vertebra. The T9 vertebra shows a mild compression deformity. Mild osteopenic changes XR/XR thoracic spine 3V* [id number] IMPRESSION: Mild compression deformities T9 and T12
[2020-02-06] MEDS: diphenhydrAMINE 25 mg Capsule PO (13:00)
[2020-02-06 13:05] VITALS: BP 106/62; PULSE 80; RESP 18; TEMP 36.6; O2SAT 97
[2020-02-06] MEDS: acetaminophen 325 mg Tablet 650 MG PO (13:50)
--- NOTE | 2020-02-06 15:08 | ONC FU_ITS ---
Dr. De La Cruz follow up note Patient: Azul Mg Unit #: [id number]: 1935 Dicatated By: Catherine De La Cruz M.D.Date of Visit:Feb 06, 2020 Onc Med Follow-up/Prog Note History of Present Illness: Mrs. Mg is a 84-year-old female who was admitted to hospital in the last week of March 2019 with hematemesis at that time she was diagnosed with gastric ulcer and was started on Dexilant ,, not sure whether EGD was done but had CT scan of abdomen done. As per patient she did not receive any transfusion and no history of blood transfusion in the past but when she was she was prescribed Geritol for anemia. She has history of EGD and colonoscopy done in 2013 in [facility], as per patient was unremarkable and she was told, considering her age she would not require any more follow-up colonoscopy or EGD. Patient also had injection in her right hip for sciatica. Patient has no history of thrombocytopenia except recently on 05/10/2019 her CBC showed white blood count 4.3 hemoglobin 10.6 crit 30.9 platelets [id number], at that time her primary care physician discontinued her losartan considering the cause of thrombocytopenia. Patient denies any gross bleeding but long scratch lester on inner side of arms bilaterally due to scratching and ecchymosis on the left arm, otherwise no melena or hematochezia, no dysuria, no hematuria, no hemoptysis or hematemesis, no nosebleed of them., No jaundice. Patient was admitted hospital on 07/06/2019 with nosebleed and her initial lab shows severe thrombocytopenia she was given platelets transfusion and was started on prednisone 1 mg/kg with that on 07/07/2019 her platelet count gone up to 140,000 hemoglobin 9 hematocrit 27.4 MCV 100.7 white blood count 4.9 and she was discharged home on a tapering dose of prednisone 50 mg by mouth daily for 5 days then 40 mg daily for 5 days and so onAnd once prednisone tapered of her platelet count continued to improve and on 08/02/2019 her platelet count was 137,000 patient was scheduled for bone marrow evaluation on 08/11/2019. Bone marrow aspiration was attempted once, it was a dry tap. But procedure was abandoned as CBC done that day showed platelet count dropped down to 4000 and there was increased risk for hematoma so no further attempts were made to obtain marrow . Patient was given a unit of platelets transfusion and started on prednisone 1 mg/kg and she was monitored per post procedure protocol.Patient came back to clinic on 08/18/2019 and her CBC showed platelet count 15,000 and that time she was given units of platelet transfusion and also discuss about role of Rituxan and hepatitis profile was checked showed no evidence of hepatitis. Patient was started on tapering dose of prednisone. 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 She did experience infusion reaction with tremors, chills, mildly elevated temp. These symptoms were controlled with Solumedrol and Demerol. She recovered well.Patient received second dose of Rituxan on 09/02/2019 subsequently developed severe leukopenia and thrombocytopenia and was admitted to hospital and treated with platelet transfusion and steroids, Rituxan was discontinued permanently Bone marrow done on 09/22/2019 showed extremely rare erythroid and myeloid precursors are identified and core biopsy shows features of subcortical sampling, extremely hypocellular bone marrow space with reactive lymphocytes and histiocytes present.FISH and MDS panel pending., Now being treated with Promacta. Patient was also started on Bactrim DS as prophylactic for neutropenia as patient was reported allergic to Levaquin in the past Patient recently developed skin rash involving face and upper chest so Bactrim was discontinued with that and Benadryl, rash resolved. Her follow-up lab check done 10/17/2019 shows white blood count 900 hemoglobin 8.3 hematocrit 25.5 platelets 5000, patient was given a unit of platelets on 10/18/2019 and patient is also somewhat noncompliant with Promacta. so Switched to weekly Nplate and also Neupogen was added for persistent neutropenia. And she is allergic to penicillin and Levaquin so Z-Sadiq was also added as a prophylactic. Also requiring frequent platelet transfusion for persistent severe thrombocytopenia and blood transfusion for progressive anemia. Patient went to [facility] in [place] in the mid december 2019 for second opinion, where she was admitted and underwent extensive workup including bone marrow evaluation. And additional testing including parvovirus as it showed positive for parvovirus IgG, negative for parvovirus IgM, zinc was 0.51, copper was 1.28, HIV status was negative PNH pending, bone marrow aspiration and biopsy was done on 01/10/2020, results is pending. Patient was started on Promacta 150 mg by mouth daily, which she took it for 3 days without any problem and now ran out of prescription. Also start on acyclovir cefdinir , and Diflucan. And patient has return appointment at hematology/ BMT clinic at [facility] on 02/13/2020. Came for follow-up, complaining of generalized weakness and fatigue and low mid back pain for 2 days, patient said she is on physical therapy and Occupational Therapy to improve handgrips and during 1 of the physical therapy session, she felt sudden back pain now using heating pad with some help and take Tylenol which is helped somewhat. Denies any numbness in the lower extremity denies any urine or stool incontinence. 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 Medications: buPROPion HCl ER (SR) 1 (150 mg) Tablet SR 12 HR Oral daily, Calcitonin ([place]) (200 Units/act) Solution Nasal Take as Directed, Calcium + D 1 Tablet Oral daily, Eye Drops Solution Ophthalmic, Meclizine HCl 0.5 Tablet (of 25 mg) Oral q 6 hours PRN, Multivitamin Adults 1 Tablet Oral daily, Ondansetron HCl (4 mg) Tablet Oral Take as Directed Allergies: Amoxicillin, Codeine Sulfate, Gabapentin, levoFLOXacin, Pantoprazole Sodium, Penicillins, PROLIA, and Sulfa Drugs. Review of Systems: Constitutional - Appetite is fair and weight is stable. No fever, chills, hot flashes, or night sweats. Energy level remains poor, ENMT - No sinus congestion/drainage. No mouth sores. No sore throat or difficulty swallowing, Hematologic/Lymphatic - Positive for easy bruising, Respiratory - No shortness of breath. No cough. No pleuritic pain or hemoptysis, Cardiovascular - No angina pain. No palpitations, Gastrointestinal - No nausea or vomiting. No heartburn or acid reflux. No diarrhea or constipation, Genitourinary (F) - No dysuria or hematuria. No urinary frequency. No urgency or incontinence, Musculoskeletal - Positive for back pain, Integumentary - Pt continues to have localized edema in right hand, Neurologic - Positive for occasional headache, no dizziness. No numbness/paresthesias or other focal neurologic symptoms, Psychiatric - Positive for anxiety, depression and insomnia. Vital Signs: Performed on Feb 06, 2020 09:58 Height - 61.00 in Weight - 150.4 lbs (LOW) BSA - 1.67 sq.m BMI - 28.42 Temperature - 98.4 F Pulse - 77 /min Respiration - 18 /min BP - 129/77 mm(hg) O2 Sat - 99 % Pain - 9 Performance Status: 2 - Ambulatory/capable of all self-care, unable to perform any work activities. Up and about more than 50% of waking hours. (ECOG) Physical Examination: ENMT - no mouth sores or thrush or jaundice, Respiratory - Lungs are clear, Cardiovascular - Regular rate and rhythm of heart, Abdomen - Soft, bowel sounds present, Extremities - Old healing ecchymosis. Lab/Imaging: Test performed on Jan 30, 2020 08:00 Sodium 139 mmol/L Potassium 4.5 mmol/L Chloride 103 mmol/L CO2 21 mmol/L Anion Gap 19.5 BUN 18 mg/dL Creatinine 1.2 mg/dL Cr Clearance (Est) 41.0000 mL/min Glucose 196 mg/dL Calcium 9.6 mg/dL Protein, Total 6.5 g/dL Albumin 3.4 g/dL Globulin 3.1 g/dL Bilirubin, Total 0.6 mg/dL ALT (SGPT) 10 U/L AST (SGOT) 9 U/L Alkaline Phosphatase 154 IU/L WBC 0.7 10 3/uL RBC 3.77 10 6/uL HGB 11.0 g/dL HCT 34.0 % MCV 90.2 fL MCH 29.2 pg MCHC 32.4 g/dL RDW 12.8 % Platelet Count 6 10 3/cmm MPV 9.1 fL Neutrophils 0.0 10 3/uL Lymphocytes 0.7 10 3/uL Monocytes 0.0 10 3/uL Eosinophils 0.0 10 3/uL Basophils 0.0 10 3/uL Neutrophil % 5.6 % Lymphocyte % 94.4 % Monocyte % 0.0 % Eosinophil % 0.0 % Basophils % 0.0 % Test performed on Dec 19, 2019 06:45 CBC Slide Review Slide Review Perform SLIDE REVIEW AGREES WITH AUTOMATED RESULTS ST Test performed on Sep 19, 2019 14:42 Manual Lymphocytes 57.1 % Manual Monocytes 4.8 % Manual Eosinophils 0.7 % Manual Basophils 0.4 % NRBCs 0.0 /100 WBC Test performed on Aug 18, 2019 10:45 Platelet Pheresis, Leukored TRANSFUSED PRODUCT: LEUKRD/PLAT PHERESIS 1ST CONT COUNT: 1 ABO & Rh Type BLD TYPE O POSITIVE BLD TYPE O POSITIVE Hepatitis A Ab, IgM Non- Reactive Hepatitis B Core Ab, Total Non-Reactive Hepatitis B Surf Antigen Non-Reactive Hepatitis B Surface Ab < 3.5 STATUS of IMMUINITY Inconsistent with Immunity 0.0 - 8.5 mIU/mL Consistent with Immunity >8.5 mIU/mL Hepatitis C Ab Non-Reactive Test performed on Aug 11, 2019 10:47 Glucose (POC) 143 mg/dL Test performed on Aug 11, 2019 10:40 Manual Neutrophils Abs 1.3 10 3/cmm Manual Lymphocytes Abs 0.9 10 3/cmm Manual Monocytes Abs 0.1 10 3/cmm Manual Segs % 37 % Manual Bands % 19.0 % Platelet Estimate DECREASED Impression: Progressive Thrombocytopenia, etiology unclear could be multifactorial including underlying ITP, considering her age underlying myelodysplasia cannot be ruled out or medication related, patient is off NINA inhibitor e.g. losartan. Anemia, macrocytic could be nutritional e.g. B12 deficiency or folate deficiency or increased reticulocyte count due to recent hematemesis. Follow-up lab shows persistent severe thrombocytopenia despite repeated platelet transfusion and tapering dose of prednisone. recommended weekly Rituxan ???4 while continue taper off prednisone. She will have transfusion services if her platelet count is less than 20,000 then will consider platelet transfusion and for hemoglobin if below 8 g then will consider blood transfusion. Mrs Mg began her first dose of Rituxan on 08/25/2019. She did have transfusion services on the 2nd for a HGB of 7.4. She did have infusion reaction to the Rituxan which resolved with additional premeds and Solumedrol.Rituxan was discontinued after second dose given on 09/02/2019 as patient was admitted to hospital with progressive leukopenia/neutropenia and, thrombocytopenia. Was given platelet transfusion and start on dexamethasone, but while on steroids,, her platelet count continued to go downand patient was recently admitted to hospital with severe thrombocytopenia and was given platelet transfusion and eventually underwent bone marrow evaluation on 09/22/2019 which showed , and core biopsy,extremely hypocellular marrow space with a day of lymphocytes and histiocytes and and also noted is extremely to erythroid and myeloid precursors on the role preparation slides.?Aplastic anemia or Rituxan toxicity. Plan: Discussed with patient regarding her labs white blood count 0.8 hemoglobin 9.1 hematocrit 28.2 platelets 1000 absolute neutrophil count 100 Clinically, patient is doing reasonably well, denies any evidence of gross bleeding, her follow-up labs shows progressive severe thrombocytopenia/pancytopenia due to aplastic anemia, now being treated with supportive care and give her platelet transfusion today and also consider Neupogen 480 mcg subcu x1 and weekly she will return to clinic 1 week with CBC and will continue with supportive care e.g. if hemoglobin below 8 g consider blood transfusion and platelet count below 20,000, platelet transfusion. And now patient is waiting for Promacta to be delivered in the mail and once she receives she will start taking, hopefully it will help her. As far as mid back pain is concerned probably musculoskeletal could be vertebral etiology, we will order plain x-ray of thoracic/lumbar vertebra and patient was advised to use heating pad or local muscle relaxant cream, if there is a sudden change e.g. progressive lower back pain, or radiation to lower extremities or urine or stool incontinence, she need to go to ER immediately otherwise we will see her back next week. Patient was also advised to stop aggressive physical therapy. Signed By: Catherine De La Cruz M.D. <<Signature on File>>
== END 2020-02-06 08:03 | disposition home or self-care (01) ==
PROVIDERS: PCP Family Medicine; Visit Provider Internal Medicine Hematology & Oncology
DX: D69.3 Immune thrombocytopenic purpura (principal); D64.9 Anemia, unspecified; H81.13 Benign paroxysmal vertigo, bilateral; I10 Essential (primary) hypertension; M85.80 Other specified disorders of bone density and structure, unspecified site
CPT/HCPCS: 36415; 36430; 72072; 72100; 80053; 85025; 86900; 99214; P9037

== ENCOUNTER 2020-02-13 11:41 | Inpatient (IN) | payer MEDICARE, OTHER, SELFPAY ==
[2020-02-13] VITALS (92 sets, daily range): BP systolic 94–184; BP diastolic 50–100; PULSE 61–81; RESP 11–35; TEMP 35.8–36.6; O2SAT 82–98; BMI 26.5
--- NOTE | 2020-02-13 11:42 | XRR_ITS ---
PROCEDURE INFORMATION: Exam: XR Chest, 1 View Exam date and time: 02/13/2020 11:55 AM Age: 84 years old Clinical indication: Cough and dyspnea; Patient HX: Fall left flank pain per patient; Additional info: Dyspnea/cough TECHNIQUE: Imaging protocol: XR of the chest Views: 1 view. COMPARISON: No relevant prior studies available. FINDINGS: Lungs: Mild interstitial prominence, without focal infiltrate. Pleural space: No pleural effusion. Heart/Mediastinum: No cardiomegaly. Vasculature: Ectasia of the thoracic aorta. Diaphragm: Asymmetric elevation of the right hemidiaphragm. Bones/joints: Osteopenia. XR/XR chest 1V portable [id number] IMPRESSION: Asymmetric elevation of the right hemidiaphragm and interstitial prominence.
--- NOTE | 2020-02-13 11:42 | ECG_ITS ---
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 Measurements Intervals [place] Rate: 75 P: 17 GA: 142 QRS: -13 QRSD: 93 T: -29 QT: 394 QTc: 443 Interpretive Statements SINUS RHYTHM NONSPECIFIC T-WAVE ABNORMALITY Compared to ECG 07/29/2019 13:32:41 T-wave abnormality now present Ventricular premature complex(es) no longer present Left ventricular hypertrophy no longer present Electronically Signed On 02-13-2020 18:27:01 CDT by Emeli Pro M.D. [id number]
--- NOTE | 2020-02-13 11:47 | ED_ITS ---
HPI - General Adult General: Chief complaint: Weakness Stated complaint: WEAKNESS Time Seen by Provider: 02/13/20 11:42 History of Present Illness: HPI narrative: Azul Mg is a 84-year-old female presents the emergency room with complaint of weakness. She has some form of myelodysplasia rating through the oncology notes is considered very rare is been difficult to manage evidently there is been some compliance issues as well. She was at [facility] for second opinion does not look like from the read of the note that there was much changed. She had blood work done 1 week ago and had a neutropenia with a neutrophil count of 0.1 she is pancytopenic with a white count of 0.8 hemoglobin of 9 8 a platelet count of 1. Patient fell around 3 AM last night EMS came up and helped her up now she is having severe right rib pain in the back pain she been having back pain rated at Dr. De La Cruz had been addressing. She denies any dysuria urgency or frequency she is severely pancytopenic again today and was on her last lab work as well. She denies any f ever shortness of breath cough or dysuria urgency or frequency recently. Associated symptoms: Reports dyspnea and malaise; Deny chest pain, nausea, rash or vomiting Review of Systems Const: Reports: body aches, fatigue and malaise; Denies: fever(s), chills or change in appetite ENMT: Denies: throat pain, ear or mastoid pain, nasal discharge or nasal congestion Card: Denies: chest pain, edema, dyspnea on exertion or orthopnea Resp: Reports: dyspnea; Denies: productive cough or non-productive cough GI: Denies: abdominal pain, nausea, vomiting, hematemesis, coffee ground emesis, diarrhea, constipation, bloating, hematochezia or melena : Denies: flank pain, difficulty voiding, dysuria, urinary frequency or urinary urgency Musc: Reports: joint pain, joint stiffness and other (Right rib pain) Skin/Breast: Denies: rash or pruritus PFS ED PFSH: Medical History Chronic kidney disease, stage II (mild) Diverticulosis Epistaxis Glucose intolerance Osteoporosis Peptic ulcer disease Thrombocytopenia With a prior diagnosis of ITP, 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 Followed closely by Dr. De La Cruz. Patient had bone marrow aspiration and biopsy performed on 09/22/2019. Surgical History History of bone marrow biopsy History of cataract surgery History of esophagogastroduodenoscopy (EGD) Hx of colonoscopy Family History Mother Cancer Breast cancer Father Lung disease Social History Smoking and tobacco status: never smoked Alcohol intake: never Household members: other Details: Sister lives next door and stays with her nadeen rnight. Housing: Apartment Marital status: / Current occupational status: retired Physical Exam Const: COMMON NORMALS: no acute distress GENERAL APPEARANCE: cooperative and comfortable ORIENTATION/CONSCIOUSNESS: Yes awake, Yes oriented to person, Yes oriented to place and Yes oriented to time HENMT: COMMON NORMALS: normocephalic, atraumatic, hearing grossly normal bilaterally, external ears normal, EAC's normal, TM's normal bilaterally, Normal nasal mucous membranes and turbinates present, moist oral mucous membranes and oropharynx normal HEAD & SCALP: normocephalic and atraumatic NOSE: Normal nasal mucous membranes and turbinates present EXTERNAL EAR: Yes external ears normal EXTERNAL AUDITORY CANAL: EAC's normal TYMPANIC MEMBRANE: TM's normal bilaterally Eye: COMMON NORMALS: Equal, round and reactive pupils present, EOMs intact bilaterally, conjunctivae normal and no scleral icterus CONJUNCTIVA: Yes conjunctivae normal PUPIL: Yes Equal, round and reactive pupils present Neck/C-Spine: COMMON NORMALS: full ROM, no lymphadenopathy, supple and no JVD Lymph: LYMPHATIC: no lymphadenopathy noted and no lymphedema noted Resp: COMMON NORMALS: normal respiratory effort, No retractions, No use of accessory muscles and clear to auscultation bilaterally AUSCULTATION: clear to auscultation bilaterally Cardio: COMMON NORMALS: no JVD, regular rate and regular rhythm RATE: regular rate RHYTHM: regular rhythm HEART SOUNDS: Murmur heart sound present diastolic Intensity: II/ Characteristics: blowing Timing: late GI: COMMON NORMALS: Soft to palpation and No hepatosplenomegaly present AUS CULTATION: Yes normoactive bowel sounds PALPATION: Yes Soft to palpation, No Tenderness to palpation present (GI), No Guarding due to palpation present (GI) and Yes No hepatosplenomegaly present Extremity: COMMON NORMALS: normal to inspection, capillary refill normal, no clubbing, cyanosis or edema, no calf tenderness and no pedal edema Neuro: SENSORIUM/ORIENTATION: Yes oriented to person, Yes oriented to place and Yes oriented to time Skin: COMMON NORMALS: no rashes or lesions noted GENERAL SKIN EXAM: no rashes or lesions noted Course Vital Signs: Vital signs: Vital Signs Temperature 97.1 F L 02/13/20 14:51 Pulse Rate 70 02/13/20 14:51 Respiratory Rate 15 02/13/20 14:51 Blood Pressure 110/58 02/13/20 14:51 Pulse Oximetry 98 02/13/20 12:59 MDM - General Adult MDM Narrative: Medical decision making narrative: Patient has no acute rib fractures she does have an acute compression fracture at L3. Given her significant anemia thrombocytopenia we will go ahead and admit her and transfuse platelets and packed red blood cells. I talked to Dr. De La Cruz as well as Dr. Huynh who we will go ahead and put her on [place]bs transfuse her platelets and blood cells. Functionally she has an aplastic anemia there is very little that can be done she was seen last month at [facility] they recommended some medication changes but it is unlikely to make a significant difference. I did sit and talk with the patient about her CODE STATUS. She is still wanting to be a full code I think at this point that is relatively unrealistic there is very little to that we could do should she go into full arrest she is very highly likely to become septic. Dr. De La Cruz was of the impression that she is a no code and encourages her to be no code. Dr. Huynh we will discuss this with her again. Lab Data: Labs: Lab Results 02/13/20 02/13/20 02/13/20 Range/Units 12:00 12:00 12:07 WBC 0.5 L* (4.0-10.0) 10^3/ uL RBC 2.41 L (4.1-5.3) 10^6/u L Hgb 6.8 L (11.5-15.3) g/dL Hct 21.0 L (37.0-47.0) % MCV 87.1 (81-99) fL MCH 28.2 (28.0-34.0) pg MCHC 32.4 (30.0-36.0) g/dL RDW 11.9 L (12.1-15.1) % Plt Count 1 L* (130-400) 10^3/c mm Neut # (Auto) Wiring Mechanic Nucleated RBC % (a uto) 0 % Total Counted 100 (0-100) Segmented Neutroph ils 10 % Abs Segm Neuts (Ma n) 0.1 L (1.6-7.1) 10/cmm Lymphocytes (Manua l) 90 % Nucleated RBCs # 0.0 /100WBC Platelet Estimate Decreased L (Normal) Sodium 139 (136-145) mmol/L Potassium 4.0 (3.5-5.1) mmol/L Chloride 103 (98-107) mmol/L Carbon Dioxide 24 (22-29) mmol/L Anion Gap 16.0 (5-19) BUN 23 (8-23) mg/dL Creatinine 1.2 H (0.5-0.9) mg/dL Glucose 190 H (65-115) mg/dL Calculated Osmolal ity 290 (285-295) mOsm/k g Calcium 9.8 (8.5-10.5) mg/dL Total Bilirubin 0.4 (0.15-1.2) mg/dL AST 10 (0-32) U/L ALT 10 (0-33) U/L Alkaline Phosphata se 119 H (35-105) IU/L Creatine Kinase 10 L (26-192) U/L Total Protein 6.2 L (6.6-8.7) g/dL Albumin 3.1 L (3.5-5.2) g/dL Globulin 3.1 (1.3-4.6) g/dL Blood Type O Positive Rho(D) Type Positive Antibody Screen Negative Crossmatch See Detail Discharge Plan Discharge Patient Disposition: Placed in Observation Clinical Impression: MDS (myelodysplastic syndrome), Arthritis, MUNA (generalized anxiety disorder), Non-traumatic compression fracture of L3 lumbar vertebra Condition: Stable Referrals: Sophia Núñez DO [Primary Care Provider] - Coding Level of Care Code ED Typewriter Aligner for g Fwd Exam Comprehensive
--- NOTE | 2020-02-13 11:52 | CT_ITS ---
WS: [id number] CT LUMBAR SPINE, noncontrast. HISTORY: pain/fall TECHNIQUE: Contiguous 2.5 mm axial imaging are performed. Sagittal and coronal reformats are submitte d and reviewed. All CT scans at [facility] use at least one of these dose optimization te chniques: automated exposure control; mA and/or kV adjustment per patient size (includes targeted exa ms where dose is matched to clinical indication); or iterative reconstruction. IV contrast: None DLP: 2284.78 mGy.cm COMPARISON: 09/20/2019 and 02/06/2020 Severe osteopenia. Mild RIGHT convex curvature of the lumbar spine. T12: Chronic burst fracture with 3.5 mm retropulsion of the posterior superior endplate. Anterior wed ging approximately 50% of the vertebral body with marked narrowing of the T11-12 disc space. Similar to the prior study 09/20/2011. Mild encroachment upon the ventral thecal sac and subarticular recesses with no severe stenosis. L3: New compression fracture involving the superior endplate since 09/20/2019. Sclerosis along the sup erior endplate with loss of height by 20%. Fracture line is still evident along the superior endplate . L5: Stable mild anterior wedging. L1-2: 2 mm retropulsion of L1 with mild encroachment upon the thecal sac and mild LEFT foraminal sten osis. L2-3: Diffuse annular disc bulging. Mild osteophytic ridging. Mild central and subarticular recess st enosis. L3-4: Diffuse annular disc bulging with mild central and foraminal stenosis. L4-5: Diffuse annular disc bulging with osteophytic ridging and marked facet disease. Severe central with bilateral subarticular recess stenosis and mild foraminal stenosis. L5-S1: Diffuse osteophytic ridging and disc bulging. Mild bilateral foraminal stenosis. Extensive atherosclerosis aorta. Atrophic uterus. LEFT renal cyst. CT/CT lumbar spine wo con* [id number] IMPRESSION: 1. New 20% compression fracture of L3 since 09/20/2019. Fracture present on the lumbar spine radiograph of 02/06/2020. 2. Chronic mild burst fracture of T12. 3. Chronic minimal anterior wedging of L5. 4. Severe central and bilateral subarticular recess stenosis at L4-5. 5. Mild central and subarticular recess stenosis at L2-3. 6. Mild central and foraminal stenosis at L3-4.
[2020-02-13 12:18] LABS: Hemoglobin 6.8 g/dL (11.5-15.3); Mean Corpuscular HGB Conc 32.4 g/dL (30.0-36.0); Mean Corpuscular Hemoglobin 28.2 pg (28.0-34.0); Mean Corpuscular Volume 87.1 fL (81-99); Nucleated Red Blood Cells % 0 %; Red Blood Count 2.41 10^6/uL (4.1-5.3); Red Cell Distribution Width 11.9 % (12.1-15.1)
[2020-02-13 12:37] LABS: White Blood Count 0.5 10^3/uL (4.0-10.0)
[2020-02-13 12:38] LABS: Platelet Count 1 10^3/cmm (130-400)
[2020-02-13 12:43] LABS: Alanine Aminotransferase 10 U/L (0-33); Albumin Level 3.1 g/dL (3.5-5.2); Alkaline Phosphatase 119 IU/L (35-105); Aspartate Amino Transferase 10 U/L (0-32); Blood Urea Nitrogen 23 mg/dL (8-23); Calcium 9.8 mg/dL (8.5-10.5); Carbon Dioxide 24 mmol/L (22-29); Chloride 103 mmol/L (98-107); Creatine Phosphokinase 10 U/L (26-192); Globulin 3.1 g/dL (1.3-4.6); Glucose 190 mg/dL (65-115); Osmolality Calculated 290 mOsm/kg (285-295); Sodium 139 mmol/L (136-145); Total Bilirubin 0.4 mg/dL (0.15-1.2); Total Protein 6.2 g/dL (6.6-8.7)
[2020-02-13 12:44] LABS: Absolute Segmented Neutrophil 0.1 10/cmm (1.6-7.1); Lymphocytes 90 %; Platelet Estimate Decreased (Normal); Segmented Neutrophils 10 %; Total Cells Counted 100 (0-100)
--- NOTE | 2020-02-13 12:52 | XRR_ITS ---
PROCEDURE INFORMATION: Exam: XR Left Ribs with PA Chest, 3 Views Exam date and time: 02/13/2020 12:53 PM Age: 84 years old Clinical indication: Pain and injury or trauma; Fall; Initial encounter; Rib area, left side; Blunt trauma; Other: Rib pain; Additional info: Fall, pain TECHNIQUE: Imaging protocol: XR Left ribs 3 views with PA chest. COMPARISON: CR XR chest 1V portable [id number] 02/13/2020 11:45 AM FINDINGS: Lungs: Interstitial prominence. 6 mm nodule. Pleural space: No left pleural effusion. Heart/Mediastinum: No cardiomegaly. Bones/joints: Osteopenia limits evaluation.The inferior ribs are partially obscured by overlying soft tissues. No acute bony injury in the visualized left ribs. XR/XR ribs LT mn 3V w CXR1V [id number] IMPRESSION: No acute bony injury in the visualized left ribs.
[2020-02-13] MEDS: ondansetron 2 mg/ML SDV 2 mL 4 MG IVP ×2 (13:06→17:53)
[2020-02-13] MEDS: morphine 4 mg/mL SDV 1 mL 2 MG IVP (13:07)
--- NOTE | 2020-02-13 13:50 | PC.NURSE ---
See transfusion record completed on paper. This record will be scanned to chart once complete.
--- NOTE | 2020-02-13 15:21 | P.HP_ITS ---
Providers/Chief Complaint Admitting Physician: Meagan Huynh MD Primary Care Provider: Sophia Núñez DO Chief Complaint: Fall History of Present Illness Azul Mg is a 84 year old female with PMHx of MDS, CKD stage 2, NIDDM type II, DJD; presents via ambulance following a fall earlier this morning while she was trying to get from the bathroom to her bedroom. She typically ambulates with a walker but her walker does not fit through her bathroom entrance so while trying to get from one room to the other she lost her balance and ended up sliding to the floor landing on her bottom. She was unable to get up unassisted and her sister who checks in on her and spends the day with her was unable to get her up. Sister called for EMS and patient was brought to the hospital for further evaluation. Patient has a relatively complicated history of MDS which seems to be evolving into aplastic anemia with progressive pancytopenia and need for transfusions almost on a weekly basis. Last transfusion of blood products was given on 02/05 and she has been following weekly with Dr. De La Cruz. She has been seen at [facility] for second opinion and was started on Promacta. It s eems that she did not respond to steroid therapy and developed toxicity to Rituxan infusions. She was last admitted at our facility in December during which time she was noted to be significantly thrombocytopenic, treated with steroids and received transfusion of platelets as well with some improvement in her counts. She states that she has not had any bleeding including epistaxis, hemoptysis, hematuria or blood in her stool. She does admit to getting progressively fatigued as the day wears on, denies any chest pain, shortness of breath, lightheadedness or syncope. She had complained of back pain to Dr. De La Cruz who had ordered some x-rays of her thoracic and lumbar spines which showed multilevel DJD as well as compression fractures including 1 involving L3. This is also noted on CT scan of the L-spine done today. It appears that she has very good family support particularly from her sister who spends the day with her then goes home for a few hours to attend to her personal affairs but o [place] helps with her hygiene needs, screening unit registered nurse and cooking her meals. Daughter takes care of shopping for her necessities. She has been receiving home health care services including a home health aide, PT and OT to [facility]. She is an excellent historian and is very pleasant. Additional information is obtained from thorough review of her medical record. ER physician spoke with Dr. De La Cruz who agrees with transfusion of blood products. Patient is currently receiving her first unit of blood. Labs today indicate severe pancytopenia with white count of 0.5, hemoglobin of 6.8, platelet count of 1, ANC of 100, BUN of 23, creatinine of 1.2, blood sugar of 190 with otherwise normal chemistry, normal LFTs. UA shows bacteria, is cloudy in appearance, some pyuria. Patient has been on prophylaxis with acyclovir, cefdinir, fluconazole which I will continue. She reportedly had some type of reaction when she received Bactrim previously. Due to the severity of her pancytopenia, potential for decompensation she will be admitted to ICU for close monitoring. Discussed CODE STATUS and she would like to be a full code. Review of Systems Const: Reports: fatigue; Denies: fever(s), chills, change in appetite, malaise, night sweats or diaphoresis Eyes: Denies: change in vision ENMT: Denies: odynophagia or oral sores Card: Denies: chest pain, palpitations, edema, swelling of feet/ankles, li ghtheadedness, syncope or pre-syncope Resp: Denies: dyspnea, productive cough, non-productive cough or wheezing GI: Denies: abdominal pain, nausea, vomiting, hematemesis, diarrhea, constipat ion or hematochezia : Denies: difficulty voiding, dysuria or urinary frequency Musc: Reports: back pain Skin/Breast: Denies: rash Neuro: Denies: numbness in extremities, weakness in extremities, difficulty walking, frequent falls or confusion Psych: Denies: anxiety Emiliano/Lymph: Reports: easy bruising Medications/Allergies Home Medications Medication Instructions Recorded Confirmed Last Taken Type calcitonin (salmon) 1 spray INTRANASAL (ALT) DAILY 09/07/19 02/13/20 02/13/20 History calcium phosphate-vitamin D3 1 tab PO DAILY 09/07/19 02/13/20 02/13/20 History [Citracal-D3 Gummies] meclizine 12.5 mg PO Q6H PRN 09/07/19 02/13/20 Unknown History metformin 500 mg PO QPM 09/07/19 02/13/20 12/26/19 History multivitamin [Multiple Vitamins] 1 tab PO DAILY 09/07/19 02/13/20 02/13/20 Hist ory lorazepam 0.5 mg tablet 0.5 mg PO Q4H PRN #60 tab 01/04/20 02/13/20 02/13/20 Rx acyclovir 400 mg PO BID 02/13/20 02/13/20 02/13/20 History cefdinir 300 mg PO BID 02/13/20 02/13/20 02/12/20 History eltrombopag [Promacta] 150 mg PO DAILY 02/13/20 02/13/20 02/13/20 History fluconazole 200 mg PO DAILY 02/13/20 02/13/20 02/13/20 History omeprazole magnesium [Prilosec OTC] 20 mg PO DAILY 02/13/20 02/13/20 02/13/20 History Allergies Allergy/AdvReac Type Severity Reaction Status Date / Time amoxicillin Allergy ADR-Itching Verified 01/04/20 15:13 fluticasone [From Flonase] Allergy ALGY-Hives Verified 01/04/20 15:13 ibuprofen [From Motrin] Allergy ADR-Agitate Verified 01/04/20 15:13 d levofloxacin [From Levaquin] Allergy ALGY-Anaphy Verified 01/04/20 15:13 laxis Penicillins Allergy ALGY-Rash Verified 01/04/20 15:13 propoxyphene [From Darvon] Allergy ADR-Agitate Verified 01/04/20 15:13 d PFSH Acute PFSH: Medical History (Updated 02/13/20 @ 18:12 by Meagan Huynh MD) Chronic kidney disease, stage II (mild) Diverticulosis Epistaxis Glucose intolerance Osteoporosis Peptic ulcer disease Thrombocytopenia Surgical History History of bone marrow biopsy History of cataract surgery History of esophagogastroduodenoscopy (EGD) Hx of colonoscopy Family History Mother Cancer Breast cancer Father Lung disease Social History Smoking and tobacco status: never smoked Alcohol intake: never Household members: other Details: Sister lives next door and stays with her overnight. Housing: Apartment Marital status: / Current occupational status: retired Vitals/I&O/Wt Last Vital Signs Temp 97.1 F L 02/13/20 14:51 Pulse 70 02/13/20 14:51 Resp 15 02/13/20 14:51 BP 110/58 02/13/20 14:51 Pulse Ox 98 02/13/20 12:59 02/13/20 02/13/20 02/13/20 06:59 14:59 22:59 Intake Total 0 / 0 Balance 0 / 0 Weight last 48 hrs Weight 65.771 kg Physical Exam Const: COMMON NORMALS: no acute distress and patient oriented x3 GENERAL APPEARANCE: cooperative, comfortable and frail appearing NUTRITIONAL APPEARANCE: overweight ORIENTATION/CONSCIOUSNESS: Yes awake OTHER: - appears younger than stated age HENMT: COMMON NORMALS: normocephalic, atraumatic, hearing grossly normal bilaterally and moist oral mucous membranes HEAD & SCALP: normocephalic and atraumatic TEETH & GINGIVA: Yes poor dentition Eye: COMMON NORMALS: Equal, round and reactive pupils present, EOMs intact bilaterally and conjunctivae normal CONJUNCTIVA: Yes conjunctivae normal PUPIL: Yes Equal, round and reactive pupils present Neck/C-Spine: COMMON NORMALS: full ROM GENERAL: Yes normal visual inspection and Yes trachea midline Chest: CHEST: Yes Symmetrical chest wall rise Resp: COMMON NORMALS: normal respiratory effort, No retractions, No use of accessory muscles and clear to auscultation bilaterally EFFORT & INSPECTION: Yes able to speak in complete sentences, Yes symmetric chest movement and No tac hypneic AUSCULTATION: clear to auscultation bilaterally OTHER: -on 2 L NC Cardio: COMMON NORMALS: regular rate, regular rhythm, S1 normal heart sound present, S2 normal heart sound present and No murmurs present (Cardio) RATE: regular rate RHYTHM: regular rhythm HEART SOUNDS: S1 normal heart sound present and S2 normal heart sound present GI: COMMON NORMALS: Normal to inspection, nondistended, normoactive bowel sounds present, Soft to palpation and non-tender INSPECTION: Yes central obesity PALPATION: Yes Soft to palpation Extremity: COMMON NORMALS: normal to inspection, full ROM, no clubbing, cyanosis or edema and no pedal edema Neuro: COMMON NORMALS: patient oriented x3, moves all extremities, no focal motor deficits and no sensory deficits noted SENSORIUM/ORIENTATION: Yes alert Psych: COMMON NORMALS: mental status grossly normal, Normal thought process present, cooperative, normal affect and speech normal SPEECH: Yes normal speech THOUGHT PROCESS: Normal thought process present Skin: COMMON NORMALS: no rashes or lesions noted, no jaundice, no petechiae and no mottling GENERAL SKIN EXAM: no rashes or lesions noted Data : 02/13/20 12:00 02/13/20 12:00 Micro: Microbiology 02/13/20 12:07 Blood Culture - Preliminary Blood SPECIMEN COLLECTED 02/13/20 12:00 Blood Culture - Preliminary Blood SPECIMEN COLLECTED A&P Assessment and plan (1) Pancytopenia: -significant pancytopenia that has been ongoing for some time now. Has been following up with Dr. De La Cruz with weekly CBC and recently, requiring transfusion of blood products, last given on 02/05 -noted neutropenia, anemia, severe thrombocytopenia and seems to be becoming more symptomatic with increased fatigue -needs reverse isolation precautions due to neutropenia, ANC-100. Will start on Neupogen -transfusion already running, will start with 2 bags of platelets and 2 units of PRBCs; serial CBC -monitor closely for bleeding, none so far though has been noted to have epistaxis in the past -avoid instrumentation such as catheter placement due to susceptibility to bleeding -Reportedly did not benefit from steroids in the past -Close monitoring of vital signs -continue prophylactic doses of anti-infective agents-Acyclovir, Cefdinir, Fluconazole; seems to have had some kind of reaction to Bactrim during her last hospitalization Status: Acute (2) MDS (myelodysplastic syndrome): -has been following up at [facility] and with Dr. De La Cruz -now seems to have developed aplastic anemia with persistent pancytopenia and need for frequent transfusions -had repeat bone marrow biopsy done in 08/2019 showing extremely hypocellular marrow space with rare lymphocytes and histiocytes, markedly increased storage of iron, extremely rare erythroid and myeloid precursors. Conclusion was that this was possibly indicative of aplastic anemia. Status: Chronic (3) Non-traumatic compression fracture of L3 lumbar vertebra: -noted to have L3 compression fracture on x-ray on 02/05 now with noted 20% compression fracture of L3 with chronic multilevel DJD -Also noted to have mild compression deformities of T9 and T12, DJD involving L4-L5, L5-S1 on thoracic spine x-ray done on 02/05 -Had a fall earlier today while trying to get from the bathroom to the bedroom when she essentially lost her balance and slid down to the floor landing on her bottom and was unable to get up on her own. 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 It seems that she did not respond favorably to steroid treatment either -Baseline platelet count earlier this year was 60 and has steadily been dropping Status: Chronic (5) Peptic ulcer disease: -PPI Status: Chronic (6) Chronic kidney disease, stage II (mild): -baseline Cr is around 1.2-1.5 -renal function at baseline -renally dose meds, avoid nephrotoxins Status: Acute (7) Glucose intolerance: -has been on metformin, hold this -would avoid accuchecks due to frequency of sticks and likelihood of prolonged bleeding -hx of NIDDM type II -check A1c Status: Chronic (8) Arthritis: Status: Chronic (9) MUNA (generalized anxiety disorder): -Anxiolytics as needed Status: Chronic Additional A&P Information -Nausea and vomiting; had an episode of NBNB emesis during transition from ED to ICU; seems more like motion sickness but nausea persists so we will continue antiemetics as needed and order scopolamine patch -Full liquid diet as tolerated -May need Valle catheter placement though needs to be done with extreme caution to prevent trauma -Multilevel DJD, osteoporosis -GI ppx with PPI -DVT ppx with SCDs, no AC due to severe pancytopenia -ICU admission due to severe pancytopenia and low threshold for decompensation Attestations Medical Necessity Statement*: Azul Mg's hospital stay will require greater than 2 midnights for management of severe pancytopenia with need for transfusion of blood products including PRBCs and platelets, close monitoring of hemodynamic status. Time Spent in Patient Care: Greater than 35 minutes (>than 50% of time spent in counselling and/or direct pt care on unit) . Coding Level of Care Code Acute Final Inspection Supervisor for Chg Fwd Exam Comprehensive Diagnoses Pancytopenia D61.818 MDS (myelodysplastic syndrome) D46.9 Non-traumatic compression fracture of L3 lumbar vertebra M48.56XS Encounter type: sequela Thrombocytopenia D69.6 Peptic ulcer disease K27.9 Chronic kidney disease, stage II (mild) N18.2 Glucose intolerance E74.39 Arthritis M19.90 MUNA (generalized anxiety disorder) F41.1
[2020-02-13 16:07] LABS: Blood Urine Trace (Negative); Glucose Urine UA Norm (Normal); Ketones Urine Negative (Negative); Protein Urine 1+ (Negative); Urine Color Yellow (Yellow); pH Urine 5 (5-7)
[2020-02-13 16:08] LABS: Add Urine Microscopic? YES; Bilirubin Urine Neg (NEGATIVE); Leukocyte Esterase Urine Negative (Negative); Nitrate Urine Negative (Negative); Urobilinogen Urine Neg (Negative)
[2020-02-13 16:09] LABS: Add Urine Culture? Yes; Amorphous Sediment Urine 1+; Bacteria Urine 1+; Calcium Oxalate Crystals Urine 0-4 /hpf; Mucus Urine 1+; RBC Urine 0-4 /hpf (0-2)
[2020-02-13] MEDS: scopolamine 1.5 Patch 1 PATCH TRANSDERMA (18:42)
[2020-02-13] MEDS: promethazine 25 mg Tablet 12.5 MG PO (19:39)
[2020-02-13] MEDS: metoclopramide 5 mg/mL SDV 2 mL 10 MG IVP (20:16)
[2020-02-13 20:28] LABS: Hematocrit 33.7 % (37.0-47.0); Hemoglobin 11.6 g/dL (11.5-15.3); Lymphocytes # 0.7 10^3/uL (0.8-4.8); Lymphocytes % 87.8 %; Mean Corpuscular HGB Conc 34.4 g/dL (30.0-36.0); Mean Corpuscular Hemoglobin 29.4 pg (28.0-34.0); Mean Corpuscular Volume 85.5 fL (81-99); Mean Platelet Volume 13.6 fL (7.4-10.4); Monocytes % 1.2 %; Nucleated Red Blood Cells % 0 %; Red Blood Count 3.94 10^6/uL (4.1-5.3); Red Cell Distribution Width 12.6 % (12.1-15.1)
[2020-02-13 20:52] LABS: Neutrophils # 0.1 10^3/uL (1.8-7.7); Platelet Count 7 10^3/cmm (130-400)
[2020-02-13 20:53] LABS: White Blood Count 0.8 10^3/uL (4.0-10.0)
--- NOTE | 2020-02-13 20:54 | PC.NURSE ---
critical WBC, PLT, neutro values not reported d/t trending up.
[2020-02-14] VITALS (185 sets, daily range): BP systolic 113–164; BP diastolic 51–118; PULSE 39–85; RESP 9–28; TEMP 35.9–36.7; O2SAT 89–97
[2020-02-14 04:45] LABS: Eosinophils % 1.4 %; Hematocrit 33.2 % (37.0-47.0); Hemoglobin 11.3 g/dL (11.5-15.3); Lymphocytes # 0.6 10^3/uL (0.8-4.8); Lymphocytes % 88.6 %; Mean Corpuscular Volume 85.1 fL (81-99); Monocytes % 1.4 %; Neutrophils % 7.2 %; Nucleated Red Blood Cells % 0 %; Red Cell Distribution Width 12.5 % (12.1-15.1)
[2020-02-14 05:03] LABS: Anion Gap 15.1 (5-19); Blood Urea Nitrogen 24 mg/dL (8-23); Calcium 9.7 mg/dL (8.5-10.5); Carbon Dioxide 26 mmol/L (22-29); Chloride 104 mmol/L (98-107); Glucose 122 mg/dL (65-115); Osmolality Calculated 290 mOsm/kg (285-295); Potassium 4.1 mmol/L (3.5-5.1); Sodium 141 mmol/L (136-145)
[2020-02-14 05:16] LABS: Estmated Average Glucose 203; Hemoglobin A1C 8.7 % (4.0-6.0)
[2020-02-14 06:10] LABS: Neutrophils # 0.1 10^3/uL (1.8-7.7)
[2020-02-14 06:11] LABS: Platelet Count 1 10^3/cmm (130-400); White Blood Count 0.7 10^3/uL (4.0-10.0)
[2020-02-14 06:12] LABS: Slide Review Slide Review Perform
--- NOTE | 2020-02-14 06:13 | PC.NURSE ---
critical wbc, anc and plt reported to [facility] via [facility].
--- NOTE | 2020-02-14 08:40 | PM.PN ---
Subjective Subjective: Interval history: Bradycardic, afebrile, normotensive, had 200 mL urine output overnight. AM labs show improved Hg, stable platelet count and neutropenia. Nausea resolved with addition of Reglan. Will transfuse an additional 2 bags of platelets. Over the course of the day, she has developed persistent bradycardia, confirmed on ECG. Medications: Reviewed: Yes Medication Review Details: Active Medications Generic Name Dose Route Start Last Admin Trade Name Freq PRN Reason Stop Dose Admin Acetaminophen 650 mg 02/13/20 16:22 Tylenol PO Q6H PRN MILD PAIN OR INCR EASE TEMP Acyclovir 400 mg 02/13/20 18:00 02/13/20 19:21 Zovirax PO Not Given BID [facility] Calcitonin [place] 1 spray 02/14/20 09:00 Miacalcin NASAL DAILY [facility] Cefdinir 300 mg 02/13/20 18:00 02/13/20 19:21 Omnicef PO Not Given BID [facility] Protocol Docusate Sodium 100 mg 02/13/20 16:22 Colace PO BID PRN CONSTIPATION Filgrastim 300 mcg 02/14/20 09:00 Neupogen SUBCUT Q24H [facility] Fluconazole 200 mg 02/14/20 09:00 Diflucan Tab PO DAILY [facility] Methylprednisolone Sodium 258 mls @ 258 mls /hr 02/14/20 08:39 Succinate 1,000 mg / Sodium IV 02/14/20 09:38 Chloride ONCE ONE Lorazepam 0.5 mg 02/13/20 16:22 Ativan PO Q4H PRN Anxiety Meclizine HCl 12.5 mg 02/13/20 16:29 Antivert PO Q6H PRN dizziness Metoclopramide HCl 10 mg 02/13/20 20:00 02/13/20 20:16 Reglan IVP 10 mg Q6H PRN Administration NAUSEA AND VOMITI NG Multivitamins Ther apeutic 1 tab 02/14/20 09:00 Multivitamin Tab PO DAILY [facility] Non-Formulary Medi cation 150 mg 02/14/20 09:00 Eltrombopag [Pro macta] PO DAILY [facility] Ondansetron HCl 4 mg 02/13/20 16:22 02/13/20 17:53 Zofran IVP 4 mg Q6H PRN Administration NAUSEA AND VOMITI NG Pantoprazole Sodiu m 40 mg 02/14/20 09:00 Protonix PO DAILY KEVEN Promethazine HCl 12.5 mg 02/13/20 19:16 02/13/20 19:39 Phenergan PO 12.5 mg Q6H PRN Administration NAUSEA AND VOMITI NG amoxicillin Allergy (Verified 01/04/20 15:13) ADR-Itching fluticasone [From Flonase] Allergy (Verified 01/04/20 15:13) ALGY-Hives ibuprofen [From Motrin] Allergy (Verified 01/04/20 15:13) ADR-Agitated levofloxacin [From Levaquin] Allergy (Verified 01/04/20 15:13) ALGY-Anaphylaxis Penicillins Allergy (Verified 01/04/20 15:13) ALGY-Rash propoxyphene [From Darvon] Allergy (Verified 01/04/20 15:13) ADR-Agitated Vitals/I&O/Wt Last Vital Signs Temp 98.0 F 02/14/20 04:10 Pulse 54 L 02/14/20 06:05 Resp 17 02/14/20 06:05 BP 119/51 02/14/20 06:05 Pulse Ox 96 02/14/20 06:05 02/13/20 02/14/20 02/14/20 22:59 06:59 14:59 Intake Total 500 / 500 Output Total 700 / 700 Balance 500 / 500 -700 / -200 Weight last 48 hrs Weight 69.989 kg Weight 65.771 kg Physical Exam Const: COMMON NORMALS: no acute distress, patient oriented x3 and alert GENERAL APPEARANCE: cooperative, comfortable and frail appearing NUTRITIONAL APPEARANCE: overweight ORIENTATION/CONSCIOUSNESS: Yes awake OTHER: -appears younger than stated age HENMT: COMMON NORMALS: normocephalic, atraumatic, hearing grossly normal bilaterally and moist oral mucous membranes HEAD & SCALP: normocephalic and atraumatic TEETH & GINGIVA: Yes poor dentition Eye: COMMON NORMALS: Equal, round and reactive pupils present, EOMs intact bilaterally and conjunctivae normal CONJUNCTIVA: Yes conjunctivae normal PUPIL: Yes Equal, round and reactive pupils present Neck/C-Spine: COMMON NORMALS: full ROM GENERAL: Yes normal visual inspection and Yes trachea midline Chest: CHEST: Yes Symmetrical chest wall rise Resp: COMMON NORMALS: normal respiratory effort, No retractions, No use of accessory muscles and clear to auscultation bilaterally EFFORT & INSPECTION: Yes able to speak in complete sentences, Yes symmetric chest movement and No tachypneic AUSCULTATION: clear to auscultation bilaterally OTHER: -on 2 L NC Cardio: COMMON NORMALS: regular rate, regular rhythm, S1 normal heart sound present, S2 normal heart sound present and No murmurs present (Cardio) RATE: regular rate RHYTHM: regular rhythm HEART SOUNDS: S1 normal heart sound present and S2 normal heart sound present GI: COMMON NORMALS: Normal to inspection, nondistended, normoactive bowel sounds present, Soft to palpation and non-tender INSPECTION: Yes central obesity PALPATION: Yes Soft to palpation : BLADDER/KIDNEY EXAM: Yes catheter in place Catheter type (Female): urethral Extremity: COMMON NORMALS: normal to inspection, full ROM, no clubbing, cyanosis or edema and no pedal edema Neuro: COMMON NORMALS: patient oriented x3, moves all extremities, no focal motor deficits and no sensory deficits noted SENSORIUM/ORIENTATION: Yes alert Psych: COMMON NORMALS: mental status grossly normal, Normal thought process present, cooperative, normal affect and speech normal SPEECH: Yes normal speech THOUGHT PROCESS: Normal thought process present Skin: COMMON NORMALS: no rashes or lesions noted, no jaundice, no petechiae and no mottling GENERAL SKIN EXAM: no rashes or lesions noted Urinary Catheter Management^: 2-way Urethral: Cath Placed During This Visit: yes Reason for Continuing Indwelling Catheter: Accurate Measurement of Urinary Output in Critically Ill Patients Urinary Catheter Date of Insertion: 02/13/20 Urinary Catheter Time of Insertion: 18:21 Data : 02/14/20 03:59 02/14/20 03:59 Micro: Microbiology 02/13/20 12:07 Blood Culture - Preliminary Blood SPECIMEN COLLECTED 02/13/20 12:00 Blood Culture - Preliminary Blood SPECIMEN COLLECTED A&P Assessment and plan (1) Pancytopenia: -significant pancytopenia that has been ongoing for some time now. Has been following up with Dr. De La Cruz with weekly CBC and recently, requiring transfusion of blood products, last given on 02/05 -noted neutropenia, anemia, severe thrombocytopenia and seems to be becoming more symptomatic with increased fatigue -on reverse isolation precautions due to neutropenia, ANC-100. On Neupogen -s/p 2 bags of platelets and 2 units of PRBCs; serial CBC. Will transfuse and additional 2 bags of platelets and give 1000 mg dose of IV steroids. -continue to monitor closely for bleeding, none so far though has been noted to have epistaxis in the past -avoid instrumentation and pokes due to susceptibility to bleeding -Reportedly did not benefit from steroids in the past but will give dose x 1 and monitor response -Close monitoring of vital signs -continue prophylactic doses of anti-infective agents-Acyclovir, Cefdinir, Fluconazole; seems to have had some kind of reaction to Bactrim during her last hospitalization Status: Acute (2) MDS (myelodysplastic syndrome): -has been following up at [facility] and with Dr. De La Cruz -now seems to have developed aplastic anemia with persistent pancytopenia and need for frequent transfusions -had repeat bone marrow biopsy done in 08/2019 showing extremely hypocellular marrow space with rare lymphocytes and histiocytes, markedly increased storage of iron, extremely rare erythroid and myeloid precursors. Conclusion was that this was possibly indicative of aplastic anemia. Status: Chronic (3) Non-traumatic compression fracture of L3 lumbar vertebra: -noted to have L3 compression fracture on x-ray on 02/05 now with noted 20% compression fracture of L3 with chronic multilevel DJD -Also noted to have mild compression deformities of T9 and T12, DJD involving L4-L5, L5-S1 on thoracic spine x-ray done on 02/05 -Had a fall at home while trying to get from the bathroom to the bedroom when she essentially lost her balance and slid down to the floor landing on her bottom and was unable to get up on her own. 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 It seems that she did not respond favorably to steroid treatment either -Baseline platelet count earlier this year was 60 and has steadily been dropping Status: Chronic (5) Peptic ulcer disease: -PPI Status: Chronic (6) Chronic kidney disease, stage II (mild): -baseline Cr is around 1.2-1.5 -renal function at baseline -renally dose meds, avoid nephrotoxins Status: Acute (7) Glucose intolerance: -has been on metformin, hold this -would avoid accuchecks due to frequency of sticks and likelihood of prolonged bleeding -hx of NIDDM type II -A1c-8.3 Status: Chronic (8) Arthritis: Status: Chronic (9) MUNA (generalized anxiety disorder): -Anxiolytics as needed Status: Chronic Additional A&P Information -Nausea and vomiting; had an episode of NBNB emesis during transition from ED to ICU; seems more like motion sickness but nausea persists so we will continue antiemetics as needed and order scopolamine patch -Full liquid diet as tolerated -May need Valle catheter placement though needs to be done with extreme caution to prevent trauma -Multilevel DJD, osteoporosis -GI ppx with PPI -DVT ppx with SCDs, no AC due to severe pancytopenia -ICU admission due to severe pancytopenia and low threshold for decompensation Attestations Medical Necessity Statement*: Patient requires hospitalization for continued management of pancytopenia, requiring serial CBCs and transfusion of additional blood products. Time Spent in Patient Care: 16 - 35 minutes (>than 50% of time spent in counselling and/or direct pt care on unit). Coding Level of Care Code Acute Guest Relations Receptionist for Chg Fwd Exam Comprehensive Diagnoses Pancytopenia D61.818 MDS (myelodysplastic syndrome) D46.9 Non-traumatic compression fracture of L3 lumbar vertebra M48.56XS Encounter type: sequela Thrombocytopenia D69.6 Peptic ulcer disease K27.9 Chronic kidney disease, stage II (mild) N18.2 Glucose intolerance E74.39 Arthritis M19.90 MUNA (generalized anxiety disorder) F41.1
[2020-02-14] MEDS: acyclovir 400 mg Tablet PO ×2 (09:09→17:47)
[2020-02-14] MEDS: cefdinir 300 MG CAPSULE PO ×2 (09:10→17:47)
[2020-02-14] MEDS: pantoprazole DR 40 mg Tablet PO (09:10)
[2020-02-14] MEDS: multivitamin therapeutic Tablet 1 TAB PO (09:10)
[2020-02-14] MEDS: fluconazole 100 mg Tablet 200 MG PO (09:10)
[2020-02-14] MEDS: calcitonin nasal 200 unit/spray 3.7 mL Btl 1 SPRAY NASAL (09:32)
[2020-02-14] MEDS: LORazepam 0.5 mg Tablet PO ×2 (15:02→20:41)
[2020-02-14] MEDS: acetaminophen 325 mg Tablet 650 MG PO (15:06)
--- NOTE | 2020-02-14 16:26 | ECG_ITS ---
[facility] Test Date: 2020-02-14 Pat Name: Azul Mg Department: Room: ICU03 Gender: Female Chief Embalmer: : 1935 Requested By: Meagan Huynh Order Number: [id number] Wesley MD: Mario Garcia M.D. Measurements Intervals [place] Rate: 47 P: 7 [place]: 151 QRS: -23 QRSD: 104 T: -3 QT: 460 QTc: 407 Interpretive Statements SINUS BRADYCARDIA BORDERLINE LEFT AXIS DEVIATION [QRS AXIS < -20] MINIMAL VOLTAGE CRITERIA FOR LVH, CONSIDER NORMAL VARIANT [MEETS CRITERIA IN ONE OF: R(aVL), S(V1), R(V5), R(V5/V6)+S(V1)] Compared to ECG 02/13/2020 12:21:52 Sinus rhythm no longer present T-wave abnormality no longer present Electronically Signed On 02-15-2020 0:10:58 CDT by Mario Garcia M.D. [id number]
[2020-02-15] VITALS (146 sets, daily range): BP systolic 117–178; BP diastolic 56–116; PULSE 35–120; RESP 9–25; TEMP 36.1–36.6; O2SAT 74–97
[2020-02-15] MEDS: LORazepam 0.5 mg Tablet PO ×2 (02:04→18:59)
[2020-02-15 05:00] LABS: Hematocrit 31.4 % (37.0-47.0); Hemoglobin 10.7 g/dL (11.5-15.3); Mean Corpuscular HGB Conc 34.1 g/dL (30.0-36.0); Mean Corpuscular Hemoglobin 29.6 pg (28.0-34.0); Mean Platelet Volume 10.2 fL (7.4-10.4); Platelet Count 138 10^3/cmm (130-400); Red Blood Count 3.61 10^6/uL (4.1-5.3); Red Cell Distribution Width 12.7 % (12.1-15.1)
[2020-02-15] MEDS: OLANZapine 10 mg VIAL 5 MG IM (05:25)
[2020-02-15 07:18] LABS: Absolute Segmented Neutrophil 0.1 10/cmm (1.6-7.1); Lymphocytes 62 %; Segmented Neutrophils 32 %; Total Cells Counted 50 (0-100)
[2020-02-15 07:19] LABS: Platelet Estimate Decreased (Normal)
[2020-02-15 07:20] LABS: Absolute Neutrophil 0.1 10^3/cmm (1.4-6.5); White Blood Count 0.4 10^3/uL (4.0-10.0)
[2020-02-15 08:18] LABS: Hematocrit 32.9 % (37.0-47.0); Hemoglobin 10.9 g/dL (11.5-15.3); Mean Corpuscular HGB Conc 33.1 g/dL (30.0-36.0); Mean Corpuscular Hemoglobin 29.2 pg (28.0-34.0); Mean Corpuscular Volume 88.2 fL (81-99); Platelet Count 142 10^3/cmm (130-400); Red Blood Count 3.73 10^6/uL (4.1-5.3); Red Cell Distribution Width 12.9 % (12.1-15.1)
[2020-02-15] MEDS: cefdinir 300 MG CAPSULE PO ×2 (08:23→18:41)
[2020-02-15] MEDS: calcitonin nasal 200 unit/spray 3.7 mL Btl 1 SPRAY NASAL (08:23)
[2020-02-15] MEDS: fluconazole 100 mg Tablet 200 MG PO (08:23)
[2020-02-15] MEDS: multivitamin therapeutic Tablet 1 TAB PO (08:24)
[2020-02-15] MEDS: pantoprazole DR 40 mg Tablet PO (08:24)
[2020-02-15] MEDS: acyclovir 400 mg Tablet PO ×2 (08:24→18:59)
[2020-02-15 08:53] LABS: Absolute Segmented Neutrophil 0.1 10/cmm (1.6-7.1); Lymphocytes 66 %; Segmented Neutrophils 28 %; Total Cells Counted 50 (0-100)
[2020-02-15 08:54] LABS: Absolute Neutrophil 0.2 10^3/cmm (1.4-6.5); Platelet Estimate Normal (Normal)
[2020-02-15 08:55] LABS: White Blood Count 0.5 10^3/uL (4.0-10.0)
--- NOTE | 2020-02-15 09:50 | ECG_ITS ---
[facility] Test Date: 2020-02-15 Pat Name: Azul Mg Department: Room: ICU03 Gender: Female Shingler: : 1935 Requested By: Meagan Huynh Order Number: [id number] Wesley MD: Emeli Pro M.D. Measurements Intervals [place] Rate: 38 P: 12 [place]: 145 QRS: -24 QRSD: 102 T: -14 QT: 475 QTc: 381 Interpretive Statements SINUS BRADYCARDIA BORDERLINE LEFT AXIS DEVIATION VOLTAGE CRITERIA FOR LVH Nonspecific T wave abnormality Compared to ECG 02/14/2020 16:32:24 No significant changes Electronically Signed On 02-15-2020 17:08:18 CDT by Emeli Pro M.D. [id number]
--- NOTE | 2020-02-15 09:50 | P.PN_ITS ---
Subjective Subjective: Interval history: Reportedly was quite confused and agitated overnight and was given a 5 mg dose of Zyprexa IM. Continues to be confused this morning, sitter requested, noted bradycardia with heart rate in the 40-50 range. Afebrile, normotensive, on 2 L nasal cannula. Noted stable hemoglobin, platelet count significantly improved and now normalized in the 140s, improved renal function. Persistent neutropenia with ANC of 200, continue reverse isolation precautions. Had 750 mL urine output overnight. Medications: Reviewed: Yes Medication Review Details: Active Medications Generic Name Dose Route Start Last Admin Trade Name Freq PRN Reason Stop Dose Admin Acetaminophen 650 mg 02/13/20 16:22 02/14/20 15:06 Tylenol PO 650 mg Q6H PRN Administration MILD PAIN OR INCR EASE TEMP Acyclovir 400 mg 02/13/20 18:00 02/15/20 08:24 Zovirax PO 400 mg BID KEVEN Administration Calcitonin [place] 1 spray 02/14/20 09:00 02/15/20 08:23 Miacalcin [place] 1 puff DAILY KEVEN Administration Cefdinir 300 mg 02/13/20 18:00 02/15/20 08:23 Omnicef PO 300 mg BID KEVEN Administration Protocol Docusate Sodium 100 mg 02/13/20 16:22 Colace PO BID PRN CONSTIPATION Filgrastim 300 mcg 02/14/20 09:00 02/15/20 08:28 Neupogen SUBCUT 300 mcg Q24H KEVEN Administration Fluconazole 200 mg 02/14/20 09:00 02/15/20 08:23 Diflucan Tab PO 200 mg DAILY KEVEN Administration Lorazepam 0.5 mg 02/13/20 16:22 02/15/20 02:04 Ativan PO 0.5 mg Q4H PRN Administration Anxiety Meclizine HCl 12.5 mg 02/13/20 16:29 Antivert PO Q6H PRN dizziness Multivitamins Ther apeutic 1 tab 02/14/20 09:00 02/15/20 08:24 Multivitamin Tab PO 1 tab DAILY KEVEN Administration Non-Formulary Medi cation 150 mg 02/14/20 09:00 02/14/20 15:23 Eltrombopag [Pro macta] PO Not Given DAILY KEVEN Ondansetron HCl 4 mg 02/13/20 16:22 02/13/20 17:53 Zofran IVP 4 mg Q6H PRN Administration NAUSEA AND VOMITI NG Pantoprazole Sodiu m 40 mg 02/14/20 09:00 02/15/20 08:24 Protonix PO 40 mg DAILY KEVEN Administration amoxicillin Allergy (Verified 01/04/20 15:13) ADR-Itching fluticasone [From Flonase] Allergy (Verified 01/04/20 15:13) ALGY-Hives ibuprofen [From Motrin] Allergy (Verified 01/04/20 15:13) ADR-Agitated levofloxacin [From Levaquin] Allergy (Verified 01/04/20 15:13) ALGY-Anaphylaxis Penicillins Allergy (Verified 01/04/20 15:13) ALGY-Rash propoxyphene [From Darvon] Allergy (Verified 01/04/20 15:13) ADR-Agitated Vitals/I&O/Wt Last Vital Signs Temp 97.3 F L 02/15/20 05:00 Pulse 42 L 02/15/20 09:25 Resp 24 H 02/15/20 09:25 BP 124/76 02/15/20 09:25 Pulse Ox 96 02/15/20 09:25 02/14/20 02/15/20 02/15/20 22:59 06:59 14:59 Intake Total 1071 / 1307 240 / 1547 Output Total 125 / 775 750 / 1525 Balance 946 / 532 -510 / 22 Weight last 48 hrs Weight 70.76 kg Weight 69.989 kg Weight 65.771 kg Physical Exam Const: COMMON NORMALS: no acute distress and alert GENERAL APPEARANCE: cooperative, comfortable and frail appearing; not ill appearing NUTRITIONAL APPEARANCE: overweight ORIENTATION/CONSCIOUSNESS: Yes awake and Yes confused OTHER: -appears younger than stated age HENMT: COMMON NORMALS: normocephalic, atraumatic, hearing grossly normal bilaterally and moist oral mucous membranes HEAD & SCALP: normocephalic and atraumatic TEETH & GINGIVA: Yes poor dentition Eye: COMMON NORMALS: Equal, round and reactive pupils present, EOMs intact bilaterally and conjunctivae normal CONJUNCTIVA: Yes conjunctivae normal PUPIL: Yes Equal, round and reactive pupils present Neck/C-Spine: COMMON NORMALS: full ROM GENERAL: Yes normal visual inspection and Yes trachea midline Chest: CHEST: Yes Symmetrical chest wall rise Resp: COMMON NORMALS: normal respiratory effort, No retractions, No use of accessory muscles and clear to auscultation bilaterally EFFORT & INSPECTION: Yes able to speak in complete sentences, Yes symmetric chest movement and No tachypneic AUSCULTATION: clear to auscultation bilaterally OTHER: -on 2 L NC Cardio: COMMON NORMALS: regular rate, regular rhythm, S1 normal heart sound present, S2 normal heart sound present and No murmurs present (Cardio) RATE: regular rate RHYTHM: regular rhythm HEART SOUNDS: S1 normal heart sound present and S2 normal heart sound present GI: COMMON NORMALS: Normal to inspection, nondistended, normoactive bowel sounds present, Soft to palpation and non-tender INSPECTION: Yes central obesity PALPATION: Yes Soft to palpation : BLADDER/KIDNEY EXAM: Yes catheter in place Catheter type (Female): uret hral Extremity: COMMON NORMALS: normal to inspection, full ROM, no clubbing, cyanosis or edema and no pedal edema Neuro: COMMON NORMALS: moves all extremities, no focal motor deficits and no s ensory deficits noted SENSORIUM/ORIENTATION: Yes alert Psych: COMMON NORMALS: cooperative, normal affect and speech normal ATTITUDE: Yes calm SPEECH: Yes normal speech THOUGHT PROCESS: confused INSIGHT: Limited insight present (Psych) JUDGEMENT: Limited judgement present (Psych) Skin: COMMON NORMALS: no rashes or lesions noted, no jaundice, no petechiae an d no mottling GENERAL SKIN EXAM: no rashes or lesions noted Urinary Catheter Management^: 2-way Urethral: Cath Placed During This Visit: yes Reason for Continuing Indwelling Catheter: Accurate Measurement of Urinary Output in Critically Ill Patients Urinary Catheter Date of Insertion: 02/13/20 Urinary Catheter Time of Insertion: 18:21 Data : 02/15/20 08:03 02/14/20 03:59 Micro: Microbiology 02/13/20 12:07 Blood Culture - Preliminary Blood NEGATIVE TO DATE 02/13/20 12:00 Blood Culture - Preliminary Blood NEGATIVE TO DATE A&P Assessment and plan (1) Altered mental status: -noted confusion and agitation overnight, received dose of Zyprexa -1:1 sitter requested due to high fall risk -did receive steroids yesterday which could be playing a role in her change of mental status. Has also been in the ICU for 48 hrs which could be causing some delirium so will transfer to floor with sitter and monitor response -would avoid medication at this point unless significantly agitated. -strict fall precautions, assistance with all out of bed activity -no overt signs of infection though low threshold as she is immunocompromised -blood cx: prelim negative -urine cx pending -if persistent, may need CT head done Status: Acute Qualifiers: Altered mental status type: disorientation Qualified Code(s): R41.0 - Disorientation, unspecified (2) Pancytopenia: -significant pancytopenia that has been ongoing for some time now. Has been following up with Dr. De La Cruz with weekly CBC and recently, requiring transfusion of blood products, last given on 02/05 -noted neutropenia, anemia, severe thrombocytopenia and seems to be becoming more symptomatic with increased fatigue -on reverse isolation precautions due to neutropenia, ANC-200. On Neupogen -s/p 4 bags of platelets and 2 units of PRBCs; serial CBC. Got 1000 mg dose of IV steroids x 1 with significant improvement in platelet count (1->142). -continue to monitor closely for bleeding, none so far though has been noted to have epistaxis in the past -avoid instrumentation and pokes due to susceptibility to bleeding -Reportedly did not benefit from steroids in the past but noted improvement in thrombocytopenia following 1 dose -Close monitoring of vital signs -continue prophylactic doses of anti-infective agents-Acyclovir, Cefdinir, Fluconazole; seems to have had some kind of reaction to Bactrim during her last hospitalization Status: Acute (3) MDS (myelodysplastic syndrome): -has been following up at [facility] and with Dr. De La Cruz -now seems to have developed aplastic anemia with persistent pancytopenia and need for frequent transfusions -had repeat bone marrow biopsy done in 08/2019 showing extremely hypocellular marrow space with rare lymphocytes and histiocytes, markedly increased storage of iron, extremely rare erythroid and myeloid precursors. Conclusion was that this was possibly indicative of aplastic anemia. Status: Chronic (4) Non-traumatic compression fracture of L3 lumbar vertebra: -noted to have L3 compression fracture on x-ray on 02/05 now with noted 20% compression fracture of L3 with chronic multilevel DJD -Also noted to have mild compression deformities of T9 and T12, DJD involving L4-L5, L5-S1 on thoracic spine x-ray done on 02/05 -Had a fall at home while trying to get from the bathroom to the bedroom when she essentially lost her balance and slid down to the floor landing on her bottom and was unable to get up on her own. 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 It seems that she did not respond favorably to steroid treatment either though significant improvement following 1 dose -Baseline platelet count earlier this year was 60 and has steadily been dropping Status: Chronic (6) Peptic ulcer disease: -PPI Status: Chronic (7) Chronic kidney disease, stage II (mild): -baseline Cr is around 1.2-1.5 -renal function at baseline -renally dose meds, avoid nephrotoxins Status: Chronic (8) Glucose intolerance: -has been on metformin, hold this -with improved platelet count, order accuchecks; monitor for bleeding. Add ISS, hypoglycemia precautions -hx of NIDDM type II -A1c-8.3 -advance to consistent carb diet Status: Chronic (9) Arthritis: Status: Chronic (10) MUNA (generalized anxiety disorder): -Anxiolytics as needed Status: Chronic Additional A&P Information -Nausea and vomiting; had an episode of NBNB emesis during transition from ED to ICU; seems more like motion sickness but nausea persists so we will continue antiemetics as needed and order scopolamine patch -Full liquid diet as tolerated; advance to consistent carb diet -has Valle catheter in place; no hematuria -Multilevel DJD, osteoporosis -GI ppx with PPI -DVT ppx with SCDs, no AC due to severe pancytopenia -transfer to floor for continued care Attestations Medical Necessity Statement*: Patient requires hospitalization for continued management of pancytopenia with persistent neutropenia, noted change in mental status overnight requiring one-on-one monitoring. Time Spent in Patient Care: 16 - 35 minutes (>than 50% of time spent in counselling and/or direct pt care on unit) . Coding Level of Care Code Acute Foundry Operator for Chalo Merritt Diagnoses Altered mental status R41.0 Altered mental status type: disorientation Pancytopenia D61.818 MDS (myelodysplastic syndrome) D46.9 Non-traumatic compression fracture of L3 lumbar vertebra M48.56XS Encounter type: sequela Thrombocytopenia D69.6 Peptic ulcer disease K27.9 Chronic kidney disease, stage II (mild) N18.2 Glucose intolerance E74.39 Arthritis M19.90 MUNA (generalized anxiety disorder) F41.1
[2020-02-15 10:46] LABS: Glucose Point of Care 236 mg/dL (70-110)
--- NOTE | 2020-02-15 12:54 | PC.NURSE ---
Pt transferred to floor via wheelchair with sitter and RN. All belongings sent with patient.
[2020-02-15 12:55] LABS: Hemoglobin 10.6 g/dL (11.5-15.3); Lymphocytes # 0.3 10^3/uL (0.8-4.8); Lymphocytes % 74.3 %; Mean Corpuscular HGB Conc 33.1 g/dL (30.0-36.0); Mean Corpuscular Hemoglobin 29.1 pg (28.0-34.0); Mean Corpuscular Volume 87.9 fL (81-99); Mean Platelet Volume 10.1 fL (7.4-10.4); Monocytes % 2.9 %; Neutrophils % 22.8 %; Nucleated Red Blood Cells % 0 %; Platelet Count 128 10^3/cmm (130-400); Red Blood Count 3.64 10^6/uL (4.1-5.3)
[2020-02-15 13:05] LABS: Neutrophils # 0.1 10^3/uL (1.8-7.7); White Blood Count 0.4 10^3/uL (4.0-10.0)
[2020-02-15 13:55] LABS: Glucose Point of Care 269 mg/dL (70-110)
[2020-02-15 16:59] LABS: Glucose Point of Care 232 mg/dL (70-110)
[2020-02-15 21:33] LABS: Glucose Point of Care 315 mg/dL (70-110)
[2020-02-16] MEDS: LORazepam 0.5 mg Tablet PO (00:08)
[2020-02-16] MEDS: acetaminophen 325 mg Tablet 650 MG PO (00:08)
[2020-02-16 04:00] VITALS: BP 152/60; PULSE 40; RESP 20; TEMP 36.6; O2SAT 92
[2020-02-16 05:48] LABS: Hematocrit 32.3 % (37.0-47.0); Hemoglobin 10.7 g/dL (11.5-15.3); Mean Corpuscular HGB Conc 33.1 g/dL (30.0-36.0); Mean Corpuscular Hemoglobin 29.2 pg (28.0-34.0); Platelet Count 101 10^3/cmm (130-400); Positive C 1; Positive M 1; Red Blood Count 3.67 10^6/uL (4.1-5.3)
[2020-02-16 06:09] LABS: Glucose Point of Care 187 mg/dL (70-110)
--- NOTE | 2020-02-16 07:00 | USCV_ITS ---
Azul Mg Age: 84 Gender: F : 1935 Exam Date: 02/16/2020 05:52 Ordering Phys: Meagan Huynh MD Technologist: Chon Herrera Exam Location: [facility] [place] Indication: BRADYCARDIA BP: 138 / 72 HR: 36 Rhythm: Sinus Technical Quality: Adequate MEASUREMENTS (Male / Female) Normal Values 2D ECHO LV Diastolic Diameter PLAX 3.9 cm 4.2 - 5.9 / 3.9 - 5.3 cm LV Systolic Diameter PLAX 2.5 cm IVS Diastolic Thickness 1.0 cm 0.6 - 1.0 / 0.6 - 0.9 cm IVS Systolic Thickness 1.2 cm LVPW Diastolic Thickness 1.1 cm 0.6 - 1.0 / 0.6 - 0.9 cm LVPW Systolic Thickness 1.1 cm LVOT Diameter 2.0 cm LV Ejection Fraction 2D Teich 65.9 % LA Diameter 4.1 cm LA Width 3.2 cm LA Height 3.8 cm RA Width 3.5 cm RA Height 3.4 cm Aorta at Sinotubular Diameter 2.2 cm M-MODE LV Diastolic Diameter MM 5.2 cm 4.2 - 5.9 / 3.9 - 5.3 cm LV Systolic Diameter MM 3.5 cm LV Ejection Fraction MM Teich 61.4 % IVS Diastolic Thickness MM 1.0 cm 0.6 - 1.0 / 0.6 - 0.9 cm IVS Systolic Thickness MM 1.2 cm LVPW Diastolic Thickness MM 1.2 cm 0.6 - 1.0 / 0.6 - 0.9 cm LVPW Systolic Thickness MM 1.6 cm RV Diastolic Diameter MM 1.5 cm Aortic Annulus Diameter 3.1 cm LA Ao Ratio MM 1.3 MV E Point Septal Separation 0.9 cm DOPPLER AV Peak Velocity 134.0 cm/s LVOT Peak Velocity 81.0 cm/s AV Area Cont Eq vti 2.1 cm squared AV Area Cont Eq pk 1.9 cm squared MV Area PHT 2.4 cm squared Mitral E to A Ratio 2.0 MV E' Velocity 14.0 cm/s Mitral E to MV E' Ratio 9.2 Mitral E to LV E' Lateral Ratio 7.1 Mitral E to LV E' Septal Ratio 13.3 TR Peak Velocity 268.0 cm/s TR Peak Gradient 28.7 mmHg TV Peak E Velocity 98.0 cm/s Right Atrial Pressure 3.0 mmHg Pulmonary Artery Systolic Pressu 31.7 mmHg PV Peak Velocity 90.0 cm/s FINDINGS Left Ventricle Normal left ventricular cavity size. Normal left ventricular systolic function. No regional wall motion abnormalities. Left ventricular ejection fraction is estimated at 61 %. Grade II/IV diastolic dysfunction, moderately elevated filling pressures. Right Ventricle The right ventricle is normal in size and function. Right Atrium The right atrium is normal in size. Left Atrium Moderately increased left atrial size. Mitral Valve Moderately thickened mitral valve. No mitral valve stenosis. Moderate mitral annular calcification. Moderate mitral valve regurgitation. Aortic Valve Structurally normal aortic valve without significant sclerosis or stenosis. There is no aortic regurgitation. Tricuspid Valve Moderate tricuspid valve regurgitation. Pulmonic Valve Structurally normal pulmonic valve without significant stenosis. There is no pulmonic regurgitation. Pericardium Normal pericardium without effusion. Aorta Normal ascending aorta dimension. CONCLUSIONS 1-Normal left ventricular cavity size. Normal left ventricular systolic function. No regional wall motion abnormalities. Left ventricular ejection fraction is estimated at 61 %. Grade II/IV diastolic dysfunction, moderately elevated filling pressures. 2-Moderately thickened mitral valve. No mitral valve stenosis. Moderate mitral annular calcification. Moderate mitral valve regurgitation. 3-Structurally normal aortic valve without significant sclerosis or stenosis. There is no aortic regurgitation. 4-Moderate tricuspid valve regurgitation. 5-Moderately increased left atrial size. 6-There is no pericardial effusion. 7-Right atrial pressure is around 5 mm of mercury. 8-There are no prior echocardiogram studies to compare. Ni Mckenna MD (Electronically Signed) Final Date: 16 February 2020 20:43 S
[2020-02-16 07:31] LABS: Lymphocytes 88 %; Lymphocytes Absolute 0.4 10^3/cmm (1.2-3.4); Platelet Estimate Decreased (Normal); Segmented Neutrophils 8 %; Total Cells Counted 25 (0-100); White Blood Count 0.5 10^3/uL (4.0-10.0)
[2020-02-16 08:00] VITALS: BP 152/67; PULSE 37; RESP 12; TEMP 36.3; O2SAT 93
[2020-02-16] MEDS: acyclovir 400 mg Tablet PO ×2 (08:54→17:50)
[2020-02-16] MEDS: fluconazole 100 mg Tablet 200 MG PO (08:54)
[2020-02-16] MEDS: multivitamin therapeutic Tablet 1 TAB PO (08:54)
[2020-02-16] MEDS: cefdinir 300 MG CAPSULE PO ×2 (08:55→17:50)
[2020-02-16] MEDS: calcitonin nasal 200 unit/spray 3.7 mL Btl 1 SPRAY NASAL (08:55)
[2020-02-16] MEDS: pantoprazole DR 40 mg Tablet PO (08:55)
--- NOTE | 2020-02-16 10:35 | PC.SOCIAL ---
IMM Update Pg 2 of IMM given and explained to patient, who verbalized understanding. Initialed, dated, and timed and placed in chart. Copy provided to patient.
[2020-02-16 11:27] LABS: Glucose Point of Care 247 mg/dL (70-110)
[2020-02-16 12:00] VITALS: BP 149/54; PULSE 45; RESP 12; TEMP 36.4; O2SAT 95
--- NOTE | 2020-02-16 12:36 | PM.PN ---
Subjective Subjective: Interval history: Had 850 mL urine output overnight, bradycardia persists with HRs as low as mid-30s. Echo done, pending report. ANC-0, stable hemoglobin and platelet count. Got a dose of Ativan overnight. Patient resting quietly in bed, seems quite fatigued though is alert and oriented x3, will discontinue sitter. Remains on reverse isolation precautions. Medications: Reviewed: Yes Medication Review Details: Active Medications Generic Name Dose Route Start Last Admin Trade Name Freq PRN Reason Stop Dose Admin Acetaminophen 650 mg 02/13/20 16:22 02/16/20 00:08 Tylenol PO 650 mg Q6H PRN Administration MILD PAIN OR INCR EASE TEMP Acyclovir 400 mg 02/13/20 18:00 02/16/20 08:54 Zovirax PO 400 mg BID KEVEN Administration Atropine Sulfate 0.4 mg 02/15/20 09:53 Atropine Syr IVP PRN PRN HEART RATE < 40/M IN Calcitonin [place] 1 spray 02/14/20 09:00 02/16/20 08:55 Miacalcin NASAL 1 puff DAILY KEVEN Administration Cefdinir 300 mg 02/13/20 18:00 02/16/20 08:55 Omnicef PO 300 mg BID KEVEN Administration Protocol Dextrose 25 ml 02/15/20 13:05 D50w IVP ONCE PRN hypoglycemia prot ocol Protocol Dextrose 50 ml 02/15/20 13:05 D50w IVP PRN PRN hypoglycemia prot ocol Protocol Docusate Sodium 100 mg 02/13/20 16:22 Colace PO BID PRN CONSTIPATION Filgrastim 300 mcg 02/14/20 09:00 02/16/20 08:56 Neupogen SUBCUT 300 mcg Q24H KEVEN Administration Fluconazole 200 mg 02/14/20 09:00 02/16/20 08:54 Diflucan Tab PO 200 mg DAILY KEVEN Administration Glucagon 1 mg 02/15/20 13:05 Glucagen IM ONCE PRN Adult Acute Hypog lycemia Prot. Protocol Dextrose 500 mls @ 100 mls /hr 02/15/20 13:05 D5w IV ONCE PRN Adult Acute Hypog lycemia Prot Protocol Insulin Aspart 0 unit 02/15/20 14:00 02/16/20 12:21 Novolog SUBCUT 6 unit WM&BEDTIME KEVEN Administration Protocol Lorazepam 0.5 mg 02/13/20 16:22 02/16/20 00:08 Ativan PO 0.5 mg Q4H PRN Administration Anxiety Meclizine HCl 12.5 mg 02/13/20 16:29 Antivert PO Q6H PRN dizziness Multivitamins Ther apeutic 1 tab 02/14/20 09:00 02/16/20 08:54 Multivitamin Tab PO 1 tab DAILY KEVEN Administration Non-Formulary Medi cation 150 mg 02/14/20 09:00 02/16/20 07:36 Eltrombopag [Pro macta] PO Not Given DAILY KEVEN Ondansetron HCl 4 mg 02/13/20 16:22 02/13/20 17:53 Zofran IVP 4 mg Q6H PRN Administration NAUSEA AND VOMITI NG Pantoprazole Sodiu m 40 mg 02/14/20 09:00 02/16/20 08:55 Protonix PO 40 mg DAILY KEVEN Administration amoxicillin Allergy (Verified 01/04/20 15:13) ADR-Itching fluticasone [From Flonase] Allergy (Verified 01/04/20 15:13) ALGY-Hives ibuprofen [From Motrin] Allergy (Verified 01/04/20 15:13) ADR-Agitated levofloxacin [From Levaquin] Allergy (Verified 01/04/20 15:13) ALGY-Anaphylaxis Penicillins Allergy (Verified 01/04/20 15:13) ALGY-Rash propoxyphene [From Darvon] Allergy (Verified 01/04/20 15:13) ADR-Agitated Vitals/I&O/Wt Last Vital Signs Temp 97.6 F 02/16/20 12:00 Pulse 45 L 02/16/20 12:00 Resp 12 02/16/20 12:00 BP 149/54 02/16/20 12:00 Pulse Ox 95 02/16/20 12:00 02/15/20 02/16/20 02/16/20 22:59 06:59 14:59 Intake Total 600 / 840 360 / 360 Output Total 300 / 625 850 / 1475 Balance 300 / 215 -850 / -635 360 / 360 Weight last 48 hrs Weight 69.944 kg Weight 70.76 kg Physical Exam Const: COMMON NORMALS: no acute distress, patient oriented x3 and alert GENERAL APPEARANCE: cooperative, comfortable and frail appearing; not ill appearing NUTRITIONAL APPEARANCE: overweight ORIENTATION/CONSCIOUSNESS: Yes awake OTHER: -appears younger than stated age; appears quite fatigued HENMT: COMMON NORMALS: normocephalic, atraumatic, hearing grossly normal bilaterally and moist oral mucous membranes HEAD & SCALP: normocephalic and atraumatic TEETH & GINGIVA: Yes poor dentition Eye: COMMON NORMALS: Equal, round and reactive pupils present, EOMs intact bilaterally and conjunctivae normal CONJUNCTIVA: Yes conjunctivae normal PUPIL: Yes Equal, round and reactive pupils present Neck/C-Spine: COMMON NORMALS: full ROM GENERAL: Yes normal visual inspection and Yes trachea midline Chest: CHEST: Yes Symmetrical chest wall rise Resp: COMMON NORMALS: normal respiratory effort, No retractions, No use of accessory muscles and clear to auscultation bilaterally EFFORT & INSPECTION: Yes able to speak in complete sentences, Yes symmetric chest movement and No tachypneic AUSCULTATION: clear to auscultation bilaterally OTHER: -on RA Cardio: COMMON NORMALS: regular rhythm, S1 normal heart sound present, S2 normal heart sound present and No murmurs present (Cardio) RATE: bradycardic (With heart rates as low as mid 30s) RHYTHM: regular rhythm HEART SOUNDS: S1 normal heart sound present and S2 normal heart sound present GI: COMMON NORMALS: Normal to inspection, nondistended, normoactive bowel sounds present, Soft to palpation and non-tender INSPECTION: Yes central obesity PALPATION: Yes Soft to palpation : BLADDER/KIDNEY EXAM: Yes catheter in place Catheter type (Female): urethral Extremity: COMMON NORMALS: normal to inspection, full ROM, no clubbing, cyanosis or edema and no pedal edema Neuro: COMMON NORMALS: patient oriented x3, moves all extremities, no focal motor deficits and no sensory deficits noted SENSORIUM/ORIENTATION: Yes alert Psych: COMMON NORMALS: mental status grossly normal, Normal thought process present, cooperative, normal affect and speech normal ATTITUDE: Yes calm SPEECH: Yes normal speech THOUGHT PROCESS: Normal thought process present Skin: COMMON NORMALS: no rashes or lesions noted, no jaundice, no petechiae and no mottling GENERAL SKIN EXAM: no rashes or lesions noted Urinary Catheter Management^: 2-way Urethral: Cath Placed During This Visit: yes Reason for Continuing Indwelling Catheter: Accurate Measurement of Urinary Output in Critically Ill Patients Urinary Catheter Date of Insertion: 02/13/20 Urinary Catheter Time of Insertion: 18:21 Data : 02/16/20 05:00 02/14/20 03:59 Micro: Microbiology 02/13/20 15:28 Urine Culture - Final Urine,Clean Catch A&P Assessment and plan (1) Altered mental status: -Mental status today back to baseline -1:1 sitter requested due to high fall risk; mental status improved and will discontinue sitter -did receive steroids which could be playing a role in her change of mental status. Had also been in the ICU for 48 hrs which could be causing some delirium so will transfer to floor with sitter and monitor response -would avoid medication at this point unless significantly agitated. -strict fall precautions, assistance with all out of bed activity -no overt signs of infection though low threshold as she is immunocompromised -blood cx: prelim negative -urine cx negative -if persistent, may need CT head done Status: Acute Qualifiers: Altered mental status type: disorientation Qualified Code(s): R41.0 - Disorientation, unspecified (2) Pancytopenia: -significant pancytopenia that has been ongoing for some time now. Has been following up with Dr. De La Cruz with weekly CBC and recently, requiring transfusion of blood products, last given on 02/05 -noted neutropenia, anemia, severe thrombocytopenia and seems to be becoming more symptomatic with increased fatigue -on reverse isolation precautions due to neutropenia, ANC-0. On Neupogen -s/p 4 bags of platelets and 2 units of PRBCs; serial CBC. Got 1000 mg dose of IV steroids x 1 with significant improvement in platelet count (1->142). -continue to monitor closely for bleeding, none so far though has been noted to have epistaxis in the past -avoid instrumentation and pokes due to susceptibility to bleeding -Reportedly did not benefit from steroids in the past but noted improvement in thrombocytopenia following 1 dose -Close monitoring of vital signs -continue prophylactic doses of anti-infective agents-Acyclovir, Cefdinir, Fluconazole; seems to have had some kind of reaction to Bactrim during her last hospitalization Status: Acute (3) Sinus bradycardia: -baseline HR seems to be in the 60s but since admission has been bradycardic with HRs dipping as low as mid-30s -she denies chest pain/discomfort, SOB, increased fatigue, lightheadedness/dizziness, no syncope but has noted confusion -Echo ordered -telemetry monitoring -vital signs otherwise stable -Cardiology evaluation requested -not on BB Status: Acute (4) MDS (myelodysplastic syndrome): -has been following up at [facility] and with Dr. De La Cruz -now seems to have developed aplastic anemia with persistent pancytopenia and need for frequent transfusions -had repeat bone marrow biopsy done in 08/2019 showing extremely hypocellular marrow space with rare lymphocytes and histiocytes, markedly increased storage of iron, extremely rare erythroid and myeloid precursors. Conclusion was that this was possibly indicative of aplastic anemia. Status: Chronic (5) Non-traumatic compression fracture of L3 lumbar vertebra: -noted to have L3 compression fracture on x-ray on 02/05 now with noted 20% compression fracture of L3 with chronic multilevel DJD -Also noted to have mild compression deformities of T9 and T12, DJD involving L4-L5, L5-S1 on thoracic spine x-ray done on 02/05 -Had a fall at home while trying to get from the bathroom to the bedroom when she essentially lost her balance and slid down to the floor landing on her bottom and was unable to get up on her own. 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 It seems that she did not respond favorably to steroid treatment either though significant improvement following 1 dose -Baseline platelet count earlier this year was 60 and has steadily been dropping Status: Chronic (7) Peptic ulcer disease: -PPI Status: Chronic (8) Chronic kidney disease, stage II (mild): -baseline Cr is around 1.2-1.5 -renal function at baseline -renally dose meds, avoid nephrotoxins Status: Chronic (9) Glucose intolerance: -has been on metformin, hold this -with improved platelet count, is on accuchecks; monitor for bleeding. ISS, hypoglycemia precautions -hx of NIDDM type II -A1c-8.3 -advanced to consistent carb diet Status: Chronic (10) Arthritis: Status: Chronic (11) MUNA (generalized anxiety disorder): -Anxiolytics as needed Status: Chronic Additional A&P Information -Nausea and vomiting; resolved; continue antiemetics as needed -on consistent carb diet -has Valle catheter in place; no hematuria -Multilevel DJD, osteoporosis -GI ppx with PPI -DVT ppx with SCDs, no AC due to severe pancytopenia Attestations Medical Necessity Statement*: Patient requires hospitalization for continued management of neutropenia, thrombocytopenia, persistent bradycardia pending cardiology evaluation. Time Spent in Patient Care: 16 - 35 minutes (>than 50% of time spent in counselling and/or direct pt care on unit). Coding Level of Care Code Acute Ditching Machine Engineer for g Fwd Exam Comprehensive Diagnoses Altered mental status R41.0 Altered mental status type: disorientation Pancytopenia D61.818 Sinus bradycardia R00.1 MDS (myelodysplastic syndrome) D46.9 Non-traumatic compression fracture of L3 lumbar vertebra M48.56XS Encounter type: sequela Thrombocytopenia D69.6 Peptic ulcer disease K27.9 Chronic kidney disease, stage II (mild) N18.2 Glucose intolerance E74.39 Arthritis M19.90 MUNA (generalized anxiety disorder) F41.1
[2020-02-16 16:00] VITALS: BP 144/63; PULSE 42; RESP 20; TEMP 36.5; O2SAT 95
[2020-02-16 17:04] LABS: Glucose Point of Care 171 mg/dL (70-110)
[2020-02-16 19:49] VITALS: BP 134/74; PULSE 45; RESP 17; TEMP 35.6; O2SAT 98
--- NOTE | 2020-02-16 19:57 | P.CONIM_ITS ---
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 Since her admission she was hydrated with IV fluid and epogen shots, she was noted on the telemetry to be sinus bradycardic heart rate varies in between 38 to high 50s. No significant heart block noted no QT or QTC abnormality found. According to the patient she has been told in the past that she has slow heart rate. She admits to shortness of breath she admits to feeling of unsteady but denies any passing out while sitting laying down. She denies any prior history of coronary artery disease. Her oxygen saturation is within normal limit. She is not on any rosa elena vincent. She denies tick bite or Lyme disease. Currently she is not on any medicine that can cause her bradycardia. She is not septic. Review of Systems Const: Reports: body aches and fatigue; Denies: fever(s), chills, change in appetite, malaise, night sweats or diaphoresis Eyes: Denies: change in vision ENMT: Denies: throat pain, odynophagia, oral sores, ear or mastoid pain, nasal discharge or nasal congestion Card: Denies: chest pain, palpitations, edema, swelling of feet/ankles, lightheadedness, syncope, pre-syncope, dyspnea on exertion or orthopnea Resp: Denies: dyspnea, productive cough, non-productive cough or wheezing GI: Denies: abdominal pain, nausea, vomiting, hematemesis, coffee ground emesis, diarrhea, constipation, bloating, hematochezia or melena : Denies: flank pain, difficulty voiding, dysuria, urinary frequency or urinary urgency Musc: Reports: back pain, joint pain, joint stiffness and other (Right rib pain); Denies: joint warmth Skin/Breast: Denies: rash or pruritus Neuro: Denies: numbness in extremities, weakness in extremities, difficulty walking, frequent falls or confusion Psych: Denies: anxiety Emiliano/Lymph: Reports: easy bruising All/Imm: Denies: acute wheezing Meds/Allergies Home Medications and Allergies Home Medications Medication Instructions Recorded Confirmed Last Taken Type calcitonin (salmon) 1 spray INTRANASAL (ALT) DAILY 09/07/19 02/13/20 02/13/20 History calcium phosphate-vitamin D3 1 tab PO DAILY 09/07/19 02/13/20 02/13/20 History [Citracal-D3 Gummies] meclizine 12.5 mg PO Q6H PRN 09/07/19 02/13/20 Unknown History metformin 500 mg PO QPM 09/07/19 02/13/20 12/26/19 History multivitamin [Multiple Vitamins] 1 tab PO DAILY 09/07/19 02/13/20 02/13/20 History lorazepam 0.5 mg tablet 0.5 mg PO Q4H PRN #60 tab 01/04/20 02/13/20 02/13/20 Rx acyclovir 400 mg PO BID 02/13/20 02/13/20 02/13/20 History cefdinir 300 mg PO BID 02/13/20 02/13/20 02/12/20 History eltrombopag [Promacta] 150 mg PO DAILY 02/13/20 02/13/20 02/13/20 History fluconazole 200 mg PO DAILY 02/13/20 02/13/20 02/13/20 History omeprazole magnesium [Prilosec OTC] 20 mg PO DAILY 02/13/20 02/13/20 02/13/20 History Allergies Allergy/AdvReac Type Severity Reaction Status Date / Time amoxicillin Allergy ADR-Itching Verified 01/04/20 15:13 fluticasone [From Flonase] Allergy ALGY-Hives Verified 01/04/20 15:13 ibuprofen [From Motrin] Allergy ADR-Agitate Verified 01/04/20 15:13 d levofloxacin [From Levaquin] Allergy ALGY-Anaphy Verified 01/04/20 15:13 laxis Penicillins Allergy ALGY-Rash Verified 01/04/20 15:13 propoxyphene [From Darvon] Allergy ADR-Agitate Verified 01/04/20 15:13 d Current Medications Current Medications Generic Name Dose Route Start Last Admin Trade Name Freq PRN Reason Stop Dose Admin Acetaminophen 650 mg 02/13/20 16:22 02/16/20 00:08 Tylenol PO 650 mg Q6H PRN Administration MILD PAIN OR INCREASE TEMP Acyclovir 400 mg 02/13/20 18:00 02/16/20 17:50 Zovirax PO 400 mg BID KEVEN Administration Calcitonin Lyme 1 spray 02/14/20 09:00 02/16/20 08:55 Miacalcin NASAL 1 puff DAILY KEVEN Administration Cefdinir 300 mg 02/13/20 18:00 02/16/20 17:50 Omnicef PO 300 mg BID KEVEN Administration Protocol Filgrastim 300 mcg 02/14/20 09:00 02/16/20 08:56 Neupogen SUBCUT 300 mcg Q24H KEVEN Administration Fluconazole 200 mg 02/14/20 09:00 02/16/20 08:54 Diflucan Tab PO 200 mg DAILY KEVEN Administration Insulin Aspart 0 unit 02/15/20 14:00 02/16/20 17:51 Novolog SUBCUT 2 unit WM&BEDTIME KEVEN Administration Protocol Lorazepam 0.5 mg 02/13/20 16:22 02/16/20 00:08 Ativan PO 0.5 mg Q4H PRN Administration Anxiety Multivitamins Therapeutic 1 tab 02/14/20 09:00 02/16/20 08:54 Multivitamin Tab PO 1 tab DAILY KEVEN Administration Ondansetron HCl 4 mg 02/13/20 16:22 02/13/20 17:53 Zofran IVP 4 mg Q6H PRN Administration NAUSEA AND VOMITING Pantoprazole Sodium 40 mg 02/14/20 09:00 02/16/20 08:55 Protonix PO 40 mg DAILY KEVEN Administration Additional Medication Information Active Medications Generic Name Dose Route Start Last Admin Trade Name Freq PRN Reason Stop Dose Admin Acetaminophen 650 mg 02/13/20 16:22 02/16/20 00:08 Tylenol PO 650 mg Q6H PRN Administration MILD PAIN OR INCREASE TEMP Acyclovir 400 mg 02/13/20 18:00 02/16/20 08:54 Zovirax PO 400 mg BID KEVEN Administration Atropine Sulfate 0.4 mg 02/15/20 09:53 Atropine Syr IVP PRN PRN HEART RATE < 40/MIN Calcitonin Lyme 1 spray 02/14/20 09:00 02/16/20 08:55 Miacalcin NASAL 1 puff DAILY KEVEN Administration Cefdinir 300 mg 02/13/20 18:00 02/16/20 08:55 Omnicef PO 300 mg BID KEVEN Administration Protocol Dextrose 25 ml 02/15/20 13:05 D50w IVP ONCE PRN hypoglycemia protocol Protocol Dextrose 50 ml 02/15/20 13:05 D50w IVP PRN PRN hypoglycemia protocol Protocol Docusate Sodium 100 mg 02/13/20 16:22 Colace PO BID PRN CONSTIPATION Filgrastim 300 mcg 02/14/20 09:00 02/16/20 08:56 Neupogen SUBCUT 300 mcg Q24H KEVEN Administration Fluconazole 200 mg 02/14/20 09:00 02/16/20 08:54 Diflucan Tab PO 200 mg DAILY KEVEN Administration Glucagon 1 mg 02/15/20 13:05 Glucagen IM ONCE PRN Adult Acute Hypoglycemia Prot. Protocol Dextrose 500 mls @ 100 mls/hr 02/15/20 13:05 D5w IV ONCE PRN Adult Acute Hypoglycemia Prot Protocol Insulin Aspart 0 unit 02/15/20 14:00 02/16/20 12:21 Novolog SUBCUT 6 unit WM&BEDTIME KEVEN Administration Protocol Lorazepam 0.5 mg 02/13/20 16:22 02/16/20 00:08 Ativan PO 0.5 mg Q4H PRN Administration Anxiety Meclizine HCl 12.5 mg 02/13/20 16:29 Antivert PO Q6H PRN dizziness Multivitamins Therapeutic 1 tab 02/14/20 09:00 02/16/20 08:54 Multivitamin Tab PO 1 tab DAILY KEVEN Administration Non-Formulary Medication 150 mg 02/14/20 09:00 02/16/20 07:36 Eltrombopag [Promacta] PO Not Given DAILY KEVEN Ondansetron HCl 4 mg 02/13/20 16:22 02/13/20 17:53 Zofran IVP 4 mg Q6H PRN Administration NAUSEA AND VOMITING Pantoprazole Sodium 40 mg 02/14/20 09:00 02/16/20 08:55 Protonix PO 40 mg DAILY KEVEN Administration amoxicillin Allergy (Verified 01/04/20 15:13) ADR-Itching fluticasone [From Flonase] Allergy (Verified 01/04/20 15:13) ALGY-Hives ibuprofen [From Motrin] Allergy (Verified 01/04/20 15:13) ADR-Agitated levofloxacin [From Levaquin] Allergy (Verified 01/04/20 15:13) ALGY-Anaphylaxis Penicillins Allergy (Verified 01/04/20 15:13) ALGY-Rash propoxyphene [From Darvon] Allergy (Verified 01/04/20 15:13) ADR-Agitated PFSH Acute PFSH: Medical History (Updated 02/16/20 @ 20:10 by Ni Mckenna MD) Chronic kidney disease, stage II (mild) Diverticulosis Epistaxis Glucose intolerance Osteoporosis Peptic ulcer disease Thrombocytopenia Surgical History History of bone marrow biopsy History of cataract surgery History of esophagogastroduodenoscopy (EGD) Hx of colonoscopy Family History Mother Cancer Breast cancer Father Lung disease Social History Smoking and tobacco status: never smoked Alcohol intake: never Household members: other Details: Sister lives next door and stays with her overnight. Housing: Apartment Marital status: / Current occupational status: retired Vitals/I&O/Wt Last Vital Signs Temp 96.1 F L 02/16/20 19:49 Pulse 45 L 02/16/20 19:49 Resp 17 02/16/20 19:49 BP 134/74 02/16/20 19:49 Pulse Ox 98 02/16/20 19:49 02/16/20 02/16/20 02/16/20 06:59 14:59 22:59 Intake Total 360 / 360 360 / 720 Output Total 850 / 1475 900 / 900 Balance -850 / -635 -540 / -540 360 / -180 Weight last 48 hrs Weight 154 lb 3.2 oz Weight 156 lb Physical Exam Narrative: EXAM NARRATIVE: GENERAL: Patient is alert, awake and oriented x3. NECK: No jugular vein distension. HEENT: No cyanosis. No icterus. pallor. HEART: Regular S1 and S2. No murmur, rub or gallop. LUNGS: Clear to auscultate bilaterally. ABDOMEN: Soft, nontender and nondistended. Positive bowel sounds. No guarding, rebound or tenderness. CENTRAL NERVOUS SYSTEM: Grossly nonfocal. EXTREMITIES: Lower extremities without edema bilaterally. Urinary Catheter Management^: 2-way Urethral: Cath Placed During This Visit: yes Reason for Continuing Indwelling Catheter: Accurate Measurement of Urinary Output in Critically Ill Patients Urinary Catheter Date of Insertion: 02/13/20 Urinary Catheter Time of Insertion: 18:21 Data Labs: Other Labs: SINUS BRADYCARDIA BORDERLINE LEFT AXIS DEVIATION VOLTAGE CRITERIA FOR LVH Nonspecific T wave abnormality Compared to ECG 02/14/2020 16:32:24 No significant changes Micro: Micro: Microbiology 02/13/20 15:28 Urine Culture - Fi nal Urine,Clean Catch A&P Assessment and plan (1) Sinus bradycardia: Patient has sinus bradycardia ranged from high 30s to low 50s. She has guarded prognosis for MDS she is neutropenic and pancytopenic. She is high risk for infection. She is not a good candidate for permanent pacemaker placement secondary to her long-term prognosis and current condition. I have detailed discussion with the patient and the family they would like her to be treated medically. I will ask for TSH to rule out hypothyroidism, further plan will be advised as per progress of the patient. Advised using as needed atropine and if requires dopamine drip. Echocardiogram is pending. Status: Acute (2) MDS (myelodysplastic syndrome): Patient follow-up with Dr. De La Cruz and [facility]. Status: Chronic (3) Pancytopenia: As per medicine Status: Acute Coding Level of Care Code New Pt Acute Contract Technician for Chg Fwd Patient Type New History Detailed Exam Detailed Medical Decision Making Moderate Complexity Diagnoses Sinus bradycardia R00.1 MDS (myelodysplastic syndrome) D46.9 Pancytopenia D61.818
[2020-02-16 21:53] LABS: Glucose Point of Care 234 mg/dL (70-110)
[2020-02-16 21:58] LABS: Thyroid Stimulating Hormone 0.87 uIU/mL (0.27-4.20)
[2020-02-16 23:47] VITALS: BP 145/72; PULSE 40; RESP 17; TEMP 36.3; O2SAT 97
[2020-02-17 04:00] VITALS: BP 168/74; PULSE 41; RESP 20; TEMP 36.4; O2SAT 92
[2020-02-17 06:49] LABS: Hematocrit 34.8 % (37.0-47.0); Hemoglobin 11.3 g/dL (11.5-15.3); Mean Corpuscular HGB Conc 32.5 g/dL (30.0-36.0); Mean Corpuscular Volume 89.5 fL (81-99); Mean Platelet Volume 9.8 fL (7.4-10.4); Platelet Count 64 10^3/cmm (130-400); Red Blood Count 3.89 10^6/uL (4.1-5.3); Red Cell Distribution Width 13.1 % (12.1-15.1)
[2020-02-17 07:00] LABS: Glucose Point of Care 155 mg/dL (70-110)
--- NOTE | 2020-02-17 07:10 | PC.NURSE ---
Shift Summary Early in the shift, pt had began calling family stating she was d/c. Nurse explained to pt that she was d/c from Dr. Bynum's standpoint but would still need to stay and be seen by the hospitalist. this was explained to family when they called. pt's HR has been in the mid thirties and forties, Dr yancey. Valle catheter pulled at 2220, pt has urinated good after catheter removal. no c/o pain tonight. pt states she is ready to go home.
[2020-02-17 07:38] LABS: Absolute Segmented Neutrophil 0.1 10/cmm (1.6-7.1); Segmented Neutrophils 20 %; Total Cells Counted 50 (0-100)
[2020-02-17 07:39] LABS: Lymphocytes 74 %; Platelet Estimate Decreased (Normal)
[2020-02-17 07:41] LABS: Absolute Neutrophil 0.2 10^3/cmm (1.4-6.5); White Blood Count 0.7 10^3/uL (4.0-10.0)
[2020-02-17 07:49] VITALS: BP 156/67; PULSE 47; RESP 16; TEMP 35.7; O2SAT 98
[2020-02-17] MEDS: pantoprazole DR 40 mg Tablet PO (08:53)
[2020-02-17] MEDS: fluconazole 100 mg Tablet 200 MG PO (08:53)
[2020-02-17] MEDS: multivitamin therapeutic Tablet 1 TAB PO (08:54)
[2020-02-17] MEDS: acyclovir 400 mg Tablet PO ×2 (08:54→17:22)
[2020-02-17] MEDS: cefdinir 300 MG CAPSULE PO ×2 (09:00→17:26)
[2020-02-17] MEDS: calcitonin nasal 200 unit/spray 3.7 mL Btl 1 SPRAY NASAL (09:00)
[2020-02-17] MEDS: LORazepam 0.5 mg Tablet PO (09:00)
[2020-02-17 11:12] LABS: Glucose Point of Care 171 mg/dL (70-110)
[2020-02-17 11:46] VITALS: BP 136/62; PULSE 45; RESP 14; TEMP 36.3; O2SAT 97
[2020-02-17 15:57] VITALS: BP 134/62; PULSE 61; RESP 16; TEMP 36.8; O2SAT 97
--- NOTE | 2020-02-17 16:44 | PM.PN ---
Subjective Subjective: Interval history: Continues to be bradycardic without significant heart block. Patient is in sinus rhythm heart rate varies from 38 to 50s. Denies any dizziness or presyncope. Medications: Reviewed: Yes Medication Review Details: Active Medications Generic Name Dose Route Start Last Admin Trade Name Freq PRN Reason Stop Dose Admin Acetaminophen 650 mg 02/13/20 16:22 02/16/20 00:08 Tylenol PO 650 mg Q6H PRN Administration MILD PAIN OR INCR EASE TEMP Acyclovir 400 mg 02/13/20 18:00 02/16/20 08:54 Zovirax PO 400 mg BID KEVEN Administration Atropine Sulfate 0.4 mg 02/15/20 09:53 Atropine Syr IVP PRN PRN HEART RATE < 40/M IN Calcitonin [place] 1 spray 02/14/20 09:00 02/16/20 08:55 Miacalcin NASAL 1 puff DAILY KEVEN Administration Cefdinir 300 mg 02/13/20 18:00 02/16/20 08:55 Omnicef PO 300 mg BID KEVEN Administration Protocol Dextrose 25 ml 02/15/20 13:05 D50w IVP ONCE PRN hypoglycemia prot ocol Protocol Dextrose 50 ml 02/15/20 13:05 D50w IVP PRN PRN hypoglycemia prot ocol Protocol Docusate Sodium 100 mg 02/13/20 16:22 Colace PO BID PRN CONSTIPATION Filgrastim 300 mcg 02/14/20 09:00 02/16/20 08:56 Neupogen SUBCUT 300 mcg Q24H KEVEN Administration Fluconazole 200 mg 02/14/20 09:00 02/16/20 08:54 Diflucan Tab PO 200 mg DAILY KEVEN Administration Glucagon 1 mg 02/15/20 13:05 Glucagen IM ONCE PRN Adult Acute Hypog lycemia Prot. Protocol Dextrose 500 mls @ 100 mls /hr 02/15/20 13:05 D5w IV ONCE PRN Adult Acute Hypog lycemia Prot Protocol Insulin Aspart 0 unit 02/15/20 14:00 02/16/20 12:21 Novolog SUBCUT 6 unit WM&BEDTIME KEVEN Administration Protocol Lorazepam 0.5 mg 02/13/20 16:22 02/16/20 00:08 Ativan PO 0.5 mg Q4H PRN Administration Anxiety Meclizine HCl 12.5 mg 02/13/20 16:29 Antivert PO Q6H PRN dizziness Multivitamins Ther apeutic 1 tab 02/14/20 09:00 02/16/20 08:54 Multivitamin Tab PO 1 tab DAILY KEVEN Administration Non-Formulary Medi cation 150 mg 02/14/20 09:00 02/16/20 07:36 Eltrombopag [Pro macta] PO Not Given DAILY KEVEN Ondansetron HCl 4 mg 02/13/20 16:22 02/13/20 17:53 Zofran IVP 4 mg Q6H PRN Administration NAUSEA AND VOMITI NG Pantoprazole Sodiu m 40 mg 02/14/20 09:00 02/16/20 08:55 Protonix PO 40 mg DAILY KEVEN Administration amoxicillin Allergy (Verified 01/04/20 15:13) ADR-Itching fluticasone [From Flonase] Allergy (Verified 01/04/20 15:13) ALGY-Hives ibuprofen [From Motrin] Allergy (Verified 01/04/20 15:13) ADR-Agitated levofloxacin [From Levaquin] Allergy (Verified 01/04/20 15:13) ALGY-Anaphylaxis Penicillins Allergy (Verified 01/04/20 15:13) ALGY-Rash propoxyphene [From Darvon] Allergy (Verified 01/04/20 15:13) ADR-Agitated Vitals/I&O/Wt Last Vital Signs Temp 98.2 F 02/17/20 15:57 Pulse 61 02/17/20 15:57 Resp 16 02/17/20 15:57 BP 134/62 02/17/20 15:57 Pulse Ox 97 02/17/20 15:57 02/17/20 02/17/20 02/17/20 06:59 14:59 22:59 Intake Total 320 / 1040 480 / 480 Output Total 250 / 1900 550 / 550 Balance 70 / -860 -70 / -70 Weight last 48 hrs Weight 155 lb 2 oz Weight 154 lb 3.2 oz Physical Exam Narrative: EXAM NARRATIVE: GENERAL: Patient is alert, awake and oriented x3. NECK: No jugular vein distension. HEENT: No cyanosis. No icterus. pallor. HEART: Regular S1 and S2. No murmur, rub or gallop. LUNGS: Clear to auscultate bilaterally. ABDOMEN: Soft, nontender and nondistended. Positive bowel sounds. No guarding, rebound or tenderness. CENTRAL NERVOUS SYSTEM: Grossly nonfocal. EXTREMITIES: Lower extremities without edema bilaterally. Urinary Catheter Management^: 2-way Urethral: Cath Placed During This Visit: yes, but has since been removed by the nurse Reason for Continuing Indwelling Catheter: Decision to DC Catheter Urinary Catheter Date of Insertion: 02/13/20 Urinary Catheter Time of Insertion: 18:21 Date Urinary Catheter Removed: 02/16/20 Time Urinary Catheter Discontinued: 22:20 Data : 02/17/20 06:16 02/14/20 03:59 A&P Assessment and plan (1) Sinus bradycardia: Patient has sinus bradycardia ranged from high 30s to low 50s. She has guarded prognosis for MDS she is neutropenic and pancytopenic. She is high risk for infection. She is not a good candidate for permanent pacemaker placement secondary to her long-term prognosis and current condition. I have detailed discussion with the patient and the family they would like her to be treated medically. I will ask for TSH to rule out hypothyroidism, further plan will be advised as per progress of the patient. Advised using as needed atropine and if requires dopamine drip. Remains in sinus bradycardia. Patient does not have good long-term prognosis she is at high risk for infection. Family and patient does not want any intervention. We will continue to manage medically. Currently she is stable vital [place]. Echocardiogram showed normal ejection fraction with moderate mitral and tricuspid valve regurgitation. If requires she can be started on dopamine drip and given atropine for significant bradycardia which is hemodynamically unstable however and since admission there is no hemodynamic instability has noted. TSH is also within normal limit Status: Acute (2) MDS (myelodysplastic syndrome): Patient follow-up with Dr. De La Cruz and [facility]. Status: Chronic (3) Pancytopenia: As per medicine Status: Acute Attestations Medical Necessity Statement*: As per medicine Coding Level of Care Code Established Pt Acute Afterschool for Chg Fwd Patient Type Established History Expanded Problem Focused Exam Expanded Problem Focused Medical Decision Making Moderate Complexity Diagnoses Sinus bradycardia R00.1 MDS (myelodysplastic syndrome) D46.9 Pancytopenia D61.818
[2020-02-17 17:30] LABS: Glucose Point of Care 166 mg/dL (70-110)
--- NOTE | 2020-02-17 18:09 | PM.PN ---
Subjective Subjective: Interval history: Patient resting quietly in bed, reports feeling well today, appetite has improved today as well. Inquired about her platelets and whether she would need further transfusion, platelet count is 64 today so no need for platelet transfusion. ANC of 200, stable hemoglobin. Accu-Cheks reviewed. Has been able to void since removal of Valle catheter. She reports that there is no want to go home today. Medications: Reviewed: Yes Medication Review Details: Active Medications Generic Name Dose Route Start Last Admin Trade Name Freq PRN Reason Stop Dose Admin Acetaminophen 650 mg 02/13/20 16:22 02/16/20 00:08 Tylenol PO 650 mg Q6H PRN Administration MILD PAIN OR INCR EASE TEMP Acyclovir 400 mg 02/13/20 18:00 02/17/20 17:22 Zovirax PO 400 mg BID KEVEN Administration Atropine Sulfate 0.4 mg 02/15/20 09:53 Atropine Syr IVP PRN PRN HEART RATE < 40/M IN Calcitonin Wells 1 spray 02/14/20 09:00 02/17/20 09:00 Miacalcin NASAL 1 puff DAILY KEVEN Administration Cefdinir 300 mg 02/13/20 18:00 02/17/20 17:26 Omnicef PO 300 mg BID KEVEN Administration Protocol Dextrose 25 ml 02/15/20 13:05 D50w IVP ONCE PRN hypoglycemia prot ocol Protocol Dextrose 50 ml 02/15/20 13:05 D50w IVP PRN PRN hypoglycemia prot ocol Protocol Docusate Sodium 100 mg 02/13/20 16:22 Colace PO BID PRN CONSTIPATION Filgrastim 300 mcg 02/14/20 09:00 02/17/20 09:40 Neupogen SUBCUT 300 mcg Q24H KEVEN Administration Fluconazole 200 mg 02/14/20 09:00 02/17/20 08:53 Diflucan Tab PO 200 mg DAILY KEVEN Administration Glucagon 1 mg 02/15/20 13:05 Glucagen IM ONCE PRN Adult Acute Hypog lycemia Prot. Protocol Dextrose 500 mls @ 100 mls /hr 02/15/20 13:05 D5w IV ONCE PRN Adult Acute Hypog lycemia Prot Protocol Insulin Aspart 0 unit 02/15/20 14:00 02/17/20 17:26 Novolog SUBCUT 2 unit WM&BEDTIME KEVEN Administration Protocol Lorazepam 0.5 mg 02/13/20 16:22 02/17/20 09:00 Ativan PO 0.5 mg Q4H PRN Administration Anxiety Meclizine HCl 12.5 mg 02/13/20 16:29 Antivert PO Q6H PRN dizziness Multivitamins Ther apeutic 1 tab 02/14/20 09:00 02/17/20 08:54 Multivitamin Tab PO 1 tab DAILY KEVEN Administration Non-Formulary 0 mg 02/17/20 09:00 02/17/20 08:54 Medication ( PO 50 mg Eltrombopag [ DAILY KEVEN Administration Promacta] 50 Mg) Ondansetron HCl 4 mg 02/13/20 16:22 02/13/20 17:53 Zofran IVP 4 mg Q6H PRN Administration NAUSEA AND VOMITI NG Pantoprazole Sodiu m 40 mg 02/14/20 09:00 02/17/20 08:53 Protonix PO 40 mg DAILY KEVEN Administration amoxicillin Allergy (Verified 01/04/20 15:13) ADR-Itching fluticasone [From Flonase] Allergy (Verified 01/04/20 15:13) ALGY-Hives ibuprofen [From Motrin] Allergy (Verified 01/04/20 15:13) ADR-Agitated levofloxacin [From Levaquin] Allergy (Verified 01/04/20 15:13) ALGY-Anaphylaxis Penicillins Allergy (Verified 01/04/20 15:13) ALGY-Rash propoxyphene [From Darvon] Allergy (Verified 01/04/20 15:13) ADR-Agitated Vitals/I&O/Wt Last Vital Signs Temp 98.2 F 02/17/20 15:57 Pulse 61 02/17/20 15:57 Resp 16 02/17/20 15:57 BP 134/62 02/17/20 15:57 Pulse Ox 97 02/17/20 15:57 02/17/20 02/17/20 02/17/20 06:59 14:59 22:59 Intake Total 320 / 1040 480 / 480 Output Total 250 / 1900 550 / 550 Balance 70 / -860 -70 / -70 Weight last 48 hrs Weight 70.364 kg Weight 69.944 kg Physical Exam Const: COMMON NORMALS: no acute distress, patient oriented x3 and alert GENERAL APPEARANCE: cooperative, comfortable and frail appearing; not ill appearing NUTRITIONAL APPEARANCE: overweight ORIENTATION/CONSCIOUSNESS: Yes awake OTHER: -appears younger than stated age; appears fatigued though less so today HENMT: COMMON NORMALS: normocephalic, atraumatic, hearing grossly normal bilaterally and moist oral mucous membranes HEAD & SCALP: normocephalic and atraumatic TEETH & GINGIVA: Yes poor dentition Eye: COMMON NORMALS: Equal, round and reactive pupils present, EOMs intact bilaterally and conjunctivae normal CONJUNCTIVA: Yes conjunctivae normal PUPIL: Yes Equal, round and reactive pupils present Neck/C-Spine: COMMON NORMALS: full ROM GENERAL: Yes normal visual inspection and Yes trachea midline Chest: CHEST: Yes Symmetrical chest wall rise Resp: COMMON NORMALS: normal respiratory effort, No retractions, No use of accessory muscles and clear to auscultation bilaterally EFFORT & INSPECTION: Yes able to speak in complete sentences, Yes symmetric chest movement and No tachypneic AUSCULTATION: clear to auscultation bilaterally OTHER: -on RA Cardio: COMMON NORMALS: regular rhythm, S1 normal heart sound present, S2 normal heart sound present and No murmurs present (Cardio) RATE: bradycardic (With heart rates as low as mid 30s) RHYTHM: regular rhythm HEART SOUNDS: S1 normal heart sound present and S2 normal heart sound present GI: COMMON NORMALS: Normal to inspection, nondistended, normoactive bowel sounds present, Soft to palpation and non-tender INSPECTION: Yes central obesity PALPATION: Yes Soft to palpation Extremity: COMMON NORMALS: normal to inspection, full ROM, no clubbing, cyanosis or edema and no pedal edema Neuro: COMMON NORMALS: patient oriented x3, moves all extremities, no focal motor deficits and no sensory deficits noted SENSORIUM/ORIENTATION: Yes alert Psych: COMMON NORMALS: mental status grossly normal, Normal thought process present, cooperative, normal affect and speech normal ATTITUDE: Yes calm SPEECH: Yes normal speech THOUGHT PROCESS: Normal thought process present INSIGHT: Good insight present (Psych) and Fair insight present (Psych) JUDGEMENT: Fair judgement present (Psych) Skin: COMMON NORMALS: no rashes or lesions noted, no jaundice, no petechiae and no mottling GENERAL SKIN EXAM: no rashes or lesions noted Urinary Catheter Management^: 2-way Urethral: Cath Placed During This Visit: yes, but has since been removed by the nurse Reason for Continuing Indwelling Catheter: Decision to DC Catheter Urinary Catheter Date of Insertion: 02/13/20 Urinary Catheter Time of Insertion: 18:21 Date Urinary Catheter Removed: 02/16/20 Time Urinary Catheter Discontinued: 22:20 Data : 02/17/20 06:16 02/14/20 03:59 A&P Assessment and plan (1) Altered mental status: -Mental status today back to baseline -1:1 sitter requested due to high fall risk; mental status at baseline and has been off 1:1 monitoring x > 24 hrs -did receive steroids which could be playing a role in her change of mental status. Had also been in the ICU for 48 hrs which could be causing some delirium so will transfer to floor with sitter and monitor response -would avoid medication at this point unless significantly agitated. -strict fall precautions, assistance with all out of bed activity -no overt signs of infection though low threshold as she is immunocompromised -blood cx: prelim negative -urine cx negative Status: Acute Qualifiers: Altered mental status type: disorientation Qualified Code(s): R41.0 - Disorientation, unspecified (2) Pancytopenia: -significant pancytopenia that has been ongoing for some time now. Has been following up with Dr. De La Cruz with weekly CBC and recently, requiring transfusion of blood products, last given on 02/05 -noted neutropenia, anemia, severe thrombocytopenia and seems to be becoming more symptomatic with increased fatigue -on reverse isolation precautions due to neutropenia, ANC-200. On Neupogen -s/p 4 bags of platelets and 2 units of PRBCs; serial CBC. Got 1000 mg dose of IV steroids x 1 with significant improvement in platelet count (1->142). -continue to monitor closely for bleeding, none so far though has been noted to have epistaxis in the past -avoid instrumentation and pokes due to susceptibility to bleeding -Reportedly did not benefit from steroids in the past but noted improvement in thrombocytopenia following 1 dose -Close monitoring of vital signs -continue prophylactic doses of anti-infective agents-Acyclovir, Cefdinir, Fluconazole; seems to have had some kind of reaction to Bactrim during her last hospitalization Status: Acute (3) Sinus bradycardia: -baseline HR seems to be in the 60s but since admission has been bradycardic with HRs dipping as low as mid-30s -she denies chest pain/discomfort, SOB, increased fatigue, lightheadedness/dizziness, no syncope but has noted confusion -Echo: EF=61%, no RWMA, G2DD, moderate MR, moderate TR -telemetry monitoring -vital signs otherwise stable -Cardiology evaluation by Dr. Mckenna appreciated; not a good candidate for permanent pacemaker placement secondary to underlying hematologic condition -not on BB, TSH wnl -Atropine PRN Status: Acute (4) MDS (myelodysplastic syndrome): -has been following up at [facility] and with Dr. De La Cruz -now seems to have developed aplastic anemia with persistent pancytopenia and need for frequent transfusions -had repeat bone marrow biopsy done in 08/2019 showing extremely hypocellular marrow space with rare lymphocytes and histiocytes, markedly increased storage of iron, extremely rare erythroid and myeloid precursors. Conclusion was that this was possibly indicative of aplastic anemia. Status: Chronic (5) Non-traumatic compression fracture of L3 lumbar vertebra: -noted to have L3 compression fracture on x-ray on 02/05 now with noted 20% compression fracture of L3 with chronic multilevel DJD -Also noted to have mild compression deformities of T9 and T12, DJD involving L4-L5, L5-S1 on thoracic spine x-ray done on 02/05 -Had a fall at home while trying to get from the bathroom to the bedroom when she essentially lost her balance and slid down to the floor landing on her bottom and was unable to get up on her own. 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 It seems that she did not respond favorably to steroid treatment either though significant improvement following 1 dose -Baseline platelet count earlier this year was 60 and has steadily been dropping Status: Chronic (7) Peptic ulcer disease: -PPI Status: Chronic (8) Chronic kidney disease, stage II (mild): -baseline Cr is around 1.2-1.5 -renal function at baseline -renally dose meds, avoid nephrotoxins Status: Chronic (9) Glucose intolerance: -has been on metformin, hold this -with improved platelet count, is on accuchecks; monitor for bleeding. ISS, hypoglycemia precautions -hx of NIDDM type II -A1c-8.3 -consistent carb diet Status: Chronic (10) Arthritis: Status: Chronic (11) MUNA (generalized anxiety disorder): -Anxiolytics as needed Status: Chronic Additional A&P Information -Nausea and vomiting; resolved; continue antiemetics as needed -on consistent carb diet -has Valle catheter in place; no hematuria -Multilevel DJD, osteoporosis -GI ppx with PPI -DVT ppx with SCDs, no AC due to severe pancytopenia -Dispo: home; has good family support and HH services -Code status: FULL code Attestations Medical Necessity Statement*: Requires hospitalization for continued monitoring of her cell lines, telemetry monitoring secondary to bradycardia. Time Spent in Patient Care: 16 - 35 minutes (>than 50% of time spent in counselling and/or direct pt care on unit). Coding Level of Care Code Acute Variety Lathe Operator for Chalo Merritt Diagnoses Altered mental status R41.0 Altered mental status type: disorientation Pancytopenia D61.818 Sinus bradycardia R00.1 MDS (myelodysplastic syndrome) D46.9 Non-traumatic compression fracture of L3 lumbar vertebra M48.56XS Encounter type: sequela Thrombocytopenia D69.6 Peptic ulcer disease K27.9 Chronic kidney disease, stage II (mild) N18.2 Glucose intolerance E74.39 Arthritis M19.90 MUNA (generalized anxiety disorder) F41.1
[2020-02-17 19:55] VITALS: BP 108/70; PULSE 70; RESP 20; TEMP 36.8; O2SAT 96
[2020-02-17 21:24] LABS: Glucose Point of Care 232 mg/dL (70-110)
[2020-02-17 23:47] VITALS: BP 93/57; PULSE 65; RESP 18; TEMP 37.2; O2SAT 94
[2020-02-18 04:00] VITALS: BP 97/58; PULSE 72; RESP 16; TEMP 36.9; O2SAT 91
--- NOTE | 2020-02-18 06:17 | PC.NURSE ---
Shift Summary Pt slept well throughout the night. No c/o pain. pt was up with one assist to BSC. pt had good urinary output.
[2020-02-18 07:15] LABS: Glucose Point of Care 162 mg/dL (70-110)
[2020-02-18 07:23] LABS: Hematocrit 33.4 % (37.0-47.0); Hemoglobin 10.8 g/dL (11.5-15.3); Lymphocytes # 0.7 10^3/uL (0.8-4.8); Lymphocytes % 83.5 %; Mean Corpuscular HGB Conc 32.3 g/dL (30.0-36.0); Mean Corpuscular Hemoglobin 29.1 pg (28.0-34.0); Mean Platelet Volume 10.2 fL (7.4-10.4); Monocytes % 1.2 %; Neutrophils % 15.3 %; Nucleated Red Blood Cells % 0 %; Platelet Count 36 10^3/cmm (130-400); Positive M 1; Red Blood Count 3.71 10^6/uL (4.1-5.3); Red Cell Distribution Width 13.2 % (12.1-15.1)
[2020-02-18 07:34] LABS: White Blood Count 0.9 10^3/uL (4.0-10.0)
[2020-02-18 07:35] LABS: Neutrophils # 0.1 10^3/uL (1.8-7.7)
[2020-02-18 07:47] VITALS: BP 120/63; PULSE 63; RESP 20; TEMP 37.1; O2SAT 98
[2020-02-18] MEDS: fluconazole 100 mg Tablet 200 MG PO (08:15)
[2020-02-18] MEDS: multivitamin therapeutic Tablet 1 TAB PO (08:16)
[2020-02-18] MEDS: pantoprazole DR 40 mg Tablet PO (08:16)
[2020-02-18] MEDS: acyclovir 400 mg Tablet PO (08:16)
--- NOTE | 2020-02-18 08:29 | P.DS_ITS ---
Discharge Providers Date of Admission: 02/13/20 14:47 Date of Discharge: February 18, 2020 Attending Provider at Admission: Meagan Huynh MD Attending Provider at Discharge: Meagan Huynh MD Consults: Cardiology, Dr. Mckenna Primary Care Provider: Sophia Núñez DO Diagnoses at Discharge Discharge Diagnosis (1) Altered mental status: Status: Resolved Problem details: -Mental status today back to baseline -1:1 sitter requested due to high fall risk; mental status at baseline and has been off 1:1 monitoring x > 24 hrs -did receive steroids which could be playing a role in her change of mental status. Had also been in the ICU for 48 hrs which could be causing some delirium so will transfer to floor with sitter and monitor response -would avoid medication at this point unless significantly agitated. -strict fall precautions, assistance with all out of bed activity -no overt signs of infection though low threshold as she is immunocompromised -blood cx: prelim negative -urine cx negative Qualifiers: Altered mental status type: disorientation Qualified Code(s): R41.0 - Disorientation, unspecified (2) Pancytopenia: Status: Acute Problem details: -significant pancytopenia that has been ongoing for some time now. Has been following up with Dr. De La Cruz with weekly CBC and recently, requiring transfusion of blood products, last given on 02/05 -noted neutropenia, anemia, severe thrombocytopenia and seems to be becoming more symptomatic with increased fatigue -on reverse isolation precautions due to neutropenia, ANC-200. On Neupogen -s/p 4 bags of platelets and 2 units of PRBCs; serial CBC. Got 1000 mg dose of IV steroids x 1 with significant improvement in platelet count (1->142). -continue to monitor closely for bleeding, none so far though has been noted to have epistaxis in the past -avoid instrumentation and pokes due to susceptibility to bleeding -Reportedly did not benefit from steroids in the past but noted improvement in thrombocytopenia following 1 dose -Close monitoring of vital signs -continue prophylactic doses of anti-infective agents-Acyclovir, Cefdinir, Fluconazole; seems to have had some kind of reaction to Bactrim during her last hospitalization (3) Sinus bradycardia: Status: Acute Problem details: -baseline HR seems to be in the 60s but since admission has been bradycardic with HRs dipping as low as mid-30s. Over the past 12 hrs, HR has improved with increased activity -she denies chest pain/discomfort, SOB, increased fatigue, lightheadedness/dizziness, no syncope but has noted confusion -Echo: EF=61%, no RWMA, G2DD, moderate MR, moderate TR -telemetry monitoring -vital signs otherwise stable -Cardiology evaluation by Dr. Mckenna appreciated; not a good candidate for permanent pacemaker placement secondary to underlying hematologic condition -not on BB, TSH wnl -Atropine PRN (4) MDS (myelodysplastic syndrome): Status: Chronic Problem details: -has been following up at [facility] and with Dr. De La Cruz -now seems to have developed aplastic anemia with persistent pancytopenia and need for frequent transfusions -had repeat bone marrow biopsy done in 08/2019 showing extremely hypocellular marrow space with rare lymphocytes and histiocytes, markedly increased storage of iron, extremely rare erythroid and myeloid precursors. Conclusion was that t his was possibly indicative of aplastic anemia. (5) Non-traumatic compression fracture of L3 lumbar vertebra: Status: Acute Problem details: -noted to have L3 compression fracture on x-ray on 02/05 now with noted 20% compression fracture of L3 with chronic multilevel DJD -Also noted to have mild compression deformities of T9 and T12, DJD involving L4-L5, L5-S1 on thoracic spine x-ray done on 02/05 -Had a fall at home while trying to get from the bathroom to the bedroom when she essentially lost her balance and slid down to the floor landing on her bottom and was unable to get up on her own. 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 It seems that she did not respond favorably to steroid treatment either though significant improvement following 1 dose -Baseline platelet count earlier this year was 60 and has steadily been dropping (7) Peptic ulcer disease: Status: Chronic Problem details: -PPI (8) Chronic kidney disease, stage II (mild): Status: Chronic Problem details: -baseline Cr is around 1.2-1.5 -renal function at baseline -renally dose meds, avoid nephrotoxins (9) Glucose intolerance: Status: Chronic Problem details: -has been on metformin, hold this -with improved platelet count, is on accuchecks; monitor for bleeding. ISS, hypoglycemia precautions -hx of NIDDM type II -A1c-8.3 -consistent carb diet (10) Arthritis: Status: Chronic (11) MUNA (generalized anxiety disorder): Status: Chronic Problem details: -Anxiolytics as needed Reason for Visit Reason for Visit: Fall Hospital Course Hospital Course: Patient was initially admitted to ICU secondary to noted pancytopenia, neutropenia, recent fall with need for close monitoring given noted L3 compression fracture. Due to pancytopenia patient was started on Neupogen, received transfusion of blood products and was continued on her prophylactic anti-infective agents which include acyclovir, cefdinir, fluconazole. She has been following up with Dr. De La Cruz who was initially contacted by the ER and was agreeable to transfusion of blood products. Patient did receive a total of 4 bags of platelets, 2 units of PRBCs with noted continued pancytopenia though there was improvement in her platelets and in her hemoglobin following transfusions initially. Renal function is stable, she has been hemodynamically stable, afebrile, on room air. Following transfusion of blood products and once she was more stable she was evaluated by physical therapy. Once more stable she was transferred to the floor for continued care including continued monitoring of her cell lines. She did have some noted confusion which is likely multifactorial secondary to some degree of ICU delirium, steroid-induced. Approximately 24 hours after being on the medical surgical floor and dose of steroids her mentation cleared and she has remained at her baseline mental status of alert and oriented x3. She had initially pr esented with some nausea and vomiting that has since resolved, has been tolerating oral intake without difficulty though appetite is significantly diminished. She has consistently been bradycardic with heart rate dropping into the 30-40 range. Cardiology was consulted and due to patient's underlying hematologic issues is not considered a good candidate for permanent pacemaker placement. She has worked with PT and is to continue to ambulate with a walker which she has at home. Discharge Summary: -Patient to follow up with primary care physician within 1 week -Patient to follow up with Dr. De La Cruz as soon as next available appointment. She will need follow up labs due to pancytopenia. Physical Exam Const: COMMON NORMALS: no acute distress, patient oriented x3 and alert GENERAL APPEARANCE: cooperative, comfortable and frail appearing; not ill appearing NUTRITIONAL APPEARANCE: overweight ORIENTATION/CONSCIOUSNESS: Yes awake OTHER: -appears younger than stated age; appears fatigued though less so today HENMT: COMMON NORMALS: normocephalic, atraumatic, hearing grossly normal bilaterally and moist oral mucous membranes HEAD & SCALP: normocephalic and atraumatic TEETH & GINGIVA: Yes poor dentition Eye: COMMON NORMALS: Equal, round and reactive pupils present, EOMs intact bilaterally and conjunctivae normal CONJUNCTIVA: Yes conjunctivae normal PUPIL: Yes Equal, round and reactive pupils present Neck/C-Spine: COMMON NORMALS: full ROM GENERAL: Yes normal visual in spection and Yes trachea midline Chest: CHEST: Yes Symmetrical chest wall rise Resp: COMMON NORMALS: normal respiratory effort, No retractions, No use of accessory muscles and clear to auscultation bilaterally EFFORT & INSPECTION: Yes able to speak in complete sentences, Yes symmetric chest movement and No tachypneic AUSCULTATION: clear to auscultation bilaterally OTHER: -on RA Cardio: COMMON NORMALS: regular rate, regular rhythm, S1 normal heart sound present, S2 normal heart sound present and No murmurs present (Cardio) RATE: regular rate RHYTHM: regular rhythm HEART SOUNDS: S1 normal heart sound present and S2 normal heart sound present GI: COMMON NORMALS: Normal to inspection, nondistended, normoactive bowel sounds present, Soft to palpation and non-tender INSPECTION: Yes central obesity PALPATION: Yes Soft to palpation Extremity: COMMON NORMALS: normal to inspection, full ROM, no clubbing, cyanosis or edema and no pedal edema Neuro: COMMON NORMALS: patient oriented x3, moves all extremities, no focal motor deficits and no sensory deficits noted SENSORIUM/ORIENTATION: Yes alert Psych: COMMON NORMALS: mental status grossly normal, Normal thought process present, cooperative, normal affect and speech normal ATTITUDE: Yes calm SPEECH: Yes normal speech THOUGHT PROCESS: Normal thought process present INSIGHT: Good insight present (Psych) and Fair insight present (Psych) J UDGEMENT: Fair judgement present (Psych) Skin: COMMON NORMALS: no rashes or lesions noted, no jaundice, no petechiae and no mottling GENERAL SKIN EXAM: no rashes or lesions noted Urinary Catheter Management^: 2-way Urethral: Cath Placed During This Visit: yes, but has since been removed by the nurse Reason for Continuing Indwelling Catheter: Decision to DC Catheter Urinary Catheter Date of Insertion: 02/13/20 Urinary Catheter Time of Insertion: 18:21 Date Urinary Catheter Removed: 02/16/20 Time Urinary Catheter Discontinued: 22:20 Discharge Data Data Completed and Pending: Completed Studies During Hospitalization Category Date Time Status CT lumbar spine w o con* [id number] Urgen t Cat Scan 02/13/20 11:52 Completed XR chest 1V brett ble [id number] Stat Exams 02/13/20 11:42 Completed XR ribs LT mn 3V w CXR1V [id number] Stat Exams 02/13/20 12:52 Completed CV echo complete* [id number] Routine Ultrasound 02/16/20 07:00 Completed Pending at discharge Category Date Time Status Blood Culture Sta t Lab 02/13/20 12:07 Results Labs from last 24 hours 02/18/20 02/18/20 02/17/20 07:04 06:14 20:55 WBC 0.9 L* RBC 3.71 L Hgb 10.8 L Hct 33.4 L MCV 90.0 MCH 29.1 MCHC 32.3 RDW 13.2 Plt Count 36 L MPV 10.2 Neut % (Auto) 15.3 Lymph % (Auto) 83.5 [place] % (Auto) 1.2 Eos % (Auto) 0.0 Baso % (Auto) 0.0 Neut # (Auto) 0.1 L* Lymph # (Auto) 0.7 L [place] # (Auto) 0.0 L Eos # (Auto) 0.0 Baso # (Auto) 0.0 Nucleated RBC % (a uto) 0 Nucleated RBCs # 0.0 POC Glucose 162 232 02/17/20 02/17/20 17:09 10:58 WBC RBC Hgb Hct MCV MCH MCHC RDW Plt Count MPV Neut % (Auto) Lymph % (Auto) [place] % (Auto) Eos % (Auto) Baso % (Auto) Neut # (Auto) Lymph # (Auto) [place] # (Auto) Eos # (Auto) Baso # (Auto) Nucleated RBC % (a uto) Nucleated RBCs # POC Glucose 166 171 Vitals: Last Vital Signs Temp 98.7 F 02/18/20 07:47 Pulse 63 02/18/20 07:47 Resp 20 H 02/18/20 07:47 BP 120/63 02/18/20 07:47 Pulse Ox 98 02/18/20 07:47 Discharge Plan Discharge Patient Disposition: Home Health Service Condition: Stable Prescriptions: Continued fluconazole 200 mg Tablet 200 mg PO DAILY RF: 0 acyclovir 400 mg Tablet 400 mg PO BID RF: 0 cefdinir 300 mg Capsule 300 mg PO BID RF: 0 Prilosec OTC 20 mg Tablet,Delayed Release (Dr/Ec) 20 mg PO DAILY RF: 0 Promacta 50 mg Tablet 150 mg PO DAILY RF: 0 multivitamin [Multiple Vitamins] Tablet 1 tab PO DAILY RF: 0 metformin 500 mg Tablet 500 mg PO QPM RF: 0 meclizine 12.5 mg Tablet 12.5 mg PO Q6H PRN (Reason: Nausea) RF: 0 calcitonin (salmon) 200 unit/actuation [place],Non-Aerosol 1 spray INTRANASAL (ALT) DAILY RF: 0 calcium phosphate-vitamin D3 [Citracal-D3 Gummies] 250 mg calcium- 500 unit Tablet,Chewable 1 tab PO DAILY RF: 0 lorazepam 0.5 mg tablet 0.5 mg PO Q4H PRN (Reason: Anxiety) Qty: 60 RF: 0 Discharge Orders: Discharge Order (Routine); Ordered 02/18/20 Ordered By: Meagan Huynh Referrals: [facility] [Outside] (Called [facility] and informed them of your discharge.) Sophia Núñez DO [Primary Care Provider] - 4-7 days (Post hospital discharge follow up. Please call patient with a appointment and time. Clinic closed on Saturdays on this discharge.) Catherine De La Cruz MD [Staff Physician] - 1-3 days (Follow up on pancytopenia, will need labs on follow up visit. Please call patient with appointment and time at home.) Discharge Diet: Cardiac and Diabetic Discharge Activity: Increase activity as tolerated and Use walker/crutches as instructed Patient Instructions: Bradycardia, Myelodysplastic Syndromes (DC), Neutropenia (GEN), Neutropenic Precautions (GEN) Discharge Attestations Time Spent in Discharge Care*: greater than 30 min Specific Discharge Activities: Specific discharge activities: educating patient, discussing with embedded case manager/social workers/dc planners, documenting/other paperwork and evaluating patient/reviewing data Status at Discharge: Cognitive status at discharge: cognitively intact , Behavioral status at discharge: cooperative , Functional status at discharge: uses cane/walker Overall status at discharge: patient is progressing back to baseline Quality Metrics Clinical Quality Measures During this hospital stay, did patient experience: None Coding Level of Care Code Acute [employer] for [place] Fwd Exam Comprehensive Diagnoses Altered mental status R41.0 Altered mental status type: disorientation Pancytopenia D61.818 Sinus bradycardia R00.1 MDS (myelodysplastic syndrome) D46.9 Non-traumatic compression fracture of L3 lumbar vertebra M48.56XS Encounter type: sequela Thrombocytopenia D69.6 Peptic ulcer disease K27.9 Chronic kidney disease, stage II (mild) N18.2 Glucose intolerance E74.39 Arthritis M19.90 MUNA (generalized anxiety disorder) F41.1
[2020-02-18] MEDS: LORazepam 0.5 mg Tablet PO (08:34)
[2020-02-18 08:41] VITALS: BP 120/63; PULSE 63; RESP 20; TEMP 37.1; O2SAT 98
[2020-02-18 10:41] LABS: Glucose Point of Care 191 mg/dL (70-110)
--- NOTE | 2020-02-18 11:03 | DCPLANNER ---
Pg 2 of IM updated and reviewed with pt. No questions, copy provided.
--- NOTE | 2020-02-18 11:13 | DCPLANNER ---
Pg 2 of IM updated and reviewed with pt. No questions, copy provided.
[2020-02-18 11:51] VITALS: BP 120/63; PULSE 63; RESP 20; TEMP 37.1; O2SAT 98
== END 2020-02-18 11:35 | disposition home health service (06) | DRG 812 ==
LOC: ER 15:23 → ICU 16:19 → MEDSURG 02-15 13:10
PROVIDERS: Family Medicine; Internal Medicine Cardiovascular Disease; Admitting Provider Family Medicine; PCP Family Medicine; Visit Provider Family Medicine
DX: D46.9 Myelodysplastic syndrome, unspecified (principal); D61.818 Other pancytopenia; M48.56XS Collapsed vertebra, not elsewhere classified, lumbar region, sequela of fracture; D69.6 Thrombocytopenia, unspecified; K27.9 Peptic ulcer, site unspecified, unspecified as acute or chronic, without hemorrhage or perforation; N18.2 Chronic kidney disease, stage 2 (mild); M19.90 Unspecified osteoarthritis, unspecified site; F41.1 Generalized anxiety disorder; R00.1 Bradycardia, unspecified; E11.22 Type 2 diabetes mellitus with diabetic chronic kidney disease; Z79.84 Long term (current) use of oral hypoglycemic drugs; Z91.81 History of falling; Z79.899 Other long term (current) drug therapy; M81.0 Age-related osteoporosis without current pathological fracture
CPT/HCPCS: 12345; 36415; 36416; 36430; 51702; 71045; 71101; 72131; 80048; 80053; 81001; 82550; 82962; 83036; 84443; 85007; 85025; 85027; 86850; 86900; 86920; 87040; 87086; 93005; 93306; 96372; 96375; 97161; 97530; 99283; J1442; J1815; J2270; J2405; J2765; J2930; J3490; J7050; J8499; P9037; P9040; P9053; Q0169

== ENCOUNTER 2020-02-20 15:35 | Outpatient (CLI) | payer MEDICARE, OTHER, SELFPAY ==
[2020-02-20 16:51] LABS: Hematocrit 31.6 % (37.0-47.0); Hemoglobin 10.2 g/dL (11.5-15.3); Lymphocytes # 0.9 10^3/uL (0.8-4.8); Lymphocytes % 95.5 %; Mean Corpuscular HGB Conc 32.3 g/dL (30.0-36.0); Mean Corpuscular Hemoglobin 28.8 pg (28.0-34.0); Mean Corpuscular Volume 89.3 fL (81-99); Mean Platelet Volume 10.5 fL (7.4-10.4); Neutrophils % 4.5 %; Nucleated Red Blood Cells % 0 %; Red Blood Count 3.54 10^6/uL (4.1-5.3); Red Cell Distribution Width 13.1 % (12.1-15.1)
[2020-02-20 17:00] LABS: Platelet Count 9 10^3/cmm (130-400); White Blood Count 0.9 10^3/uL (4.0-10.0)
[2020-02-20 17:22] LABS: Alanine Aminotransferase 16 U/L (0-33); Albumin Level 2.9 g/dL (3.5-5.2); Alkaline Phosphatase 141 IU/L (35-105); Anion Gap 15.5 (5-19); Aspartate Amino Transferase 12 U/L (0-32); Blood Urea Nitrogen 22 mg/dL (8-23); Calcium 9.3 mg/dL (8.5-10.5); Carbon Dioxide 25 mmol/L (22-29); Chloride 102 mmol/L (98-107); Globulin 3.1 g/dL (1.3-4.6); Glucose 130 mg/dL (65-115); Osmolality Calculated 284 mOsm/kg (285-295); Potassium 4.5 mmol/L (3.5-5.1); Sodium 138 mmol/L (136-145); Total Bilirubin 0.4 mg/dL (0.15-1.2)
== END 2020-02-20 15:36 | disposition home or self-care (01) ==
LOC: ONCMED 16:59
PROVIDERS: PCP Family Medicine; Visit Provider Internal Medicine Hematology & Oncology
DX: D69.3 Immune thrombocytopenic purpura (principal); D64.9 Anemia, unspecified; D69.6 Thrombocytopenia, unspecified
CPT/HCPCS: 36415; 80053; 85025